=== PATIENT | female | born 1980 | race Caucasian/White ===

== ENCOUNTER 2016-12-24 11:53 | Day surgery (SDC) | payer OTHER ==
[2016-12-24] MEDS ORDERED: NAPR220C4 PO (12:50)
[2016-12-24 13:05] LABS: NEG OBC UR NEG; POS OBC UR POS
[2016-12-24] MEDS ORDERED: INSULIN REGULAR 100 UNIT/ML 10ML VIAL. SQ ONE (13:30)
[2016-12-24] MEDS ORDERED: IV RINGERS,LACTATED 1000ML 1,000 ML IV ONE (13:30)
[2016-12-24] MEDS ORDERED: INSULIN ASPART 100 UNIT/ML 10ML VIAL. SQ ONE ×2 (13:45→17:30)
[2016-12-24] MEDS ORDERED: SUCCINYLCHOLINE 200 MG/10 ML VIAL. ONE (15:33)
[2016-12-24] MEDS ORDERED: fentaNYL PF VIAL 100 MCG/2 ML VIAL ONE (15:33)
[2016-12-24] MEDS ORDERED: PROPOFOL 20 ML IV ONE ×2 (15:34→16:06)
[2016-12-24] MEDS ORDERED: LIDOCAINE 2% PF Vial for OR 5 ML VIAL. ONE (15:34)
[2016-12-24] MEDS ORDERED: ONDANSETRON PF 4 MG/2 ML VIAL. ONE (15:34)
[2016-12-24] MEDS ORDERED: FAMOTIDINE 20 MG/2 ML VIAL ONE (15:34)
[2016-12-24] MEDS ORDERED: DEXAMETHASONE SOD PHOS 20 MG/5 ML VIAL. ONE (16:04)
[2016-12-24] MEDS ORDERED: DESFLURANE 16 TO 30 MINUTES. IH ONE (16:06)
--- NOTE | 2016-12-24 16:11 | PDOC ---
BRIEF OPERATIVE NOTE Date: Dec 24, 2016 Pre-Op Diagnosis Right thigh abscess Post-Op Diagnosis Same Procedure Performed I&D Surgeon Celio Anesthesia Type: General Blood Loss 30ml Specimens Obtained Cultures Findings as above Complications None CELIA KARIMI MD Dec 24, 2016 16:11
--- NOTE | 2016-12-24 16:12 | DISCH ---
DISCHARGE INSTRUCTIONS Condition on Discharge Condition on Discharge: Stable Activity After Discharge Activity Instructions for Disc: Activity as tolerated Other activity instructions: Remove packing in 24 hours Diet after Discharge Diet after Discharge: Regular Contacting the DRTerrence after DC Call your doctor for: If your condition worsens Follow-Up Follow up with: Dr Karimi in 1 week CELIA KARIMI MD Dec 24, 2016 16:12
[2016-12-24] MEDS ORDERED: IV RINGERS,LACTATED 1000ML 1,000 ML IV SCH (16:32)
[2016-12-24] MEDS ORDERED: fentaNYL PF VIAL 100 MCG/2 ML VIAL IV PRN ×2 (16:45)
[2016-12-24] MEDS ORDERED: LIDOCAINE 1% 1 ML SYRINGE. ID PRN (16:45)
[2016-12-24] MEDS ORDERED: ONDANSETRON PF 4 MG/2 ML VIAL. IV PRN (16:45)
[2016-12-24] MEDS ORDERED: HYDROmorphone 2 MG/ML VIAL IV PRN (16:45)
[2016-12-24] MEDS ORDERED: MORPHINE SULFATE 2 MG/ML DISP.SYRIN. IV PRN (16:45)
[2016-12-24] MEDS ORDERED: PROCHLORPERAZINE 10 MG/2 ML VIAL. IV PRN (16:45)
[2016-12-24] MEDS ORDERED: SULF1TAB24 PO (17:33)
[2016-12-24] MEDS ORDERED: HYDR-971 PO (17:34)
[2016-12-24 18:15] VITALS: BP 165/97
[2016-12-24] MEDS ORDERED: HYDROcodone/APAP 5/325MG 1 TAB TABLET ONE (18:29)
[2016-12-24] MEDS ORDERED: HYDROcodone/APAP 5/325MG 1 TAB TABLET PO ONE (18:30)
--- NOTE | 2016-12-25 06:44 | OP ---
DATE OF SURGERY: 12/24/2016 PREOPERATIVE DIAGNOSIS: Right thigh abscess. POSTOPERATIVE DIAGNOSIS: Right thigh abscess. PROCEDURE: Incision and drainage of right abscess. SURGEON: Mani Karimi M.D. INDICATIONS: The patient is a 36-year-old morbidly obese female with an abscess of her right thigh. Procedure of incision and drainage was explained to the patient in detail. Risks, benefits were also discussed including bleeding, infection. Alternatives of this procedure were also discussed with the patient who seemed to understand and gave verbal and written consent to have the procedure performed. DESCRIPTION OF PROCEDURE: The patient was taken to the operating room and placed in the supine position. General anesthesia was initiated. Once the patient was asleep and intubated, she was placed in low lithotomy and her groin and right thigh were prepped and draped in usual sterile fashion using Betadine scrub and solution. An area over the abscess was incised with a 10 blade scalpel, was carried down through subcutaneous tissue down to the abscess cavity. There was only about 10 mL of purulent material expressed. It was not very deep. There was one little area that traveled about 2 cm deeper. This all was irrigated with 500 mL of normal saline and then packed with half inch iodoform Nu Gauze. The patient was awakened, extubated in the operating room, taken to recovery in stable condition. All sponge, instrument counts listed as correct. Estimated blood loss 30 mL. MANI KARIMI MD DR: KARLIE/janice JOB#: [id number] / [id number]
== END 2016-12-24 18:45 | disposition home or self-care (01) ==
LOC: SURG 11:53
PROVIDERS: ATTEND Surgery
DX: L02.415 Cutaneous abscess of right lower limb (principal); I10 Essential (primary) hypertension; E66.9 Obesity, unspecified; M19.90 Unspecified osteoarthritis, unspecified site; E11.9 Type 2 diabetes mellitus without complications; Z68.37 Body mass index [BMI] 37.0-37.9, adult; Z86.39 Personal history of other endocrine, nutritional and metabolic disease
CPT/HCPCS: 27301; 81025; 82962; 87205; J0330; J0690; J1100; J1815; J2001; J2405; J2704; J3010; J7120; S0028

== ENCOUNTER 2016-12-27 18:33 | Inpatient (IN) | payer OTHER ==
[~2016-12-27] VITALS: Ht 162.6 cm; Wt 168.0 kg
[~2016-12-27 18:33] MED LIST: HYDR-971 PO; NAPR220C4 PO; SULF1TAB24 PO
[2016-12-27 20:03] LABS: BASO # 0.2 x10^3/uL (0.0-0.2); BASO % 1 % (0-3); EOS % 2 % (0-3); HEMATOCRIT 32.3 % (36.0-47.0); HEMOGLOBIN 10.3 g/dL (12.0-15.5); LYMPH % 27 % (24-48); MEAN CORPUSCULAR HEMOGLOBIN 25 pg (25-35); MEAN CORPUSCULAR HGB CONC 32 g/dL (31-37); MEAN CORPUSCULAR VOLUME 80 fL (79-100); MONO % 6 % (0-9); NEUT % 64 % (31-73); PLATELET COUNT 418 x10^3/uL (140-400); RED BLOOD COUNT 4.04 x10^6/uL (3.50-5.40); RED CELL DISTRIBUTION WIDTH 15.3 % (11.5-14.5); WHITE BLOOD COUNT 14.7 x10^3/uL (4.0-11.0)
[2016-12-27 20:10] LABS: CALCIUM 8.6 mg/dL (8.5-10.1); CREATININE 0.9 mg/dL (0.6-1.0); GFR 70.5; POTASSIUM 3.9 mmol/L (3.5-5.1)
[2016-12-27 20:12] LABS: C-REACTIVE PROTEIN 84.5 mg/L (0-3.3)
[2016-12-27] MEDS ORDERED: IV NORMAL SALINE 500ML BAG 500 ML IV ONE (20:15)
[2016-12-27] MEDS ORDERED: MORPHINE SULFATE 2 MG/ML DISP.SYRIN. IV PRN (20:15)
[2016-12-27] MEDS ORDERED: ONDANSETRON PF 4 MG/2 ML VIAL. IV PRN (20:15)
--- NOTE | 2016-12-27 20:42 | PHYS DOC ---
Past Medical History Past Medical History: Diabetes-Type II, Hypertension Past Surgical History: Other Additional Past Surgical Histo: unknown "female part" surgery; I&D Alcohol Use: Occasionally Drug Use: None Adult General Chief Complaint Chief Complaint: ABSCESS HPI HPI 36-year-old female presenting to the emergency department with a abscess with drainage in the right groin. She recently had Dr. Pickens do an incision and drainage on the patient with packing which was recently removed in a different abscess in a similar location. Intermittent throbbing and without alleviating or exacerbating factors. Review of systems is negative for chest pain shortness of breath fevers chills nausea vomiting. All other review of systems is negative unless otherwise noted in history of present illness. ED course: 36-year-old female presenting to the emergency department with development of an additional abscess near recently drained abscess that was extremely large on physical examination. Given the depth of the abscess and the size of the wound, I deferred drainage to our surgeon who I placed consultation. The patient also got antibiotics and was subsequent admitted the hospital for further evaluation workup and care. Review of Systems Review of Systems SEE ABOVE. Current Medications Current Medications Current Medications Medications (Trade) Dose Ordered Sig/Maya Start Time Stop Time Status Last Admin Dose Admin Morphine Sulfate 2 mg PRN Q2HR PRN 12/27/16 20:15 12/28/16 20:14 Ondansetron HCl (Zofran) 4 mg PRN Q8HRS PRN 12/27/16 20:15 12/28/16 20:14 Sodium Chloride 1,000 ml @ 100 mls/hr Q10H 12/27/16 20:13 12/28/16 20:12 Vancomycin HCl (Vanco Per Pharmacy) 1 each PRN DAILY PRN 12/27/16 20:15 UNV Vancomycin HCl 2 gm/Sodium Chloride 500 ml @ 250 mls/hr 1X ONCE 12/27/16 21:00 12/27/16 22:59 Allergies Allergies Allergies Coded Allergies Type Severity Reaction Last Updated Verified No Known Drug Allergies 12/24/16 No Physical Exam Physical Exam SEE ABOVE Constitutional: Well developed, well nourished, no acute distress, non-toxic appearance. [] HENT: Normocephalic, atraumatic, bilateral external ears normal, oropharynx moist, no oral exudates, nose normal. [] Eyes: PERRLA, EOMI, conjunctiva normal, no discharge. [] Neck: Normal range of motion, no tenderness, supple, no stridor. [] Cardiovascular:Heart rate regular rhythm, no murmur [] Lungs & Thorax: Bilateral breath sounds clear to auscultation [] Abdomen: Bowel sounds normal, soft, no tenderness, no masses, no pulsatile masses. [] Skin: SEE ABOVE. Draining wound in the right groin with large fluctuant mass. Back: No tenderness, no CVA tenderness. [] Extremities: No tenderness, no cyanosis, no clubbing, ROM intact, no edema. [] Neurologic: Alert and oriented X 3, normal motor function, normal sensory function, no focal deficits noted. [] Psychologic: Affect normal, judgement normal, mood normal. [] Current Patient Data Vital Signs Vital Signs Date Time Temp Pulse Resp B/P (MAP) Pulse Ox O2 Delivery O2 Flow Rate FiO2 12/27/16 18:57 98.5 109 20 158/92 (114) 97 Room Air 98.5 Lab Values Laboratory Tests Test 12/27/16 19:15 White Blood Count 14.7 x10^3/uL (4.0-11.0) H Red Blood Count 4.04 x10^6/uL (3.50-5.40) Hemoglobin 10.3 g/dL (12.0-15.5) L Hematocrit 32.3 % (36.0-47.0) L Mean Corpuscular Volume 80 fL (79-100) Mean Corpuscular Hemoglobin 25 pg (25-35) Mean Corpuscular Hemoglobin Concent 32 g/dL (31-37) Red Cell Distribution Width 15.3 % (11.5-14.5) H Platelet Count 418 x10^3/uL (140-400) H Neutrophils (%) (Auto) 64 % (31-73) Lymphocytes (%) (Auto) 27 % (24-48) Monocytes (%) (Auto) 6 % (0-9) Eosinophils (%) (Auto) 2 % (0-3) Basophils (%) (Auto) 1 % (0-3) Neutrophils # (Auto) 9.4 x10^3uL (1.8-7.7) H Lymphocytes # (Auto) 4.0 x10^3/uL (1.0-4.8) Monocytes # (Auto) 0.8 x10^3/uL (0.0-1.1) Eosinophils # (Auto) 0.3 x10^3/uL (0.0-0.7) Basophils # (Auto) 0.2 x10^3/uL (0.0-0.2) Sodium Level 134 mmol/L (136-145) L Potassium Level 3.9 mmol/L (3.5-5.1) Chloride Level 100 mmol/L (98-107) Carbon Dioxide Level 26 mmol/L (21-32) Anion Gap 8 (6-14) Blood Urea Nitrogen 11 mg/dL (7-20) Creatinine 0.9 mg/dL (0.6-1.0) Estimated GFR (Cockcroft-Gault) 70.5 Glucose Level 369 mg/dL (70-99) H Calcium Level 8.6 mg/dL (8.5-10.1) C-Reactive Protein, Quantitative 84.5 mg/L (0-3.3) H Laboratory Tests 12/27/16 19:15 Laboratory Tests 12/27/16 19:15 EKG EKG [] Radiology/Procedures Radiology/Procedures [] Course & Med Decision Making Course & Med Decision Making Pertinent Labs and Imaging studies reviewed. (See chart for details) [] Dragon Disclaimer Dragon Disclaimer This electronic medical record was generated, in whole or in part, using a voice recognition dictation system. Departure Departure Impression: Primary Impression: Abscess of right thigh Disposition: ADMITTED INPATIENT Admitting Physician: Shay Lam Condition: STABLE Referrals: TRACE DONATO (PCP) ADORE MATTHEW MD Dec 27, 2016 20:42
[2016-12-27] MEDS: IV NORMAL SALINE 1000ML BAG 1,000 ML IV SCH (20:44)
[2016-12-27 21:00] VITALS: BP 139/80
[2016-12-27] MEDS ORDERED: VANCOMYCIN 2 GM in IV NORMAL SALINE 500ML BAG 500 ML IV ONE (21:00)
[2016-12-27] MEDS ORDERED: INSULIN REGULAR 100 UNIT/ML 10ML VIAL. IV ONE (21:15)
[2016-12-27 21:30] VITALS: BP 139/80
[2016-12-27] MEDS ORDERED: IPRATRPIUM/ALBUTEROL 0.5/2.5MG 3 ML NEBU. NEB ONE (21:30)
[2016-12-27] MEDS: VANCOMYCIN PER PHARMACY MC PRN (21:37)
[2016-12-27 23:00] VITALS: BP 144/84
[2016-12-27] MEDS ORDERED: DEXTROSE 50% 25 GM / 50ML DISP.SYRIN. IV PRN (23:00)
[2016-12-27] MEDS ORDERED: INSULIN ASPART 300 UNITS/3 ML INSULN.PEN SQ ONE (23:15)
--- NOTE | 2016-12-27 23:48 | HP ---
ADMIT DATE: 12/27/2016 CHIEF COMPLAINT: Thigh abscess. HISTORY OF PRESENT ILLNESS: The patient is a pleasant 36-year-old obese lady, who has a thigh abscess. She actually had drainage few days ago. Now, it is a little more proximal to larger ____ size. I have discussed the case with the ER physician. We are going to start IV antibiotics and consult General Surgery. PAST MEDICAL HISTORY: Hypertension, diabetes, obesity, I and D of the previous thigh abscess some type of "female surgery." ALLERGIES: None. FAMILY HISTORY: Diabetes. SOCIAL HISTORY: She does not drink, smoke or take drugs. MEDICATIONS: Reviewed, please refer to the MRAD. REVIEW OF SYSTEMS: GENERAL: No history of weight change, weakness or fevers. SKIN: No bruising, hair changes or rashes. The patient complains of left thigh abscess. EYES: No blurred, double or loss of vision. NOSE AND THROAT: No history of nosebleeds, hoarseness or sore throat. HEART: No history of palpitations, chest pain or shortness of breath on exertion. LUNGS: Denies cough, hemoptysis, wheezing or shortness of breath. GASTROINTESTINAL: Denies changes in appetite, nausea, vomiting, diarrhea or constipation. GENITOURINARY: No history of frequency, urgency, hesitancy or nocturia. NEUROLOGIC: Denies history of numbness, tingling, tremor or weakness. PSYCHIATRIC: No history of panic, anxiety or depression. ENDOCRINE: No history of heat or cold intolerance, polyuria or polydipsia. EXTREMITIES: Denies muscle weakness, joint pain, pain on walking or stiffness. PHYSICAL EXAMINATION: VITAL SIGNS: Temperature afebrile, pulse 68, respirations 21, blood pressure 113/80. GENERAL: She is alert, cooperative, ____. HEART: Normal S1, S2. LUNGS: Clear. ABDOMEN: Soft, positive bowel sounds, obese. EXTREMITIES: The right thigh has a large abscess with some drains. ENDOCRINE: No thyromegaly. LYMPHATICS: No cervical nodes. HEMATOPOIETIC: No bruising. LABORATORY DATA: White count 15, hemoglobin 10, platelets 418. Electrolytes: Sodium 134, potassium 3.9, chloride 100, bicarbonate 26, BUN 11, creatinine 0.9, glucose 369, C-reactive protein 85. ASSESSMENT AND PLAN: Recurrent thigh abscess with leukocytosis and hyponatremia. The patient has been admitted. We will start IV antibiotics. Consult ID. Consult General Surgery, wound care, PT, OT. Resume home medicines and frequent labs. JENI DIEGO DO DR: ANDERSON/janice JOB#: [id number] / [id number]
[2016-12-28] VITALS (8 sets, daily range): BP systolic 130–157; BP diastolic 72–99
[2016-12-28 03:57] LABS: BASO % 0 % (0-3); EOS % 2 % (0-3); HEMATOCRIT 30.1 % (36.0-47.0); HEMOGLOBIN 9.5 g/dL (12.0-15.5); LYMPH # 3.1 x10^3/uL (1.0-4.8); LYMPH % 24 % (24-48); MEAN CORPUSCULAR HEMOGLOBIN 25 pg (25-35); MEAN CORPUSCULAR HGB CONC 32 g/dL (31-37); MEAN CORPUSCULAR VOLUME 81 fL (79-100); MONO % 7 % (0-9); NEUT % 66 % (31-73); PLATELET COUNT 395 x10^3/uL (140-400); RED BLOOD COUNT 3.73 x10^6/uL (3.50-5.40); RED CELL DISTRIBUTION WIDTH 15.4 % (11.5-14.5); WHITE BLOOD COUNT 12.5 x10^3/uL (4.0-11.0)
[2016-12-28 04:40] LABS: CALCIUM 8.6 mg/dL (8.5-10.1); CREATININE 0.8 mg/dL (0.6-1.0); GFR 80.7; POTASSIUM 3.9 mmol/L (3.5-5.1)
[2016-12-28] MEDS ORDERED: VANCOMYCIN 1.75 GM in IV NORMAL SALINE 500ML BAG 500 ML IV SCH (05:00)
[2016-12-28] MEDS: IV NORMAL SALINE 1000ML BAG 1,000 ML IV SCH ×2 (05:37→12:07)
--- NOTE | 2016-12-28 05:39 | ACF ---
Admission Forms Criteria WOUND COMPLICATIONS Clinical Indications for Inpatient Care (Place 'X' for any and all applicable criteria): Ongoing inpatient care may be indicated for wound complications with ANY ONE of the following (1) (15): [X]I. Infection with ANY ONE of the following(32)(33): [ ]a) Temperature greater than 38.5 C (101.3 F) [ ]b) Evidence of tissue necrosis [ ]c) Erythema diameter expanding around wound despite treatment [ ]d) Mental status changes [ ]e) Dehydration [ ]f) Bacteremia [X]g) Hemodynamic instability [ ]h) Suspected necrotizing fasciitis [ ]i) Rapidly spreading lesions [ ]j) High-risk location (eg, perineum, sternum, orbit) [ ]k) High-risk coexisting clinical condition as indicated by ANY ONE of the following: [ ]i) Poorly controlled diabetes [ ]ii) Cirrhosis [ ]iii) Renal failure [ ]iv) Neutropenia [ ] v) Asplenia [ ]vi) Immunosuppression (eg, AIDS, chronic corticosteroid use) [ ]viii) Other high-risk medical comorbidities [ ] II. Dehiscence requiring frequent monitoring or immediate treatment [ ] III. Hematoma with ANY ONE of the following: [ ]a) Hemodynamic instability or acute anemia due to rapid development of hematoma [ ]b) Neck hematoma causing airway compression [ ]c) Retroperitoneal hematoma [ ]d) Uncontrolled coagulopathy [ ]IV. Seroma with evidence of secondary infection and requirement for IV antibiotics [D](31) [ ]V. Pain that cannot be managed at lower level of care Extended stay beyond goal length of stay for primary condition may be needed until ALL of the following are present(1)(33)(34): [ ]a) Afebrile or fever resolving [ ]b) Hemodynamic stability [ ]c) Pain resolving [ ]d) Wound closed, continuity adequately restored, or wound manageable at lower level of care [ ]e) No drain needed or drain care manageable at lower level of care [ ]f) Wound hematoma or seroma resolving [ ]g) Antibiotics not needed or regimen manageable at lower level of care(38) [ ]h) Dressing care manageable at lower level of care [ ]i) Coagulopathy absent, resolved, or treatable at lower level of care [ ]j) Medical comorbidities resolved or treatable at lower level of care The original [facility] [employer] content created by [employer] has been revised. The portions of the content which have been revised are identified through the use of italic text or in bold, and [employer] Bloom has neither reviewed nor approved the modified material. All other unmodified content is copyright [facility] [employer]. Please see references footnoted in the original [facility] edition 2016 Admission Criteria Met?: Yes MAURA WALKER Dec 28, 2016 05:39
[2016-12-28] MEDS: INSULIN ASPART 300 UNITS/3 ML INSULN.PEN SQ SCH ×3 (08:12→17:08)
--- NOTE | 2016-12-28 08:20 | PDOC2 ---
DILLON CHAND [employer] 12/28/16 0820: CONSULT Date of Consult Date of Consult DATE: 12/28/16 TIME: 08:11 Reason for Consult Reason for Consult: abscess Referring Physician Referring Physician: ER Identification/Chief Complaint Chief Complaint groin abscess Problems: Source Source: Chart review, Patient History of Present Illness Reason for Visit: Underwent I&D of right groin abscess 12/[address] Pickens, she continued to have worsening swelling and foul drainage from wound. Came to ER for evaluation. Past Medical History Cardiovascular: HTN Endocrine: Diabetes Past Surgical History Past Surgical History: Other (I&D, female surgery) Family History Family History: Diabetes Social History No ALCOHOL: rare Drugs: None Lives: Alone Current Medications Current Medications Current Medications Sodium Chloride 500 ml @ 500 mls/hr 1X ONCE IV Last administered on 19:57; Start 12/27/16 at 20:15; Stop 12/27/16 at 21:14; Status DC Vancomycin HCl (Vanco Per Pharmacy) 1 each PRN DAILY PRN MC SEE COMMENTS Last administered on 12/27/16 21:37; Start 12/27/16 at 20:15 Ondansetron HCl (Zofran) 4 mg PRN Q8HRS PRN IV NAUSEA/VOMITING; Start 12/27/16 at 20:15; Stop 12/28/16 at 20:14 Morphine Sulfate 2 mg PRN Q2HR PRN IV PAIN; Start 12/27/16 at 20:15; Stop 12/28 at 20:14 Sodium Chloride 1,000 ml @ 100 mls/hr Q10H IV Last administered on 12/28/16 05:37; Start 12/27/16 at 20:13; Stop 12/28/16 at 20:12 Vancomycin HCl 2 gm/Sodium Chloride 500 ml @ 250 mls/hr 1X ONCE IV Last administered on 12/27/16 20:33; Start 12/27/16 at 21:00; Stop 12/27/16 at 22:59 ; Status DC Insulin Human Regular (NovoLIN R VIAL) 10 unit 1X ONCE IV ; Start 12/27/16 at 21:15; Stop 12/27/16 at 22:58; Status DC Albuterol/ Ipratropium (Duoneb) 3 ml 1X ONCE NEB Last administered on 7/28/ 17at 21:57; Start 12/27/16 at 21:30; Stop 12/27/16 at 21:31; Status DC Vancomycin HCl 1 each 1X ONCE MC ; Start 12/28/16 at 20:30; Stop 12/28/16 at 20 :31 Vancomycin HCl 1.75 gm/Sodium Chloride 500 ml @ 250 mls/hr Q8H IV Last administered on 12/28/16 05:36; Start 12/28/16 at 05:00 Insulin Aspart (NovoLOG) 0-9 UNITS TIDWMEALS SQ ; Start 12/28/16 at 08:00 Dextrose (Dextrose 50%-Water Syringe) 12.5 gm PRN Q15MIN PRN IV SEE COMMENTS; Start 12/27/16 at 23:00 Insulin Aspart (NovoLOG) 10 units 1X ONCE SQ Last administered on 12/27/16 23 :34; Start 12/27/16 at 23:15; Stop 12/27/16 at 23:16; Status DC Active Scripts Active Reported [place] 5-325 Tablet (Acetaminophen/Hydrocodone Bitart) 1 Each Tablet 1-2 Tab PO PRN Q4-6HRS PRN LAST DOSE GIVEN: DATE: TIME: Bactrim Ds Tablet (Sulfamethoxazole/Trimethoprim) 1 Each Tablet 1 Tab PO BID Aleve (Naproxen Sodium) 220 Mg Capsule 440 Mg PO BID Allergies Allergies: Coded Allergies: No Known Drug Allergies (Unverified , 12/24/16) ROS General: No: Chills, Other (fevers) PSYCHOLOGICAL ROS: No: Anxiety, Depression Eyes: No Blurry vision, No Double vision HEENT: No: Heacaches, Sore Throat Hematological and Lymphatic: No: Bleeding Problems, Blood Clots Respiratory: No: Cough, Shortness of breath Cardiovascular: No Chest Pain, No Palpitations Gastrointestinal: No Nausea, No Vomiting Genitourinary: No Dysuria, No Hematuria Musculoskeletal: No Joint Pain, No Joint Swelling Neurological: No Impaired Coord/balance, No Numbness/Tingling Skin: Yes Other (see hpi) Physical Exam General: Alert, Oriented X3, Cooperative, No acute distress HEENT: PERRLA, Mucous membr. moist/pink Lungs: Clear to auscultation, Normal air movement Heart: Normal S1, Normal S2, No murmurs, Other (tachy) Abdomen: Soft, No tenderness Extremities: No clubbing, No cyanosis Skin: Other (Right thigh with induration, odor, large central bulla with fluctaunce, , some purulent drainage, early skin changes to central area for necrosis ) Neuro: Normal speech, Sensation intact Psych/Mental Status: Mental status NL, Mood NL MUSCULOSKELETAL: No deformity, No swelling Vitals VITALS Vital Signs Date Time Temp Pulse Resp B/P (MAP) Pulse Ox O2 Delivery O2 Flow Rate FiO2 12/28/16 07:27 98.5 92 20 156/99 (118) 97 Room Air 98.5 Labs Labs Laboratory Tests Test 12/27/16 19:15 12/28/16 03:05 12/28/16 07:10 White Blood Count 14.7 x10^3/uL (4.0-11.0) 12.5 x10^3/uL (4.0-11.0) Red Blood Count 4.04 x10^6/uL (3.50-5.40) 3.73 x10^6/uL (3.50-5.40) Hemoglobin 10.3 g/dL (12.0-15.5) 9.5 g/dL (12.0-15.5) Hematocrit 32.3 % (36.0-47.0) 30.1 % (36.0-47.0) Mean Corpuscular Volume 80 fL (79-100) 81 fL (79-100) Mean Corpuscular Hemoglobin 25 pg (25-35) 25 pg (25-35) Mean Corpuscular Hemoglobin Concent 32 g/dL (31-37) 32 g/dL (31-37) Red Cell Distribution Width 15.3 % (11.5-14.5) 15.4 % (11.5-14.5) Platelet Count 418 x10^3/uL (140-400) 395 x10^3/uL (140-400) Neutrophils (%) (Auto) 64 % (31-73) 66 % (31-73) Lymphocytes (%) (Auto) 27 % (24-48) 24 % (24-48) Monocytes (%) (Auto) 6 % (0-9) 7 % (0-9) Eosinophils (%) (Auto) 2 % (0-3) 2 % (0-3) Basophils (%) (Auto) 1 % (0-3) 0 % (0-3) Neutrophils # (Auto) 9.4 x10^3uL (1.8-7.7) 8.3 x10^3uL (1.8-7.7) Lymphocytes # (Auto) 4.0 x10^3/uL (1.0-4.8) 3.1 x10^3/uL (1.0-4.8) Monocytes # (Auto) 0.8 x10^3/uL (0.0-1.1) 0.9 x10^3/uL (0.0-1.1) Eosinophils # (Auto) 0.3 x10^3/uL (0.0-0.7) 0.2 x10^3/uL (0.0-0.7) Basophils # (Auto) 0.2 x10^3/uL (0.0-0.2) 0.0 x10^3/uL (0.0-0.2) Erythrocyte Sedimentation Rate 70 (0-25) Sodium Level 134 mmol/L (136-145) 137 mmol/L (136-145) Potassium Level 3.9 mmol/L (3.5-5.1) 3.9 mmol/L (3.5-5.1) Chloride Level 100 mmol/L (98-107) 101 mmol/L (98-107) Carbon Dioxide Level 26 mmol/L (21-32) 26 mmol/L (21-32) Anion Gap 8 (6-14) 10 (6-14) Blood Urea Nitrogen 11 mg/dL (7-20) 9 mg/dL (7-20) Creatinine 0.9 mg/dL (0.6-1.0) 0.8 mg/dL (0.6-1.0) Estimated GFR (Cockcroft-Gault) 70.5 80.7 Glucose Level 369 mg/dL (70-99) 361 mg/dL (70-99) Calcium Level 8.6 mg/dL (8.5-10.1) 8.6 mg/dL (8.5-10.1) C-Reactive Protein, Quantitative 84.5 mg/L (0-3.3) Glucose (Fingerstick) 328 mg/dL (70-99) Laboratory Tests Test 12/27/16 19:15 12/28/16 03:05 12/28/16 07:10 White Blood Count 14.7 x10^3/uL (4.0-11.0) 12.5 x10^3/uL (4.0-11.0) Red Blood Count 4.04 x10^6/uL (3.50-5.40) 3.73 x10^6/uL (3.50-5.40) Hemoglobin 10.3 g/dL (12.0-15.5) 9.5 g/dL (12.0-15.5) Hematocrit 32.3 % (36.0-47.0) 30.1 % (36.0-47.0) Mean Corpuscular Volume 80 fL (79-100) 81 fL (79-100) Mean Corpuscular Hemoglobin 25 pg (25-35) 25 pg (25-35) Mean Corpuscular Hemoglobin Concent 32 g/dL (31-37) 32 g/dL (31-37) Red Cell Distribution Width 15.3 % (11.5-14.5) 15.4 % (11.5-14.5) Platelet Count 418 x10^3/uL (140-400) 395 x10^3/uL (140-400) Neutrophils (%) (Auto) 64 % (31-73) 66 % (31-73) Lymphocytes (%) (Auto) 27 % (24-48) 24 % (24-48) Monocytes (%) (Auto) 6 % (0-9) 7 % (0-9) Eosinophils (%) (Auto) 2 % (0-3) 2 % (0-3) Basophils (%) (Auto) 1 % (0-3) 0 % (0-3) Neutrophils # (Auto) 9.4 x10^3uL (1.8-7.7) 8.3 x10^3uL (1.8-7.7) Lymphocytes # (Auto) 4.0 x10^3/uL (1.0-4.8) 3.1 x10^3/uL (1.0-4.8) Monocytes # (Auto) 0.8 x10^3/uL (0.0-1.1) 0.9 x10^3/uL (0.0-1.1) Eosinophils # (Auto) 0.3 x10^3/uL (0.0-0.7) 0.2 x10^3/uL (0.0-0.7) Basophils # (Auto) 0.2 x10^3/uL (0.0-0.2) 0.0 x10^3/uL (0.0-0.2) Erythrocyte Sedimentation Rate 70 (0-25) Sodium Level 134 mmol/L (136-145) 137 mmol/L (136-145) Potassium Level 3.9 mmol/L (3.5-5.1) 3.9 mmol/L (3.5-5.1) Chloride Level 100 mmol/L (98-107) 101 mmol/L (98-107) Carbon Dioxide Level 26 mmol/L (21-32) 26 mmol/L (21-32) Anion Gap 8 (6-14) 10 (6-14) Blood Urea Nitrogen 11 mg/dL (7-20) 9 mg/dL (7-20) Creatinine 0.9 mg/dL (0.6-1.0) 0.8 mg/dL (0.6-1.0) Estimated GFR (Cockcroft-Gault) 70.5 80.7 Glucose Level 369 mg/dL (70-99) 361 mg/dL (70-99) Calcium Level 8.6 mg/dL (8.5-10.1) 8.6 mg/dL (8.5-10.1) C-Reactive Protein, Quantitative 84.5 mg/L (0-3.3) Glucose (Fingerstick) 328 mg/dL (70-99) Assessment/Plan Assessment/Plan large abscess to right groin, s/p I&D 4 days DM, HTN morbid obesity with BMI 61.8 continue IV abx NPO, plan I&D today with SHANNAN Vega MD 12/28/16 9427: CONSULT Allergies Allergies: Coded Allergies: No Known Drug Allergies (Unverified , 12/24/16) Assessment/Plan Assessment/Plan Pt seen and examined. Agree with Ms. Chand's note Pt with recurrent large necrotic abscess TO OR for I and D R/B/A d/w pt complicated by severe obesity Thanks for consult! DILLON CHAND APRN Dec 28, 2016 08:20 SHANNAN FERRIS MD Dec 28, 2016 18:55
[2016-12-28] MEDS: VANCOMYCIN PER PHARMACY MC PRN (08:57)
--- NOTE | 2016-12-28 12:05 | PDOC ---
Infectious Disease Note Vital Sign Vital Signs Vital Signs Date Time Temp Pulse Resp B/P (MAP) Pulse Ox O2 Delivery O2 Flow Rate FiO2 12/28/16 11:00 98.2 90 20 145/82 (103) 97 Room Air 98.2 Labs Lab Laboratory Tests Test 12/27/16 19:15 12/28/16 03:05 12/28/16 07:10 12/28/16 10:19 White Blood Count 14.7 x10^3/uL (4.0-11.0) 12.5 x10^3/uL (4.0-11.0) Red Blood Count 4.04 x10^6/uL (3.50-5.40) 3.73 x10^6/uL (3.50-5.40) Hemoglobin 10.3 g/dL (12.0-15.5) 9.5 g/dL (12.0-15.5) Hematocrit 32.3 % (36.0-47.0) 30.1 % (36.0-47.0) Mean Corpuscular Volume 80 fL (79-100) 81 fL (79-100) Mean Corpuscular Hemoglobin 25 pg (25-35) 25 pg (25-35) Mean Corpuscular Hemoglobin Concent 32 g/dL (31-37) 32 g/dL (31-37) Red Cell Distribution Width 15.3 % (11.5-14.5) 15.4 % (11.5-14.5) Platelet Count 418 x10^3/uL (140-400) 395 x10^3/uL (140-400) Neutrophils (%) (Auto) 64 % (31-73) 66 % (31-73) Lymphocytes (%) (Auto) 27 % (24-48) 24 % (24-48) Monocytes (%) (Auto) 6 % (0-9) 7 % (0-9) Eosinophils (%) (Auto) 2 % (0-3) 2 % (0-3) Basophils (%) (Auto) 1 % (0-3) 0 % (0-3) Neutrophils # (Auto) 9.4 x10^3uL (1.8-7.7) 8.3 x10^3uL (1.8-7.7) Lymphocytes # (Auto) 4.0 x10^3/uL (1.0-4.8) 3.1 x10^3/uL (1.0-4.8) Monocytes # (Auto) 0.8 x10^3/uL (0.0-1.1) 0.9 x10^3/uL (0.0-1.1) Eosinophils # (Auto) 0.3 x10^3/uL (0.0-0.7) 0.2 x10^3/uL (0.0-0.7) Basophils # (Auto) 0.2 x10^3/uL (0.0-0.2) 0.0 x10^3/uL (0.0-0.2) Erythrocyte Sedimentation Rate 70 (0-25) Sodium Level 134 mmol/L (136-145) 137 mmol/L (136-145) Potassium Level 3.9 mmol/L (3.5-5.1) 3.9 mmol/L (3.5-5.1) Chloride Level 100 mmol/L (98-107) 101 mmol/L (98-107) Carbon Dioxide Level 26 mmol/L (21-32) 26 mmol/L (21-32) Anion Gap 8 (6-14) 10 (6-14) Blood Urea Nitrogen 11 mg/dL (7-20) 9 mg/dL (7-20) Creatinine 0.9 mg/dL (0.6-1.0) 0.8 mg/dL (0.6-1.0) Estimated GFR (Cockcroft-Gault) 70.5 80.7 Glucose Level 369 mg/dL (70-99) 361 mg/dL (70-99) Calcium Level 8.6 mg/dL (8.5-10.1) 8.6 mg/dL (8.5-10.1) C-Reactive Protein, Quantitative 84.5 mg/L (0-3.3) Glucose (Fingerstick) 328 mg/dL (70-99) 298 mg/dL (70-99) Objective Assessment Worsening abscess right groin/thigh area -s/p I and D on 12/24. group B Strep, anaerobic cx still pending. Leukocytosis -h/o pre-op steroids on 12/24 Diabetes Super morbid obesity, BMI 62 Plan Plan of Care vanc will broaden antibiotics to cover for anaerobes as well I and D scheduled for later today, intra-op cultures would be appreciated Monitor labs Thank you [id number].. [id number] Attending Co-Sign The patient was seen and interviewed as well as examined at the bedside. The chart was reviewed. The case was discussed. Agree with the plan of care. KATERINA BARCENAS APRN Dec 28, 2016 12:05 LEFTY JEWELL MD Dec 28, 2016 12:32
[2016-12-28] MEDS: PIPERACILLIN/TAZOBACTAM 3.375 GM in IV NORMAL SALINE 50ML 50 ML IV SCH ×3 (12:07→23:29)
--- NOTE | 2016-12-28 13:36 | PDOC ---
PROGRESS NOTES Chief Complaint Chief Complaint Abscess of right thigh History of Present Illness History of Present Illness Pt resting in bed NAD Complains of hunger pains but otherwise content Vitals Vitals Vital Signs Date Time Temp Pulse Resp B/P (MAP) Pulse Ox O2 Delivery O2 Flow Rate FiO2 12/28/16 11:00 98.2 90 20 145/82 (103) 97 Room Air 98.2 Physical Exam General: Alert, Oriented X3, Cooperative, No acute distress Heart: Regular rate, Normal S1, Normal S2, No murmurs Lungs: Clear, Other (No RRW) Abdomen: Soft, No tenderness Extremities: No clubbing, No cyanosis Skin: No rashes, Other (Right thigh with induration, odor, large central bulla with fluctaunce, , ssome purulent drainage, early skin changes to central area for necrosis ) Labs LABS Laboratory Tests Test 12/27/16 19:15 12/28/16 03:05 12/28/16 07:10 12/28/16 10:19 White Blood Count 14.7 x10^3/uL (4.0-11.0) 12.5 x10^3/uL (4.0-11.0) Red Blood Count 4.04 x10^6/uL (3.50-5.40) 3.73 x10^6/uL (3.50-5.40) Hemoglobin 10.3 g/dL (12.0-15.5) 9.5 g/dL (12.0-15.5) Hematocrit 32.3 % (36.0-47.0) 30.1 % (36.0-47.0) Mean Corpuscular Volume 80 fL (79-100) 81 fL (79-100) Mean Corpuscular Hemoglobin 25 pg (25-35) 25 pg (25-35) Mean Corpuscular Hemoglobin Concent 32 g/dL (31-37) 32 g/dL (31-37) Red Cell Distribution Width 15.3 % (11.5-14.5) 15.4 % (11.5-14.5) Platelet Count 418 x10^3/uL (140-400) 395 x10^3/uL (140-400) Neutrophils (%) (Auto) 64 % (31-73) 66 % (31-73) Lymphocytes (%) (Auto) 27 % (24-48) 24 % (24-48) Monocytes (%) (Auto) 6 % (0-9) 7 % (0-9) Eosinophils (%) (Auto) 2 % (0-3) 2 % (0-3) Basophils (%) (Auto) 1 % (0-3) 0 % (0-3) Neutrophils # (Auto) 9.4 x10^3uL (1.8-7.7) 8.3 x10^3uL (1.8-7.7) Lymphocytes # (Auto) 4.0 x10^3/uL (1.0-4.8) 3.1 x10^3/uL (1.0-4.8) Monocytes # (Auto) 0.8 x10^3/uL (0.0-1.1) 0.9 x10^3/uL (0.0-1.1) Eosinophils # (Auto) 0.3 x10^3/uL (0.0-0.7) 0.2 x10^3/uL (0.0-0.7) Basophils # (Auto) 0.2 x10^3/uL (0.0-0.2) 0.0 x10^3/uL (0.0-0.2) Erythrocyte Sedimentation Rate 70 (0-25) Sodium Level 134 mmol/L (136-145) 137 mmol/L (136-145) Potassium Level 3.9 mmol/L (3.5-5.1) 3.9 mmol/L (3.5-5.1) Chloride Level 100 mmol/L (98-107) 101 mmol/L (98-107) Carbon Dioxide Level 26 mmol/L (21-32) 26 mmol/L (21-32) Anion Gap 8 (6-14) 10 (6-14) Blood Urea Nitrogen 11 mg/dL (7-20) 9 mg/dL (7-20) Creatinine 0.9 mg/dL (0.6-1.0) 0.8 mg/dL (0.6-1.0) Estimated GFR (Cockcroft-Gault) 70.5 80.7 Glucose Level 369 mg/dL (70-99) 361 mg/dL (70-99) Calcium Level 8.6 mg/dL (8.5-10.1) 8.6 mg/dL (8.5-10.1) C-Reactive Protein, Quantitative 84.5 mg/L (0-3.3) Glucose (Fingerstick) 328 mg/dL (70-99) 298 mg/dL (70-99) Review of Systems Review of Systems Weakness Assessment and Plan Assessmemt and Plan Abscess of right thigh Plan: Awaiting surgery input Recheck labs PT/OT Continue home meds Continue wound care Continue antibiotics Problems: Comment Review of Relevant I have reviewed the following items mauricio (where applicable) has been applied. Labs Laboratory Tests Test 12/27/16 19:15 12/28/16 03:05 12/28/16 07:10 12/28/16 10:19 White Blood Count 14.7 x10^3/uL (4.0-11.0) 12.5 x10^3/uL (4.0-11.0) Red Blood Count 4.04 x10^6/uL (3.50-5.40) 3.73 x10^6/uL (3.50-5.40) Hemoglobin 10.3 g/dL (12.0-15.5) 9.5 g/dL (12.0-15.5) Hematocrit 32.3 % (36.0-47.0) 30.1 % (36.0-47.0) Mean Corpuscular Volume 80 fL (79-100) 81 fL (79-100) Mean Corpuscular Hemoglobin 25 pg (25-35) 25 pg (25-35) Mean Corpuscular Hemoglobin Concent 32 g/dL (31-37) 32 g/dL (31-37) Red Cell Distribution Width 15.3 % (11.5-14.5) 15.4 % (11.5-14.5) Platelet Count 418 x10^3/uL (140-400) 395 x10^3/uL (140-400) Neutrophils (%) (Auto) 64 % (31-73) 66 % (31-73) Lymphocytes (%) (Auto) 27 % (24-48) 24 % (24-48) Monocytes (%) (Auto) 6 % (0-9) 7 % (0-9) Eosinophils (%) (Auto) 2 % (0-3) 2 % (0-3) Basophils (%) (Auto) 1 % (0-3) 0 % (0-3) Neutrophils # (Auto) 9.4 x10^3uL (1.8-7.7) 8.3 x10^3uL (1.8-7.7) Lymphocytes # (Auto) 4.0 x10^3/uL (1.0-4.8) 3.1 x10^3/uL (1.0-4.8) Monocytes # (Auto) 0.8 x10^3/uL (0.0-1.1) 0.9 x10^3/uL (0.0-1.1) Eosinophils # (Auto) 0.3 x10^3/uL (0.0-0.7) 0.2 x10^3/uL (0.0-0.7) Basophils # (Auto) 0.2 x10^3/uL (0.0-0.2) 0.0 x10^3/uL (0.0-0.2) Erythrocyte Sedimentation Rate 70 (0-25) Sodium Level 134 mmol/L (136-145) 137 mmol/L (136-145) Potassium Level 3.9 mmol/L (3.5-5.1) 3.9 mmol/L (3.5-5.1) Chloride Level 100 mmol/L (98-107) 101 mmol/L (98-107) Carbon Dioxide Level 26 mmol/L (21-32) 26 mmol/L (21-32) Anion Gap 8 (6-14) 10 (6-14) Blood Urea Nitrogen 11 mg/dL (7-20) 9 mg/dL (7-20) Creatinine 0.9 mg/dL (0.6-1.0) 0.8 mg/dL (0.6-1.0) Estimated GFR (Cockcroft-Gault) 70.5 80.7 Glucose Level 369 mg/dL (70-99) 361 mg/dL (70-99) Calcium Level 8.6 mg/dL (8.5-10.1) 8.6 mg/dL (8.5-10.1) C-Reactive Protein, Quantitative 84.5 mg/L (0-3.3) Glucose (Fingerstick) 328 mg/dL (70-99) 298 mg/dL (70-99) Laboratory Tests Test 7/28/17 19:15 12/28/16 03:05 12/28/16 07:10 12/28/16 10:19 White Blood Count 14.7 x10^3/uL (4.0-11.0) 12.5 x10^3/uL (4.0-11.0) Red Blood Count 4.04 x10^6/uL (3.50-5.40) 3.73 x10^6/uL (3.50-5.40) Hemoglobin 10.3 g/dL (12.0-15.5) 9.5 g/dL (12.0-15.5) Hematocrit 32.3 % (36.0-47.0) 30.1 % (36.0-47.0) Mean Corpuscular Volume 80 fL (79-100) 81 fL (79-100) Mean Corpuscular Hemoglobin 25 pg (25-35) 25 pg (25-35) Mean Corpuscular Hemoglobin Concent 32 g/dL (31-37) 32 g/dL (31-37) Red Cell Distribution Width 15.3 % (11.5-14.5) 15.4 % (11.5-14.5) Platelet Count 418 x10^3/uL (140-400) 395 x10^3/uL (140-400) Neutrophils (%) (Auto) 64 % (31-73) 66 % (31-73) Lymphocytes (%) (Auto) 27 % (24-48) 24 % (24-48) Monocytes (%) (Auto) 6 % (0-9) 7 % (0-9) Eosinophils (%) (Auto) 2 % (0-3) 2 % (0-3) Basophils (%) (Auto) 1 % (0-3) 0 % (0-3) Neutrophils # (Auto) 9.4 x10^3uL (1.8-7.7) 8.3 x10^3uL (1.8-7.7) Lymphocytes # (Auto) 4.0 x10^3/uL (1.0-4.8) 3.1 x10^3/uL (1.0-4.8) Monocytes # (Auto) 0.8 x10^3/uL (0.0-1.1) 0.9 x10^3/uL (0.0-1.1) Eosinophils # (Auto) 0.3 x10^3/uL (0.0-0.7) 0.2 x10^3/uL (0.0-0.7) Basophils # (Auto) 0.2 x10^3/uL (0.0-0.2) 0.0 x10^3/uL (0.0-0.2) Erythrocyte Sedimentation Rate 70 (0-25) Sodium Level 134 mmol/L (136-145) 137 mmol/L (136-145) Potassium Level 3.9 mmol/L (3.5-5.1) 3.9 mmol/L (3.5-5.1) Chloride Level 100 mmol/L (98-107) 101 mmol/L (98-107) Carbon Dioxide Level 26 mmol/L (21-32) 26 mmol/L (21-32) Anion Gap 8 (6-14) 10 (6-14) Blood Urea Nitrogen 11 mg/dL (7-20) 9 mg/dL (7-20) Creatinine 0.9 mg/dL (0.6-1.0) 0.8 mg/dL (0.6-1.0) Estimated GFR (Cockcroft-Gault) 70.5 80.7 Glucose Level 369 mg/dL (70-99) 361 mg/dL (70-99) Calcium Level 8.6 mg/dL (8.5-10.1) 8.6 mg/dL (8.5-10.1) C-Reactive Protein, Quantitative 84.5 mg/L (0-3.3) Glucose (Fingerstick) 328 mg/dL (70-99) 298 mg/dL (70-99) Medications Current Medications Sodium Chloride 500 ml @ 500 mls/hr 1X ONCE IV Last administered on 19:57; Start 12/27/16 at 20:15; Stop 12/27/16 at 21:14; Status DC Vancomycin HCl (Vanco Per Pharmacy) 1 each PRN DAILY PRN MC SEE COMMENTS Last administered on 12/28/16 08:57; Start 12/27/16 at 20:15; Stop 12/28/16 at 12:34 ; Status DC Ondansetron HCl (Zofran) 4 mg PRN Q8HRS PRN IV NAUSEA/VOMITING; Start 12/27/16 at 20:15; Stop 12/28/16 at 20:14 Morphine Sulfate 2 mg PRN Q2HR PRN IV PAIN; Start 12/27/16 at 20:15; Stop 12/28 at 20:14 Sodium Chloride 1,000 ml @ 100 mls/hr Q10H IV Last administered on 12/28/16 12:07; Start 12/27/16 at 20:13; Stop 12/28/16 at 20:12 Vancomycin HCl 2 gm/Sodium Chloride 500 ml @ 250 mls/hr 1X ONCE IV Last administered on 12/27/16 20:33; Start 12/27/16 at 21:00; Stop 12/27/16 at 22:59 ; Status DC Insulin Human Regular (NovoLIN R VIAL) 10 unit 1X ONCE IV ; Start 12/27/16 at 21:15; Stop 12/27/16 at 22:58; Status DC Albuterol/ Ipratropium (Duoneb) 3 ml 1X ONCE NEB Last administered on 21:57; Start 12/27/16 at 21:30; Stop 12/27/16 at 21:31; Status DC Vancomycin HCl 1 each 1X ONCE MC ; Start 12/28/16 at 20:30; Stop 12/28/16 at 20 :30; Status DC Vancomycin HCl 1.75 gm/Sodium Chloride 500 ml @ 250 mls/hr Q8H IV Last administered on 12/28/16 05:36; Start 12/28/16 at 05:00; Stop 12/28/16 at 12:33 ; Status DC Insulin Aspart (NovoLOG) 0-9 UNITS TIDWMEALS SQ Last administered on 12/28/16 12:13; Start 12/28/16 at 08:00 Dextrose (Dextrose 50%-Water Syringe) 12.5 gm PRN Q15MIN PRN IV SEE COMMENTS; Start 12/27/16 at 23:00 Insulin Aspart (NovoLOG) 10 units 1X ONCE SQ Last administered on 12/27/16 23 :34; Start 12/27/16 at 23:15; Stop 12/27/16 at 23:16; Status DC Piperacillin Sod/ Tazobactam Sod 3.375 gm/Sodium Chloride 50 ml @ 100 mls/hr Q6HRS IV Last administered on 12/28/16t 12:07; Start 12/28/16 at 12:00 Active Scripts Active Reported Melba 5-325 Tablet (Acetaminophen/Hydrocodone Bitart) 1 Each Tablet 1-2 Tab PO PRN Q4-6HRS PRN LAST DOSE GIVEN: DATE: TIME: Bactrim Ds Tablet (Sulfamethoxazole/Trimethoprim) 1 Each Tablet 1 Tab PO BID Aleve (Naproxen Sodium) 220 Mg Capsule 440 Mg PO BID Vitals/I & O Vital Sign - Last 24 Hours 12/27/16 12/27/16 12/27/16 12/27/16 18:57 20:00 20:16 20:56 Temp 98.5 98.5 Pulse 109 102 100 103 Resp 20 20 20 18 B/P (MAP) 158/92 (114) 173/85 (114) 172/82 (112) 176/80 (112) Pulse Ox 97 98 98 97 O2 Delivery Room Air Room Air Room Air Room Air 12/27/16 12/27/16 12/27/16 12/27/16 21:00 21:30 21:58 23:00 Temp 98.3 98.3 98.4 98.3 98.3 98.4 Pulse 104 104 107 Resp 20 20 20 B/P (MAP) 139/80 (99) 139/80 (99) 144/84 (104) Pulse Ox 94 94 96 95 O2 Delivery Room Air Room Air Room Air Room Air 12/28/16 12/28/16 12/28/16 12/28/16 01:22 03:30 07:27 08:00 Temp 98.5 98.5 Pulse 92 Resp 20 B/P (MAP) 156/99 (118) Pulse Ox 97 O2 Delivery Room Air Room Air Room Air Room Air 12/28/16 11:00 Temp 98.2 98.2 Pulse 90 Resp 20 B/P (MAP) 145/82 (103) Pulse Ox 97 O2 Delivery Room Air Intake and Output 12/27/16 12/27/16 12/28/16 15:00 23:00 07:00 Intake Total 500 ml 1440 ml Output Total 1 ml Balance 500 ml 1439 ml JENI DIEGO III DO Dec 28, 2016 13:36
[2016-12-28] MEDS ORDERED: LIDOCAINE 2% PF Vial for OR 5 ML VIAL. ONE (18:37)
[2016-12-28] MEDS ORDERED: DEXAMETHASONE SOD PHOS 20 MG/5 ML VIAL. ONE (18:37)
[2016-12-28] MEDS ORDERED: fentaNYL PF VIAL 100 MCG/2 ML VIAL ONE (18:37)
[2016-12-28] MEDS ORDERED: ONDANSETRON PF 4 MG/2 ML VIAL. ONE (18:37)
[2016-12-28] MEDS ORDERED: SEVOFLURANE 16 TO 30 MINUTES. IH ONE (18:37)
[2016-12-28] MEDS ORDERED: PROPOFOL 20 ML IV ONE (18:37)
[2016-12-28] MEDS ORDERED: HYDROmorphone 2 MG/ML VIAL IV PRN (19:00)
[2016-12-28] MEDS ORDERED: fentaNYL PF VIAL 100 MCG/2 ML VIAL IV PRN (19:00)
[2016-12-28] MEDS ORDERED: ONDANSETRON PF 4 MG/2 ML VIAL. IV PRN ×2 (19:00→19:30)
[2016-12-28] MEDS ORDERED: LIDOCAINE 1% 1 ML SYRINGE. ID PRN (19:00)
[2016-12-28] MEDS ORDERED: IV RINGERS,LACTATED 1000ML 1,000 ML IV SCH (19:00)
[2016-12-28] MEDS ORDERED: PROCHLORPERAZINE 10 MG/2 ML VIAL. IV PRN (19:00)
[2016-12-28] MEDS ORDERED: 0.9 % SODIUM CHLORIDE 10 ML DISP.SYRIN. IV PRN (19:30)
--- NOTE | 2016-12-28 19:38 | PDOC4 ---
OPERATIVE NOTE Date: Date: Dec 28, 2016 Pre-Op Diagnosis: Right groin abscess Post-Op Diagnosis: same Procedure Performed: Excisional debridement of right groin and incision and drainage Surgeon: Tristan Ferris Anesthesia Type: General Blood Loss: minimal Specimans Obtained: right groin necrotic skin Findings: Necrotic right skin 3 cm diameter with large underlying, foul smelling abscess Complications: none Operative Note: After obtaining informed consent, patient was induced under anesthetic. Patient was prepped in the usual fashion over the right groin area. Previous area of I and D with foul smelling purulent drainage. 3 cm area of necrotic skin tissue noted laterally. An excisional debridement was performed of this area using cautery. This was sent to pathology. Cultures were obtained. This went down to the adipose tissue of the thigh. Large amount of necrotic tissue was debrided. A janet drain was brought through the previous wound and the excised area and secured with a 3 0 nylon. The wound was packed with iodoform gauze. Sterile dressing was placed over this. Patient tolerated procedure well and sent to PACU in a stable condition. All counts were correct, there were no immediate complications. TRISTAN FERRIS MD Dec 28, 2016 19:38
[2016-12-28] MEDS ORDERED: INSULIN ASPART 100 UNIT/ML 10ML VIAL. SQ ONE ×2 (19:39→19:45)
[2016-12-28] MEDS ORDERED: MORPHINE SULFATE 2 MG/ML DISP.SYRIN. ONE (19:39)
[2016-12-28] MEDS: MORPHINE SULFATE 2 MG/ML DISP.SYRIN. IV PRN ×2 (19:40→19:50)
[2016-12-28] MEDS: fentaNYL PF VIAL 100 MCG/2 ML VIAL IV PRN ×2 (19:50→20:04)
--- NOTE | 2016-12-28 20:34 | CONS ---
DATE OF CONSULTATION: 12/28/2016 REFERRING PHYSICIAN: Dr. Lam. REASON FOR CONSULTATION: Right groin abscess. HISTORY OF PRESENT ILLNESS: This patient is a 36-year-old -[place] female with a body mass index of 61.8 and a 2-year history of diabetes who presented with worsening right groin/thigh swelling, pain, drainage and odor. She was previously hospitalized on the for abscess, status post I and D. At that time, a culture grew beta hemolytic Streptococcus group B with anaerobic cultures still pending. She was discharged home on Bactrim. The patient is scheduled to return to the OR later today for additional debridement. PAST MEDICAL HISTORY: Diabetes mellitus, morbid obesity, asthma, arthritis and hypertension. PAST SURGICAL HISTORY: Recent I and D of right groin abscess, 12/24/2016. 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 FAMILY HISTORY: Positive for diabetes. SOCIAL HISTORY: The patient is employed. She is single. Nonsmoker. ALLERGIES: No known drug allergies. MEDICATIONS: Vancomycin. Other medications are available and have been reviewed on the JUL. Also of note, she did receive a dose of dexamethasone preop on 12/24/2016 and home medications include Bactrim. REVIEW OF SYSTEMS: The patient denies fevers, chills or sweats. Denies headache, nasal/sinus congestion or sore throat. Denies cough, shortness of air or wheezing. Denies chest pain, palpitations or swelling. Denies nausea or vomiting. She had loose stool earlier today. Denies cramping or bloating. Denies a rash. PHYSICAL EXAMINATION: GENERAL: An overweight -[place] female lying in bed in no apparent distress. VITAL SIGNS: Afebrile. Stable. HEENT: Oral cavity, pharynx is pink and moist. LUNGS: Clear. HEART: Normal S1, S2. ABDOMEN: Obese, bowel sounds are present, soft, nontender. EXTREMITIES: No gross edema or cyanosis. SKIN: Without rash. Right groin/medial thigh area well indurated and tender with a necrotic appearing center with a strong malodor and sanguineous drainage. NEUROLOGIC: Alert and oriented x 3. LABORATORY DATA: Today's WBC 12.5 and 14.7 on admission, hemoglobin 9.5, platelet count 395,000. Sed rate 70, electrolytes are unremarkable. Creatinine 0.8, BUN 9, glucose 361. CRP 84.5. IMPRESSION: 1. Worsening abscess of right groin/thigh area with history of group B strep and anaerobic cultures pending from 12/24/2016. 2. Leukocytosis. 3. Diabetes. 4. Super morbid obesity with BMI 62. PLAN: We will broaden antibiotics to cover for anaerobes as well. I and D scheduled for later today. Intraoperative cultures would be appreciated. Monitor laboratory values. Supportive care. Thank you, Dr. Lam for asking us to participate in this patient's care, should you have further questions or concerns, please call. LEFTY JEWELL MD DR: JEB/janice JOB#: [id number] / [id number] [place]
[2016-12-28] MEDS: SENNOSIDES/DOCUSATE 8.6/50MG TABLET. PO SCH (21:26)
[2016-12-28] MEDS: HYDROcodone/APAP 5/325MG 1 TAB TABLET PO PRN (21:30)
[2016-12-29] VITALS (7 sets, daily range): BP systolic 126–156; BP diastolic 75–91
[2016-12-29] MEDS: HYDROcodone/APAP 5/325MG 1 TAB TABLET PO PRN ×3 (03:58→23:23)
--- NOTE | 2016-12-29 05:43 | CONS ---
DATE OF CONSULTATION: ADDENDUM HISTORY OF PRESENT ILLNESS: The patient is scheduled to return to the OR later today for additional debridement. PAST MEDICAL HISTORY: Diabetes mellitus, morbid obesity, asthma, arthritis and hypertension. PAST SURGICAL HISTORY: Recent I and D of right groin abscess, 12/24/2016. 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 FAMILY HISTORY: Positive for diabetes. SOCIAL HISTORY: The patient is employed. She is single. Nonsmoker. ALLERGIES: No known drug allergies. MEDICATIONS: Vancomycin. Other medications are available and have been reviewed on the JUL. Also of note, she did receive a dose of dexamethasone preop on 12/24/2016 and was discharged home on Bactrim. REVIEW OF SYSTEMS: The patient denies fevers, chills or sweats. Denies headache, nasal/sinus congestion or sore throat. Denies cough, shortness of air or wheezing. Denies chest pain, palpitations or swelling. Denies nausea or vomiting. She had loose stool earlier today. Denies cramping or bloating. Denies a rash. PHYSICAL EXAMINATION: GENERAL: An overweight -[place] female lying in bed in no apparent distress. VITAL SIGNS: Afebrile. Stable. HEENT: Oral cavity, pharynx is pink and moist. LUNGS: Clear. HEART: Normal S1, S2. ABDOMEN: Obese, bowel sounds are present, soft, nontender. EXTREMITIES: No gross edema or cyanosis. SKIN: Without rash. Right groin/medial thigh area well inundated and tender with a necrotic appearing center. A strong malodor and sanguineous drainage. NEUROLOGIC: Alert and oriented x 3. LABORATORY DATA: Today's WBC 12.5 and 14.7 on admission, hemoglobin 9.5, platelet count 395,000. Sed rate 70, electrolytes are unremarkable. Creatinine 0.8, BUN 9, glucose 361. CRP 84.5. IMPRESSION: 1. Worsening abscess of right groin/thigh area with history of group B strep and anaerobic cultures pending from 12/24/2016. 2. Leukocytosis. 3. Diabetes. 4. Super morbid obesity with BMI 62. PLAN: We will broaden antibiotics to cover for anaerobes as well. I and D scheduled for later today. Intraoperative cultures would be appreciated. Monitor laboratory values. Supportive care. Thank you, Dr. Lam for asking us to participate in this patient's care, should you have further questions or concerns, please call. LEFTY JEWELL MD DR: ASHLEY/janice JOB#: [id number] / [id number]
[2016-12-29] MEDS: PIPERACILLIN/TAZOBACTAM 3.375 GM in IV NORMAL SALINE 50ML 50 ML IV SCH ×4 (06:28→23:17)
[2016-12-29] MEDS: SENNOSIDES/DOCUSATE 8.6/50MG TABLET. PO SCH ×2 (08:17→20:34)
[2016-12-29] MEDS: INSULIN ASPART 300 UNITS/3 ML INSULN.PEN SQ SCH ×4 (08:20→22:17)
--- NOTE | 2016-12-29 10:00 | PDOC ---
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 Vital Signs Vital Signs Date Time Temp Pulse Resp B/P (MAP) Pulse Ox O2 Delivery O2 Flow Rate FiO2 12/29/16 08:16 18 97 Nasal Cannula 2.0 12/29/16 07:00 98.0 92 142/91 (108) 98.0 I&O Intake and Output 12/29/16 07:00 Intake Total 1400 ml Balance 1400 ml Intake Oral 400 ml IV Total 1000 ml # Voids 5 General: Alert, Oriented X3, Cooperative, No acute distress Skin: Other (right groin dressing in place, drainage, less induration ) Labs Laboratory Tests Test 12/27/16 19:15 12/28/16 03:05 12/28/16 07:10 12/28/16 10:19 White Blood Count 14.7 x10^3/uL (4.0-11.0) 12.5 x10^3/uL (4.0-11.0) Red Blood Count 4.04 x10^6/uL (3.50-5.40) 3.73 x10^6/uL (3.50-5.40) Hemoglobin 10.3 g/dL (12.0-15.5) 9.5 g/dL (12.0-15.5) Hematocrit 32.3 % (36.0-47.0) 30.1 % (36.0-47.0) Mean Corpuscular Volume 80 fL (79-100) 81 fL (79-100) Mean Corpuscular Hemoglobin 25 pg (25-35) 25 pg (25-35) Mean Corpuscular Hemoglobin Concent 32 g/dL (31-37) 32 g/dL (31-37) Red Cell Distribution Width 15.3 % (11.5-14.5) 15.4 % (11.5-14.5) Platelet Count 418 x10^3/uL (140-400) 395 x10^3/uL (140-400) Neutrophils (%) (Auto) 64 % (31-73) 66 % (31-73) Lymphocytes (%) (Auto) 27 % (24-48) 24 % (24-48) Monocytes (%) (Auto) 6 % (0-9) 7 % (0-9) Eosinophils (%) (Auto) 2 % (0-3) 2 % (0-3) Basophils (%) (Auto) 1 % (0-3) 0 % (0-3) Neutrophils # (Auto) 9.4 x10^3uL (1.8-7.7) 8.3 x10^3uL (1.8-7.7) Lymphocytes # (Auto) 4.0 x10^3/uL (1.0-4.8) 3.1 x10^3/uL (1.0-4.8) Monocytes # (Auto) 0.8 x10^3/uL (0.0-1.1) 0.9 x10^3/uL (0.0-1.1) Eosinophils # (Auto) 0.3 x10^3/uL (0.0-0.7) 0.2 x10^3/uL (0.0-0.7) Basophils # (Auto) 0.2 x10^3/uL (0.0-0.2) 0.0 x10^3/uL (0.0-0.2) Erythrocyte Sedimentation Rate 70 (0-25) Sodium Level 134 mmol/L (136-145) 137 mmol/L (136-145) Potassium Level 3.9 mmol/L (3.5-5.1) 3.9 mmol/L (3.5-5.1) Chloride Level 100 mmol/L (98-107) 101 mmol/L (98-107) Carbon Dioxide Level 26 mmol/L (21-32) 26 mmol/L (21-32) Anion Gap 8 (6-14) 10 (6-14) Blood Urea Nitrogen 11 mg/dL (7-20) 9 mg/dL (7-20) Creatinine 0.9 mg/dL (0.6-1.0) 0.8 mg/dL (0.6-1.0) Estimated GFR (Cockcroft-Gault) 70.5 80.7 Glucose Level 369 mg/dL (70-99) 361 mg/dL (70-99) Calcium Level 8.6 mg/dL (8.5-10.1) 8.6 mg/dL (8.5-10.1) C-Reactive Protein, Quantitative 84.5 mg/L (0-3.3) Glucose (Fingerstick) 328 mg/dL (70-99) 298 mg/dL (70-99) Test 12/28/16 16:59 12/28/16 19:32 12/28/16 21:37 Glucose (Fingerstick) 261 mg/dL (70-99) 231 mg/dL (70-99) 240 mg/dL (70-99) Laboratory Tests Test 12/28/16 10:19 12/28/16 16:59 12/28/16 19:32 12/28/16 21:37 Glucose (Fingerstick) 298 mg/dL (70-99) 261 mg/dL (70-99) 231 mg/dL (70-99) 240 mg/dL (70-99) Assessment/Plan s/p I&D, debridement drain in place, wound care, abx 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
--- NOTE | 2016-12-29 10:32 | PDOC ---
Infectious Disease Note Subjective Subjective s/p I and D Comfortable at the moment ROS ROS GEN: Denies fevers, chills, sweats V: Denies chest pain RESP: Denies shortness of air, cough GI: Denies n/v/d Vital Sign Vital Signs Vital Signs Date Time Temp Pulse Resp B/P (MAP) Pulse Ox O2 Delivery O2 Flow Rate FiO2 12/29/16 09:16 18 97 Room Air 12/29/16 08:16 2.0 12/29/16 07:00 98.0 92 142/91 (108) 98.0 Physical Exam PHYSICAL EXAM GENERAL: Propped up in bed, relaxed appearance LUNGS: Clear. HEART: Normal S1, S2. ABDOMEN: Obese, bowel sounds are present, soft, nontender. EXTREMITIES: No gross edema or cyanosis. SKIN: Without rash. Right groin/medial thigh area with less induration and odor, dressing/packing intact. NEUROLOGIC: Alert and oriented x 3. Peripheral IV: ok Labs Lab Laboratory Tests Test 12/28/16 16:59 12/28/16 19:32 12/28/16 21:37 Glucose (Fingerstick) 261 mg/dL (70-99) 231 mg/dL (70-99) 240 mg/dL (70-99) Objective Assessment Worsening abscess right groin/thigh area. s/p excisional debridement of necrotic tissue down to adipose tissue of right groin, and I and D, 12/28. Intra- op cultures pending -s/p previous I and D on 12/24. group B Strep, anaerobic cx still pending. Leukocytosis -h/o pre-op steroids on 12/24 Diabetes Super morbid obesity, BMI 62 Plan Plan of Care vanc and Zosyn. Intra-op cultures pending Supportive care Attending Co-Sign The patient was seen and interviewed as well as examined at the bedside. The chart was reviewed. The case was discussed. Agree with the plan of care. KATERINA BARCENAS APRN Dec 29, 2016 10:32 LEFTY JEWELL MD Dec 29, 2016 11:41
--- NOTE | 2016-12-29 13:58 | PDOC ---
PROGRESS NOTES Chief Complaint Chief Complaint Abscess of right thigh History of Present Illness History of Present Illness Pt resting in bed NAD Family at bedside Vitals Vitals Vital Signs Date Time Temp Pulse Resp B/P (MAP) Pulse Ox O2 Delivery O2 Flow Rate FiO2 12/29/16 10:45 97.9 96 20 134/86 (102) 97 Room Air 97.9 12/29/16 08:16 2.0 Physical Exam General: Alert, Oriented X3, Cooperative, No acute distress Heart: Regular rate, Normal S1, Normal S2, No murmurs Lungs: Clear, Other (No RRW) Abdomen: Normal bowel sounds, Soft, No tenderness Extremities: No clubbing, No cyanosis Skin: No rashes, Other (right groin dressing in place, drainage, less induration ) Labs LABS Laboratory Tests Test 12/28/16 16:59 12/28/16 19:32 12/28/16 21:37 12/29/16 07:06 Glucose (Fingerstick) 261 mg/dL (70-99) 231 mg/dL (70-99) 240 mg/dL (70-99) 319 mg/dL (70-99) Test 12/29/16 10:22 Glucose (Fingerstick) 331 mg/dL (70-99) Review of Systems Review of Systems GEN: Denies fevers, chills, sweats CV: Denies chest pain RESP: Denies shortness of breath, cough GI: Denies n/v MSK: Complains of weakness Assessment and Plan Assessmemt and Plan Abscess of right thigh Plan: -Monitor excision and debridement site -Continue wound care -DC lovenox due to heavy vaginal bleeding -Discussed DVT prophylaxis with patient and family member -Start SCD -Appreciate subspecialist input 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 Labs Laboratory Tests Test 12/27/16 19:15 12/28/16 03:05 12/28/16 07:10 12/28/16 10:19 White Blood Count 14.7 x10^3/uL (4.0-11.0) 12.5 x10^3/uL (4.0-11.0) Red Blood Count 4.04 x10^6/uL (3.50-5.40) 3.73 x10^6/uL (3.50-5.40) Hemoglobin 10.3 g/dL (12.0-15.5) 9.5 g/dL (12.0-15.5) Hematocrit 32.3 % (36.0-47.0) 30.1 % (36.0-47.0) Mean Corpuscular Volume 80 fL (79-100) 81 fL (79-100) Mean Corpuscular Hemoglobin 25 pg (25-35) 25 pg (25-35) Mean Corpuscular Hemoglobin Concent 32 g/dL (31-37) 32 g/dL (31-37) Red Cell Distribution Width 15.3 % (11.5-14.5) 15.4 % (11.5-14.5) Platelet Count 418 x10^3/uL (140-400) 395 x10^3/uL (140-400) Neutrophils (%) (Auto) 64 % (31-73) 66 % (31-73) Lymphocytes (%) (Auto) 27 % (24-48) 24 % (24-48) Monocytes (%) (Auto) 6 % (0-9) 7 % (0-9) Eosinophils (%) (Auto) 2 % (0-3) 2 % (0-3) Basophils (%) (Auto) 1 % (0-3) 0 % (0-3) Neutrophils # (Auto) 9.4 x10^3uL (1.8-7.7) 8.3 x10^3uL (1.8-7.7) Lymphocytes # (Auto) 4.0 x10^3/uL (1.0-4.8) 3.1 x10^3/uL (1.0-4.8) Monocytes # (Auto) 0.8 x10^3/uL (0.0-1.1) 0.9 x10^3/uL (0.0-1.1) Eosinophils # (Auto) 0.3 x10^3/uL (0.0-0.7) 0.2 x10^3/uL (0.0-0.7) Basophils # (Auto) 0.2 x10^3/uL (0.0-0.2) 0.0 x10^3/uL (0.0-0.2) Erythrocyte Sedimentation Rate 70 (0-25) Sodium Level 134 mmol/L (136-145) 137 mmol/L (136-145) Potassium Level 3.9 mmol/L (3.5-5.1) 3.9 mmol/L (3.5-5.1) Chloride Level 100 mmol/L (98-107) 101 mmol/L (98-107) Carbon Dioxide Level 26 mmol/L (21-32) 26 mmol/L (21-32) Anion Gap 8 (6-14) 10 (6-14) Blood Urea Nitrogen 11 mg/dL (7-20) 9 mg/dL (7-20) Creatinine 0.9 mg/dL (0.6-1.0) 0.8 mg/dL (0.6-1.0) Estimated GFR (Cockcroft-Gault) 70.5 80.7 Glucose Level 369 mg/dL (70-99) 361 mg/dL (70-99) Calcium Level 8.6 mg/dL (8.5-10.1) 8.6 mg/dL (8.5-10.1) C-Reactive Protein, Quantitative 84.5 mg/L (0-3.3) Glucose (Fingerstick) 328 mg/dL (70-99) 298 mg/dL (70-99) Test 12/28/16 16:59 12/28/16 19:32 12/28/16 21:37 12/29/16 07:06 Glucose (Fingerstick) 261 mg/dL (70-99) 231 mg/dL (70-99) 240 mg/dL (70-99) 319 mg/dL (70-99) Test 12/29/16 10:22 Glucose (Fingerstick) 331 mg/dL (70-99) Laboratory Tests Test 12/28/16 16:59 12/28/16 19:32 12/28/16 21:37 12/29/16 07:06 Glucose (Fingerstick) 261 mg/dL (70-99) 231 mg/dL (70-99) 240 mg/dL (70-99) 319 mg/dL (70-99) Test 12/29/16 10:22 Glucose (Fingerstick) 331 mg/dL (70-99) Microbiology 12/28/16 Gram Stain - Final, Complete Medications Current Medications Sodium Chloride 500 ml @ 500 mls/hr 1X ONCE IV Last administered on 19:57; Start 12/27/16 at 20:15; Stop 12/27/16 at 21:14; Status DC Vancomycin HCl (Vanco Per Pharmacy) 1 each PRN DAILY PRN MC SEE COMMENTS Last administered on 12/28/16 08:57; Start 12/27/16 at 20:15; Stop 12/28/16 at 12:34 ; Status DC Ondansetron HCl (Zofran) 4 mg PRN Q8HRS PRN IV NAUSEA/VOMITING; Start 12/27/16 at 20:15; Stop 12/28/16 at 19:42; Status DC Morphine Sulfate 2 mg PRN Q2HR PRN IV PAIN; Start 12/27/16 at 20:15; Stop 12/28 at 20:14; Status DC Sodium Chloride 1,000 ml @ 100 mls/hr Q10H IV Last administered on 12/28/16 12:07; Start 12/27/16 at 20:13; Stop 12/28/16 at 20:12; Status DC Vancomycin HCl 2 gm/Sodium Chloride 500 ml @ 250 mls/hr 1X ONCE IV Last administered on 12/27/16 20:33; Start 12/27/16 at 21:00; Stop 12/27/16 at 22:59 ; Status DC Insulin Human Regular (NovoLIN R VIAL) 10 unit 1X ONCE IV ; Start 12/27/16 at 21:15; Stop 12/27/16 at 22:58; Status DC Albuterol/ Ipratropium (Duoneb) 3 ml 1X ONCE NEB Last administered on 21:57; Start 12/27/16 at 21:30; Stop 12/27/16 at 21:31; Status DC Vancomycin HCl 1 each 1X ONCE MC ; Start 12/28/16 at 20:30; Stop 12/28/16 at 20 :30; Status DC Vancomycin HCl 1.75 gm/Sodium Chloride 500 ml @ 250 mls/hr Q8H IV Last administered on 12/28/16 05:36; Start 12/28/16 at 05:00; Stop 12/28/16 at 12:33 ; Status DC Insulin Aspart (NovoLOG) 0-9 UNITS TIDWMEALS SQ Last administered on 12/29/16 12:33; Start 12/28/16 at 08:00 Dextrose (Dextrose 50%-Water Syringe) 12.5 gm PRN Q15MIN PRN IV SEE COMMENTS; Start 12/27/16 at 23:00 Insulin Aspart (NovoLOG) 10 units 1X ONCE SQ Last administered on 12/27/16 23 :34; Start 12/27/16 at 23:15; Stop 12/27/16 at 23:16; Status DC Piperacillin Sod/ Tazobactam Sod 3.375 gm/Sodium Chloride 50 ml @ 100 mls/hr Q6HRS IV Last administered on 12/29/16 12:30; Start 12/28/16 at 12:00 Fentanyl Citrate (Fentanyl 2ml Vial) 100 mcg STK-MED ONCE .ROUTE ; Start at 18:37; Stop 12/28/16 at 18:38; Status DC Sevoflurane (Ultane) 15 ml STK-MED ONCE IH ; Start 12/28/16 at 18:37; Stop 12/28 at 18:38; Status DC Propofol 20 ml @ As Directed STK-MED ONCE IV ; Start 12/28/16 at 18:37; Stop at 18:38; Status DC Dexamethasone Sodium Phosphate (Decadron) 20 mg STK-MED ONCE .ROUTE ; Start at 18:37; Stop 12/28/16 at 18:38; Status DC Ondansetron HCl (Zofran) 4 mg STK-MED ONCE .ROUTE ; Start 12/28/16 at 18:37; Stop 12/28/16 at 18:38; Status DC Lidocaine HCl (Lidocaine Pf 2% Vial) 5 ml STK-MED ONCE .ROUTE ; Start 12/28/16 at 18:37; Stop 12/28/16 at 18:38; Status DC Ondansetron HCl (Zofran) 4 mg PRN Q6HRS PRN IV NAUSEA/VOMITING; Start 12/28/16 at 19:00; Stop 12/28/16 at 23:59; Status DC Fentanyl Citrate (Fentanyl 2ml Vial) 25 mcg PRN Q5MIN PRN IV MILD PAIN; Start 12/28/16 at 19:00; Stop 12/28/16 at 23:59; Status DC Fentanyl Citrate (Fentanyl 2ml Vial) 50 mcg PRN Q5MIN PRN IV MODERATE PAIN Last administered on 12/28/16 20:04; Start 12/28/16 at 19:00; Stop 12/28/16 at 23:59; Status DC Morphine Sulfate 1 mg PRN Q10MIN PRN IV SEVERE PAIN Last administered on 19:50; Start 12/28/16 at 19:00; Stop 12/28/16 at 23:59; Status DC Ringer's Solution 1,000 ml @ 30 mls/hr Q24H IV Last administered on 12/28/16 18:55; Start 12/28/16 at 19:00; Stop 12/28/16 at 23:59; Status DC Lidocaine HCl 2 ml PRN 1X PRN ID PRIOR TO IV START; Start 12/28/16 at 19:00; Stop 12/28/16 at 23:59; Status DC Hydromorphone HCl (Dilaudid) 0.5 mg PRN Q10MIN PRN IV SEV PAIN, Second choice; Start 12/28/16 at 19:00; Stop 12/28/16 at 23:59; Status DC Prochlorperazine Edisylate (Compazine) 5 mg PACU PRN PRN IV NAUSEA, MRX1; Start 12/28/16 at 19:00; Stop 12/28/16 at 23:59; Status DC Enoxaparin Sodium (Lovenox 60mg Syringe) 60 mg Q12HR SQ ; Start 12/29/16 at 09: 00; Stop 12/29/16 at 11:57; Status DC Sodium Chloride (Normal Saline Flush) 3 ml QSHIFT PRN IV AFTER MEDS AND BLOOD DRAWS; Start 12/28/16 at 19:30 Acetaminophen/ Hydrocodone Bitart (Lortab 5/325) 1 tab PRN Q4HRS PRN PO MILD PAIN Last administered on 12/29/16 08:16; Start 12/28/16 at 19:30 Senna/Docusate Sodium (Senna Plus) 1 tab BID PO Last administered on 12/29/16 08:17; Start 12/28/16 at 21:00 Ondansetron HCl (Zofran) 4 mg PRN Q6HRS PRN IV NAUESA, 1ST CHOICE; Start at 19:30 Insulin Aspart (NovoLOG VIAL) 4 unit 1X ONCE SQ Last administered on t 19:47; Start 12/28/16 at 19:45; Stop 12/28/16 at 19:46; Status DC Morphine Sulfate 2 mg STK-MED ONCE .ROUTE ; Start 12/28/16 at 19:39; Stop at 19:40; Status DC Insulin Aspart (NovoLOG VIAL) 100 unit STK-MED ONCE SQ ; Start 12/28/16 at 19:39 ; Stop 12/28/16 at 19:40; Status DC Active Scripts Active Reported [place] 5-325 Tablet (Acetaminophen/Hydrocodone Bitart) 1 Each Tablet 1-2 Tab PO PRN Q4-6HRS PRN LAST DOSE GIVEN: DATE: TIME: Bactrim Ds Tablet (Sulfamethoxazole/Trimethoprim) 1 Each Tablet 1 Tab PO BID Aleve (Naproxen Sodium) 220 Mg Capsule 440 Mg PO BID Vitals/I & O Vital Sign - Last 24 Hours 12/28/16 12/28/16 12/28/16 12/28/16 15:01 19:25 19:25 19:40 Temp 98.0 97.2 98.0 97.2 Pulse 91 101 Resp 20 20 20 B/P (MAP) 154/86 (108) 149/83 Pulse Ox 97 100 99 O2 Delivery Room Air Simple Mask O2 Flow Rate 10 10 12/28/16 12/28/16 12/28/16 12/28/16 19:40 19:50 19:50 19:55 Pulse 90 88 Resp 20 20 20 20 B/P (MAP) 171/119 171/117 Pulse Ox 100 99 99 98 O2 Delivery Simple Mask Simple Mask Simple Mask Nasal Cannula O2 Flow Rate 10 10.0 10.0 2 12/28/16 12/28/16 12/28/16 12/28/16 20:04 20:10 20:20 20:20 Temp 98.0 98.0 Pulse 86 88 Resp 20 20 20 B/P (MAP) 171/78 165/81 Pulse Ox 99 98 98 O2 Delivery Room Air Nasal Cannula Nasal Cannula Nasal Cannula O2 Flow Rate 10.0 2 2 2 12/28/16 12/28/16 12/28/16 12/28/16 20:35 20:45 21:30 21:30 Temp 98.2 97.6 98.2 97.6 Pulse 92 99 Resp 20 16 20 B/P (MAP) 141/81 (101) 157/93 (114) Pulse Ox 99 99 O2 Delivery Nasal Cannula Nasal Cannula Nasal Cannula Nasal Cannula O2 Flow Rate 2.0 2.0 2.0 2.0 12/28/16 12/28/16 12/28/16 12/29/16 22:00 22:30 23:30 00:30 Temp 97.8 97.8 98.3 98.0 97.8 97.8 98.3 98.0 Pulse 96 94 98 97 Resp 20 20 18 18 B/P (MAP) 149/86 (107) 142/78 (99) 130/72 (91) 141/80 (100) Pulse Ox 98 97 97 98 O2 Delivery Nasal Cannula Nasal Cannula Room Air Room Air O2 Flow Rate 2.0 2.0 12/29/16 12/29/16 12/29/16 12/29/16 03:59 07:00 07:40 08:16 Temp 97.8 98.0 97.8 98.0 Pulse 96 92 Resp 18 18 B/P (MAP) 156/85 (108) 142/91 (108) Pulse Ox 97 97 97 O2 Delivery Room Air Room Air Room Air Nasal Cannula O2 Flow Rate 2.0 12/29/16 12/29/16 09:16 10:45 Temp 97.9 97.9 Pulse 96 Resp 18 20 B/P (MAP) 134/86 (102) Pulse Ox 97 97 O2 Delivery Room Air Room Air Intake and Output 12/28/16 12/28/16 12/29/16 15:00 23:00 07:00 Intake Total 1000 ml 400 ml Balance 1000 ml 400 ml JENI DIEGO III DO Dec 29, 2016 13:58
[2016-12-30] MEDS: PIPERACILLIN/TAZOBACTAM 3.375 GM in IV NORMAL SALINE 50ML 50 ML IV SCH ×3 (05:31→17:22)
[2016-12-30] MEDS: HYDROcodone/APAP 5/325MG 1 TAB TABLET PO PRN ×2 (05:35→17:22)
[2016-12-30 06:48] VITALS: BP 134/78
--- NOTE | 2016-12-30 07:28 | RAD ---
Pelvic ultrasound, 12/29/2016: History: Heavy vaginal bleeding Transabdominal scans were obtained. The uterus measures 8.9 x 6.5 x 5.5 cm. There is a 4.9 cm hypoechoic mass in the superior aspect of the uterus. This probably a fibroid. The central uterine echo complex was not delineated in this large patient. She refused transvaginal scanning. The ovaries are of normal size. No adnexal mass is seen. No free fluid is evident in the pelvis. IMPRESSION: Limited exam demonstrating a single uterine mass compatible with a fibroid.
[2016-12-30] MEDS ORDERED: INSULIN ASPART 300 UNITS/3 ML INSULN.PEN SQ SCH (07:30)
[2016-12-30] MEDS: SENNOSIDES/DOCUSATE 8.6/50MG TABLET. PO SCH ×2 (08:23→20:28)
[2016-12-30] MEDS: INSULIN ASPART 300 UNITS/3 ML INSULN.PEN SQ SCH ×5 (08:27→20:36)
--- NOTE | 2016-12-30 08:37 | PDOC ---
SURGICAL PROGRESS NOTE Subjective Pt with c/o fatigue, arturo pO Vital Signs Vital Signs Date Time Temp Pulse Resp B/P (MAP) Pulse Ox O2 Delivery O2 Flow Rate FiO2 12/30/16 06:48 98.2 101 134/78 (96) 98 Room Air 98.2 12/30/16 06:46 18 12/29/16 08:16 2.0 I&O Intake and Output 12/30/16 07:00 Intake Total 2840 ml Balance 2840 ml Intake Oral 2740 ml IV Total 100 ml # Voids 8 General: Alert, Oriented X3, Cooperative, No acute distress Skin: Other (dressing intact) Labs Laboratory Tests Test 12/28/16 10:19 12/28/16 16:59 12/28/16 19:32 12/28/16 21:37 Glucose (Fingerstick) 298 mg/dL (70-99) 261 mg/dL (70-99) 231 mg/dL (70-99) 240 mg/dL (70-99) Test 12/29/16 07:06 12/29/16 10:22 12/29/16 16:17 12/29/16 21:21 Glucose (Fingerstick) 319 mg/dL (70-99) 331 mg/dL (70-99) 295 mg/dL (70-99) 307 mg/dL (70-99) Test 12/30/16 07:19 Glucose (Fingerstick) 297 mg/dL (70-99) Laboratory Tests Test 12/29/16 10:22 12/29/16 16:17 12/29/16 21:21 12/30/16 07:19 Glucose (Fingerstick) 331 mg/dL (70-99) 295 mg/dL (70-99) 307 mg/dL (70-99) 297 mg/dL (70-99) Assessment/Plan s/p I and D will ask wound care to evaluate Problems: SHANNAN FERRIS MD Dec 30, 2016 08:37
--- NOTE | 2016-12-30 09:02 | PDOC ---
Infectious Disease Note Subjective Subjective s/p I and D Comfortable at the moment ROS ROS GEN: Denies fevers, chills, sweats HEENT: Denies blurred vision, sore throat CV: Denies chest pain RESP: Denies shortness of air, cough GI: Denies n/v/d NEURO: Denies confusion, dizziness MSK: Denies weakness, joint pain/swelling Vital Sign Vital Signs Vital Signs Date Time Temp Pulse Resp B/P (MAP) Pulse Ox O2 Delivery O2 Flow Rate FiO2 12/30/16 06:48 98.2 101 134/78 (96) 98 Room Air 98.2 12/30/16 06:46 18 12/29/16 08:16 2.0 Physical Exam PHYSICAL EXAM GENERAL: NAD, Alert HEENT: PERRL, OC/OP NECK: Supple, no JVD, no LN LUNGS: Clear HEART: S1S2, no gallop, no murmur ABD: Soft, NT, no organomegaly, no rebound EXT: No edema, no cyanosis,, thigh inflammation + MEDIA LIAISON OFFICER: Alert, oriented x 3, no focal neurologic deficit SKIN: No rash IV: ok Labs Lab Laboratory Tests Test 12/29/16 10:22 12/29/16 16:17 12/29/16 21:21 12/30/16 07:19 Glucose (Fingerstick) 331 mg/dL (70-99) 295 mg/dL (70-99) 307 mg/dL (70-99) 297 mg/dL (70-99) Micro GRAM STAIN Final WBCS MANY RBCS MANY GRAM POSITIVE COCCI MANY MANY TINY GRAM POSITIVE COCCI AND MANY TINY GRAM NEGATIVE RODS, SUGGESTIVE OF ANAEROBES. Objective Assessment Worsening abscess right groin/thigh area. s/p excisional debridement of necrotic tissue down to adipose tissue of right groin, and I and D, 12/28. Intra- op cultures pending -s/p previous I and D on 12/24. group B Strep, anaerobic cx still pending. Leukocytosis -h/o pre-op steroids on 12/24 Diabetes Super morbid obesity, BMI 62 Plan Plan of Care vanc and Zosyn. Intra-op cultures pending Supportive care ct abd and pelvis LEFTY JEWELL MD Dec 30, 2016 09:02
[2016-12-30] MEDS ORDERED: IOHEXOL 300 MG/ML 75 ML VIAL IV ONE (10:00)
[2016-12-30] MEDS ORDERED: IOHEXOL 240 MG/ML 50ML VIAL. PO ONE (10:00)
[2016-12-30] MEDS ORDERED: INSULIN DETEMIR 300 UNITS/3 ML INSULN.PEN. SQ STA (10:06)
[2016-12-30 11:00] VITALS: BP 174/107
--- NOTE | 2016-12-30 11:37 | PDOC2 ---
CONSULT Date of Consult Date of Consult DATE: 12/30/16 TIME: 11:29 Reason for Consult Reason for Consult: heavy, vaginal bleeding Referring Physician Referring Physician: Dr. Lam Identification/Chief Complaint Chief Complaint Groin abscess Problems: History of Present Illness Reason for Visit: 36 y/o G1A1 presented to ED with c/o groin abscess and heavy, vaginal bleeding for the past 30 days. She normally has menses every 30 days, lasting up to 9 days. She has h/o ectopic and desires future . Pelvic sono indicated fibroid uterus and was relayed to the patient. Past Medical History Cardiovascular: HTN Endocrine: Diabetes Past Surgical History Past Surgical History: Other (I&D, female surgery) Family History Family History: Diabetes Social History No ALCOHOL: rare Drugs: None Lives: Alone Current Medications Current Medications Current Medications Sodium Chloride 500 ml @ 500 mls/hr 1X ONCE IV Last administered on 19:57; Start 12/27/16 at 20:15; Stop 12/27/16 at 21:14; Status DC Vancomycin HCl (Vanco Per Pharmacy) 1 each PRN DAILY PRN MC SEE COMMENTS Last administered on 12/28/16 08:57; Start 12/27/16 at 20:15; Stop 12/28/16 at 12:34 ; Status DC Ondansetron HCl (Zofran) 4 mg PRN Q8HRS PRN IV NAUSEA/VOMITING; Start 12/27/16 at 20:15; Stop 12/28/16 at 19:42; Status DC Morphine Sulfate 2 mg PRN Q2HR PRN IV PAIN; Start 12/27/16 at 20:15; Stop 12/28 at 20:14; Status DC Sodium Chloride 1,000 ml @ 100 mls/hr Q10H IV Last administered on 12/28/16 12:07; Start 12/27/16 at 20:13; Stop 12/28/16 at 20:12; Status DC Vancomycin HCl 2 gm/Sodium Chloride 500 ml @ 250 mls/hr 1X ONCE IV Last administered on 12/27/16 20:33; Start 12/27/16 at 21:00; Stop 12/27/16 at 22:59 ; Status DC Insulin Human Regular (NovoLIN R VIAL) 10 unit 1X ONCE IV ; Start 12/27/16 at 21:15; Stop 12/27/16 at 22:58; Status DC Albuterol/ Ipratropium (Duoneb) 3 ml 1X ONCE NEB Last administered on 21:57; Start 12/27/16 at 21:30; Stop 12/27/16 at 21:31; Status DC Vancomycin HCl 1 each 1X ONCE MC ; Start 12/28/16 at 20:30; Stop 12/28/16 at 20 :30; Status DC Vancomycin HCl 1.75 gm/Sodium Chloride 500 ml @ 250 mls/hr Q8H IV Last administered on 12/28/16 05:36; Start 12/28/16 at 05:00; Stop 12/28/16 at 12:33 ; Status DC Insulin Aspart (NovoLOG) 0-9 UNITS TIDWMEALS SQ Last administered on 12/29/16 17:10; Start 12/28/16 at 08:00; Stop 12/29/16 at 21:30; Status DC Dextrose (Dextrose 50%-Water Syringe) 12.5 gm PRN Q15MIN PRN IV SEE COMMENTS; Start 12/27/16 at 23:00 Insulin Aspart (NovoLOG) 10 units 1X ONCE SQ Last administered on 12/27/16 23 :34; Start 12/27/16 at 23:15; Stop 12/27/16 at 23:16; Status DC Piperacillin Sod/ Tazobactam Sod 3.375 gm/Sodium Chloride 50 ml @ 100 mls/hr Q6HRS IV Last administered on 12/30/16 05:31; Start 12/28/16 at 12:00 Fentanyl Citrate (Fentanyl 2ml Vial) 100 mcg STK-MED ONCE .ROUTE ; Start at 18:37; Stop 12/28/16 at 18:38; Status DC Sevoflurane (Ultane) 15 ml STK-MED ONCE IH ; Start 12/28/16 at 18:37; Stop 12/28 at 18:38; Status DC Propofol 20 ml @ As Directed STK-MED ONCE IV ; Start 12/28/16 at 18:37; Stop at 18:38; Status DC Dexamethasone Sodium Phosphate (Decadron) 20 mg STK-MED ONCE .ROUTE ; Start at 18:37; Stop 12/28/16 at 18:38; Status DC Ondansetron HCl (Zofran) 4 mg STK-MED ONCE .ROUTE ; Start 12/28/16 at 18:37; Stop 12/28/16 at 18:38; Status DC Lidocaine HCl (Lidocaine Pf 2% Vial) 5 ml STK-MED ONCE .ROUTE ; Start 12/28/16 at 18:37; Stop 12/28/16 at 18:38; Status DC Ondansetron HCl (Zofran) 4 mg PRN Q6HRS PRN IV NAUSEA/VOMITING; Start 12/28/16 at 19:00; Stop 12/28/16 at 23:59; Status DC Fentanyl Citrate (Fentanyl 2ml Vial) 25 mcg PRN Q5MIN PRN IV MILD PAIN; Start 12/28/16 at 19:00; Stop 12/28/16 at 23:59; Status DC Fentanyl Citrate (Fentanyl 2ml Vial) 50 mcg PRN Q5MIN PRN IV MODERATE PAIN Last administered on 12/28/16 20:04; Start 12/28/16 at 19:00; Stop 12/28/16 at 23:59; Status DC Morphine Sulfate 1 mg PRN Q10MIN PRN IV SEVERE PAIN Last administered on 19:50; Start 12/28/16 at 19:00; Stop 12/28/16 at 23:59; Status DC Ringer's Solution 1,000 ml @ 30 mls/hr Q24H IV Last administered on 12/28/16 18:55; Start 12/28/16 at 19:00; Stop 12/28/16 at 23:59; Status DC Lidocaine HCl 2 ml PRN 1X PRN ID PRIOR TO IV START; Start 12/28/16 at 19:00; Stop 12/28/16 at 23:59; Status DC Hydromorphone HCl (Dilaudid) 0.5 mg PRN Q10MIN PRN IV SEV PAIN, Second choice; Start 12/28/16 at 19:00; Stop 12/28/16 at 23:59; Status DC Prochlorperazine Edisylate (Compazine) 5 mg PACU PRN PRN IV NAUSEA, MRX1; Start 12/28/16 at 19:00; Stop 12/28/16 at 23:59; Status DC Enoxaparin Sodium (Lovenox 60mg Syringe) 60 mg Q12HR SQ ; Start 12/29/16 at 09: 00; Stop 12/29/16 at 11:57; Status DC Sodium Chloride (Normal Saline Flush) 3 ml QSHIFT PRN IV AFTER MEDS AND BLOOD DRAWS; Start 12/28/16 at 19:30 Acetaminophen/ Hydrocodone Bitart (Lortab 5/325) 1 tab PRN Q4HRS PRN PO MILD PAIN Last administered on 12/30/16 05:35; Start 12/28/16 at 19:30 Senna/Docusate Sodium (Senna Plus) 1 tab BID PO Last administered on 12/30/16 08:23; Start 12/28/16 at 21:00 Ondansetron HCl (Zofran) 4 mg PRN Q6HRS PRN IV NAUESA, 1ST CHOICE; Start at 19:30 Insulin Aspart (NovoLOG VIAL) 4 unit 1X ONCE SQ Last administered on 19:47; Start 12/28/16 at 19:45; Stop 12/28/16 at 19:46; Status DC Morphine Sulfate 2 mg STK-MED ONCE .ROUTE ; Start 12/28/16 at 19:39; Stop at 19:40; Status DC Insulin Aspart (NovoLOG VIAL) 100 unit STK-MED ONCE SQ ; Start 12/28/16 at 19:39 ; Stop 12/28/16 at 19:40; Status DC Insulin Aspart (NovoLOG) 0-9 UNITS QIDACHS SQ ; Start 12/30/16 at 07:30; Stop at 07:30; Status DC Insulin Aspart (NovoLOG) 0-9 UNITS QIDACHS SQ Last administered on 12/30/16 08 :27; Start 12/29/16 at 22:00 Iohexol (Omnipaque 240 Mg/ml) 30 ml 1X ONCE PO ; Start 12/30/16 at 10:00; Stop 12/30/16 at 10:01; Status DC Iohexol (Omnipaque 300 Mg/ml) 75 ml 1X ONCE IV ; Start 12/30/16 at 10:00; Stop 12/30/16 at 10:01; Status DC Insulin Detemir (Levemir) 20 units QHS SQ ; Start 12/30/16 at 21:00 Insulin Detemir (Levemir) 10 units 1X STAT SQ ; Start 12/30/16 at 10:06; Stop 12/30/16 at 10:09; Status DC Active Scripts Active Reported [place] 5-325 Tablet (Acetaminophen/Hydrocodone Bitart) 1 Each Tablet 1-2 Tab PO PRN Q4-6HRS PRN LAST DOSE GIVEN: DATE: TIME: Bactrim Ds Tablet (Sulfamethoxazole/Trimethoprim) 1 Each Tablet 1 Tab PO BID Aleve (Naproxen Sodium) 220 Mg Capsule 440 Mg PO BID Allergies Allergies: Coded Allergies: No Known Drug Allergies (Unverified , 12/28/16) ROS General: YES: Fatigue, No: Chills, Night Sweats, Malaise, Appetite, Other PSYCHOLOGICAL ROS: No: Anxiety, Behavioral Disorder, Concentration difficultie , Decreased libido, Depression, Disorientation, Hallucinations, Hostility, Irritablity, Memory difficulties, Mood Swings, Obsessive thoughts, Physical abuse, Sexual abuse, Sleep disturbances, Suicidal ideation, Other Eyes: No Blurry vision, No Decreased vision, No Double vision, No Dry eyes, No Excessive tearing, No Eye Pain, No Itchy Eyes, No Loss of vision, No Photophobia , No Scotomata, No Uses contacts, No Uses glasses, No Other HEENT: No: Heacaches, Visual Changes, Hearing change, Nasal congestion, Nasal discharge, Oral lesions, Sinus pain, Sore Throat, Epistaxis, Sneezing, Snoring, Tinnitus, Vertigo, Vocal changes, Other ALLERGY AND IMMUNOLOGY: No: Hives, Insect Bite Sensitivity, Itchy/Watery Eyes, Nasal Congestion, Post Nasal Drip, Seasonal Allergies, Other Hematological and Lymphatic: No: Bleeding Problems, Blood Clots, Blood Transfusions, Brusing, Night Sweats, Pallor, Swollen Lymph Nodes, Other ENDOCRINE: No: Breast Changes, Galactorrhea, Hair Pattern Changes, Hot Flashes , Malaise/lethargy, Mood Swings, Palpitations, Polydipsia/polyuria, Skin Changes , Temperature Intolerance, Unexpected Weight Changes, Other Breast: No New/Changing Breast Lumps, No Nipple changes, No Nipple discharge, No Other Respiratory: No: Cough, Hemoptysis, Orthopnea, Pleuritic Pain, Shortness of breath, SOB with excertion, Sputum Changes, Stridor, Tachypnea, Wheezing, Other Cardiovascular: No Chest Pain, No Palpitations, No Orthopnea, No Paroxysmal Noc. Dyspnea, No Edema, No Lt Headedness, No Other Gastrointestinal: No Nausea, No Vomiting, No Abdominal Pain, No Diarrhea, No Constipation, No Melena, No Hematochezia, No Other Genitourinary: YES Other (vaginal bleeding), No Dysuria, No Frequency, No Incontinence, No Hematuria, No Retention, No Discharge, No Urgency, No Pain, No Flank Pain, No , No , No , No , No , No , No Musculoskeletal: No Gait Disturbance, No Joint Pain, No Joint Stiffness, No Joint Swelling, No Muscle Pain, No Muscular Weakness, No Pain In:, No Swelling In:, No Other Neurological: No Behavorial Changes, No Bowel/Bladder ControlChng, No Confusion , No Dizziness, No Gait Disturbance, No Headaches, No Impaired Coord/balance, No Memory Loss, No Numbness/Tingling, No Seizures, No Speech Problems, No Tremors, No Visual Changes, No Weakness, No Other Physical Exam General: Alert, Oriented X3, Cooperative HEENT: Atraumatic Lungs: Clear to auscultation Heart: Regular rate Abdomen: Normal bowel sounds, Soft, No tenderness, No masses, Other (pelvic: deferred.) Vitals VITALS Vital Signs Date Time Temp Pulse Resp B/P (MAP) Pulse Ox O2 Delivery O2 Flow Rate FiO2 12/30/16 11:00 97.9 96 20 174/107 (129) 94 Room Air 97.9 12/29/16 08:16 2.0 Labs Labs Laboratory Tests Test 12/28/16 16:59 12/28/16 19:32 12/28/16 21:37 12/29/16 07:06 Glucose (Fingerstick) 261 mg/dL (70-99) 231 mg/dL (70-99) 240 mg/dL (70-99) 319 mg/dL (70-99) Test 12/29/16 10:22 12/29/16 16:17 12/29/16 21:21 12/30/16 07:19 Glucose (Fingerstick) 331 mg/dL (70-99) 295 mg/dL (70-99) 307 mg/dL (70-99) 297 mg/dL (70-99) Test 12/30/16 10:39 Glucose (Fingerstick) 333 mg/dL (70-99) Laboratory Tests Test 12/29/16 16:17 12/29/16 21:21 12/30/16 07:19 12/30/16 10:39 Glucose (Fingerstick) 295 mg/dL (70-99) 307 mg/dL (70-99) 297 mg/dL (70-99) 333 mg/dL (70-99) Assessment/Plan Assessment/Plan A: AUB Obesity S/p groin I&D for abscess P: Start OCP's to regulate menses. Thank you for consult. RAINA WOO Jr, MD Dec 30, 2016 11:37
--- NOTE | 2016-12-30 12:26 | RAD ---
CT abdomen and pelvis with contrast 12/30/2016 Indication: Abscess. Comparison: Ultrasound pelvis 12/29/2016. Technique: CT helical acquisition of the abdomen and pelvis is obtained following uneventful intravenous administration of 75 mL Omnipaque 300. Coronal and sagittal reformations were obtained. PQRS Compliance Statement: One or more of the following individualized dose reduction techniques were utilized for this examination: 1. Automated exposure control 2. Adjustment of the mA and/or kV according to patient size 3. Use of iterative reconstruction technique Findings: Abdomen and pelvis: Minimal subpleural groundglass opacities in dependent visualized lower lobes, likely atelectasis. Heart size is normal. Liver, gallbladder, spleen, adrenal glands, pancreas and kidneys are grossly unremarkable, however limited due to body habitus. No intra or extra hepatic biliary ductal dilatation. Abdominal aorta is normal in caliber. No bowel obstruction. No abdominal free fluid. No retroperitoneal or mesenteric lymphadenopathy. Urinary bladder is decompressed. Uterus is present with 4.2 cm probable fibroid posteriorly at the uterine fundus. The ovaries are present though incompletely evaluated on CT. No iliac or inguinal lymphadenopathy. No destructive osseous lesions. Impression: Somewhat limited exam due to body habitus, no intra-abdominal loculated fluid collection to suggest abscess.
[2016-12-30] MEDS ORDERED: hydrALAZINE 20 MG/ML VIAL. IVP PRN (13:30)
[2016-12-30] MEDS ORDERED: MORPHINE SULFATE 2 MG/ML DISP.SYRIN. IV PRN (13:30)
[2016-12-30] MEDS ORDERED: traMADol 50 MG TABLET PO PRN (13:30)
[2016-12-30] MEDS ORDERED: ACETAMINOPHEN 325 MG TABLET. PO PRN (13:30)
[2016-12-30] MEDS ORDERED: DOCUSATE SODIUM 100 MG CAPSULE. PO PRN (13:30)
[2016-12-30] MEDS ORDERED: ONDANSETRON PF 4 MG/2 ML VIAL. IV PRN (13:30)
--- NOTE | 2016-12-30 13:30 | PDOC ---
PROGRESS NOTES Chief Complaint Chief Complaint Worsening abscess right groin/thigh area. s/p excisional debridement of necrotic tissue down to adipose tissue of right groin, and I and D, 12/28. Intra- op cultures pending -s/p previous I and D on 12/24. group B Strep, anaerobic cx still pending. sepsis -h/o pre-op steroids on 12/24 Diabetes uncontrolled Super morbid obesity, BMI 62 plan: fu with sx ,id on vanco, zosyn now, fu wound cx add levemir 20u qhs, aspart 5u tid, ssi pain control wound care dvt ppx History of Present Illness History of Present Illness severe pain when move still wound drain hyperglycemia Vitals Vitals Vital Signs Date Time Temp Pulse Resp B/P (MAP) Pulse Ox O2 Delivery O2 Flow Rate FiO2 12/30/16 11:00 97.9 96 20 174/107 (129) 94 Room Air 97.9 12/29/16 08:16 2.0 Physical Exam General: Alert, Oriented X3, Cooperative Heart: Regular rate Lungs: Clear, Other (No RRW) Abdomen: Normal bowel sounds, Soft, No tenderness, No masses, Other (pelvic: deferred.) Extremities: No clubbing, No cyanosis Skin: Other (dressing intact) Labs LABS Laboratory Tests Test 12/29/16 16:17 12/29/16 21:21 12/30/16 07:19 12/30/16 10:39 Glucose (Fingerstick) 295 mg/dL (70-99) 307 mg/dL (70-99) 297 mg/dL (70-99) 333 mg/dL (70-99) Review of Systems Review of Systems no fever, chills, sob or chest pain Comment Review of Relevant I have reviewed the following items mauricio (where applicable) has been applied. Labs Laboratory Tests Test 12/28/16 16:59 12/28/16 19:32 12/28/16 21:37 12/29/16 07:06 Glucose (Fingerstick) 261 mg/dL (70-99) 231 mg/dL (70-99) 240 mg/dL (70-99) 319 mg/dL (70-99) Test 12/29/16 10:22 12/29/16 16:17 12/29/16 21:21 12/30/16 07:19 Glucose (Fingerstick) 331 mg/dL (70-99) 295 mg/dL (70-99) 307 mg/dL (70-99) 297 mg/dL (70-99) Test 12/30/16 10:39 Glucose (Fingerstick) 333 mg/dL (70-99) Laboratory Tests Test 12/29/16 16:17 12/29/16 21:21 12/30/16 07:19 12/30/16 10:39 Glucose (Fingerstick) 295 mg/dL (70-99) 307 mg/dL (70-99) 297 mg/dL (70-99) 333 mg/dL (70-99) Microbiology 12/28/16 Gram Stain - Final, Complete Medications Current Medications Sodium Chloride 500 ml @ 500 mls/hr 1X ONCE IV Last administered on 19:57; Start 12/27/16 at 20:15; Stop 12/27/16 at 21:14; Status DC Vancomycin HCl (Vanco Per Pharmacy) 1 each PRN DAILY PRN MC SEE COMMENTS Last administered on 12/28/16 08:57; Start 12/27/16 at 20:15; Stop 12/28/16 at 12:34 ; Status DC Ondansetron HCl (Zofran) 4 mg PRN Q8HRS PRN IV NAUSEA/VOMITING; Start 12/27/16 at 20:15; Stop 12/28/16 at 19:42; Status DC Morphine Sulfate 2 mg PRN Q2HR PRN IV PAIN; Start 12/27/16 at 20:15; Stop 12/28 at 20:14; Status DC Sodium Chloride 1,000 ml @ 100 mls/hr Q10H IV Last administered on 12/28/16 12:07; Start 12/27/16 at 20:13; Stop 12/28/16 at 20:12; Status DC Vancomycin HCl 2 gm/Sodium Chloride 500 ml @ 250 mls/hr 1X ONCE IV Last administered on 12/27/16 20:33; Start 12/27/16 at 21:00; Stop 12/27/16 at 22:59 ; Status DC Insulin Human Regular (NovoLIN R VIAL) 10 unit 1X ONCE IV ; Start 12/27/16 at 21:15; Stop 12/27/16 at 22:58; Status DC Albuterol/ Ipratropium (Duoneb) 3 ml 1X ONCE NEB Last administered on 21:57; Start 12/27/16 at 21:30; Stop 12/27/16 at 21:31; Status DC Vancomycin HCl 1 each 1X ONCE MC ; Start 12/28/16 at 20:30; Stop 12/28/16 at 20 :30; Status DC Vancomycin HCl 1.75 gm/Sodium Chloride 500 ml @ 250 mls/hr Q8H IV Last administered on 12/28/16 05:36; Start 12/28/16 at 05:00; Stop 12/28/16 at 12:33 ; Status DC Insulin Aspart (NovoLOG) 0-9 UNITS TIDWMEALS SQ Last administered on 12/29/16 17:10; Start 12/28/16 at 08:00; Stop 12/29/16 at 21:30; Status DC Dextrose (Dextrose 50%-Water Syringe) 12.5 gm PRN Q15MIN PRN IV SEE COMMENTS; Start 12/27/16 at 23:00 Insulin Aspart (NovoLOG) 10 units 1X ONCE SQ Last administered on 12/27/16 23 :34; Start 12/27/16 at 23:15; Stop 12/27/16 at 23:16; Status DC Piperacillin Sod/ Tazobactam Sod 3.375 gm/Sodium Chloride 50 ml @ 100 mls/hr Q6HRS IV Last administered on 12/30/16 12:13; Start 12/28/16 at 12:00 Fentanyl Citrate (Fentanyl 2ml Vial) 100 mcg STK-MED ONCE .ROUTE ; Start at 18:37; Stop 12/28/16 at 18:38; Status DC Sevoflurane (Ultane) 15 ml STK-MED ONCE IH ; Start 12/28/16 at 18:37; Stop 12/28 at 18:38; Status DC Propofol 20 ml @ As Directed STK-MED ONCE IV ; Start 12/28/16 at 18:37; Stop at 18:38; Status DC Dexamethasone Sodium Phosphate (Decadron) 20 mg STK-MED ONCE .ROUTE ; Start at 18:37; Stop 12/28/16 at 18:38; Status DC Ondansetron HCl (Zofran) 4 mg STK-MED ONCE .ROUTE ; Start 12/28/16 at 18:37; Stop 12/28/16 at 18:38; Status DC Lidocaine HCl (Lidocaine Pf 2% Vial) 5 ml STK-MED ONCE .ROUTE ; Start 12/28/16 at 18:37; Stop 12/28/16 at 18:38; Status DC Ondansetron HCl (Zofran) 4 mg PRN Q6HRS PRN IV NAUSEA/VOMITING; Start 12/28/16 at 19:00; Stop 12/28/16 at 23:59; Status DC Fentanyl Citrate (Fentanyl 2ml Vial) 25 mcg PRN Q5MIN PRN IV MILD PAIN; Start 12/28/16 at 19:00; Stop 12/28/16 at 23:59; Status DC Fentanyl Citrate (Fentanyl 2ml Vial) 50 mcg PRN Q5MIN PRN IV MODERATE PAIN Last administered on 12/28/16 20:04; Start 12/28/16 at 19:00; Stop 12/28/16 at 23:59; Status DC Morphine Sulfate 1 mg PRN Q10MIN PRN IV SEVERE PAIN Last administered on 19:50; Start 12/28/16 at 19:00; Stop 12/28/16 at 23:59; Status DC Ringer's Solution 1,000 ml @ 30 mls/hr Q24H IV Last administered on 12/28/16 18:55; Start 12/28/16 at 19:00; Stop 12/28/16 at 23:59; Status DC Lidocaine HCl 2 ml PRN 1X PRN ID PRIOR TO IV START; Start 12/28/16 at 19:00; Stop 12/28/16 at 23:59; Status DC Hydromorphone HCl (Dilaudid) 0.5 mg PRN Q10MIN PRN IV SEV PAIN, Second choice; Start 12/28/16 at 19:00; Stop 12/28/16 at 23:59; Status DC Prochlorperazine Edisylate (Compazine) 5 mg PACU PRN PRN IV NAUSEA, MRX1; Start 12/28/16 at 19:00; Stop 12/28/16 at 23:59; Status DC Enoxaparin Sodium (Lovenox 60mg Syringe) 60 mg Q12HR SQ ; Start 12/29/16 at 09: 00; Stop 12/29/16 at 11:57; Status DC Sodium Chloride (Normal Saline Flush) 3 ml QSHIFT PRN IV AFTER MEDS AND BLOOD DRAWS; Start 12/28/16 at 19:30 Acetaminophen/ Hydrocodone Bitart (Lortab 5/325) 1 tab PRN Q4HRS PRN PO MILD PAIN Last administered on 12/30/16 05:35; Start 12/28/16 at 19:30 Senna/Docusate Sodium (Senna Plus) 1 tab BID PO Last administered on 12/30/16 08:23; Start 12/28/16 at 21:00 Ondansetron HCl (Zofran) 4 mg PRN Q6HRS PRN IV NAUESA, 1ST CHOICE; Start at 19:30 Insulin Aspart (NovoLOG VIAL) 4 unit 1X ONCE SQ Last administered on 19:47; Start 12/28/16 at 19:45; Stop 12/28/16 at 19:46; Status DC Morphine Sulfate 2 mg STK-MED ONCE .ROUTE ; Start 12/28/16 at 19:39; Stop at 19:40; Status DC Insulin Aspart (NovoLOG VIAL) 100 unit STK-MED ONCE SQ ; Start 12/28/16 at 19:39 ; Stop 12/28/16 at 19:40; Status DC Insulin Aspart (NovoLOG) 0-9 UNITS QIDACHS SQ ; Start 12/30/16 at 07:30; Stop at 07:30; Status DC Insulin Aspart (NovoLOG) 0-9 UNITS QIDACHS SQ Last administered on 12/30/16 12 :23; Start 12/29/16 at 22:00 Iohexol (Omnipaque 240 Mg/ml) 30 ml 1X ONCE PO Last administered on 12/30/16 11:52; Start 12/30/16 at 10:00; Stop 12/30/16 at 10:01; Status DC Iohexol (Omnipaque 300 Mg/ml) 75 ml 1X ONCE IV Last administered on 12/30/16 11:51; Start 12/30/16 at 10:00; Stop 12/30/16 at 10:01; Status DC Insulin Detemir (Levemir) 20 units QHS SQ ; Start 12/30/16 at 21:00 Insulin Detemir (Levemir) 10 units 1X STAT SQ Last administered on 12/30/16 12:23; Start 12/30/16 at 10:06; Stop 12/30/16 at 10:09; Status DC Medroxyprogesterone Acetate (Provera) 10 mg BID PO Last administered on 12:13; Start 12/30/16 at 12:00 Active Scripts Active Reported [place] 5-325 Tablet (Acetaminophen/Hydrocodone Bitart) 1 Each Tablet 1-2 Tab PO PRN Q4-6HRS PRN LAST DOSE GIVEN: DATE: TIME: Bactrim Ds Tablet (Sulfamethoxazole/Trimethoprim) 1 Each Tablet 1 Tab PO BID Aleve (Naproxen Sodium) 220 Mg Capsule 440 Mg PO BID Vitals/I & O Vital Sign - Last 24 Hours 12/29/16 12/29/16 12/29/16 12/29/16 15:09 19:00 19:54 23:23 Temp 97.7 98.7 97.7 98.7 Pulse 94 101 Resp 20 18 18 B/P (MAP) 138/85 (102) 143/89 (107) Pulse Ox 97 99 99 O2 Delivery Room Air Room Air Room Air Room Air 12/29/16 12/30/16 12/30/16 12/30/16 23:26 05:35 06:46 06:48 Temp 98.6 98.2 98.6 98.2 Pulse 98 101 Resp 18 18 B/P (MAP) 126/75 (92) 134/78 (96) Pulse Ox 97 97 97 98 O2 Delivery Room Air Room Air Room Air Room Air 12/30/16 12/30/16 08:00 11:00 Temp 97.9 97.9 Pulse 96 Resp 20 B/P (MAP) 174/107 (129) Pulse Ox 94 O2 Delivery Room Air Room Air Intake and Output 12/29/16 12/29/16 12/30/16 15:00 23:00 07:00 Intake Total 600 ml 2020 ml 220 ml Balance 600 ml 2020 ml 220 ml NASRIN HONEYCUTT MD Dec 30, 2016 13:30
[2016-12-30 15:11] VITALS: BP 165/94
[2016-12-30 19:00] VITALS: BP 135/83
[2016-12-30] MEDS ORDERED: INSULIN DETEMIR 300 UNITS/3 ML INSULN.PEN. SQ SCH (21:00)
[2016-12-30 22:50] VITALS: BP 143/91
[2016-12-31] MEDS: PIPERACILLIN/TAZOBACTAM 3.375 GM in IV NORMAL SALINE 50ML 50 ML IV SCH ×5 (00:11→22:29)
[2016-12-31 04:10] LABS: BASO % 0 % (0-3); EOS % 3 % (0-3); HEMATOCRIT 28.8 % (36.0-47.0); HEMOGLOBIN 9.2 g/dL (12.0-15.5); LYMPH # 3.2 x10^3/uL (1.0-4.8); LYMPH % 24 % (24-48); MEAN CORPUSCULAR HEMOGLOBIN 26 pg (25-35); MEAN CORPUSCULAR HGB CONC 32 g/dL (31-37); MEAN CORPUSCULAR VOLUME 80 fL (79-100); MONO % 8 % (0-9); NEUT % 65 % (31-73); PLATELET COUNT 405 x10^3/uL (140-400); RED CELL DISTRIBUTION WIDTH 15.9 % (11.5-14.5); WHITE BLOOD COUNT 13.3 x10^3/uL (4.0-11.0)
[2016-12-31 04:18] LABS: CALCIUM 8.4 mg/dL (8.5-10.1); CREATININE 0.8 mg/dL (0.6-1.0); GFR 80.7; POTASSIUM 3.6 mmol/L (3.5-5.1)
[2016-12-31 07:00] VITALS: BP 146/92
[2016-12-31] MEDS: SENNOSIDES/DOCUSATE 8.6/50MG TABLET. PO SCH ×2 (08:16→20:34)
[2016-12-31] MEDS: INSULIN ASPART 300 UNITS/3 ML INSULN.PEN SQ SCH ×7 (08:24→22:46)
--- NOTE | 2016-12-31 08:57 | PDOC ---
Infectious Disease Note Subjective Subjective Comfortable at the moment ROS ROS GEN: Denies fevers, chills, sweats HEENT: Denies blurred vision, sore throat CV: Denies chest pain RESP: Denies shortness of air, cough GI: Denies n/v/d NEURO: Denies confusion, dizziness MSK: Denies weakness, joint pain/swelling Vital Sign Vital Signs Vital Signs Date Time Temp Pulse Resp B/P (MAP) Pulse Ox O2 Delivery O2 Flow Rate FiO2 12/30/16 22:50 97.7 95 18 143/91 (108) 96 Room Air 97.7 Physical Exam PHYSICAL EXAM GENERAL: NAD, Alert HEENT: PERRL, OC/OP NECK: Supple, no JVD, no LN LUNGS: Clear HEART: S1S2, no gallop, no murmur ABD: Soft, NT, no organomegaly, no rebound EXT: No edema, no cyanosis,, rt thigh still a lot of induration, tenderness and drainage + WILLOWER: Alert, oriented x 3, no focal neurologic deficit SKIN: No rash IV: ok Labs Lab Laboratory Tests Test 12/30/16 10:39 12/30/16 16:57 12/30/16 20:26 12/31/16 03:00 Glucose (Fingerstick) 333 mg/dL (70-99) 316 mg/dL (70-99) 326 mg/dL (70-99) White Blood Count 13.3 x10^3/uL (4.0-11.0) Red Blood Count 3.60 x10^6/uL (3.50-5.40) Hemoglobin 9.2 g/dL (12.0-15.5) Hematocrit 28.8 % (36.0-47.0) Mean Corpuscular Volume 80 fL (79-100) Mean Corpuscular Hemoglobin 26 pg (25-35) Mean Corpuscular Hemoglobin Concent 32 g/dL (31-37) Red Cell Distribution Width 15.9 % (11.5-14.5) Platelet Count 405 x10^3/uL (140-400) Neutrophils (%) (Auto) 65 % (31-73) Lymphocytes (%) (Auto) 24 % (24-48) Monocytes (%) (Auto) 8 % (0-9) Eosinophils (%) (Auto) 3 % (0-3) Basophils (%) (Auto) 0 % (0-3) Neutrophils # (Auto) 8.7 x10^3uL (1.8-7.7) Lymphocytes # (Auto) 3.2 x10^3/uL (1.0-4.8) Monocytes # (Auto) 1.0 x10^3/uL (0.0-1.1) Eosinophils # (Auto) 0.4 x10^3/uL (0.0-0.7) Basophils # (Auto) 0.0 x10^3/uL (0.0-0.2) Sodium Level 139 mmol/L (136-145) Potassium Level 3.6 mmol/L (3.5-5.1) Chloride Level 102 mmol/L (98-107) Carbon Dioxide Level 27 mmol/L (21-32) Anion Gap 10 (6-14) Blood Urea Nitrogen 7 mg/dL (7-20) Creatinine 0.8 mg/dL (0.6-1.0) Estimated GFR (Cockcroft-Gault) 80.7 Glucose Level 242 mg/dL (70-99) Calcium Level 8.4 mg/dL (8.5-10.1) Test 12/31/16 08:07 Glucose (Fingerstick) 220 mg/dL (70-99) Micro ANAEROBIC-AEROBIC CULTURE PENDING ANAEROBIC RES 1 PENDING AEROBIC CULT Preliminary Preliminary report AEROBIC RES 1 Preliminary Comment Beta hemolytic Streptococcus, group B Heavy growth Penicillin and ampicillin are drugs of choice for treatment of beta-hemolytic streptococcal infections. Susceptibility testing of penicillins and other beta-lactam agents approved by the FDA for treatment of beta-hemolytic streptococcal infections need not be performed routinely because nonsusceptible isolates are extremely rare in any beta-hemolytic streptococcus and have not been reported for Streptococcus pyogenes (group A). (CLSI 2011) Performed at: [facility] [address], [place], [place] [id number] Histology Technologist: Cande Gamboa MD, Phone: [phone] Objective Assessment Worsening abscess right groin/thigh area. s/p excisional debridement of necrotic tissue down to adipose tissue of right groin, and I and D, 12/28. Intra- op cultures Group B strep -s/p previous I and D on 12/24. group B Strep, anaerobic cx still pending. Leukocytosis -h/o pre-op steroids on 12/24 Diabetes Super morbid obesity, BMI 62 Plan Plan of Care rocephine, eventually d/c on po augmentin Supportive care ct abd and pelvis neg LEFTY JEWELL MD Dec 31, 2016 08:57
[2016-12-31] MEDS ORDERED: ENOXAPARIN 40 MG/0.4 ML SYRINGE. SQ SCH (09:00)
--- NOTE | 2016-12-31 10:03 | PDOC ---
SURGICAL PROGRESS NOTE Subjective Pt resting comfortably Vital Signs Vital Signs Date Time Temp Pulse Resp B/P (MAP) Pulse Ox O2 Delivery O2 Flow Rate FiO2 12/31/16 07:00 98.3 98 17 146/92 (110) 96 Room Air 98.3 I&O Intake and Output 12/31/16 07:00 Intake Total 2550 ml Balance 2550 ml Intake Oral 2500 ml IV Total 50 ml # Voids 7 Labs Laboratory Tests Test 12/29/16 10:22 12/29/16 16:17 12/29/16 21:21 12/30/16 07:19 Glucose (Fingerstick) 331 mg/dL (70-99) 295 mg/dL (70-99) 307 mg/dL (70-99) 297 mg/dL (70-99) Test 12/30/16 10:39 12/30/16 16:57 12/30/16 20:26 12/31/16 03:00 Glucose (Fingerstick) 333 mg/dL (70-99) 316 mg/dL (70-99) 326 mg/dL (70-99) White Blood Count 13.3 x10^3/uL (4.0-11.0) Red Blood Count 3.60 x10^6/uL (3.50-5.40) Hemoglobin 9.2 g/dL (12.0-15.5) Hematocrit 28.8 % (36.0-47.0) Mean Corpuscular Volume 80 fL (79-100) Mean Corpuscular Hemoglobin 26 pg (25-35) Mean Corpuscular Hemoglobin Concent 32 g/dL (31-37) Red Cell Distribution Width 15.9 % (11.5-14.5) Platelet Count 405 x10^3/uL (140-400) Neutrophils (%) (Auto) 65 % (31-73) Lymphocytes (%) (Auto) 24 % (24-48) Monocytes (%) (Auto) 8 % (0-9) Eosinophils (%) (Auto) 3 % (0-3) Basophils (%) (Auto) 0 % (0-3) Neutrophils # (Auto) 8.7 x10^3uL (1.8-7.7) Lymphocytes # (Auto) 3.2 x10^3/uL (1.0-4.8) Monocytes # (Auto) 1.0 x10^3/uL (0.0-1.1) Eosinophils # (Auto) 0.4 x10^3/uL (0.0-0.7) Basophils # (Auto) 0.0 x10^3/uL (0.0-0.2) Sodium Level 139 mmol/L (136-145) Potassium Level 3.6 mmol/L (3.5-5.1) Chloride Level 102 mmol/L (98-107) Carbon Dioxide Level 27 mmol/L (21-32) Anion Gap 10 (6-14) Blood Urea Nitrogen 7 mg/dL (7-20) Creatinine 0.8 mg/dL (0.6-1.0) Estimated GFR (Cockcroft-Gault) 80.7 Glucose Level 242 mg/dL (70-99) Calcium Level 8.4 mg/dL (8.5-10.1) Test 12/31/16 08:07 Glucose (Fingerstick) 220 mg/dL (70-99) Laboratory Tests Test 12/30/16 10:39 12/30/16 16:57 12/30/16 20:26 12/31/16 03:00 Glucose (Fingerstick) 333 mg/dL (70-99) 316 mg/dL (70-99) 326 mg/dL (70-99) White Blood Count 13.3 x10^3/uL (4.0-11.0) Red Blood Count 3.60 x10^6/uL (3.50-5.40) Hemoglobin 9.2 g/dL (12.0-15.5) Hematocrit 28.8 % (36.0-47.0) Mean Corpuscular Volume 80 fL (79-100) Mean Corpuscular Hemoglobin 26 pg (25-35) Mean Corpuscular Hemoglobin Concent 32 g/dL (31-37) Red Cell Distribution Width 15.9 % (11.5-14.5) Platelet Count 405 x10^3/uL (140-400) Neutrophils (%) (Auto) 65 % (31-73) Lymphocytes (%) (Auto) 24 % (24-48) Monocytes (%) (Auto) 8 % (0-9) Eosinophils (%) (Auto) 3 % (0-3) Basophils (%) (Auto) 0 % (0-3) Neutrophils # (Auto) 8.7 x10^3uL (1.8-7.7) Lymphocytes # (Auto) 3.2 x10^3/uL (1.0-4.8) Monocytes # (Auto) 1.0 x10^3/uL (0.0-1.1) Eosinophils # (Auto) 0.4 x10^3/uL (0.0-0.7) Basophils # (Auto) 0.0 x10^3/uL (0.0-0.2) Sodium Level 139 mmol/L (136-145) Potassium Level 3.6 mmol/L (3.5-5.1) Chloride Level 102 mmol/L (98-107) Carbon Dioxide Level 27 mmol/L (21-32) Anion Gap 10 (6-14) Blood Urea Nitrogen 7 mg/dL (7-20) Creatinine 0.8 mg/dL (0.6-1.0) Estimated GFR (Cockcroft-Gault) 80.7 Glucose Level 242 mg/dL (70-99) Calcium Level 8.4 mg/dL (8.5-10.1) Test 12/31/16 08:07 Glucose (Fingerstick) 220 mg/dL (70-99) Assessment/Plan s/p i and d appreciate wound care cont supportive care Problems: SHANNAN FERRIS MD Dec 31, 2016 10:03
[2016-12-31 11:00] VITALS: BP 136/88
--- NOTE | 2016-12-31 12:34 | PDOC ---
PROGRESS NOTES Chief Complaint Chief Complaint Worsening abscess right groin/thigh area. s/p excisional debridement of necrotic tissue down to adipose tissue of right groin, and I and D, 12/28. Intra- op cultures pending -s/p previous I and D on 12/24. group B Strep, anaerobic cx still pending. sepsis -h/o pre-op steroids on 12/24 Diabetes uncontrolled Super morbid obesity, BMI 62 plan: fu with sx ,id dc vanco, on zosyn now, change to rocephin as per IDfu wound cx increase levemir 25u qhs, aspart 8u tid, ssi pain control wound care dvt ppx hba1c pending History of Present Illness History of Present Illness severe pain when move, slightly better still wound drain hyperglycemia wbc still high at 13 Vitals Vitals Vital Signs Date Time Temp Pulse Resp B/P (MAP) Pulse Ox O2 Delivery O2 Flow Rate FiO2 12/31/16 11:00 98.1 80 17 136/88 (104) 97 Room Air 98.1 Physical Exam General: Alert, Oriented X3, Cooperative Heart: Regular rate Lungs: Clear, Other (No RRW) Abdomen: Normal bowel sounds, Soft, No tenderness, No masses, Other (pelvic: deferred.) Extremities: No clubbing, No cyanosis Skin: Other (dressing intact) Labs LABS Laboratory Tests Test 12/30/16 16:57 12/30/16 20:26 12/31/16 03:00 12/31/16 08:07 Glucose (Fingerstick) 316 mg/dL (70-99) 326 mg/dL (70-99) 220 mg/dL (70-99) White Blood Count 13.3 x10^3/uL (4.0-11.0) Red Blood Count 3.60 x10^6/uL (3.50-5.40) Hemoglobin 9.2 g/dL (12.0-15.5) Hematocrit 28.8 % (36.0-47.0) Mean Corpuscular Volume 80 fL (79-100) Mean Corpuscular Hemoglobin 26 pg (25-35) Mean Corpuscular Hemoglobin Concent 32 g/dL (31-37) Red Cell Distribution Width 15.9 % (11.5-14.5) Platelet Count 405 x10^3/uL (140-400) Neutrophils (%) (Auto) 65 % (31-73) Lymphocytes (%) (Auto) 24 % (24-48) Monocytes (%) (Auto) 8 % (0-9) Eosinophils (%) (Auto) 3 % (0-3) Basophils (%) (Auto) 0 % (0-3) Neutrophils # (Auto) 8.7 x10^3uL (1.8-7.7) Lymphocytes # (Auto) 3.2 x10^3/uL (1.0-4.8) Monocytes # (Auto) 1.0 x10^3/uL (0.0-1.1) Eosinophils # (Auto) 0.4 x10^3/uL (0.0-0.7) Basophils # (Auto) 0.0 x10^3/uL (0.0-0.2) Sodium Level 139 mmol/L (136-145) Potassium Level 3.6 mmol/L (3.5-5.1) Chloride Level 102 mmol/L (98-107) Carbon Dioxide Level 27 mmol/L (21-32) Anion Gap 10 (6-14) Blood Urea Nitrogen 7 mg/dL (7-20) Creatinine 0.8 mg/dL (0.6-1.0) Estimated GFR (Cockcroft-Gault) 80.7 Glucose Level 242 mg/dL (70-99) Calcium Level 8.4 mg/dL (8.5-10.1) Test 12/31/16 11:53 Glucose (Fingerstick) 289 mg/dL (70-99) Review of Systems Review of Systems no fever, chills, sob or chest pain Comment Review of Relevant I have reviewed the following items mauricio (where applicable) has been applied. Labs Laboratory Tests Test 12/29/16 16:17 12/29/16 21:21 12/30/16 07:19 12/30/16 10:39 Glucose (Fingerstick) 295 mg/dL (70-99) 307 mg/dL (70-99) 297 mg/dL (70-99) 333 mg/dL (70-99) Test 12/30/16 16:57 12/30/16 20:26 12/31/16 03:00 12/31/16 08:07 Glucose (Fingerstick) 316 mg/dL (70-99) 326 mg/dL (70-99) 220 mg/dL (70-99) White Blood Count 13.3 x10^3/uL (4.0-11.0) Red Blood Count 3.60 x10^6/uL (3.50-5.40) Hemoglobin 9.2 g/dL (12.0-15.5) Hematocrit 28.8 % (36.0-47.0) Mean Corpuscular Volume 80 fL (79-100) Mean Corpuscular Hemoglobin 26 pg (25-35) Mean Corpuscular Hemoglobin Concent 32 g/dL (31-37) Red Cell Distribution Width 15.9 % (11.5-14.5) Platelet Count 405 x10^3/uL (140-400) Neutrophils (%) (Auto) 65 % (31-73) Lymphocytes (%) (Auto) 24 % (24-48) Monocytes (%) (Auto) 8 % (0-9) Eosinophils (%) (Auto) 3 % (0-3) Basophils (%) (Auto) 0 % (0-3) Neutrophils # (Auto) 8.7 x10^3uL (1.8-7.7) Lymphocytes # (Auto) 3.2 x10^3/uL (1.0-4.8) Monocytes # (Auto) 1.0 x10^3/uL (0.0-1.1) Eosinophils # (Auto) 0.4 x10^3/uL (0.0-0.7) Basophils # (Auto) 0.0 x10^3/uL (0.0-0.2) Sodium Level 139 mmol/L (136-145) Potassium Level 3.6 mmol/L (3.5-5.1) Chloride Level 102 mmol/L (98-107) Carbon Dioxide Level 27 mmol/L (21-32) Anion Gap 10 (6-14) Blood Urea Nitrogen 7 mg/dL (7-20) Creatinine 0.8 mg/dL (0.6-1.0) Estimated GFR (Cockcroft-Gault) 80.7 Glucose Level 242 mg/dL (70-99) Calcium Level 8.4 mg/dL (8.5-10.1) Test 12/31/16 11:53 Glucose (Fingerstick) 289 mg/dL (70-99) Laboratory Tests Test 12/30/16 16:57 12/30/16 20:26 12/31/16 03:00 12/31/16 08:07 Glucose (Fingerstick) 316 mg/dL (70-99) 326 mg/dL (70-99) 220 mg/dL (70-99) White Blood Count 13.3 x10^3/uL (4.0-11.0) Red Blood Count 3.60 x10^6/uL (3.50-5.40) Hemoglobin 9.2 g/dL (12.0-15.5) Hematocrit 28.8 % (36.0-47.0) Mean Corpuscular Volume 80 fL (79-100) Mean Corpuscular Hemoglobin 26 pg (25-35) Mean Corpuscular Hemoglobin Concent 32 g/dL (31-37) Red Cell Distribution Width 15.9 % (11.5-14.5) Platelet Count 405 x10^3/uL (140-400) Neutrophils (%) (Auto) 65 % (31-73) Lymphocytes (%) (Auto) 24 % (24-48) Monocytes (%) (Auto) 8 % (0-9) Eosinophils (%) (Auto) 3 % (0-3) Basophils (%) (Auto) 0 % (0-3) Neutrophils # (Auto) 8.7 x10^3uL (1.8-7.7) Lymphocytes # (Auto) 3.2 x10^3/uL (1.0-4.8) Monocytes # (Auto) 1.0 x10^3/uL (0.0-1.1) Eosinophils # (Auto) 0.4 x10^3/uL (0.0-0.7) Basophils # (Auto) 0.0 x10^3/uL (0.0-0.2) Sodium Level 139 mmol/L (136-145) Potassium Level 3.6 mmol/L (3.5-5.1) Chloride Level 102 mmol/L (98-107) Carbon Dioxide Level 27 mmol/L (21-32) Anion Gap 10 (6-14) Blood Urea Nitrogen 7 mg/dL (7-20) Creatinine 0.8 mg/dL (0.6-1.0) Estimated GFR (Cockcroft-Gault) 80.7 Glucose Level 242 mg/dL (70-99) Calcium Level 8.4 mg/dL (8.5-10.1) Test 12/31/16 11:53 Glucose (Fingerstick) 289 mg/dL (70-99) Microbiology 12/28/16 Anaerobic/Aerobic Culture, Resulted Pending 12/28/16 Anaerobic Culture Result 1 (COREY), Resulted Pending 12/28/16 Aerobic Culture - Final, Resulted 12/28/16 Aerobic Culture Result 1 (COREY) - Final, Resulted Medications Current Medications Sodium Chloride 500 ml @ 500 mls/hr 1X ONCE IV Last administered on 19:57; Start 12/27/16 at 20:15; Stop 12/27/16 at 21:14; Status DC Vancomycin HCl (Vanco Per Pharmacy) 1 each PRN DAILY PRN MC SEE COMMENTS Last administered on 12/28/16 08:57; Start 12/27/16 at 20:15; Stop 12/28/16 at 12:34 ; Status DC Ondansetron HCl (Zofran) 4 mg PRN Q8HRS PRN IV NAUSEA/VOMITING; Start 12/27/16 at 20:15; Stop 12/28/16 at 19:42; Status DC Morphine Sulfate 2 mg PRN Q2HR PRN IV PAIN; Start 12/27/16 at 20:15; Stop 12/28 at 20:14; Status DC Sodium Chloride 1,000 ml @ 100 mls/hr Q10H IV Last administered on 12/28/16 12:07; Start 12/27/16 at 20:13; Stop 12/28/16 at 20:12; Status DC Vancomycin HCl 2 gm/Sodium Chloride 500 ml @ 250 mls/hr 1X ONCE IV Last administered on 12/27/16 20:33; Start 12/27/16 at 21:00; Stop 12/27/16 at 22:59 ; Status DC Insulin Human Regular (NovoLIN R VIAL) 10 unit 1X ONCE IV ; Start 12/27/16 at 21:15; Stop 12/27/16 at 22:58; Status DC Albuterol/ Ipratropium (Duoneb) 3 ml 1X ONCE NEB Last administered on 21:57; Start 12/27/16 at 21:30; Stop 12/27/16 at 21:31; Status DC Vancomycin HCl 1 each 1X ONCE MC ; Start 12/28/16 at 20:30; Stop 12/28/16 at 20 :30; Status DC Vancomycin HCl 1.75 gm/Sodium Chloride 500 ml @ 250 mls/hr Q8H IV Last administered on 12/28/16 05:36; Start 12/28/16 at 05:00; Stop 12/28/16 at 12:33 ; Status DC Insulin Aspart (NovoLOG) 0-9 UNITS TIDWMEALS SQ Last administered on 12/29/16 17:10; Start 12/28/16 at 08:00; Stop 12/29/16 at 21:30; Status DC Dextrose (Dextrose 50%-Water Syringe) 12.5 gm PRN Q15MIN PRN IV SEE COMMENTS; Start 12/27/16 at 23:00 Insulin Aspart (NovoLOG) 10 units 1X ONCE SQ Last administered on 12/27/16 23 :34; Start 12/27/16 at 23:15; Stop 12/27/16 at 23:16; Status DC Piperacillin Sod/ Tazobactam Sod 3.375 gm/Sodium Chloride 50 ml @ 100 mls/hr Q6HRS IV Last administered on 12/31/16 11:59; Start 12/28/16 at 12:00 Fentanyl Citrate (Fentanyl 2ml Vial) 100 mcg STK-MED ONCE .ROUTE ; Start at 18:37; Stop 12/28/16 at 18:38; Status DC Sevoflurane (Ultane) 15 ml STK-MED ONCE IH ; Start 12/28/16 at 18:37; Stop 12/28 at 18:38; Status DC Propofol 20 ml @ As Directed STK-MED ONCE IV ; Start 12/28/16 at 18:37; Stop at 18:38; Status DC Dexamethasone Sodium Phosphate (Decadron) 20 mg STK-MED ONCE .ROUTE ; Start at 18:37; Stop 12/28/16 at 18:38; Status DC Ondansetron HCl (Zofran) 4 mg STK-MED ONCE .ROUTE ; Start 12/28/16 at 18:37; Stop 12/28/16 at 18:38; Status DC Lidocaine HCl (Lidocaine Pf 2% Vial) 5 ml STK-MED ONCE .ROUTE ; Start 12/28/16 at 18:37; Stop 12/28/16 at 18:38; Status DC Ondansetron HCl (Zofran) 4 mg PRN Q6HRS PRN IV NAUSEA/VOMITING; Start 12/28/16 at 19:00; Stop 12/28/16 at 23:59; Status DC Fentanyl Citrate (Fentanyl 2ml Vial) 25 mcg PRN Q5MIN PRN IV MILD PAIN; Start 12/28/16 at 19:00; Stop 12/28/16 at 23:59; Status DC Fentanyl Citrate (Fentanyl 2ml Vial) 50 mcg PRN Q5MIN PRN IV MODERATE PAIN Last administered on 12/28/16 20:04; Start 12/28/16 at 19:00; Stop 12/28/16 at 23:59; Status DC Morphine Sulfate 1 mg PRN Q10MIN PRN IV SEVERE PAIN Last administered on 19:50; Start 12/28/16 at 19:00; Stop 12/28/16 at 23:59; Status DC Ringer's Solution 1,000 ml @ 30 mls/hr Q24H IV Last administered on 12/28/16 18:55; Start 12/28/16 at 19:00; Stop 12/28/16 at 23:59; Status DC Lidocaine HCl 2 ml PRN 1X PRN ID PRIOR TO IV START; Start 12/28/16 at 19:00; Stop 12/28/16 at 23:59; Status DC Hydromorphone HCl (Dilaudid) 0.5 mg PRN Q10MIN PRN IV SEV PAIN, Second choice; Start 12/28/16 at 19:00; Stop 12/28/16 at 23:59; Status DC Prochlorperazine Edisylate (Compazine) 5 mg PACU PRN PRN IV NAUSEA, MRX1; Start 12/28/16 at 19:00; Stop 12/28/16 at 23:59; Status DC Enoxaparin Sodium (Lovenox 60mg Syringe) 60 mg Q12HR SQ ; Start 12/29/16 at 09: 00; Stop 12/29/16 at 11:57; Status DC Sodium Chloride (Normal Saline Flush) 3 ml QSHIFT PRN IV AFTER MEDS AND BLOOD DRAWS; Start 12/28/16 at 19:30 Acetaminophen/ Hydrocodone Bitart (Lortab 5/325) 1 tab PRN Q4HRS PRN PO MILD PAIN Last administered on 12/30/16 17:22; Start 12/28/16 at 19:30 Senna/Docusate Sodium (Senna Plus) 1 tab BID PO Last administered on 12/30/16 08:23; Start 12/28/16 at 21:00 Ondansetron HCl (Zofran) 4 mg PRN Q6HRS PRN IV NAUESA, 1ST CHOICE; Start at 19:30 Insulin Aspart (NovoLOG VIAL) 4 unit 1X ONCE SQ Last administered on 19:47; Start 12/28/16 at 19:45; Stop 12/28/16 at 19:46; Status DC Morphine Sulfate 2 mg STK-MED ONCE .ROUTE ; Start 12/28/16 at 19:39; Stop at 19:40; Status DC Insulin Aspart (NovoLOG VIAL) 100 unit STK-MED ONCE SQ ; Start 12/28/16 at 19:39 ; Stop 12/28/16 at 19:40; Status DC Insulin Aspart (NovoLOG) 0-9 UNITS QIDACHS SQ ; Start 12/30/16 at 07:30; Stop at 07:30; Status DC Insulin Aspart (NovoLOG) 0-9 UNITS QIDACHS SQ Last administered on 12/31/16 12: 08; Start 12/29/16 at 22:00 Iohexol (Omnipaque 240 Mg/ml) 30 ml 1X ONCE PO Last administered on 12/30/16 11:52; Start 12/30/16 at 10:00; Stop 12/30/16 at 10:01; Status DC Iohexol (Omnipaque 300 Mg/ml) 75 ml 1X ONCE IV Last administered on 12/30/16 11:51; Start 12/30/16 at 10:00; Stop 12/30/16 at 10:01; Status DC Insulin Detemir (Levemir) 20 units QHS SQ Last administered on 12/30/16 20:37 ; Start 12/30/16 at 21:00; Stop 12/31/16 at 08:36; Status DC Insulin Detemir (Levemir) 10 units 1X STAT SQ Last administered on 12/30/16 12:23; Start 12/30/16 at 10:06; Stop 12/30/16 at 10:09; Status DC Medroxyprogesterone Acetate (Provera) 10 mg BID PO Last administered on 08:16; Start 12/30/16 at 12:00 Insulin Aspart (NovoLOG) 5 units TIDAC SQ Last administered on 12/31/16 08:24; Start 12/30/16 at 16:30; Stop 12/31/16 at 08:36; Status DC Acetaminophen (Tylenol) 650 mg PRN Q6HRS PRN PO FEVER; Start 12/30/16 at 13:30 Ondansetron HCl (Zofran) 4 mg PRN Q6HRS PRN IV NAUSEA/VOMITING; Start 12/30/16 at 13:30 Morphine Sulfate 2 mg PRN Q2HR PRN IV PAIN; Start 12/30/16 at 13:30 Tramadol HCl (Ultram) 50 mg PRN Q6HRS PRN PO PAIN; Start 12/30/16 at 13:30 Hydralazine HCl (Apresoline) 10 mg PRN Q4HRS PRN IVP ELEVATED BP, SEE COMMENTS ; Start 12/30/16 at 13:30 Docusate Sodium (Colace) 100 mg PRN DAILY PRN PO CONSTIPATION; Start 12/30/16 at 13:30 Enoxaparin Sodium (Lovenox 40mg Syringe) 40 mg DAILY SQ ; Start 12/31/16 at 09:00 ; Status Cancel Enoxaparin Sodium (Lovenox 60mg Syringe) 60 mg Q12HR SQ Last administered on 08:17; Start 12/30/16 at 21:00 Insulin Aspart (NovoLOG) 8 units TIDAC SQ Last administered on 12/31/16 12:09; Start 12/31/16 at 11:30 Insulin Detemir (Levemir) 25 units QHS SQ ; Start 12/31/16 at 21:00 Active Scripts Active Reported Deland 5-325 Tablet (Acetaminophen/Hydrocodone Bitart) 1 Each Tablet 1-2 Tab PO PRN Q4-6HRS PRN LAST DOSE GIVEN: DATE: TIME: Bactrim Ds Tablet (Sulfamethoxazole/Trimethoprim) 1 Each Tablet 1 Tab PO BID Aleve (Naproxen Sodium) 220 Mg Capsule 440 Mg PO BID Vitals/I & O Vital Sign - Last 24 Hours 12/30/16 12/30/16 12/30/16 12/30/16 15:11 17:22 18:30 19:00 Temp 97.9 98.4 97.9 98.4 Pulse 90 98 Resp 20 19 B/P (MAP) 165/94 (117) 135/83 (100) Pulse Ox 94 95 O2 Delivery Room Air Room Air Room Air Room Air 12/30/16 12/30/16 12/31/16 12/31/16 20:00 22:50 07:00 08:00 Temp 97.7 98.3 97.7 98.3 Pulse 95 98 Resp 18 17 B/P (MAP) 143/91 (108) 146/92 (110) Pulse Ox 96 96 O2 Delivery Room Air Room Air Room Air Room Air 12/31/16 11:00 Temp 98.1 98.1 Pulse 80 Resp 17 B/P (MAP) 136/88 (104) Pulse Ox 97 O2 Delivery Room Air Intake and Output 12/30/16 12/30/16 12/31/16 15:00 23:00 07:00 Intake Total 600 ml 1200 ml 750 ml Balance 600 ml 1200 ml 750 ml NASRIN HONEYCUTT MD Dec 31, 2016 12:34
[2016-12-31 15:00] VITALS: BP 149/86
--- NOTE | 2016-12-31 15:56 | PATHOLOGY ---
PATHOLOGY REPORT * * * * * * * * FINAL DIAGNOSIS: Segments of skin and subcutaneous tissue, right groin incision and drainage: - Abscess. COMMENT: There is no evidence of malignancy. (JPM:pit; 12/31/2016) REPORT ELECTRONICALLY SIGNED BY: Theodore Linton M.D. DATE/TIME: 12/31/2016 15:56 * * * * * * * * GROSS PATHOLOGY: The specimen is received in formalin, designated "Rosalinda Olivas, skin abscess right groin" and consists of multiple irregular segments of skin and fatty appearing subcutaneous tissue, forming an aggregate measurement of 6.4 x 4.8 x 2.0 cm. Many of the segments have a nagy green, necrotic appearance. Sectioning reveals lobulated fatty appearing tissue and skin showing focal areas of hemorrhage and nagy green necrosis. [employer] sections are submitted in cassette A1. (JPM; 12/30/16) INITIAL CPT CODE(S): A; 14491 Professional services performed [place] [address] Technical services performed by [facility] at [address] [place] [address]. SPECIMEN(S) RECEIVED: A.Skin abscess, right groin CLINICAL HISTORY: Thigh abscess PATIENT: ROSALINDA OLIVAS /AGE: 611/06/1980 (Age: 36) PATIENT #: [id number] ALT CASE #: SPECIMEN COLLECTION DATE: 12/28/2016 SPECIMEN RECEIVED DATE: 12/30/2016 [facility] - [address] [place] [address] - PHONE: [phone] * * * END OF REPORT * * *
[2016-12-31 19:00] VITALS: BP 162/86
[2016-12-31] MEDS ORDERED: INSULIN DETEMIR 300 UNITS/3 ML INSULN.PEN. SQ SCH (21:00)
[2016-12-31 23:00] VITALS: BP 152/76
[2017-01-01] MEDS: PIPERACILLIN/TAZOBACTAM 3.375 GM in IV NORMAL SALINE 50ML 50 ML IV SCH ×2 (02:08→06:04)
[2017-01-01] MEDS: HYDROcodone/APAP 5/325MG 1 TAB TABLET PO PRN ×3 (02:16→10:33)
[2017-01-01 03:00] VITALS: BP 158/75
[2017-01-01 04:09] LABS: BASO # 0.1 x10^3/uL (0.0-0.2); BASO % 0 % (0-3); EOS % 3 % (0-3); HEMATOCRIT 26.7 % (36.0-47.0); HEMOGLOBIN 8.9 g/dL (12.0-15.5); LYMPH # 3.3 x10^3/uL (1.0-4.8); LYMPH % 26 % (24-48); MEAN CORPUSCULAR HEMOGLOBIN 26 pg (25-35); MEAN CORPUSCULAR HGB CONC 33 g/dL (31-37); MEAN CORPUSCULAR VOLUME 79 fL (79-100); MONO % 7 % (0-9); NEUT % 64 % (31-73); PLATELET COUNT 402 x10^3/uL (140-400); RED CELL DISTRIBUTION WIDTH 15.9 % (11.5-14.5); WHITE BLOOD COUNT 12.5 x10^3/uL (4.0-11.0)
[2017-01-01 04:19] LABS: CALCIUM 8.1 mg/dL (8.5-10.1); CREATININE 0.9 mg/dL (0.6-1.0); GFR 70.5; POTASSIUM 3.4 mmol/L (3.5-5.1)
[2017-01-01 07:00] VITALS: BP 161/84
[2017-01-01] MEDS ORDERED: POTASSIUM CHLORIDE 20 MEQ TABLET.ER. PO ONE (08:00)
--- NOTE | 2017-01-01 08:08 | PDOC ---
SURGICAL PROGRESS NOTE Subjective Pt with c/o fatigue, mild pain in groin Vital Signs Vital Signs Date Time Temp Pulse Resp B/P (MAP) Pulse Ox O2 Delivery O2 Flow Rate FiO2 01/01/17 07:56 Room Air 01/01/17 03:00 99.7 91 18 158/75 (102) 93 99.7 I&O Intake and Output 01/01/17 07:00 Intake Total 1200 ml Balance 1200 ml Intake Oral 1050 ml IV Total 150 ml # Voids 3 General: Alert, Oriented X3, Cooperative, No acute distress Skin: Other (dressing c/d/i, induration minimal) Labs Laboratory Tests Test 12/30/16 10:39 12/30/16 16:57 12/30/16 20:26 12/31/16 03:00 Glucose (Fingerstick) 333 mg/dL (70-99) 316 mg/dL (70-99) 326 mg/dL (70-99) White Blood Count 13.3 x10^3/uL (4.0-11.0) Red Blood Count 3.60 x10^6/uL (3.50-5.40) Hemoglobin 9.2 g/dL (12.0-15.5) Hematocrit 28.8 % (36.0-47.0) Mean Corpuscular Volume 80 fL (79-100) Mean Corpuscular Hemoglobin 26 pg (25-35) Mean Corpuscular Hemoglobin Concent 32 g/dL (31-37) Red Cell Distribution Width 15.9 % (11.5-14.5) Platelet Count 405 x10^3/uL (140-400) Neutrophils (%) (Auto) 65 % (31-73) Lymphocytes (%) (Auto) 24 % (24-48) Monocytes (%) (Auto) 8 % (0-9) Eosinophils (%) (Auto) 3 % (0-3) Basophils (%) (Auto) 0 % (0-3) Neutrophils # (Auto) 8.7 x10^3uL (1.8-7.7) Lymphocytes # (Auto) 3.2 x10^3/uL (1.0-4.8) Monocytes # (Auto) 1.0 x10^3/uL (0.0-1.1) Eosinophils # (Auto) 0.4 x10^3/uL (0.0-0.7) Basophils # (Auto) 0.0 x10^3/uL (0.0-0.2) Sodium Level 139 mmol/L (136-145) Potassium Level 3.6 mmol/L (3.5-5.1) Chloride Level 102 mmol/L (98-107) Carbon Dioxide Level 27 mmol/L (21-32) Anion Gap 10 (6-14) Blood Urea Nitrogen 7 mg/dL (7-20) Creatinine 0.8 mg/dL (0.6-1.0) Estimated GFR (Cockcroft-Gault) 80.7 Glucose Level 242 mg/dL (70-99) Hemoglobin A1c 12.9 % (4.8-5.6) Calcium Level 8.4 mg/dL (8.5-10.1) Test 12/31/16 08:07 12/31/16 11:53 12/31/16 16:27 12/31/16 21:06 Glucose (Fingerstick) 220 mg/dL (70-99) 289 mg/dL (70-99) 246 mg/dL (70-99) 251 mg/dL (70-99) Test 01/01/17 03:23 01/01/17 07:42 White Blood Count 12.5 x10^3/uL (4.0-11.0) Red Blood Count 3.40 x10^6/uL (3.50-5.40) Hemoglobin 8.9 g/dL (12.0-15.5) Hematocrit 26.7 % (36.0-47.0) Mean Corpuscular Volume 79 fL (79-100) Mean Corpuscular Hemoglobin 26 pg (25-35) Mean Corpuscular Hemoglobin Concent 33 g/dL (31-37) Red Cell Distribution Width 15.9 % (11.5-14.5) Platelet Count 402 x10^3/uL (140-400) Neutrophils (%) (Auto) 64 % (31-73) Lymphocytes (%) (Auto) 26 % (24-48) Monocytes (%) (Auto) 7 % (0-9) Eosinophils (%) (Auto) 3 % (0-3) Basophils (%) (Auto) 0 % (0-3) Neutrophils # (Auto) 7.9 x10^3uL (1.8-7.7) Lymphocytes # (Auto) 3.3 x10^3/uL (1.0-4.8) Monocytes # (Auto) 0.9 x10^3/uL (0.0-1.1) Eosinophils # (Auto) 0.3 x10^3/uL (0.0-0.7) Basophils # (Auto) 0.1 x10^3/uL (0.0-0.2) Sodium Level 140 mmol/L (136-145) Potassium Level 3.4 mmol/L (3.5-5.1) Chloride Level 105 mmol/L (98-107) Carbon Dioxide Level 26 mmol/L (21-32) Anion Gap 9 (6-14) Blood Urea Nitrogen 10 mg/dL (7-20) Creatinine 0.9 mg/dL (0.6-1.0) Estimated GFR (Cockcroft-Gault) 70.5 Glucose Level 216 mg/dL (70-99) Calcium Level 8.1 mg/dL (8.5-10.1) Glucose (Fingerstick) 225 mg/dL (70-99) Laboratory Tests Test 12/31/16 08:07 12/31/16 11:53 12/31/16 16:27 12/31/16 21:06 Glucose (Fingerstick) 220 mg/dL (70-99) 289 mg/dL (70-99) 246 mg/dL (70-99) 251 mg/dL (70-99) Test 01/01/17 03:23 01/01/17 07:42 White Blood Count 12.5 x10^3/uL (4.0-11.0) Red Blood Count 3.40 x10^6/uL (3.50-5.40) Hemoglobin 8.9 g/dL (12.0-15.5) Hematocrit 26.7 % (36.0-47.0) Mean Corpuscular Volume 79 fL (79-100) Mean Corpuscular Hemoglobin 26 pg (25-35) Mean Corpuscular Hemoglobin Concent 33 g/dL (31-37) Red Cell Distribution Width 15.9 % (11.5-14.5) Platelet Count 402 x10^3/uL (140-400) Neutrophils (%) (Auto) 64 % (31-73) Lymphocytes (%) (Auto) 26 % (24-48) Monocytes (%) (Auto) 7 % (0-9) Eosinophils (%) (Auto) 3 % (0-3) Basophils (%) (Auto) 0 % (0-3) Neutrophils # (Auto) 7.9 x10^3uL (1.8-7.7) Lymphocytes # (Auto) 3.3 x10^3/uL (1.0-4.8) Monocytes # (Auto) 0.9 x10^3/uL (0.0-1.1) Eosinophils # (Auto) 0.3 x10^3/uL (0.0-0.7) Basophils # (Auto) 0.1 x10^3/uL (0.0-0.2) Sodium Level 140 mmol/L (136-145) Potassium Level 3.4 mmol/L (3.5-5.1) Chloride Level 105 mmol/L (98-107) Carbon Dioxide Level 26 mmol/L (21-32) Anion Gap 9 (6-14) Blood Urea Nitrogen 10 mg/dL (7-20) Creatinine 0.9 mg/dL (0.6-1.0) Estimated GFR (Cockcroft-Gault) 70.5 Glucose Level 216 mg/dL (70-99) Calcium Level 8.1 mg/dL (8.5-10.1) Glucose (Fingerstick) 225 mg/dL (70-99) Problem List s/p I and D cont wound care will need home health Problems: SHANNAN FERRIS MD Jan 01, 2017 08:07
[2017-01-01] MEDS: INSULIN ASPART 300 UNITS/3 ML INSULN.PEN SQ SCH ×7 (09:15→22:25)
[2017-01-01] MEDS: SENNOSIDES/DOCUSATE 8.6/50MG TABLET. PO SCH ×2 (09:15→21:00)
--- NOTE | 2017-01-01 10:11 | PDOC ---
Infectious Disease Note Subjective Subjective Comfortable at the moment ROS ROS GEN: Denies fevers, chills, sweats HEENT: Denies blurred vision, sore throat CV: Denies chest pain RESP: Denies shortness of air, cough GI: Denies n/v/d NEURO: Denies confusion, dizziness MSK: Denies weakness, joint pain/swelling Vital Sign Vital Signs Vital Signs Date Time Temp Pulse Resp B/P (MAP) Pulse Ox O2 Delivery O2 Flow Rate FiO2 01/01/17 07:56 Room Air 01/01/17 07:00 98.8 91 20 161/84 (109) 94 98.8 Physical Exam PHYSICAL EXAM GENERAL: NAD, Alert HEENT: PERRL, OC/OP NECK: Supple, no JVD, no LN LUNGS: Clear HEART: S1S2, no gallop, no murmur ABD: Soft, NT, no organomegaly, no rebound EXT: No edema, no cyanosis QUILLER RUNNER: Alert, oriented x 3, no focal neurologic deficit SKIN: No rash IV: ok Labs Lab Laboratory Tests Test 12/31/16 11:53 12/31/16 16:27 12/31/16 21:06 01/01/17 03:23 Glucose (Fingerstick) 289 mg/dL (70-99) 246 mg/dL (70-99) 251 mg/dL (70-99) White Blood Count 12.5 x10^3/uL (4.0-11.0) Red Blood Count 3.40 x10^6/uL (3.50-5.40) Hemoglobin 8.9 g/dL (12.0-15.5) Hematocrit 26.7 % (36.0-47.0) Mean Corpuscular Volume 79 fL (79-100) Mean Corpuscular Hemoglobin 26 pg (25-35) Mean Corpuscular Hemoglobin Concent 33 g/dL (31-37) Red Cell Distribution Width 15.9 % (11.5-14.5) Platelet Count 402 x10^3/uL (140-400) Neutrophils (%) (Auto) 64 % (31-73) Lymphocytes (%) (Auto) 26 % (24-48) Monocytes (%) (Auto) 7 % (0-9) Eosinophils (%) (Auto) 3 % (0-3) Basophils (%) (Auto) 0 % (0-3) Neutrophils # (Auto) 7.9 x10^3uL (1.8-7.7) Lymphocytes # (Auto) 3.3 x10^3/uL (1.0-4.8) Monocytes # (Auto) 0.9 x10^3/uL (0.0-1.1) Eosinophils # (Auto) 0.3 x10^3/uL (0.0-0.7) Basophils # (Auto) 0.1 x10^3/uL (0.0-0.2) Sodium Level 140 mmol/L (136-145) Potassium Level 3.4 mmol/L (3.5-5.1) Chloride Level 105 mmol/L (98-107) Carbon Dioxide Level 26 mmol/L (21-32) Anion Gap 9 (6-14) Blood Urea Nitrogen 10 mg/dL (7-20) Creatinine 0.9 mg/dL (0.6-1.0) Estimated GFR (Cockcroft-Gault) 70.5 Glucose Level 216 mg/dL (70-99) Calcium Level 8.1 mg/dL (8.5-10.1) Test 01/01/17 07:42 Glucose (Fingerstick) 225 mg/dL (70-99) Micro ANAEROBIC-AEROBIC CULTURE PENDING ANAEROBIC RES 1 PENDING AEROBIC CULT Preliminary Preliminary report AEROBIC RES 1 Preliminary Comment Beta hemolytic Streptococcus, group B Heavy growth Penicillin and ampicillin are drugs of choice for treatment of beta-hemolytic streptococcal infections. Susceptibility testing of penicillins and other beta-lactam agents approved by the FDA for treatment of beta-hemolytic streptococcal infections need not be performed routinely because nonsusceptible isolates are extremely rare in any beta-hemolytic streptococcus and have not been reported for Streptococcus pyogenes (group A). (CLSI 2011) Performed at: [address] [id number] [employer] Director: Cande Gamboa MD, Phone: [phone] Objective Assessment Abscess right groin/thigh area. s/p excisional debridement of necrotic tissue down to adipose tissue of right groin, and I and D, 12/28. Intra-op cultures Group B strep -s/p previous I and D on 12/24. group B Strep, anaerobic cx still pending. Leukocytosis -h/o pre-op steroids on 12/24 Diabetes Super morbid obesity, BMI 62 Plan Plan of Care po augmentin Supportive care ct abd and pelvis neg LEFTY JEWELL MD Jan 01, 2017 10:11
[2017-01-01] MEDS: LISINOPRIL 20 MG TABLET PO SCH (10:32)
[2017-01-01] MEDS: AMOXICILLIN/K CLAV 875/125MG TABLET. PO SCH ×2 (10:36→20:59)
[2017-01-01 11:00] VITALS: BP 152/83
--- NOTE | 2017-01-01 11:59 | PDOC ---
PROGRESS NOTES Chief Complaint Chief Complaint Worsening abscess right groin/thigh area. s/p excisional debridement of necrotic tissue down to adipose tissue of right groin, and I and D, 12/28. Intra- op cultures pending -s/p previous I and D on 12/24. group B Strep, anaerobic cx still pending. sepsis -h/o pre-op steroids on 12/24 Diabetes uncontrolled Super morbid obesity, BMI 62 hypokalemia plan: fu with sx ,id dc vanco, and zosyn, on augmentin from 01/01. fu wound cx increase levemir 30u qhs, aspart 10u tid, ssi pain control wound care dvt ppx hba1c 12.9 replete K History of Present Illness History of Present Illness severe pain when move, slightly better low grade fever overnight still wound drain hyperglycemia wbc still high at 12 Vitals Vitals Vital Signs Date Time Temp Pulse Resp B/P (MAP) Pulse Ox O2 Delivery O2 Flow Rate FiO2 01/01/17 11:00 98.1 87 20 152/83 (106) 98 Room Air 98.1 Physical Exam General: Alert, Oriented X3, Cooperative, No acute distress Heart: Regular rate Lungs: Clear, Other (No RRW) Abdomen: Normal bowel sounds, Soft, No tenderness, No masses, Other (pelvic: deferred.) Extremities: No clubbing, No cyanosis Skin: Other Labs LABS Laboratory Tests Test 12/31/16 16:27 12/31/16 21:06 01/01/17 03:23 01/01/17 07:42 Glucose (Fingerstick) 246 mg/dL (70-99) 251 mg/dL (70-99) 225 mg/dL (70-99) White Blood Count 12.5 x10^3/uL (4.0-11.0) Red Blood Count 3.40 x10^6/uL (3.50-5.40) Hemoglobin 8.9 g/dL (12.0-15.5) Hematocrit 26.7 % (36.0-47.0) Mean Corpuscular Volume 79 fL (79-100) Mean Corpuscular Hemoglobin 26 pg (25-35) Mean Corpuscular Hemoglobin Concent 33 g/dL (31-37) Red Cell Distribution Width 15.9 % (11.5-14.5) Platelet Count 402 x10^3/uL (140-400) Neutrophils (%) (Auto) 64 % (31-73) Lymphocytes (%) (Auto) 26 % (24-48) Monocytes (%) (Auto) 7 % (0-9) Eosinophils (%) (Auto) 3 % (0-3) Basophils (%) (Auto) 0 % (0-3) Neutrophils # (Auto) 7.9 x10^3uL (1.8-7.7) Lymphocytes # (Auto) 3.3 x10^3/uL (1.0-4.8) Monocytes # (Auto) 0.9 x10^3/uL (0.0-1.1) Eosinophils # (Auto) 0.3 x10^3/uL (0.0-0.7) Basophils # (Auto) 0.1 x10^3/uL (0.0-0.2) Sodium Level 140 mmol/L (136-145) Potassium Level 3.4 mmol/L (3.5-5.1) Chloride Level 105 mmol/L (98-107) Carbon Dioxide Level 26 mmol/L (21-32) Anion Gap 9 (6-14) Blood Urea Nitrogen 10 mg/dL (7-20) Creatinine 0.9 mg/dL (0.6-1.0) Estimated GFR (Cockcroft-Gault) 70.5 Glucose Level 216 mg/dL (70-99) Calcium Level 8.1 mg/dL (8.5-10.1) Test 01/01/17 09:58 Glucose (Fingerstick) 243 mg/dL (70-99) Review of Systems Review of Systems no chills, sob or chest pain Comment Review of Relevant I have reviewed the following items mauricio (where applicable) has been applied. Labs Laboratory Tests Test 12/30/16 16:57 12/30/16 20:26 12/31/16 03:00 12/31/16 08:07 Glucose (Fingerstick) 316 mg/dL (70-99) 326 mg/dL (70-99) 220 mg/dL (70-99) White Blood Count 13.3 x10^3/uL (4.0-11.0) Red Blood Count 3.60 x10^6/uL (3.50-5.40) Hemoglobin 9.2 g/dL (12.0-15.5) Hematocrit 28.8 % (36.0-47.0) Mean Corpuscular Volume 80 fL (79-100) Mean Corpuscular Hemoglobin 26 pg (25-35) Mean Corpuscular Hemoglobin Concent 32 g/dL (31-37) Red Cell Distribution Width 15.9 % (11.5-14.5) Platelet Count 405 x10^3/uL (140-400) Neutrophils (%) (Auto) 65 % (31-73) Lymphocytes (%) (Auto) 24 % (24-48) Monocytes (%) (Auto) 8 % (0-9) Eosinophils (%) (Auto) 3 % (0-3) Basophils (%) (Auto) 0 % (0-3) Neutrophils # (Auto) 8.7 x10^3uL (1.8-7.7) Lymphocytes # (Auto) 3.2 x10^3/uL (1.0-4.8) Monocytes # (Auto) 1.0 x10^3/uL (0.0-1.1) Eosinophils # (Auto) 0.4 x10^3/uL (0.0-0.7) Basophils # (Auto) 0.0 x10^3/uL (0.0-0.2) Sodium Level 139 mmol/L (136-145) Potassium Level 3.6 mmol/L (3.5-5.1) Chloride Level 102 mmol/L (98-107) Carbon Dioxide Level 27 mmol/L (21-32) Anion Gap 10 (6-14) Blood Urea Nitrogen 7 mg/dL (7-20) Creatinine 0.8 mg/dL (0.6-1.0) Estimated GFR (Cockcroft-Gault) 80.7 Glucose Level 242 mg/dL (70-99) Hemoglobin A1c 12.9 % (4.8-5.6) Calcium Level 8.4 mg/dL (8.5-10.1) Test 12/31/16 11:53 12/31/16 16:27 12/31/16 21:06 01/01/17 03:23 Glucose (Fingerstick) 289 mg/dL (70-99) 246 mg/dL (70-99) 251 mg/dL (70-99) White Blood Count 12.5 x10^3/uL (4.0-11.0) Red Blood Count 3.40 x10^6/uL (3.50-5.40) Hemoglobin 8.9 g/dL (12.0-15.5) Hematocrit 26.7 % (36.0-47.0) Mean Corpuscular Volume 79 fL (79-100) Mean Corpuscular Hemoglobin 26 pg (25-35) Mean Corpuscular Hemoglobin Concent 33 g/dL (31-37) Red Cell Distribution Width 15.9 % (11.5-14.5) Platelet Count 402 x10^3/uL (140-400) Neutrophils (%) (Auto) 64 % (31-73) Lymphocytes (%) (Auto) 26 % (24-48) Monocytes (%) (Auto) 7 % (0-9) Eosinophils (%) (Auto) 3 % (0-3) Basophils (%) (Auto) 0 % (0-3) Neutrophils # (Auto) 7.9 x10^3uL (1.8-7.7) Lymphocytes # (Auto) 3.3 x10^3/uL (1.0-4.8) Monocytes # (Auto) 0.9 x10^3/uL (0.0-1.1) Eosinophils # (Auto) 0.3 x10^3/uL (0.0-0.7) Basophils # (Auto) 0.1 x10^3/uL (0.0-0.2) Sodium Level 140 mmol/L (136-145) Potassium Level 3.4 mmol/L (3.5-5.1) Chloride Level 105 mmol/L (98-107) Carbon Dioxide Level 26 mmol/L (21-32) Anion Gap 9 (6-14) Blood Urea Nitrogen 10 mg/dL (7-20) Creatinine 0.9 mg/dL (0.6-1.0) Estimated GFR (Cockcroft-Gault) 70.5 Glucose Level 216 mg/dL (70-99) Calcium Level 8.1 mg/dL (8.5-10.1) Test 01/01/17 07:42 01/01/17 09:58 Glucose (Fingerstick) 225 mg/dL (70-99) 243 mg/dL (70-99) Laboratory Tests Test 12/31/16 16:27 12/31/16 21:06 01/01/17 03:23 01/01/17 07:42 Glucose (Fingerstick) 246 mg/dL (70-99) 251 mg/dL (70-99) 225 mg/dL (70-99) White Blood Count 12.5 x10^3/uL (4.0-11.0) Red Blood Count 3.40 x10^6/uL (3.50-5.40) Hemoglobin 8.9 g/dL (12.0-15.5) Hematocrit 26.7 % (36.0-47.0) Mean Corpuscular Volume 79 fL (79-100) Mean Corpuscular Hemoglobin 26 pg (25-35) Mean Corpuscular Hemoglobin Concent 33 g/dL (31-37) Red Cell Distribution Width 15.9 % (11.5-14.5) Platelet Count 402 x10^3/uL (140-400) Neutrophils (%) (Auto) 64 % (31-73) Lymphocytes (%) (Auto) 26 % (24-48) Monocytes (%) (Auto) 7 % (0-9) Eosinophils (%) (Auto) 3 % (0-3) Basophils (%) (Auto) 0 % (0-3) Neutrophils # (Auto) 7.9 x10^3uL (1.8-7.7) Lymphocytes # (Auto) 3.3 x10^3/uL (1.0-4.8) Monocytes # (Auto) 0.9 x10^3/uL (0.0-1.1) Eosinophils # (Auto) 0.3 x10^3/uL (0.0-0.7) Basophils # (Auto) 0.1 x10^3/uL (0.0-0.2) Sodium Level 140 mmol/L (136-145) Potassium Level 3.4 mmol/L (3.5-5.1) Chloride Level 105 mmol/L (98-107) Carbon Dioxide Level 26 mmol/L (21-32) Anion Gap 9 (6-14) Blood Urea Nitrogen 10 mg/dL (7-20) Creatinine 0.9 mg/dL (0.6-1.0) Estimated GFR (Cockcroft-Gault) 70.5 Glucose Level 216 mg/dL (70-99) Calcium Level 8.1 mg/dL (8.5-10.1) Test 01/01/17 09:58 Glucose (Fingerstick) 243 mg/dL (70-99) Microbiology 12/28/16 Anaerobic/Aerobic Culture, Resulted Pending 12/28/16 Anaerobic Culture Result 1 (COREY), Resulted Pending 12/28/16 Aerobic Culture - Final, Resulted 12/28/16 Aerobic Culture Result 1 (COREY) - Final, Resulted Medications Current Medications Sodium Chloride 500 ml @ 500 mls/hr 1X ONCE IV Last administered on 19:57; Start 12/27/16 at 20:15; Stop 12/27/16 at 21:14; Status DC Vancomycin HCl (Vanco Per Pharmacy) 1 each PRN DAILY PRN MC SEE COMMENTS Last administered on 12/28/16 08:57; Start 12/27/16 at 20:15; Stop 12/28/16 at 12:34 ; Status DC Ondansetron HCl (Zofran) 4 mg PRN Q8HRS PRN IV NAUSEA/VOMITING; Start 12/27/16 at 20:15; Stop 12/28/16 at 19:42; Status DC Morphine Sulfate 2 mg PRN Q2HR PRN IV PAIN; Start 12/27/16 at 20:15; Stop 12/28 at 20:14; Status DC Sodium Chloride 1,000 ml @ 100 mls/hr Q10H IV Last administered on 12/28/16 12:07; Start 12/27/16 at 20:13; Stop 12/28/16 at 20:12; Status DC Vancomycin HCl 2 gm/Sodium Chloride 500 ml @ 250 mls/hr 1X ONCE IV Last administered on 12/27/16 20:33; Start 12/27/16 at 21:00; Stop 12/27/16 at 22:59 ; Status DC Insulin Human Regular (NovoLIN R VIAL) 10 unit 1X ONCE IV ; Start 12/27/16 at 21:15; Stop 12/27/16 at 22:58; Status DC Albuterol/ Ipratropium (Duoneb) 3 ml 1X ONCE NEB Last administered on 21:57; Start 12/27/16 at 21:30; Stop 12/27/16 at 21:31; Status DC Vancomycin HCl 1 each 1X ONCE MC ; Start 12/28/16 at 20:30; Stop 12/28/16 at 20 :30; Status DC Vancomycin HCl 1.75 gm/Sodium Chloride 500 ml @ 250 mls/hr Q8H IV Last administered on 12/28/16 05:36; Start 12/28/16 at 05:00; Stop 12/28/16 at 12:33 ; Status DC Insulin Aspart (NovoLOG) 0-9 UNITS TIDWMEALS SQ Last administered on 12/29/16 17:10; Start 12/28/16 at 08:00; Stop 12/29/16 at 21:30; Status DC Dextrose (Dextrose 50%-Water Syringe) 12.5 gm PRN Q15MIN PRN IV SEE COMMENTS; Start 12/27/16 at 23:00 Insulin Aspart (NovoLOG) 10 units 1X ONCE SQ Last administered on 12/27/16 23 :34; Start 12/27/16 at 23:15; Stop 12/27/16 at 23:16; Status DC Piperacillin Sod/ Tazobactam Sod 3.375 gm/Sodium Chloride 50 ml @ 100 mls/hr Q6HRS IV Last administered on 01/01/17 06:04; Start 12/28/16 at 12:00; Stop 01/01/17 at 10:11; Status DC Fentanyl Citrate (Fentanyl 2ml Vial) 100 mcg STK-MED ONCE .ROUTE ; Start at 18:37; Stop 12/28/16 at 18:38; Status DC Sevoflurane (Ultane) 15 ml STK-MED ONCE IH ; Start 12/28/16 at 18:37; Stop 12/28 at 18:38; Status DC Propofol 20 ml @ As Directed STK-MED ONCE IV ; Start 12/28/16 at 18:37; Stop at 18:38; Status DC Dexamethasone Sodium Phosphate (Decadron) 20 mg STK-MED ONCE .ROUTE ; Start at 18:37; Stop 12/28/16 at 18:38; Status DC Ondansetron HCl (Zofran) 4 mg STK-MED ONCE .ROUTE ; Start 12/28/16 at 18:37; Stop 12/28/16 at 18:38; Status DC Lidocaine HCl (Lidocaine Pf 2% Vial) 5 ml STK-MED ONCE .ROUTE ; Start 12/28/16 at 18:37; Stop 12/28/16 at 18:38; Status DC Ondansetron HCl (Zofran) 4 mg PRN Q6HRS PRN IV NAUSEA/VOMITING; Start 12/28/16 at 19:00; Stop 12/28/16 at 23:59; Status DC Fentanyl Citrate (Fentanyl 2ml Vial) 25 mcg PRN Q5MIN PRN IV MILD PAIN; Start 12/28/16 at 19:00; Stop 12/28/16 at 23:59; Status DC Fentanyl Citrate (Fentanyl 2ml Vial) 50 mcg PRN Q5MIN PRN IV MODERATE PAIN Last administered on 12/28/16 20:04; Start 12/28/16 at 19:00; Stop 12/28/16 at 23:59; Status DC Morphine Sulfate 1 mg PRN Q10MIN PRN IV SEVERE PAIN Last administered on 19:50; Start 12/28/16 at 19:00; Stop 12/28/16 at 23:59; Status DC Ringer's Solution 1,000 ml @ 30 mls/hr Q24H IV Last administered on 12/28/16 18:55; Start 12/28/16 at 19:00; Stop 12/28/16 at 23:59; Status DC Lidocaine HCl 2 ml PRN 1X PRN ID PRIOR TO IV START; Start 12/28/16 at 19:00; Stop 12/28/16 at 23:59; Status DC Hydromorphone HCl (Dilaudid) 0.5 mg PRN Q10MIN PRN IV SEV PAIN, Second choice; Start 12/28/16 at 19:00; Stop 12/28/16 at 23:59; Status DC Prochlorperazine Edisylate (Compazine) 5 mg PACU PRN PRN IV NAUSEA, MRX1; Start 12/28/16 at 19:00; Stop 12/28/16 at 23:59; Status DC Enoxaparin Sodium (Lovenox 60mg Syringe) 60 mg Q12HR SQ ; Start 12/29/16 at 09: 00; Stop 12/29/16 at 11:57; Status DC Sodium Chloride (Normal Saline Flush) 3 ml QSHIFT PRN IV AFTER MEDS AND BLOOD DRAWS; Start 12/28/16 at 19:30 Acetaminophen/ Hydrocodone Bitart (Lortab 5/325) 1 tab PRN Q4HRS PRN PO MILD PAIN Last administered on 01/01/17 10:33; Start 12/28/16 at 19:30 Senna/Docusate Sodium (Senna Plus) 1 tab BID PO Last administered on 12/30/16 08:23; Start 12/28/16 at 21:00 Ondansetron HCl (Zofran) 4 mg PRN Q6HRS PRN IV NAUESA, 1ST CHOICE Last administered on 01/01/17 10:32; Start 12/28/16 at 19:30 Insulin Aspart (NovoLOG VIAL) 4 unit 1X ONCE SQ Last administered on 19:47; Start 12/28/16 at 19:45; Stop 12/28/16 at 19:46; Status DC Morphine Sulfate 2 mg STK-MED ONCE .ROUTE ; Start 12/28/16 at 19:39; Stop at 19:40; Status DC Insulin Aspart (NovoLOG VIAL) 100 unit STK-MED ONCE SQ ; Start 12/28/16 at 19:39 ; Stop 12/28/16 at 19:40; Status DC Insulin Aspart (NovoLOG) 0-9 UNITS QIDACHS SQ ; Start 12/30/16 at 07:30; Stop at 07:30; Status DC Insulin Aspart (NovoLOG) 0-9 UNITS QIDACHS SQ Last administered on 01/01/17 11: 51; Start 12/29/16 at 22:00 Iohexol (Omnipaque 240 Mg/ml) 30 ml 1X ONCE PO Last administered on 12/30/16 11:52; Start 12/30/16 at 10:00; Stop 12/30/16 at 10:01; Status DC Iohexol (Omnipaque 300 Mg/ml) 75 ml 1X ONCE IV Last administered on 12/30/16 11:51; Start 12/30/16 at 10:00; Stop 12/30/16 at 10:01; Status DC Insulin Detemir (Levemir) 20 units QHS SQ Last administered on 12/30/16 20:37 ; Start 12/30/16 at 21:00; Stop 12/31/16 at 08:36; Status DC Insulin Detemir (Levemir) 10 units 1X STAT SQ Last administered on 12/30/16 12:23; Start 12/30/16 at 10:06; Stop 12/30/16 at 10:09; Status DC Medroxyprogesterone Acetate (Provera) 10 mg BID PO Last administered on 09:15; Start 12/30/16 at 12:00 Insulin Aspart (NovoLOG) 5 units TIDAC SQ Last administered on 12/31/16 08:24; Start 12/30/16 at 16:30; Stop 12/31/16 at 08:36; Status DC Acetaminophen (Tylenol) 650 mg PRN Q6HRS PRN PO FEVER Last administered on 20:34; Start 12/30/16 at 13:30 Ondansetron HCl (Zofran) 4 mg PRN Q6HRS PRN IV NAUSEA/VOMITING; Start 12/30/16 at 13:30 Morphine Sulfate 2 mg PRN Q2HR PRN IV PAIN; Start 12/30/16 at 13:30 Tramadol HCl (Ultram) 50 mg PRN Q6HRS PRN PO PAIN; Start 12/30/16 at 13:30 Hydralazine HCl (Apresoline) 10 mg PRN Q4HRS PRN IVP ELEVATED BP, SEE COMMENTS ; Start 12/30/16 at 13:30 Docusate Sodium (Colace) 100 mg PRN DAILY PRN PO CONSTIPATION; Start 12/30/16 at 13:30 Enoxaparin Sodium (Lovenox 40mg Syringe) 40 mg DAILY SQ ; Start 12/31/16 at 09:00 ; Status Cancel Enoxaparin Sodium (Lovenox 60mg Syringe) 60 mg Q12HR SQ Last administered on 09:15; Start 12/30/16 at 21:00 Insulin Aspart (NovoLOG) 8 units TIDAC SQ Last administered on 12/31/16 17:58; Start 12/31/16 at 11:30; Stop 01/01/17 at 08:00; Status DC Insulin Detemir (Levemir) 25 units QHS SQ Last administered on 12/31/16 22:46; Start 12/31/16 at 21:00; Stop 01/01/17 at 08:00; Status DC Insulin Aspart (NovoLOG) 10 units TIDAC SQ Last administered on 01/01/17 09:15 ; Start 01/01/17 at 11:30 Insulin Detemir (Levemir) 30 units QHS SQ ; Start 01/01/17 at 21:00 Potassium Chloride (Klor-Con) 40 meq 1X ONCE PO Last administered on 01/01/17 09:15; Start 01/01/17 at 08:00; Stop 01/01/17 at 08:01; Status DC Lisinopril (Prinivil) 20 mg DAILY PO Last administered on 01/01/17 10:32; Start 01/01/17 at 10:00 Amoxicillin/ Clavulanate Potassium (Augmentin 875/ 125mg) 1 tab BID PO Last administered on 01/01/17 10:36; Start 01/01/17 at 11:00 Active Scripts Active Reported [place] 5-325 Tablet (Acetaminophen/Hydrocodone Bitart) 1 Each Tablet 1-2 Tab PO PRN Q4-6HRS PRN LAST DOSE GIVEN: DATE: TIME: Bactrim Ds Tablet (Sulfamethoxazole/Trimethoprim) 1 Each Tablet 1 Tab PO BID Aleve (Naproxen Sodium) 220 Mg Capsule 440 Mg PO BID Vitals/I & O Vital Sign - Last 24 Hours 12/31/16 12/31/16 12/31/16 12/31/16 15:00 19:00 20:00 23:00 Temp 98.1 100.8 100.8 98.1 100.8 100.8 Pulse 86 103 95 Resp 18 18 20 B/P (MAP) 149/86 (107) 162/86 (111) 152/76 (101) Pulse Ox 96 97 95 O2 Delivery Room Air Room Air Room Air Room Air 01/01/17 01/01/17 01/01/17 01/01/17 02:16 03:00 06:13 07:00 Temp 99.7 98.8 99.7 98.8 Pulse 91 91 Resp 18 20 B/P (MAP) 158/75 (102) 161/84 (109) Pulse Ox 93 94 O2 Delivery Room Air Room Air Room Air Room Air 01/01/17 01/01/17 01/01/17 07:56 10:32 11:00 Temp 98.1 98.1 Pulse 91 87 Resp 20 B/P (MAP) 161/84 152/83 (106) Pulse Ox 98 O2 Delivery Room Air Room Air Intake and Output 12/31/16 12/31/16 01/01/17 15:00 23:00 07:00 Intake Total 350 ml 850 ml Balance 350 ml 850 ml NASRIN HONEYCUTT MD Jan 01, 2017 11:58
[2017-01-01 14:54] VITALS: BP 148/82
[2017-01-01 19:00] VITALS: BP 144/83
[2017-01-01] MEDS ORDERED: INSULIN DETEMIR 300 UNITS/3 ML INSULN.PEN. SQ SCH (21:00)
[2017-01-01 23:00] VITALS: BP 166/88
[2017-01-02] MEDS: HYDROcodone/APAP 5/325MG 1 TAB TABLET PO PRN ×2 (00:36→11:51)
[2017-01-02 05:24] LABS: BASO % 0 % (0-3); EOS % 3 % (0-3); HEMATOCRIT 26.4 % (36.0-47.0); HEMOGLOBIN 8.4 g/dL (12.0-15.5); LYMPH # 2.7 x10^3/uL (1.0-4.8); LYMPH % 24 % (24-48); MEAN CORPUSCULAR HEMOGLOBIN 26 pg (25-35); MEAN CORPUSCULAR HGB CONC 32 g/dL (31-37); MEAN CORPUSCULAR VOLUME 80 fL (79-100); MONO % 7 % (0-9); NEUT % 66 % (31-73); PLATELET COUNT 370 x10^3/uL (140-400); RED BLOOD COUNT 3.28 x10^6/uL (3.50-5.40); RED CELL DISTRIBUTION WIDTH 15.9 % (11.5-14.5); WHITE BLOOD COUNT 11.1 x10^3/uL (4.0-11.0)
[2017-01-02 05:39] LABS: CALCIUM 7.9 mg/dL (8.5-10.1); CREATININE 0.8 mg/dL (0.6-1.0); GFR 80.7; POTASSIUM 3.9 mmol/L (3.5-5.1)
[2017-01-02 07:00] VITALS: BP 141/87
[2017-01-02] MEDS: AMOXICILLIN/K CLAV 875/125MG TABLET. PO SCH (07:57)
[2017-01-02] MEDS: SENNOSIDES/DOCUSATE 8.6/50MG TABLET. PO SCH (08:00)
[2017-01-02] MEDS: LISINOPRIL 20 MG TABLET PO SCH (08:01)
[2017-01-02] MEDS: INSULIN ASPART 300 UNITS/3 ML INSULN.PEN SQ SCH ×6 (08:14→17:26)
[2017-01-02] MEDS ORDERED: AMOX1TAB11 PO (08:53)
[2017-01-02] MEDS ORDERED: HYDR-2758 PO (08:53)
[2017-01-02] MEDS ORDERED: INSU100I17 SQ (08:53)
[2017-01-02] MEDS ORDERED: INSU100I27 SQ (08:53)
[2017-01-02] MEDS ORDERED: LISI-334 PO (08:53)
--- NOTE | 2017-01-02 09:52 | PDOC ---
SURGICAL PROGRESS NOTE Subjective Pt feels better, min pain Vital Signs Vital Signs Date Time Temp Pulse Resp B/P (MAP) Pulse Ox O2 Delivery O2 Flow Rate FiO2 01/02/17 08:01 97 141/87 01/02/17 08:00 Room Air 01/02/17 07:00 97.9 18 98 97.9 I&O Intake and Output 01/02/17 07:00 Intake Total 1700 ml Balance 1700 ml Intake Oral 1700 ml # Voids 5 General: Alert, Oriented X3, Cooperative, No acute distress Skin: Other (dressing intact, less induration) Labs Laboratory Tests Test 12/31/16 11:53 12/31/16 16:27 12/31/16 21:06 01/01/17 03:23 Glucose (Fingerstick) 289 mg/dL (70-99) 246 mg/dL (70-99) 251 mg/dL (70-99) White Blood Count 12.5 x10^3/uL (4.0-11.0) Red Blood Count 3.40 x10^6/uL (3.50-5.40) Hemoglobin 8.9 g/dL (12.0-15.5) Hematocrit 26.7 % (36.0-47.0) Mean Corpuscular Volume 79 fL (79-100) Mean Corpuscular Hemoglobin 26 pg (25-35) Mean Corpuscular Hemoglobin Concent 33 g/dL (31-37) Red Cell Distribution Width 15.9 % (11.5-14.5) Platelet Count 402 x10^3/uL (140-400) Neutrophils (%) (Auto) 64 % (31-73) Lymphocytes (%) (Auto) 26 % (24-48) Monocytes (%) (Auto) 7 % (0-9) Eosinophils (%) (Auto) 3 % (0-3) Basophils (%) (Auto) 0 % (0-3) Neutrophils # (Auto) 7.9 x10^3uL (1.8-7.7) Lymphocytes # (Auto) 3.3 x10^3/uL (1.0-4.8) Monocytes # (Auto) 0.9 x10^3/uL (0.0-1.1) Eosinophils # (Auto) 0.3 x10^3/uL (0.0-0.7) Basophils # (Auto) 0.1 x10^3/uL (0.0-0.2) Sodium Level 140 mmol/L (136-145) Potassium Level 3.4 mmol/L (3.5-5.1) Chloride Level 105 mmol/L (98-107) Carbon Dioxide Level 26 mmol/L (21-32) Anion Gap 9 (6-14) Blood Urea Nitrogen 10 mg/dL (7-20) Creatinine 0.9 mg/dL (0.6-1.0) Estimated GFR (Cockcroft-Gault) 70.5 Glucose Level 216 mg/dL (70-99) Calcium Level 8.1 mg/dL (8.5-10.1) Test 01/01/17 07:42 01/01/17 09:58 01/01/17 16:36 01/01/17 21:51 Glucose (Fingerstick) 225 mg/dL (70-99) 243 mg/dL (70-99) 279 mg/dL (70-99) 239 mg/dL (70-99) Test 01/02/17 04:20 01/02/17 07:41 White Blood Count 11.1 x10^3/uL (4.0-11.0) Red Blood Count 3.28 x10^6/uL (3.50-5.40) Hemoglobin 8.4 g/dL (12.0-15.5) Hematocrit 26.4 % (36.0-47.0) Mean Corpuscular Volume 80 fL (79-100) Mean Corpuscular Hemoglobin 26 pg (25-35) Mean Corpuscular Hemoglobin Concent 32 g/dL (31-37) Red Cell Distribution Width 15.9 % (11.5-14.5) Platelet Count 370 x10^3/uL (140-400) Neutrophils (%) (Auto) 66 % (31-73) Lymphocytes (%) (Auto) 24 % (24-48) Monocytes (%) (Auto) 7 % (0-9) Eosinophils (%) (Auto) 3 % (0-3) Basophils (%) (Auto) 0 % (0-3) Neutrophils # (Auto) 7.3 x10^3uL (1.8-7.7) Lymphocytes # (Auto) 2.7 x10^3/uL (1.0-4.8) Monocytes # (Auto) 0.7 x10^3/uL (0.0-1.1) Eosinophils # (Auto) 0.3 x10^3/uL (0.0-0.7) Basophils # (Auto) 0.0 x10^3/uL (0.0-0.2) Sodium Level 139 mmol/L (136-145) Potassium Level 3.9 mmol/L (3.5-5.1) Chloride Level 105 mmol/L (98-107) Carbon Dioxide Level 26 mmol/L (21-32) Anion Gap 8 (6-14) Blood Urea Nitrogen 11 mg/dL (7-20) Creatinine 0.8 mg/dL (0.6-1.0) Estimated GFR (Cockcroft-Gault) 80.7 Glucose Level 252 mg/dL (70-99) Calcium Level 7.9 mg/dL (8.5-10.1) Glucose (Fingerstick) 225 mg/dL (70-99) Laboratory Tests Test 01/01/17 09:58 01/01/17 16:36 01/01/17 21:51 01/02/17 04:20 Glucose (Fingerstick) 243 mg/dL (70-99) 279 mg/dL (70-99) 239 mg/dL (70-99) White Blood Count 11.1 x10^3/uL (4.0-11.0) Red Blood Count 3.28 x10^6/uL (3.50-5.40) Hemoglobin 8.4 g/dL (12.0-15.5) Hematocrit 26.4 % (36.0-47.0) Mean Corpuscular Volume 80 fL (79-100) Mean Corpuscular Hemoglobin 26 pg (25-35) Mean Corpuscular Hemoglobin Concent 32 g/dL (31-37) Red Cell Distribution Width 15.9 % (11.5-14.5) Platelet Count 370 x10^3/uL (140-400) Neutrophils (%) (Auto) 66 % (31-73) Lymphocytes (%) (Auto) 24 % (24-48) Monocytes (%) (Auto) 7 % (0-9) Eosinophils (%) (Auto) 3 % (0-3) Basophils (%) (Auto) 0 % (0-3) Neutrophils # (Auto) 7.3 x10^3uL (1.8-7.7) Lymphocytes # (Auto) 2.7 x10^3/uL (1.0-4.8) Monocytes # (Auto) 0.7 x10^3/uL (0.0-1.1) Eosinophils # (Auto) 0.3 x10^3/uL (0.0-0.7) Basophils # (Auto) 0.0 x10^3/uL (0.0-0.2) Sodium Level 139 mmol/L (136-145) Potassium Level 3.9 mmol/L (3.5-5.1) Chloride Level 105 mmol/L (98-107) Carbon Dioxide Level 26 mmol/L (21-32) Anion Gap 8 (6-14) Blood Urea Nitrogen 11 mg/dL (7-20) Creatinine 0.8 mg/dL (0.6-1.0) Estimated GFR (Cockcroft-Gault) 80.7 Glucose Level 252 mg/dL (70-99) Calcium Level 7.9 mg/dL (8.5-10.1) Test 01/02/17 07:41 Glucose (Fingerstick) 225 mg/dL (70-99) Problem List s/p I and D OK to d/c with home health f/u with Ernestine in one week for drain removal Problems: SHANNAN FERRIS MD Jan 02, 2017 09:52
--- NOTE | 2017-01-02 10:40 | PDOC ---
Infectious Disease Note Subjective Subjective Comfortable at the moment ROS ROS GEN: Denies fevers, chills, sweats HEENT: Denies blurred vision, sore throat CV: Denies chest pain RESP: Denies shortness of air, cough GI: Denies n/v/d NEURO: Denies confusion, dizziness MSK: Denies weakness, joint pain/swelling Vital Sign Vital Signs Vital Signs Date Time Temp Pulse Resp B/P (MAP) Pulse Ox O2 Delivery O2 Flow Rate FiO2 01/02/17 08:01 97 141/87 01/02/17 08:00 Room Air 01/02/17 07:00 97.9 18 98 97.9 Physical Exam PHYSICAL EXAM GENERAL: NAD, Alert HEENT: PERRL, OC/OP NECK: Supple, no JVD, no LN LUNGS: Clear HEART: S1S2, no gallop, no murmur ABD: Soft, NT, no organomegaly, no rebound EXT: No edema, no cyanosis RHEOLOGIST: Alert, oriented x 3, no focal neurologic deficit SKIN: No rash IV: ok Labs Lab Laboratory Tests Test 01/01/17 16:36 01/01/17 21:51 01/02/17 04:20 01/02/17 07:41 Glucose (Fingerstick) 279 mg/dL (70-99) 239 mg/dL (70-99) 225 mg/dL (70-99) White Blood Count 11.1 x10^3/uL (4.0-11.0) Red Blood Count 3.28 x10^6/uL (3.50-5.40) Hemoglobin 8.4 g/dL (12.0-15.5) Hematocrit 26.4 % (36.0-47.0) Mean Corpuscular Volume 80 fL (79-100) Mean Corpuscular Hemoglobin 26 pg (25-35) Mean Corpuscular Hemoglobin Concent 32 g/dL (31-37) Red Cell Distribution Width 15.9 % (11.5-14.5) Platelet Count 370 x10^3/uL (140-400) Neutrophils (%) (Auto) 66 % (31-73) Lymphocytes (%) (Auto) 24 % (24-48) Monocytes (%) (Auto) 7 % (0-9) Eosinophils (%) (Auto) 3 % (0-3) Basophils (%) (Auto) 0 % (0-3) Neutrophils # (Auto) 7.3 x10^3uL (1.8-7.7) Lymphocytes # (Auto) 2.7 x10^3/uL (1.0-4.8) Monocytes # (Auto) 0.7 x10^3/uL (0.0-1.1) Eosinophils # (Auto) 0.3 x10^3/uL (0.0-0.7) Basophils # (Auto) 0.0 x10^3/uL (0.0-0.2) Sodium Level 139 mmol/L (136-145) Potassium Level 3.9 mmol/L (3.5-5.1) Chloride Level 105 mmol/L (98-107) Carbon Dioxide Level 26 mmol/L (21-32) Anion Gap 8 (6-14) Blood Urea Nitrogen 11 mg/dL (7-20) Creatinine 0.8 mg/dL (0.6-1.0) Estimated GFR (Cockcroft-Gault) 80.7 Glucose Level 252 mg/dL (70-99) Calcium Level 7.9 mg/dL (8.5-10.1) Micro ANAEROBIC-AEROBIC CULTURE PENDING ANAEROBIC RES 1 PENDING AEROBIC CULT Preliminary Preliminary report AEROBIC RES 1 Preliminary Comment Beta hemolytic Streptococcus, group B Heavy growth Penicillin and ampicillin are drugs of choice for treatment of beta-hemolytic streptococcal infections. Susceptibility testing of penicillins and other beta-lactam agents approved by the FDA for treatment of beta-hemolytic streptococcal infections need not be performed routinely because nonsusceptible isolates are extremely rare in any beta-hemolytic streptococcus and have not been reported for Streptococcus pyogenes (group A). (CLSI 2011) Performed at: [address] [id number] Suit Attendant: Cande Gamboa MD, Phone: [phone] Objective Assessment Abscess right groin/thigh area. s/p excisional debridement of necrotic tissue down to adipose tissue of right groin, and I and D, 12/28. Intra-op cultures Group B strep -s/p previous I and D on 12/24. group B Strep, anaerobic cx still pending. Leukocytosis -h/o pre-op steroids on 12/24 Diabetes Super morbid obesity, BMI 62 Plan Plan of Care po augmentin Supportive care ct abd and pelvis neg LEFTY JEWELL MD Jan 02, 2017 10:40
[2017-01-02 11:11] VITALS: BP 140/80
[2017-01-02] MEDS ORDERED: INSULIN ASPART 300 UNITS/3 ML INSULN.PEN SQ SCH (11:30)
--- NOTE | 2017-01-02 11:48 | PDOC3 ---
Discharge Summary [facility] Date of Admission: Dec 27, 2016 Discharge Date: Jan 02, 2017 Admitting Diagnosis abscess right groin/thigh area. s/p excisional debridement of necrotic tissue down to adipose tissue of right groin, and I and D, 12/28. -s/p previous I and D on 12/24. group B Strep, anaerobic cx still pending. sepsis -h/o pre-op steroids on 12/24 Diabetes uncontrolled Super morbid obesity, BMI 62 hypokalemia Problems: CONSULTS id sx Brief Hospital Course Ms. Olivas is a 36 oldF, known DM2, but not treated, came for right thigh pain and induration. She was found an abscess which got i and d on 12/28, cx + strep. now the induration is better, wbc better, fever better, still has the wound packing and a drainage. dc home with HH, cont augmentin x7ds. fu with sx in 1 week to remove the drainage. also prescribed levemir 40u qhs, aspart 15u tid. need to find a pcp leeroy. pt has insurance,educated x10min. dc time 35min. General: Alert, Oriented X3, Cooperative, No acute distress Heart: Regular rate Lungs: Clear, Other (No RRW) Abdomen: Normal bowel sounds, Soft, No tenderness, No masses,. Extremities: No clubbing, No cyanosis Skin: right thigh has the wound with packing and drainage, induration much better. Problems: Disposition home H CONDITION AT DISCHARGE: Improved Diet ada Scheduled Amoxicillin/Potassium Clav (Amox Tr-K Clv 875-125 Mg Tab), 1 TAB PO BID Insulin Aspart (Novolog Flexpen), 15 UNITS SQ TIDAC Insulin Detemir (Levemir Flextouch), 40 UNITS SQ QHS Lisinopril (Lisinopril), 20 MG PO DAILY Scheduled PRN Hydrocodone Bit/Acetaminophen (Hydrocodone-Apap 5-325 ), 1 TAB PO PRN Q4HRS PRN for MILD PAIN Hydrocodone/Apap 5-325 ([place] 5-325 Tablet), 1-2 TAB PO PRN Q4-6HRS PRN for PAIN , (Reported) Discontinued Medications Naproxen Sodium (Aleve), 440 MG PO BID, (Reported) Sulfamethoxazole/Trimethoprim (Bactrim Ds Tablet), 1 TAB PO BID, (Reported) Follow Up sx and id in 1-2 weeks NASRIN HONEYCUTT MD Jan 02, 2017 11:48
[2017-01-02 14:42] VITALS: BP 134/79
[2017-01-02] MEDS ORDERED: INSULIN DETEMIR 300 UNITS/3 ML INSULN.PEN. SQ SCH (21:00)
== END 2017-01-02 17:49 | disposition home health service (06) | DRG 854 ==
LOC: ER 18:33 → 5 SOUTH 20:30
PROVIDERS: ADMIT Internal Medicine; ATTEND Internal Medicine
PROC: 0JBL0ZZ Excision of Right Upper Leg Subcutaneous Tissue and Fascia, Open Approach (ICD-10-PCS; principal; 2016-12-28 18:23)
DX: A41.9 Sepsis, unspecified organism (principal); E87.1 Hypo-osmolality and hyponatremia; L02.214 Cutaneous abscess of groin; Z68.44 Body mass index [BMI] 60.0-69.9, adult; E66.01 Morbid (severe) obesity due to excess calories; E87.6 Hypokalemia; I10 Essential (primary) hypertension; M19.90 Unspecified osteoarthritis, unspecified site; N93.8 Other specified abnormal uterine and vaginal bleeding; E11.65 Type 2 diabetes mellitus with hyperglycemia; Z83.3 Family history of diabetes mellitus; Z72.89 Other problems related to lifestyle
CPT/HCPCS: 36415; 74177; 76856; 80048; 82962; 83036; 85027; 85651; 86140; 87071; 87075; 87205; 88304; 94250; 94640; 96361; 96365; J1100; J1650; J1815; J2001; J2270; J2405; J2543; J2704; J3010; J3370; J7030; J7040; J7120; J7620; Q9966; Q9967; 97535; 99285-25

== ENCOUNTER 2021-09-23 20:58 | Inpatient (IN) | payer BC, OTHER ==
[~2021-09-23] VITALS: Ht 162.6 cm; Wt 170.2 kg
[~2021-09-23 20:58] MED LIST changes: +AMOX1TAB11 PO; +HYDR-2761 PO; +HYDR-3164 PO; -HYDR-971 PO; +INSU100I17 SQ; +INSU100I27 SQ; +LISI20TA18 PO
[2021-09-23 21:00] VITALS: BP 179/87
[2021-09-23 21:15] VITALS: BP 183/85
[2021-09-23] MEDS ORDERED: NORG1TAB7 PO (21:24)
[2021-09-23] MEDS ORDERED: SPIR50TA4 PO (21:24)
[2021-09-23] MEDS ORDERED: MONT10TA49 PO (21:24)
[2021-09-23] MEDS ORDERED: LOSA100T14 PO (21:24)
[2021-09-23 21:30] VITALS: BP 186/83
[2021-09-23 21:45] VITALS: BP 170/86
[2021-09-23 22:00] VITALS: BP 192/85
[2021-09-23 23:00] VITALS: BP 183/84
[2021-09-23] MEDS ORDERED: INSULIN GLARGINE SYRINGE. SQ ONE (23:00)
--- NOTE | 2021-09-23 23:00 | NUR ---
Patient admitted to room 107 from [facility], ICU monitors placed. Patient main complaint is facial numbness and generalized weakness. Cardene gtt currently running. I spoke with Dr. Camejo for admit orders and noted that a head CT was not done. Dr. Camejo ordered head CT and neuro consult. Goal for cardene gtt is to have MAP be around 90. Patient taken to head CT, tolerated well. Patient now resting in bed with no further complaints.
--- NOTE | 2021-09-23 23:30 | RAD ---
STUDY: CT head without contrast INDICATION: Face numbness. Generalized weakness. COMPARISON: None. TECHNIQUE: Axial CT imaging through the head without the use of intravenous contrast. Sagittal and co natalie reformats were obtained. One or more of the following individualized dose reduction techniques were utilized for this examinat ion: 1. Automated exposure control 2. Adjustment of the mA and/or kV according to patient size 3. Use of iterative reconstruction technique. FINDINGS: Partially degraded evaluation of the lower posterior and middle cranial fossae secondary to patient b mony habitus with beam attenuation. No acute intracranial hemorrhage. Funez-white matter differentiation is maintained. No localized mass effect, midline shift or hydrocephalus. There is some patchy low-attenuation of the subcortical white matter seemingly more pronounced involving the right cerebral hemisphere. Dense dural calcification along the falx anteriorly. No acute calvarial abnormality. Well aerated mastoid air cells. Probable maxillary sinus mucosal rete ntion cyst on the right. No layering fluid within the visualized paranasal sinuses. IMPRESSION: 1. No acute intracranial abnormality by CT. 2. There are findings involving the subcortical white matter which are most commonly seen in the set ting of chronic microvascular ischemic change. If there is further clinical concern for an acute intr acranial process MRI could be considered as no comparison studies are available for review. Electronically signed by: LORIE LIU MD (09/23/2021 11:27 PM) [facility] [place]
[2021-09-24] VITALS (35 sets, daily range): BP systolic 127–217; BP diastolic 61–89
[2021-09-24 05:12] LABS: BASO # 0.1 x10^3/uL (0.0-0.2); BASO % 1 % (0-3); EOS # 0.1 x10^3/uL (0.0-0.7); EOS % 1 % (0-3); HEMATOCRIT 31.4 % (36.0-47.0); LYMPH # 1.8 x10^3/uL (1.0-4.8); LYMPH % 14 % (24-48); MEAN CORPUSCULAR HEMOGLOBIN 28 pg (25-35); MEAN CORPUSCULAR HGB CONC 32 g/dL (31-37); MEAN CORPUSCULAR VOLUME 86 fL (79-100); MONO # 0.7 x10^3/uL (0.0-1.1); MONO % 5 % (0-9); NEUT # 10.3 x10^3/uL (1.8-7.7); NEUT % 80 % (31-73); PLATELET COUNT 348 x10^3/uL (140-400); RED BLOOD COUNT 3.64 x10^6/uL (3.50-5.40); RED CELL DISTRIBUTION WIDTH 13.4 % (11.5-14.5); WHITE BLOOD COUNT 12.9 x10^3/uL (4.0-11.0)
[2021-09-24 05:35] LABS: ALBUMIN 2.2 g/dL (3.4-5.0); ALBUMIN/GLOBULIN RATIO 0.5 (1.0-1.7); CALCIUM 8.2 mg/dL (8.5-10.1); CREATININE 2.3 mg/dL (0.6-1.0); GFR 23.4; POTASSIUM 4.3 mmol/L (3.5-5.1); TOTAL BILIRUBIN 0.2 mg/dL (0.2-1.0); TOTAL PROTEIN 6.5 g/dL (6.4-8.2)
--- NOTE | 2021-09-24 08:15 | RAD ---
INDICATION: Reason: BILAT LEG PAIN r/o DVT / Spl. Instructions: / History: COMPARISON: None. TECHNIQUE: Grayscale, color and doppler ultrasound images were obtained of the bilateral lower extrem ity venous vasculature. Some limitation secondary to overlying structures obscuring. RIGHT: No thrombus identified in the common femoral vein, femoral vein, popliteal vein or visualized calf ve ins. LEFT: No thrombus identified in the common femoral vein, femoral vein, popliteal vein or visualized calf ve ins. IMPRESSION: * No thrombus identified in deep venous system of bilateral lower extremities. Electronically signed by: Khanh Starkey MD (09/24/2021 8:13 AM) [id number]
[2021-09-24] MEDS: INSULIN LISPRO 300 UNITS/3 ML VIAL. SQ SCH ×3 (08:55→18:30)
[2021-09-24] MEDS: LOSARTAN POTASSIUM 50 MG TABLET. PO SCH (08:56)
[2021-09-24] MEDS: SPIRONOLACTONE 25 MG TABLET PO SCH (08:56)
[2021-09-24] MEDS: MONTELUKAST SODIUM 10 MG TABLET. PO SCH (08:57)
--- NOTE | 2021-09-24 09:19 | RAD ---
US RENAL DUPLEX History: Reason: HTN Comparison: None. Technique: Multiple grayscale, color flow, and Doppler spectral waveform analysis images of the abdom inal aorta and renal arteries were obtained. Findings: Abdominal aorta peak systolic velocity: 141 cm/sec. Right main renal artery peak systolic velocity: 108 cm/sec. Right renal artery to aorta ratio: 0.7 Left main renal artery peak systolic velocity: 131 cm/sec. Left renal artery to aorta ratio: 0.9 Renal veins are patent. IVC unremarkable. The right kidney measures 11.4 cm. The left kidney measures 12.3 cm. Kidneys are normal in echotextur e. No hydronephrosis. Normal bilateral renal artery resistive indices. IMPRESSION: 1. No evidence of renal artery stenosis. Electronically signed by: Julio Reyna DO (09/24/2021 9:17 AM) [id number]
--- NOTE | 2021-09-24 09:21 | PDOC2 ---
NEUROLOGY CONSULT Date of Service DOS: DATE: 09/24/21 TIME: 09:17 Reason for Consult Reason for Consult: Stroke symptoms Referring Physician Referring Physician: Dr. Camejo Source Source: Chart review, Patient History of Present Illness History of Present Illness The patient is a 40-year-old right-handed female who has had 2 or 3 days of nausea, vomiting, dizziness, chest pain, also some left facial numbness. She went to the [facility] emergency department where she was found to be in hypertensive crisis and she was transferred here. She had a CT angiogram of the chest. She denies any prior history of stroke, seizure, head injury, or migraines. She is feeling a little bit better this morning but still has the numbness in the left face. 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, no tobacco or street drugs Current Medications Current Medications Current Medications Nicardipine HCl 50 mg/Sodium Chloride 250 ml @ 25 mls/hr CONT PRN IV PER PROTOCOL Last administered on 09/24/21at 05:20; Start 09/23/21 at 21:45 Nifedipine (Procardia Xl) 30 mg DAILY PO Last administered on 09/24/21at 09:09; Start 09/24/21 at 09:00 Zolpidem Tartrate (Ambien) 5 mg PRN QHS PRN PO INSOMNIA; Start 09/23/21 at 21:45 Montelukast Sodium (Singulair) 10 mg DAILY PO Last administered on 09/24/21at 08:57; Start 09/24/21 at 09:00 Insulin Human Lispro (HumaLOG) 15 units TIDWMEALS SQ Last administered on 09/24/21at 08:55; Start 09/24/21 at 08:00 Insulin Glargine (Lantus Syringe) 40 unit QHS SQ ; Start 09/24/21 at 21:00 Losartan Potassium (Cozaar) 100 mg DAILY PO Last administered on 09/24/21at 08:56; Start 09/24/21 at 09:00 Spironolactone (Aldactone) 50 mg DAILY PO Last administered on 09/24/21at 08:56; Start 09/24/21 at 09:00 Insulin Glargine (Lantus Syringe) 40 unit 1X ONCE SQ Last administered on 09/23/21at 22:21; Start 09/23/21 at 23:00; Stop 09/23/21 at 23:01; Status DC Active Scripts Active Levemir Flextouch (Insulin Detemir) 100 Unit/1 Ml Insuln.pen 40 Units SQ QHS 30 Days Novolog Flexpen (Insulin Aspart) 100 Unit/1 Ml Insuln.pen 15 Units SQ TIDAC 30 Days Reported Tri-Sprintec (Norgestimate-Ethinyl Estradiol) 1 Each Tablet 1 Tab PO DAILY Spironolactone 50 Mg Tablet 1 Tab PO DAILY Montelukast Sodium Tablet (Montelukast Sodium) 10 Mg Tablet 10 Mg PO DAILY Losartan Potassium 100 Mg Tablet 100 Mg PO DAILY Allergies Allergies: Coded Allergies: No Known Drug Allergies (Unverified , 12/28/16) ROS Review of System Negative for fever, chills, weight loss, shortness of breath, chest pain, indigestion, hematochezia, melena, and dysuria. Full 14-point review of systems is negative. Physical Exam Physical Examination General: Well-developed, well-nourished black female in no acute distress HEENT: Normocephalic andatraumatic. Temporal arteriespulsatile and nontender. Neck: Supple without bruit, no meningismus Musculoskeletal: Stability:see neurologic. Gait exam:see neurologic. Tone:see neurologic.Strength:see neurologic. Neurological: Mental Status:intact, orientation, memory, attention span/concentration, language, fund of knowledge normal. Cranial Nerves:Pupils equal and reactive to light, extraocular movements areintact, visual nuno are full to confrontation. Patchy hypesthesia in the left cheek. There is no facial asymmetry. Vestibulo-ocular reflex is intact. Palate elevates and tongue protrudes in midline. All other cranial related problems are negative except as mentioned before.Reflexes:2+ and symmetric with flexor plantar responses. Motor:5/5 strength with normal tone and bulk. Coordination:Finger-nose finger and lozy-md-otyy testing are normal. Rapid alternating movements and fine finger movements are intact. Gait:Not tested. Sensory:Normal pinprick, vibration, light touch, proprioception. Vitals VITALS Vital Signs Date Time Temp Pulse Resp B/P (MAP) Pulse Ox O2 Delivery O2 Flow Rate FiO2 09/24/21 09:09 94 162/71 09/24/21 07:00 16 95 Room Air 09/24/21 04:00 98.8 98.8 Labs Labs Laboratory Tests Test 09/23/21 21:30 09/24/21 04:55 09/24/21 08:39 Glucose (Fingerstick) 281 mg/dL (70-99) 282 mg/dL (70-99) White Blood Count 12.9 x10^3/uL (4.0-11.0) Red Blood Count 3.64 x10^6/uL (3.50-5.40) Hemoglobin 10.0 g/dL (12.0-15.5) Hematocrit 31.4 % (36.0-47.0) Mean Corpuscular Volume 86 fL (79-100) Mean Corpuscular Hemoglobin 28 pg (25-35) Mean Corpuscular Hemoglobin Concent 32 g/dL (31-37) Red Cell Distribution Width 13.4 % (11.5-14.5) Platelet Count 348 x10^3/uL (140-400) Neutrophils (%) (Auto) 80 % (31-73) Lymphocytes (%) (Auto) 14 % (24-48) Monocytes (%) (Auto) 5 % (0-9) Eosinophils (%) (Auto) 1 % (0-3) Basophils (%) (Auto) 1 % (0-3) Neutrophils # (Auto) 10.3 x10^3/uL (1.8-7.7) Lymphocytes # (Auto) 1.8 x10^3/uL (1.0-4.8) Monocytes # (Auto) 0.7 x10^3/uL (0.0-1.1) Eosinophils # (Auto) 0.1 x10^3/uL (0.0-0.7) Basophils # (Auto) 0.1 x10^3/uL (0.0-0.2) Sodium Level 136 mmol/L (136-145) Potassium Level 4.3 mmol/L (3.5-5.1) Chloride Level 103 mmol/L (98-107) Carbon Dioxide Level 22 mmol/L (21-32) Anion Gap 11 (6-14) Blood Urea Nitrogen 27 mg/dL (7-20) Creatinine 2.3 mg/dL (0.6-1.0) Estimated GFR (Cockcroft-Gault) 23.4 BUN/Creatinine Ratio 12 (6-20) Glucose Level 307 mg/dL (70-99) Calcium Level 8.2 mg/dL (8.5-10.1) Total Bilirubin 0.2 mg/dL (0.2-1.0) Aspartate Amino Transf (AST/SGOT) 52 U/L (15-37) Alanine Aminotransferase (ALT/SGPT) 130 U/L (14-59) Alkaline Phosphatase 151 U/L (46-116) Total Protein 6.5 g/dL (6.4-8.2) Albumin 2.2 g/dL (3.4-5.0) Albumin/Globulin Ratio 0.5 (1.0-1.7) Laboratory Tests Test 09/23/21 21:30 09/24/21 04:55 09/24/21 08:39 Glucose (Fingerstick) 281 mg/dL (70-99) 282 mg/dL (70-99) White Blood Count 12.9 x10^3/uL (4.0-11.0) Red Blood Count 3.64 x10^6/uL (3.50-5.40) Hemoglobin 10.0 g/dL (12.0-15.5) Hematocrit 31.4 % (36.0-47.0) Mean Corpuscular Volume 86 fL (79-100) Mean Corpuscular Hemoglobin 28 pg (25-35) Mean Corpuscular Hemoglobin Concent 32 g/dL (31-37) Red Cell Distribution Width 13.4 % (11.5-14.5) Platelet Count 348 x10^3/uL (140-400) Neutrophils (%) (Auto) 80 % (31-73) Lymphocytes (%) (Auto) 14 % (24-48) Monocytes (%) (Auto) 5 % (0-9) Eosinophils (%) (Auto) 1 % (0-3) Basophils (%) (Auto) 1 % (0-3) Neutrophils # (Auto) 10.3 x10^3/uL (1.8-7.7) Lymphocytes # (Auto) 1.8 x10^3/uL (1.0-4.8) Monocytes # (Auto) 0.7 x10^3/uL (0.0-1.1) Eosinophils # (Auto) 0.1 x10^3/uL (0.0-0.7) Basophils # (Auto) 0.1 x10^3/uL (0.0-0.2) Sodium Level 136 mmol/L (136-145) Potassium Level 4.3 mmol/L (3.5-5.1) Chloride Level 103 mmol/L (98-107) Carbon Dioxide Level 22 mmol/L (21-32) Anion Gap 11 (6-14) Blood Urea Nitrogen 27 mg/dL (7-20) Creatinine 2.3 mg/dL (0.6-1.0) Estimated GFR (Cockcroft-Gault) 23.4 BUN/Creatinine Ratio 12 (6-20) Glucose Level 307 mg/dL (70-99) Calcium Level 8.2 mg/dL (8.5-10.1) Total Bilirubin 0.2 mg/dL (0.2-1.0) Aspartate Amino Transf (AST/SGOT) 52 U/L (15-37) Alanine Aminotransferase (ALT/SGPT) 130 U/L (14-59) Alkaline Phosphatase 151 U/L (46-116) Total Protein 6.5 g/dL (6.4-8.2) Albumin 2.2 g/dL (3.4-5.0) Albumin/Globulin Ratio 0.5 (1.0-1.7) Assessment/Plan Assessment/Plan Impression: Neurologic symptoms due to hypertensive encephalopathy, I doubt that she has had a stroke. History of diabetes, hypertension, hyperlipidemia, noncompliant Recommendations: MRI of the brain Adames study Carotid Doppler studies Hold off on full stroke pathway pending on these results. Treatment of hypertension Check lipids. Thank you for letting me help with the patient's care. DOLORES TRISTAN MD Sep 24, 2021 09:21
[2021-09-24 09:57] LABS: CHOLESTEROL/HDL RATIO 3.6
--- NOTE | 2021-09-24 10:09 | HP ---
DATE OF SERVICE: 09/24/2021 ADMIT DATE: 09/23/2021 HISTORY OF PRESENT ILLNESS: The patient is a 40-year-old -[place] female patient who presented to the Emergency Room of [facility] with a complaint of recurrent bouts of nausea, vomiting for several days. She has vomited a few times. She has been trying sojl-htu-giquxay medication with some relief. As long as she is lying down, she feels okay. When she gets up or moves around, she gets nauseated. She had also an episode of dizziness when she stood up quickly. She has no further episodes. She is diabetic and has not taken her insulin for a couple of days and has not taken her blood pressure for 1 day. She does not believe that she has a fever. She denied any diarrhea, trauma or fall. She was evaluated in the Emergency Room and was found to have extremely high blood pressure. An attempt was made to treat her blood pressure with multiple medications including 0.2 mg of clonidine, 20 mg of hydralazine, 10 mg of metoprolol without much change, blood pressure has minimally improved to just under 200. She was started on nicardipine drip and was transferred to [facility] ICU to continue with the Cardizem drip and adjust her medications. On questioning her, she denied any chest pain or shortness of breath. PAST MEDICAL HISTORY: Significant for hypertension, hyperlipidemia, bronchial asthma. PAST SURGICAL HISTORY: Significant for bilateral cataract extraction and some form of cervical surgery. ALLERGIES: She has no known drug allergies. MEDICATIONS: She is currently on losartan potassium 100 mg once a day, Singulair 10 mg once a day, Humalog and Lantus insulin. She was also on Symbicort and albuterol inhaler. In 06/2020, she underwent bilateral cataract extraction. At that time, Dr. De La Cruz started her on amlodipine and hydrochlorothiazide that she took them for a while and she decided to stop them in her own and according to her, blood pressure has been consistently high throughout all this time. FAMILY HISTORY: She has 1 sister, still alive, and has diabetes and hypertension. Both parents are . She does not know the age and the cause of of her father. Her mother at age of 50 as she was shot. SOCIAL HISTORY: She is single, has no children. Does not smoke. Drinks alcohol very occasionally. Does not use any drugs. 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 REVIEW OF SYSTEMS: On arrival to the Emergency Room of [facility], she denied any blurring of vision. She has bilateral cataract extraction, but denied any glaucoma or macular degeneration. Denied any earache, tinnitus or sensorineural deafness. Denied any nosebleed, stuffy nose, or postnasal drip. Denied any sore throat, sore tongue, toothache, hoarseness of voice or difficulty swallowing. Did complain of nausea, vomiting. Denied any diarrhea, denied any dysuria, frequency or hematuria. Denied any chest pain or shortness of breath. Did complain of numbness in her left side of her face and feeling dizzy whenever she stands up. PHYSICAL EXAMINATION: GENERAL: On examining her, she apparently looked well and was clearly in no apparent respiratory distress. There was no pallor, jaundice, cyanosis, no lymphadenopathy, no thyromegaly, no jugular venous distention. No limb edema. VITAL SIGNS: Her heart rate on arrival was 95, blood pressure went up to 222/125, her temperature was 97.8, respiratory rate was 20 and oxygen saturation was 95%. HEAD, EYES, EARS, NOSE, AND THROAT: Normocephalic, atraumatic. NECK: Supple. HEART: Showed normal first and second heart sounds. No gallop, rub or murmur. CHEST: Clear to auscultation, no crepitation or rhonchi. ABDOMEN: Distended, soft, nontender. NEUROLOGIC: She was grossly intact. She did complain of numbness in her left side of the face without any obvious motor deficit. LABORATORY DATA: Her lab work on arrival showed a white cell count 12.6, hemoglobin was 11.9, hematocrit 37, MCV 88 and platelet count of 105,000. Her chemistry showed a serum sodium 133, potassium 4.9, chloride 100, bicarbonate 24, anion gap of 9, BUN 23, creatinine 1.8. Estimated GFR was 37 mL per minute. Her glucose was 181, calcium was 9.3. Total bilirubin 0.5. AST, ALT, alkaline phosphatase are all elevated. Total protein 7.6, albumin 3. Urinalysis was essentially unremarkable. Her toxic screen was negative. Her coronavirus by rapid antigen testing was negative. She had a CT angio of the chest, which basically showed no evidence of main lobar or definite proximal segmental pulmonary embolism on limited evaluation, pulmonary hypoexpansion with minimal nonspecific patchy ground glass opacities in the upper lobes, greater on the right, cardiomegaly, 5 mm pulmonary nodule, right middle lobe. ASSESSMENT AND PLAN: The patient was treated with multiple antihypertensive medications including clonidine, hydralazine as well as 10 mg of metoprolol without improvement. Her systolic pressure continued to be high at around 200 and therefore, the patient was started on a Cardene drip and was transferred to [facility] for further evaluation and treatment. With the final diagnosis of hypertensive urgency, she has chronic kidney disease, type 2 diabetes mellitus. She has bronchial asthma. I will consult the mail processing machine operator to assist with management. I continued with the nicardipine drip with a plan to maintain a mean arterial pressure of about 90 mmHg, but the plan is to start her on losartan and also start her on Procardia at 30 mg and increase as needed and hopefully wean the nicardipine drip slowly and taper it off completely. MILAGROS DR: Jared TID: [id number]
--- NOTE | 2021-09-24 10:24 | RAD ---
US DPLX CAROTID BILAT History: Reason: hyertension, left face numb / Spl. Instructions: / History: COMPARISON: None Technique: Duplex sonography of the cervical portion of both carotid arteries was performed. Real-caesar e grayscale, color flow Doppler, and Doppler spectral waveform analysis is performed. PQRS Compliance Statement - Stenosis calculations for CT, MR and conventional angiography are based u araceli measurement of the distal ICA diameter in accordance with the NASCET methodology. Stenosis calcu lations for carotid ultrasound studies are derived from validated velocity criteria which are known t o correlate with the NASCET methodology. Findings: Right side: Peak systolic flow velocity of the CCA is 116 cm/sec. Peak systolic flow velocity of the ICA is 110 cm/sec. The ICA/CCA ratio is 0.95. Peak end diastolic flow velocity of the ICA is 30 cm/sec. The peak systolic velocity of the ECA is 239 cm/sec. Mild atheromatous plaque. Left side: Peak systolic flow velocity of the CCA is 139 cm/sec. Peak systolic flow velocity of the ICA is 109 cm/sec. The ICA/CCA ratio is 0.79. Peak end diastolic flow velocity of the ICA is 101 cm/sec. Peak systolic flow velocity of the ECA is 234 cm/sec. Mild atheromatous plaque. Vertebral arteries: Bilateral vertebral arteries demonstrate antegrade flow. IMPRESSION: 1. No hemodynamically significant internal carotid artery stenosis. 2. Mild atheromatous plaque. 3. Elevated bilateral external carotid artery velocities, may indicate stenosis. Electronically signed by: Julio Reyna DO (09/24/2021 10:22 AM) [id number]
--- NOTE | 2021-09-24 15:01 | PDOC2 ---
CONSULT Date of Consult Date of Consult DATE: 09/24/21 TIME: 14:39 Reason for Consult Reason for Consult: JUDITH Identification/Chief Complaint Chief Complaint I want to eat Source Source: Chart review, Patient History of Present Illness Reason for Visit: Patient is a 40-year-old morbidly obese -Filipino female patient who pr esented to the Emergency Room of [facility] with a complaint of recurrent bouts of nausea, vomiting for several days. She has vomited a few times. She has been trying [id number] medication with some relief. She had also an episode of dizziness when she stood up quickly. She is diabetic and has not taken her insulin for a couple of days and has not taken her blood pressure meds for 1 day. She denies fever/ Chills . She denies any diarrhea, or abdominal pain. Denies dysuria/Hematuria . No Hx of Recurrent UTI's. Denies Hx of Kidney stones Reports she vomited x 2 2 days back . She has been taking Advil every day at least 2 Pills every day for past few days for low back pain .She is on Aldactone and Losartan along with other meds. She state she was also taking HCTZ whisch she stopped own her owb=n few months ago. She follows with Bettie Crabtree([facility]) office, but not seen rcently or No recent labs. She has never been told about any Kidney issues/Abnormal Kidney labs etc She denies any CP or SOB. States her wt has gone up gradually, has LE edema mild but stable . Currently No specific complaints, states mouth feels little dry and she is hungry She was evaluated in the Emergency Room and was found to have extremely high blood pressure. An attempt was made to treat her blood pressure with multiple medications including 0.2 mg of clonidine, 20 mg of hydralazine, 10 mg of metoprolol with blood pressure minimally improved to just under 200. She was started on nicardipine drip and was transferred to [facility] ICU Past Medical History Past Medical History Significant for hypertension, hyperlipidemia, bronchial asthma. DM Cardiovascular: HTN Pulmonary: Asthma, Other Musculoskeletal: Osteoarthritis Endocrine: Diabetes Past Surgical History Past Surgical History Significant for bilateral cataract extraction and some form of cervical surgery. Past Surgical History: Other ("Female surgery.") Family History Family History She has 1 sister, still alive, and has diabetes and hypertension. Both parents are . She does not know the age and the cause of of her father. Her mother at age of 50 as she was shot. Denies any FHX OF CKD or ESRD Family History: Diabetes Social History Social History She is single, has no children. Does not smoke. Drinks alcohol very occasionally. Does not use any drugs. 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 ALCOHOL: rare Drugs: None Lives: Alone Current Medications Current Medications Current Medications Nicardipine HCl 50 mg/Sodium Chloride 250 ml @ 25 mls/hr CONT PRN IV PER PROTOCOL Last administered on 09/24/21at 11:37; Start 09/23/21 at 21:45 Nifedipine (Procardia Xl) 30 mg DAILY PO Last administered on 09/24/21at 09:09; Start 09/24/21 at 09:00 Zolpidem Tartrate (Ambien) 5 mg PRN QHS PRN PO INSOMNIA; Start 09/23/21 at 21:45 Montelukast Sodium (Singulair) 10 mg DAILY PO Last administered on 09/24/21at 08:57; Start 09/24/21 at 09:00 Insulin Human Lispro (HumaLOG) 15 units TIDWMEALS SQ Last administered on 09/24/21at 13:28; Start 09/24/21 at 08:00 Insulin Glargine (Lantus Syringe) 40 unit QHS SQ ; Start 09/24/21 at 21:00 Losartan Potassium (Cozaar) 100 mg DAILY PO Last administered on 09/24/21at 08:56; Start 09/24/21 at 09:00 Spironolactone (Aldactone) 50 mg DAILY PO Last administered on 09/24/21at 08:56; Start 09/24/21 at 09:00 Insulin Glargine (Lantus Syringe) 40 unit 1X ONCE SQ Last administered on 09/23/21at 22:21; Start 09/23/21 at 23:00; Stop 09/23/21 at 23:01; Status DC Active Scripts Active Levemir Flextouch (Insulin Detemir) 100 Unit/1 Ml Insuln.pen 40 Units SQ QHS 30 Days Novolog Flexpen (Insulin Aspart) 100 Unit/1 Ml Insuln.pen 15 Units SQ TIDAC 30 Days Reported Tri-Sprintec (Norgestimate-Ethinyl Estradiol) 1 Each Tablet 1 Tab PO DAILY Spironolactone 50 Mg Tablet 1 Tab PO DAILY Montelukast Sodium Tablet (Montelukast Sodium) 10 Mg Tablet 10 Mg PO DAILY Losartan Potassium 100 Mg Tablet 100 Mg PO DAILY Allergies Allergies: Coded Allergies: No Known Drug Allergies (Unverified , 12/28/16) ROS Review of System As per HPI, rest of the ROS is negative Physical Exam Physical Exam GENERAL: Morbidly Obese , Propped up in bed. NAD HEEN Normocephalic, atraumatic.om mildly dry NECK: Supple. HEART: normal first and second heart sounds. No gallop, rub or murmur. LUNGS : Clear to auscultation, decreased at bases, non labored ABDOMEN: Distended, soft, nontender. NEUROLOGIC: Grossly Normal, Moves all 4 extremities . She did complain of numbness in her left side of the face without any obvious motor deficit. PSYCH COOPERATIVE EXT No LE edema No Weiss, No CVA or SP tenderness DERM No Rash Vital Signs Vital Signs Date Time Temp Pulse Resp B/P (MAP) Pulse Ox O2 Delivery O2 Flow Rate FiO2 09/24/21 10:30 98 16 147/61 98 Room Air 09/24/21 04:00 98.8 98.8 Assessment & Plan JUDITH - Vasomotor / Vomiting /Poor po intake/ IV Contrast / Hx of NSAID use . Baseline Cr normal in 2017 per [facility] records. No Interval labs available .UA unremarkable, US Unremarkable Supportive care, Gentle IV hydration , Hold Aldactone , ARB restarted by primary- Hold if worsrning renal function . Avoid Nephrotoxins. . Strict I/O CKD - per Primary's note, No interval labs. Suspect CKD 2/2 DM and Uncontrolled HTN HTN Urgency - multiple antihypertensive medications including clonidine, hydralazine metoprolol without improvement.Currently on a Cardene drip . Renal Duplex Normal Type 2 Diabetes mellitus. she stopped Insulin on her own recently Bronchial asthma Labs Labs LABORATORY DATA: white cell count 12.6, hemoglobin was 11.9, hematocrit 37, MCV 88 and platelet count of 105,000. Serum sodium 133, potassium 4.9, chloride 100, bicarbonate 24, anion gap of 9, BUN 23, creatinine 1.8. Estimated GFR was 37 mL per minute. Glucose 181, calcium 9.3. Total bilirubin 0.5. AST, ALT, albumin 3. Urinalysis unremarkable. toxic screen negative. coronavirus by rapid antigen testing was negative. Laboratory Tests Test 09/23/21 21:30 09/24/21 04:55 09/24/21 08:39 09/24/21 13:25 Glucose (Fingerstick) 281 mg/dL (70-99) 282 mg/dL (70-99) 281 mg/dL (70-99) White Blood Count 12.9 x10^3/uL (4.0-11.0) Red Blood Count 3.64 x10^6/uL (3.50-5.40) Hemoglobin 10.0 g/dL (12.0-15.5) Hematocrit 31.4 % (36.0-47.0) Mean Corpuscular Volume 86 fL (79-100) Mean Corpuscular Hemoglobin 28 pg (25-35) Mean Corpuscular Hemoglobin Concent 32 g/dL (31-37) Red Cell Distribution Width 13.4 % (11.5-14.5) Platelet Count 348 x10^3/uL (140-400) Neutrophils (%) (Auto) 80 % (31-73) Lymphocytes (%) (Auto) 14 % (24-48) Monocytes (%) (Auto) 5 % (0-9) Eosinophils (%) (Auto) 1 % (0-3) Basophils (%) (Auto) 1 % (0-3) Neutrophils # (Auto) 10.3 x10^3/uL (1.8-7.7) Lymphocytes # (Auto) 1.8 x10^3/uL (1.0-4.8) Monocytes # (Auto) 0.7 x10^3/uL (0.0-1.1) Eosinophils # (Auto) 0.1 x10^3/uL (0.0-0.7) Basophils # (Auto) 0.1 x10^3/uL (0.0-0.2) Sodium Level 136 mmol/L (136-145) Potassium Level 4.3 mmol/L (3.5-5.1) Chloride Level 103 mmol/L (98-107) Carbon Dioxide Level 22 mmol/L (21-32) Anion Gap 11 (6-14) Blood Urea Nitrogen 27 mg/dL (7-20) Creatinine 2.3 mg/dL (0.6-1.0) Estimated GFR (Cockcroft-Gault) 23.4 BUN/Creatinine Ratio 12 (6-20) Glucose Level 307 mg/dL (70-99) Calcium Level 8.2 mg/dL (8.5-10.1) Total Bilirubin 0.2 mg/dL (0.2-1.0) Aspartate Amino Transf (AST/SGOT) 52 U/L (15-37) Alanine Aminotransferase (ALT/SGPT) 130 U/L (14-59) Alkaline Phosphatase 151 U/L (46-116) Total Protein 6.5 g/dL (6.4-8.2) Albumin 2.2 g/dL (3.4-5.0) Albumin/Globulin Ratio 0.5 (1.0-1.7) Triglycerides Level 107 mg/dL (0-150) Cholesterol Level 188 mg/dL (0-200) LDL Cholesterol, Calculated 115 mg/dL (0-100) VLDL Cholesterol, Calculated 21 mg/dL (0-40) Non-HDL Cholesterol Calculated 136 mg/dL (0-129) HDL Cholesterol 52 mg/dL (40-60) Cholesterol/HDL Ratio 3.6 Laboratory Tests Test 09/23/21 21:30 09/24/21 04:55 09/24/21 08:39 09/24/21 13:25 Glucose (Fingerstick) 281 mg/dL (70-99) 282 mg/dL (70-99) 281 mg/dL (70-99) White Blood Count 12.9 x10^3/uL (4.0-11.0) Red Blood Count 3.64 x10^6/uL (3.50-5.40) Hemoglobin 10.0 g/dL (12.0-15.5) Hematocrit 31.4 % (36.0-47.0) Mean Corpuscular Volume 86 fL (79-100) Mean Corpuscular Hemoglobin 28 pg (25-35) Mean Corpuscular Hemoglobin Concent 32 g/dL (31-37) Red Cell Distribution Width 13.4 % (11.5-14.5) Platelet Count 348 x10^3/uL (140-400) Neutrophils (%) (Auto) 80 % (31-73) Lymphocytes (%) (Auto) 14 % (24-48) Monocytes (%) (Auto) 5 % (0-9) Eosinophils (%) (Auto) 1 % (0-3) Basophils (%) (Auto) 1 % (0-3) Neutrophils # (Auto) 10.3 x10^3/uL (1.8-7.7) Lymphocytes # (Auto) 1.8 x10^3/uL (1.0-4.8) Monocytes # (Auto) 0.7 x10^3/uL (0.0-1.1) Eosinophils # (Auto) 0.1 x10^3/uL (0.0-0.7) Basophils # (Auto) 0.1 x10^3/uL (0.0-0.2) Sodium Level 136 mmol/L (136-145) Potassium Level 4.3 mmol/L (3.5-5.1) Chloride Level 103 mmol/L (98-107) Carbon Dioxide Level 22 mmol/L (21-32) Anion Gap 11 (6-14) Blood Urea Nitrogen 27 mg/dL (7-20) Creatinine 2.3 mg/dL (0.6-1.0) Estimated GFR (Cockcroft-Gault) 23.4 BUN/Creatinine Ratio 12 (6-20) Glucose Level 307 mg/dL (70-99) Calcium Level 8.2 mg/dL (8.5-10.1) Total Bilirubin 0.2 mg/dL (0.2-1.0) Aspartate Amino Transf (AST/SGOT) 52 U/L (15-37) Alanine Aminotransferase (ALT/SGPT) 130 U/L (14-59) Alkaline Phosphatase 151 U/L (46-116) Total Protein 6.5 g/dL (6.4-8.2) Albumin 2.2 g/dL (3.4-5.0) Albumin/Globulin Ratio 0.5 (1.0-1.7) Triglycerides Level 107 mg/dL (0-150) Cholesterol Level 188 mg/dL (0-200) LDL Cholesterol, Calculated 115 mg/dL (0-100) VLDL Cholesterol, Calculated 21 mg/dL (0-40) Non-HDL Cholesterol Calculated 136 mg/dL (0-129) HDL Cholesterol 52 mg/dL (40-60) Cholesterol/HDL Ratio 3.6 Review All relevant outside records, renal labs, imaging studies, telemetry/EKG's were reviewed. Images Images CT angio of the chest,no evidence of main lobar or definite proximal segmental pulmonary embolism on limited evaluation, pulmonary hypoexpansion with minimal nonspecific patchy ground glass opacities in the upper lobes, greater on the right, cardiomegaly, 5 mm pulmonary nodule, right middle lobe. US RENAL DUPLEX History: Reason: HTN Comparison: None. Technique: Multiple grayscale, color flow, and Doppler spectral waveform analysis images of the abdominal aorta and renal arteries were obtained. Findings: Abdominal aorta peak systolic velocity: 141 cm/sec. Right main renal artery peak systolic velocity: 108 cm/sec. Right renal artery to aorta ratio: 0.7 Left main renal artery peak systolic velocity: 131 cm/sec. Left renal artery to aorta ratio: 0.9 Renal veins are patent. IVC unremarkable. The right kidney measures 11.4 cm. The left kidney measures 12.3 cm. Kidneys are normal in echotexture. No hydronephrosis. Normal bilateral renal artery resistive indices. IMPRESSION: 1. No evidence of renal artery stenosis. LISA NORMAN MD Sep 24, 2021 15:01
--- NOTE | 2021-09-24 16:15 | RAD ---
EXAMINATION: Magnetic resonance imaging (MRI) of the brain and brainstem without contrast 09/24/2021 2 :43 PM HISTORY: Hypertension, left facial numbness TECHNIQUE: Multiplanar multi-weighted MRI of the brain and brainstem was performed without intravenou s contrast using the general brain protocol. COMPARISON: CT head 09/23/2021. FINDINGS: The scalp and calvarium are normal. The superior sagittal sinus demonstrates normal venous flow. The corpus callosum is normal in shape and signal intensity. The posterior fossa is unremarkable. The p ituitary and sella are normal. The brainstem and craniocervical junction are unremarkable. There are T2/FLAIR signal hyperintense foci in the periventricular and subcortical white matter most suggestive of mild chronic small vessel ischemic changes. Focal diffusion signal hyperintensity identified involving the left lateral shannen extending into the l eft brachium pontis with associated T2 signal hyperintensity and low ADC signal compatible with acute /subacute ischemia. The susceptibility weighted sequences reveal no evidence of acute or chronic hemo rrhage. The ventricles are normal in size and position without evidence of hydrocephalus. Small mucus retention cyst identified within the right maxillary sinus. The visualized portions of t he mastoids are unremarkable. The orbits appear normal. Normal flow voids are demonstrated in the ca rotid arteries and basilar artery. IMPRESSION: There is a focal area of acute/subacute ischemia involving the left lateral shannen extending to the lef t brachium pontis. There is associated cytotoxic edema without significant mass effect or hemorrhage. There are T2/FLAIR signal hyperintense foci in the periventricular and subcortical white matter most suggestive of mild chronic small vessel ischemic changes. FOR INTERNAL CODING PURPOSES Critical result: Findings discussed with Марина, the patient's nurse at 09/24/2021 4:11 PM. RESULT CODE: (C) Electronically signed by: Shanique Haile MD (09/24/2021 4:12 PM) [id number]
[2021-09-24] MEDS ORDERED: ASPIRIN RECTAL 300 MG SUPP. PR PRN (16:45)
--- NOTE | 2021-09-24 20:03 | NUR ---
Dr. Sweeney paged and this RN requested clarification to blood pressure goal related to nicardipine IV medication. Provider clarified: utilize nicardipine if blood pressures become greater than 220 systolic or 120 diastolic. If blood pressures do become higher than 220/120, then provider would like nicardipine used to decrease pressures. At this time, provider does not want PRN IV push dose of blood pressure medication such as hydralazine or labetalol. Education provided to RN that blood pressures need to be elevated in order to appropriately profuse stoke.
[2021-09-24] MEDS: IV NORMAL SALINE 1000ML BAG 1,000 ML IV SCH (20:18)
[2021-09-24] MEDS: ATORVASTATIN CALCIUM 40 MG TABLET. PO SCH (20:18)
[2021-09-24] MEDS: ASPIRIN ENTERIC COATED 325 MG TABLET.DR. PO SCH (20:18)
[2021-09-24] MEDS: INSULIN GLARGINE SYRINGE. SQ SCH (20:33)
[2021-09-25] VITALS (23 sets, daily range): BP systolic 148–214; BP diastolic 63–91
[2021-09-25] MEDS: ACETAMINOPHEN 325 MG TABLET. PO PRN ×2 (01:08→23:51)
[2021-09-25 05:24] LABS: ALBUMIN 2.4 g/dL (3.4-5.0); ALBUMIN/GLOBULIN RATIO 0.5 (1.0-1.7); CALCIUM 8.1 mg/dL (8.5-10.1); CREATININE 3.6 mg/dL (0.6-1.0); GFR 13.9; POTASSIUM 4.1 mmol/L (3.5-5.1); TOTAL BILIRUBIN 0.2 mg/dL (0.2-1.0); TOTAL PROTEIN 6.9 g/dL (6.4-8.2)
--- NOTE | 2021-09-25 09:15 | PDOC ---
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 Relaxed blood pressure control today, 220/120, recompose stricter blood pressure control starting tomorrow Rehabilitation modalities Await echocardiogram Discussed with Dr. Camejo Subjective Feels better, denies headache, has some back pain Objective Vital Signs Date Time Temp Pulse Resp B/P (MAP) Pulse Ox O2 Delivery O2 Flow Rate FiO2 09/25/21 06:00 94 181/79 95 Room Air 09/25/21 05:00 16 09/25/21 04:00 99.0 99.0 Intake and Output 09/25/21 07:00 Intake Total 2620 ml Output Total 0 ml Balance 2620 ml Intake Oral 1200 ml IV Total 1420 ml Output Urine Total 0 ml # Voids 1 PHYSICAL EXAM Alert. Oriented to time, place and person. PERRL. EOMI. CN: Slight left cheek sensory loss, otherwise no focal findings. Muscle tone: normal. Muscle strength: 5/ DTR: 2+ Plantar reflex: Flexor Gait: not examined in bed. Sensory exam: no abnormal findings. No cerebellar signs elicited. Review of Relevant I have reviewed the following items mauricio (where applicable) has been applied. Labs Laboratory Tests Test 09/23/21 21:30 09/24/21 04:55 09/24/21 08:39 09/24/21 13:25 Glucose (Fingerstick) 281 mg/dL (70-99) 282 mg/dL (70-99) 281 mg/dL (70-99) White Blood Count 12.9 x10^3/uL (4.0-11.0) Red Blood Count 3.64 x10^6/uL (3.50-5.40) Hemoglobin 10.0 g/dL (12.0-15.5) Hematocrit 31.4 % (36.0-47.0) Mean Corpuscular Volume 86 fL (79-100) Mean Corpuscular Hemoglobin 28 pg (25-35) Mean Corpuscular Hemoglobin Concent 32 g/dL (31-37) Red Cell Distribution Width 13.4 % (11.5-14.5) Platelet Count 348 x10^3/uL (140-400) Neutrophils (%) (Auto) 80 % (31-73) Lymphocytes (%) (Auto) 14 % (24-48) Monocytes (%) (Auto) 5 % (0-9) Eosinophils (%) (Auto) 1 % (0-3) Basophils (%) (Auto) 1 % (0-3) Neutrophils # (Auto) 10.3 x10^3/uL (1.8-7.7) Lymphocytes # (Auto) 1.8 x10^3/uL (1.0-4.8) Monocytes # (Auto) 0.7 x10^3/uL (0.0-1.1) Eosinophils # (Auto) 0.1 x10^3/uL (0.0-0.7) Basophils # (Auto) 0.1 x10^3/uL (0.0-0.2) Sodium Level 136 mmol/L (136-145) Potassium Level 4.3 mmol/L (3.5-5.1) Chloride Level 103 mmol/L (98-107) Carbon Dioxide Level 22 mmol/L (21-32) Anion Gap 11 (6-14) Blood Urea Nitrogen 27 mg/dL (7-20) Creatinine 2.3 mg/dL (0.6-1.0) Estimated GFR (Cockcroft-Gault) 23.4 BUN/Creatinine Ratio 12 (6-20) Glucose Level 307 mg/dL (70-99) Calcium Level 8.2 mg/dL (8.5-10.1) Total Bilirubin 0.2 mg/dL (0.2-1.0) Aspartate Amino Transf (AST/SGOT) 52 U/L (15-37) Alanine Aminotransferase (ALT/SGPT) 130 U/L (14-59) Alkaline Phosphatase 151 U/L (46-116) Creatine Kinase 226 U/L (26-192) Total Protein 6.5 g/dL (6.4-8.2) Albumin 2.2 g/dL (3.4-5.0) Albumin/Globulin Ratio 0.5 (1.0-1.7) Triglycerides Level 107 mg/dL (0-150) Cholesterol Level 188 mg/dL (0-200) LDL Cholesterol, Calculated 115 mg/dL (0-100) VLDL Cholesterol, Calculated 21 mg/dL (0-40) Non-HDL Cholesterol Calculated 136 mg/dL (0-129) HDL Cholesterol 52 mg/dL (40-60) Cholesterol/HDL Ratio 3.6 Test 09/24/21 18:27 09/24/21 20:26 09/25/21 04:15 Glucose (Fingerstick) 256 mg/dL (70-99) 209 mg/dL (70-99) Sodium Level 134 mmol/L (136-145) Potassium Level 4.1 mmol/L (3.5-5.1) Chloride Level 102 mmol/L (98-107) Carbon Dioxide Level 21 mmol/L (21-32) Anion Gap 11 (6-14) Blood Urea Nitrogen 30 mg/dL (7-20) Creatinine 3.6 mg/dL (0.6-1.0) Estimated GFR (Cockcroft-Gault) 13.9 BUN/Creatinine Ratio 8 (6-20) Glucose Level 268 mg/dL (70-99) Calcium Level 8.1 mg/dL (8.5-10.1) Total Bilirubin 0.2 mg/dL (0.2-1.0) Aspartate Amino Transf (AST/SGOT) 29 U/L (15-37) Alanine Aminotransferase (ALT/SGPT) 122 U/L (14-59) Alkaline Phosphatase 168 U/L (46-116) Total Protein 6.9 g/dL (6.4-8.2) Albumin 2.4 g/dL (3.4-5.0) Albumin/Globulin Ratio 0.5 (1.0-1.7) Laboratory Tests Test 09/24/21 13:25 09/24/21 18:27 09/24/21 20:26 09/25/21 04:15 Glucose (Fingerstick) 281 mg/dL (70-99) 256 mg/dL (70-99) 209 mg/dL (70-99) Sodium Level 134 mmol/L (136-145) Potassium Level 4.1 mmol/L (3.5-5.1) Chloride Level 102 mmol/L (98-107) Carbon Dioxide Level 21 mmol/L (21-32) Anion Gap 11 (6-14) Blood Urea Nitrogen 30 mg/dL (7-20) Creatinine 3.6 mg/dL (0.6-1.0) Estimated GFR (Cockcroft-Gault) 13.9 BUN/Creatinine Ratio 8 (6-20) Glucose Level 268 mg/dL (70-99) Calcium Level 8.1 mg/dL (8.5-10.1) Total Bilirubin 0.2 mg/dL (0.2-1.0) Aspartate Amino Transf (AST/SGOT) 29 U/L (15-37) Alanine Aminotransferase (ALT/SGPT) 122 U/L (14-59) Alkaline Phosphatase 168 U/L (46-116) Total Protein 6.9 g/dL (6.4-8.2) Albumin 2.4 g/dL (3.4-5.0) Albumin/Globulin Ratio 0.5 (1.0-1.7) Medications Current Medications Nicardipine HCl 50 mg/Sodium Chloride 250 ml @ 25 mls/hr CONT PRN IV PER PROTOCOL Last administered on 09/24/21 15:53; Start 09/23/21 at 21:45; Stop 09/24/21 at 16:43; Status DC Nifedipine (Procardia Xl) 30 mg DAILY PO Last administered on 09/24/21 09:09; Start 09/24/21 at 09:00 Zolpidem Tartrate (Ambien) 5 mg PRN QHS PRN PO INSOMNIA; Start 09/23/21 at 21:45 Montelukast Sodium (Singulair) 10 mg DAILY PO Last administered on 09/24/21 08:57; Start 09/24/21 at 09:00 Insulin Human Lispro (HumaLOG) 15 units TIDWMEALS SQ Last administered on 09/24/21 18:30; Start 09/24/21 at 08:00; Stop 09/25/21 at 08:47; Status DC Insulin Glargine (Lantus Syringe) 40 unit QHS SQ Last administered on 09/24/21 20:33; Start 09/24/21 at 21:00 Losartan Potassium (Cozaar) 100 mg DAILY PO Last administered on 09/24/21 08:56; Start 09/24/21 at 09:00 Spironolactone (Aldactone) 50 mg DAILY PO Last administered on 09/24/21 08:56; Start 09/24/21 at 09:00 Insulin Glargine (Lantus Syringe) 40 unit 1X ONCE SQ Last administered on 4/24/22at 22:21; Start 09/23/21 at 23:00; Stop 09/23/21 at 23:01; Status DC Sodium Chloride 1,000 ml @ 75 mls/hr [id number] IV Last administered on 09/24/21at 20:18; Start 09/24/21 at 15:15 Nicardipine HCl 50 mg/Sodium Chloride 250 ml @ 25 mls/hr CONT PRN PRN IV PER PROTOCOL Last administered on 09/24/21at 21:31; Start 09/24/21 at 16:45 Atorvastatin Calcium (Lipitor) 80 mg QHS PO Last administered on 09/24/21 20:18; Start 09/24/21 at 21:00 Acetaminophen (Tylenol) 650 mg PRN Q6HRS PRN PO MILD PAIN / TEMP > 100.3'F Last administered on 09/25/21at 01:08; Start 09/24/21 at 16:45 Aspirin (Ecotrin) 325 mg DAILYWBKFT PO Last administered on 09/24/21at 20:18; Start 09/24/21 at 17:00 Aspirin (Aspirin Rectal Supp) 300 mg PRN DAILY PRN NM IF UNABLE TO TAKE PO; Start 09/24/21 at 16:45 Insulin Human Lispro (HumaLOG) 20 units TIDWMEALS SQ ; Start 09/25/21 at 08:45 Active Scripts Active Levemir Flextouch (Insulin Detemir) 100 Unit/1 Ml Insuln.pen 40 Units SQ QHS 30 Days Novolog Flexpen (Insulin Aspart) 100 Unit/1 Ml Insuln.pen 15 Units SQ TIDAC 30 Days Reported Tri-Sprintec (Norgestimate-Ethinyl Estradiol) 1 Each Tablet 1 Tab PO DAILY Spironolactone 50 Mg Tablet 1 Tab PO DAILY Montelukast Sodium Tablet (Montelukast Sodium) 10 Mg Tablet 10 Mg PO DAILY Losartan Potassium 100 Mg Tablet 100 Mg PO DAILY Vitals/I & O Vital Sign - Last 24 Hours 09/24/21 09/24/21 09/24/21 09/24/21 10:00 10:30 11:00 11:30 Pulse 100 98 96 96 Resp 18 16 16 16 B/P (MAP) 172/80 147/61 153/78 157/74 Pulse Ox 98 98 96 96 O2 Delivery Room Air Room Air Room Air Room Air 09/24/21 09/24/21 09/24/21 09/24/21 11:45 12:00 12:00 13:00 Temp 98.6 98.6 Pulse 88 94 96 Resp 16 16 16 B/P (MAP) 179/78 175/87 153/75 Pulse Ox 96 95 94 O2 Delivery Room Air Room Air Room Air Room Air 09/24/21 09/24/21 09/24/21 09/24/21 14:00 15:00 16:00 16:00 Pulse 96 98 102 Resp 16 16 16 B/P (MAP) 143/65 145/70 127/73 Pulse Ox 96 100 100 O2 Delivery Room Air Room Air Room Air Room Air 09/24/21 09/24/21 09/24/21 09/24/21 17:00 18:00 19:00 20:00 Temp 98.6 98.6 Pulse 102 102 94 96 Resp 16 16 18 18 B/P (MAP) 150/78 215/81 217/71 Pulse Ox 100 100 97 96 O2 Delivery Room Air Room Air Room Air Room Air 09/24/21 09/24/21 09/24/21 09/24/21 20:00 20:30 20:45 21:00 Pulse 96 96 94 Resp 16 B/P (MAP) 160/74 164/89 166/82 Pulse Ox 97 98 97 O2 Delivery Room Air Room Air Room Air Room Air 09/24/21 09/24/21 09/24/21 09/24/21 21:15 21:30 21:45 22:00 Pulse 94 98 94 96 Resp 16 B/P (MAP) 174/78 174/73 146/71 154/65 Pulse Ox 98 97 94 92 O2 Delivery Room Air Room Air Room Air Room Air 09/24/21 09/25/21 09/25/21 09/25/21 23:00 00:00 00:00 01:00 Temp 98.7 98.7 Pulse 90 94 102 Resp 15 16 B/P (MAP) 131/62 148/63 162/68 Pulse Ox 90 97 98 O2 Delivery Room Air Room Air Room Air Room Air 09/25/21 09/25/21 09/25/21 09/25/21 02:00 03:00 04:00 04:00 Temp 99.0 99.0 Pulse 96 94 95 Resp 16 B/P (MAP) 173/80 174/80 182/78 Pulse Ox 97 91 97 O2 Delivery Room Air Room Air Room Air Room Air 09/25/21 09/25/21 05:00 06:00 Pulse 96 94 Resp 16 B/P (MAP) 183/71 181/79 Pulse Ox 96 95 O2 Delivery Room Air Room Air Intake and Output 09/24/21 09/24/21 09/25/21 15:00 23:00 07:00 Intake Total 250 ml 750 ml 1620 ml Output Total 0 ml Balance 250 ml 750 ml 1620 ml Images BRAIN W/O CONTRAST, 09/24 The scalp and calvarium are normal. The superior sagittal sinus demonstrates normal venous flow. The corpus callosum is normal in shape and signal intensity. The posterior fossa is unremarkable. The pituitary and sella are normal. The brainstem and craniocervical junction are unremarkable. There are T2/FLAIR signal hyperintense foci in the periventricular and subcortical white matter most suggestive of mild chronic small vessel ischemic changes. Focal diffusion signal hyperintensity identified involving the left lateral shannen extending into the left brachium pontis with associated T2 signal hyperintensity and low ADC signal compatible with acute/subacute ischemia. The susceptibility weighted sequences reveal no evidence of acute or chronic hemorrhage. The ventricles are normal in size and position without evidence of hydrocephalus. Small mucus retention cyst identified within the right maxillary sinus. The visualized portions of the mastoids are unremarkable. The orbits appear normal. Normal flow voids are demonstrated in the carotid arteries and basilar artery. IMPRESSION: There is a focal area of acute/subacute ischemia involving the left lateral shannen extending to the left brachium pontis. There is associated cytotoxic edema without significant mass effect or hemorrhage. There are T2/FLAIR signal hyperintense foci in the periventricular and subcorti graham white matter most suggestive of mild chronic small vessel ischemic changes. US DPLX CAROTID BILAT, 09/24 History: Reason: hyertension, left face numb / Spl. Instructions: / History: COMPARISON: None Technique: Duplex sonography of the cervical portion of both carotid arteries was performed. Real-time grayscale, color flow Doppler, and Doppler spectral waveform analysis is performed. PQRS Compliance Statement - Stenosis calculations for CT, MR and conventional angiography are based upon measurement of the distal ICA diameter in accordance with the NASCET methodology. Stenosis calculations for carotid ultrasound studies are derived from validated velocity criteria which are known to correlate with the NASCET methodology. Findings: Right side: Peak systolic flow velocity of the CCA is 116 cm/sec. Peak systolic flow velocity of the ICA is 110 cm/sec. The ICA/CCA ratio is 0.95. Peak end diastolic flow velocity of the ICA is 30 cm/sec. The peak systolic velocity of the ECA is 239 cm/sec. Mild atheromatous plaque. Left side: Peak systolic flow velocity of the CCA is 139 cm/sec. Peak systolic flow velocity of the ICA is 109 cm/sec. The ICA/CCA ratio is 0.79. Peak end diastolic flow velocity of the ICA is 101 cm/sec. Peak systolic flow velocity of the ECA is 234 cm/sec. Mild atheromatous plaque. Vertebral arteries: Bilateral vertebral arteries demonstrate antegrade flow. IMPRESSION: 1. No hemodynamically significant internal carotid artery stenosis. 2. Mild atheromatous plaque. 3. Elevated bilateral external carotid artery velocities, may indicate stenosis. Justicifation of Admission Dx: Justifications for Admission: Justification of Admission Dx: Yes Stroke - Ischemic: Stroke-Ischemic DOLORES TRISTAN MD Sep 25, 2021 09:15
--- NOTE | 2021-09-25 09:22 | PN ---
DATE: 09/24/2021 SUBJECTIVE: The patient is a 40-year-old -[place] female patient who was transferred yesterday from [facility] with hypertensive urgency. She also has multiple other medical problems including insulin requiring type 2 diabetes mellitus. She also has bronchial asthma and chronic kidney disease. She was started on a Cardizem drip. When I saw her this morning, she was resting slightly propped up in bed, in no apparent distress. She denied any further episode of dizziness, lightheadedness or vertigo. Denied any chest pain. She continued to complain of numbness in the left side of her face. PHYSICAL EXAMINATION: GENERAL: When I examined her, she looked generally well and was clearly in no apparent respiratory distress. She was somewhat pale, not jaundiced or cyanosed, no thyromegaly. No jugular venous distention. No limb edema. VITAL SIGNS: Her heart rate was 94, blood pressure was 162/71, temperature was 98.8, respiratory rate was 16 and oxygen saturation was 95% on room air. HEAD, EYES, EARS, NOSE AND THROAT: Normocephalic, atraumatic. NECK: Supple. HEART: Showed normal first and second heart sounds. No gallop, rub or murmur. CHEST: Clear to auscultation, no crepitation or rhonchi. ABDOMEN: Distended, soft, nontender, no guarding or rigidity. No organomegaly. All hernial orifice intact. Bowel sounds normal. NEUROLOGIC: She is awake, alert, responding appropriately. All her cranial nerves are grossly intact. She moves all extremities without difficulty. LABORATORY DATA: Her lab work showed a white cell count 12.9, hemoglobin 10, hematocrit 31, MCV 86 and platelet count of 348,000. Her chemistry showed a serum sodium 136, potassium 4.3, chloride 103, bicarbonate 22, anion gap of 11, BUN 27, creatinine 2.3. Estimated GFR was 23 mL per minute. Her glucose 307, calcium was 8.2. Total bilirubin, AST, ALT, alkaline phosphatase are slightly elevated, although they are trending down. Her total protein is 6.5, albumin was 2.2. She had a CT scan of the head that showed no acute intracranial abnormality by CT scan. There are findings involving the subcortical white matter, which are most commonly seen in the setting of chronic microvascular ischemic change. If there is further clinical concern for an acute intracranial process, MRI could be considered as no comparison studies are available. She has bilateral venous Doppler ultrasound of both lower extremities, showed no thrombus identified in the common femoral vein, superficial femoral vein, popliteal vein, or visualized vein. She has renal Duplex ultrasound which showed notes no evidence of renal artery stenosis. ASSESSMENT: 1. In summary, this is a 40-year-old -[place] female patient who was admitted with hypertensive urgency. She is now on nicardipine drip. I started her back on her losartan. I added Procardia, although I discovered that she was on amlodipine before. She was also on hydrochlorothiazide and spironolactone. 2. Type 2 diabetes mellitus for which she is on Humalog and Lantus insulin. 3. She has acute on chronic kidney disease. Creatinine has risen from 1.8 to 2.3, likely to a combination of better control of blood pressure and exposure to contrast, as she had a CT angio of the chest. 4. Bronchial asthma for which she is on Symbicort, albuterol and Singulair. 5. Morbid obesity and obstructive sleep apnea. PLAN: My plan is to continue with nicardipine drip, add the Procardia and increase as needed and hopefully taper the nicardipine and discontinue it altogether. I will consult the medical operations supervisor to assist with management. ELIOT/ELZA/ROE DR: Jared TID: [id number]
[2021-09-25] MEDS: LOSARTAN POTASSIUM 50 MG TABLET. PO SCH (09:28)
[2021-09-25] MEDS: SPIRONOLACTONE 25 MG TABLET PO SCH (09:28)
[2021-09-25] MEDS: MONTELUKAST SODIUM 10 MG TABLET. PO SCH (09:28)
[2021-09-25] MEDS: ASPIRIN ENTERIC COATED 325 MG TABLET.DR. PO SCH (09:28)
[2021-09-25] MEDS: INSULIN LISPRO 300 UNITS/3 ML VIAL. SQ SCH ×3 (09:33→17:43)
[2021-09-25 10:14] LABS: HEMATOCRIT 34.1 % (36.0-47.0); HEMOGLOBIN 10.9 g/dL (12.0-15.5); RED BLOOD COUNT 3.94 x10^6/uL (3.50-5.40); RED CELL DISTRIBUTION WIDTH 13.6 % (11.5-14.5)
--- NOTE | 2021-09-25 10:33 | PDOC ---
DATE OF SERVICE DATE: 09/25/21 TIME: 10:25 SUBJECTIVE ROS Feeling Tired. No N/V. Voided x 1 OBJECTIVE Vital Signs Vital Signs Date Time Temp Pulse Resp B/P (MAP) Pulse Ox O2 Delivery O2 Flow Rate FiO2 09/25/21 09:28 90 176/80 09/25/21 06:00 95 Room Air 09/25/21 05:00 16 09/25/21 04:00 99.0 99.0 I & 0 Intake and Output 09/25/21 07:00 Intake Total 2620 ml Output Total 0 ml Balance 2620 ml Intake Oral 1200 ml IV Total 1420 ml Output Urine Total 0 ml # Voids 1 PHYSICAL EXAM Physical Exam GENERAL: Morbidly Obese , Propped up in bed. NAD HEEN Normocephalic, atraumatic.om mildly dry NECK: Supple. HEART: normal first and second heart sounds. No gallop, rub or murmur. LUNGS : Clear to auscultation, decreased at bases, non labored ABDOMEN: Distended, soft, nontender. NEUROLOGIC: Grossly Normal, Moves all 4 extremities . She did complain of numbness in her left side of the face without any obvious motor deficit. PSYCH COOPERATIVE EXT No LE edema No Weiss, No CVA or SP tenderness DERM No Rash DIAGNOSIS/ASSESSMENT Assessment & Plan JUDITH -atn / Vomiting /Poor po intake/ IV Contrast / Hx of NSAID use . Baseline Cr normal in 2017 per [facility] records. No Interval labs available .UA unremarkable, US Unremarkable, worsening renal function, Place Weiss Supportive care, Hold Aldactone .Recommend holding ARB as well . Avoid Nephrotoxins. . Strict I/O CKD - per Primary's note, No interval labs. Suspect CKD 2/2 DM and Uncontrolled HTN HTN Urgency - multiple antihypertensive medications including clonidine, hydralazine metoprolol without improvement. . Renal Duplex Normal . 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 Type 2 Diabetes mellitus. she stopped Insulin on her own recently Bronchial asthma COMMENT/RELEVANT DATA Meds Current Medications Medications (Trade) Dose Ordered Sig/Maya Start Time Stop Time Status Last Admin Dose Admin Acetaminophen (Tylenol) 650 mg PRN Q6HRS PRN 09/24/21 16:45 09/25/21 01:08 650 MG Aspirin (Aspirin Rectal Supp) 300 mg PRN DAILY PRN 09/24/21 16:45 Aspirin (Ecotrin) 325 mg DAILYWBKFT 09/24/21 17:00 09/25/21 09:28 325 MG Atorvastatin Calcium (Lipitor) 80 mg QHS 09/24/21 21:00 09/24/21 20:18 80 MG Insulin Glargine (Lantus Syringe) 40 unit 1X ONCE 09/23/21 23:00 09/23/21 23:01 DC 09/23/21 22:21 40 UNIT Insulin Human Lispro (HumaLOG) 20 units TIDWMEALS 09/25/21 08:45 09/25/21 09:33 20 UNITS Losartan Potassium (Cozaar) 100 mg DAILY 09/24/21 09:00 09/25/21 09:28 100 MG Montelukast Sodium (Singulair) 10 mg DAILY 09/24/21 09:00 09/25/21 09:28 10 MG Nicardipine HCl 50 mg/Sodium Chloride 250 ml @ 25 mls/hr CONT PRN PRN 09/24/21 16:45 09/24/21 21:31 12.5 MLS/HR Nifedipine (Procardia Xl) 30 mg DAILY 09/24/21 09:00 09/25/21 09:27 30 MG Sodium Chloride 1,000 ml @ 75 mls/hr [id number] 09/24/21 15:15 09/24/21 20:18 75 MLS/HR Spironolactone (Aldactone) 50 mg DAILY 09/24/21 09:00 09/25/21 09:28 50 MG Zolpidem Tartrate (Ambien) 5 mg PRN QHS PRN 09/23/21 21:45 Lab Laboratory Tests Test 09/24/21 13:25 09/24/21 18:27 09/24/21 20:26 09/25/21 04:15 Glucose (Fingerstick) 281 mg/dL (70-99) 256 mg/dL (70-99) 209 mg/dL (70-99) Sodium Level 134 mmol/L (136-145) Potassium Level 4.1 mmol/L (3.5-5.1) Chloride Level 102 mmol/L (98-107) Carbon Dioxide Level 21 mmol/L (21-32) Anion Gap 11 (6-14) Blood Urea Nitrogen 30 mg/dL (7-20) Creatinine 3.6 mg/dL (0.6-1.0) Estimated GFR (Cockcroft-Gault) 13.9 BUN/Creatinine Ratio 8 (6-20) Glucose Level 268 mg/dL (70-99) Calcium Level 8.1 mg/dL (8.5-10.1) Total Bilirubin 0.2 mg/dL (0.2-1.0) Aspartate Amino Transf (AST/SGOT) 29 U/L (15-37) Alanine Aminotransferase (ALT/SGPT) 122 U/L (14-59) Alkaline Phosphatase 168 U/L (46-116) Total Protein 6.9 g/dL (6.4-8.2) Albumin 2.4 g/dL (3.4-5.0) Albumin/Globulin Ratio 0.5 (1.0-1.7) Test 09/25/21 09:19 09/25/21 10:05 Glucose (Fingerstick) 210 mg/dL (70-99) White Blood Count 13.0 x10^3/uL (4.0-11.0) Red Blood Count 3.94 x10^6/uL (3.50-5.40) Hemoglobin 10.9 g/dL (12.0-15.5) Hematocrit 34.1 % (36.0-47.0) Mean Corpuscular Volume 87 fL (79-100) Mean Corpuscular Hemoglobin 28 pg (25-35) Mean Corpuscular Hemoglobin Concent 32 g/dL (31-37) Red Cell Distribution Width 13.6 % (11.5-14.5) Platelet Count 362 x10^3/uL (140-400) Results All relevant outside records, renal labs, imaging studies, telemetry/EKG's were reviewed. Justicifation of Admission Dx: Justifications for Admission: Justification of Admission Dx: Yes Stroke - Ischemic: Stroke-Ischemic LISA NORMAN MD Sep 25, 2021 10:33
[2021-09-25 10:37] LABS: ALBUMIN 2.4 g/dL (3.4-5.0); ALBUMIN/GLOBULIN RATIO 0.5 (1.0-1.7); CALCIUM 8.4 mg/dL (8.5-10.1); CREATININE 3.6 mg/dL (0.6-1.0); GFR 13.9; POTASSIUM 3.9 mmol/L (3.5-5.1); TOTAL BILIRUBIN 0.2 mg/dL (0.2-1.0); TOTAL PROTEIN 6.9 g/dL (6.4-8.2)
[2021-09-25] MEDS: ONDANSETRON ODT 4 MG TAB.RAPDIS. PO PRN ×2 (15:16→23:56)
[2021-09-25] MEDS: IV NORMAL SALINE 1000ML BAG 1,000 ML IV SCH ×2 (17:55→20:36)
[2021-09-25] MEDS: ATORVASTATIN CALCIUM 40 MG TABLET. PO SCH (20:35)
[2021-09-25] MEDS: INSULIN GLARGINE SYRINGE. SQ SCH (20:37)
--- NOTE | 2021-09-25 22:03 | PN ---
DATE: 09/25/2021 SUBJECTIVE: The patient is resting, slightly propped up in bed, in no apparent distress, sleepy, but arousable. On questioning her, she stated that she is thirsty and hungry. She apparently was kept n.p.o. We will check her fasting lipid profile. She has had an MRI, which showed that there is a focal area of acute subacute ischemia involving the left lateral shannen extending to the left brachium pontis associated cytotoxic edema without significant mass effect or hemorrhage and there are T2 FLAIR signal hyperintense foci in the periventricular subcortical white matter, most suggestive of mild chronic small vessel ischemic changes. Her kidney function unfortunately continued to steadily worsening. Her creatinine has risen from 2.3 to 3.6 that is probably a manifestation at least in part of the contrast-induced nephropathy given that creatinine was high and she was given the contrast and she is diabetic and probably has hypertensive and diabetic nephropathy. PHYSICAL EXAMINATION: GENERAL: When I saw her today, she looked well and was clearly in no apparent respiratory distress. She is pale, but not jaundiced, cyanosed or thyromegaly. No jugular venous distention. No lower limb edema. VITAL SIGNS: Her heart rate was 94, blood pressure was 181/79, temperature was 99, respiratory rate was 16 and oxygen saturation was 95%. HEAD, EYES, EARS, NOSE, AND THROAT: Showed normocephalic, atraumatic. NECK: Supple. HEART: Normal first and second heart sounds. No gallop, rub or murmur. CHEST: Clear to auscultation and percussion or rhonchi. ABDOMEN: Distended, soft, nontender. NEUROLOGIC: She is awake, alert, responding appropriately. All her cranial nerves intact. She moves extremities without difficulty. Her intake over the last 24 hours and output are incompletely recorded. LABORATORY DATA: Her lab work as of yesterday showed a white cell count 12.9, hemoglobin 10, hematocrit 31, MCV 86 and platelet count of 348,000. Her chemistry this morning showed a serum sodium 134, potassium 4.1, chloride 102, bicarbonate 21, anion gap of 11, BUN 30, creatinine 3.6. Estimated GFR was 14 mL per minute. Her glucose was 268, calcium was 8.1. Total bilirubin and AST normal, ALT and alkaline phosphatase slightly elevated. Total protein 6.9, albumin was 2.4. ASSESSMENT: 1. Hypertensive urgency for which she was started on nicardipine drip. We did restart her losartan as well as added Procardia; however, the neurologist wanted her to maintain her systolic pressure at the higher level. 2. She did complain of tingling and numbness in the left side of her face and MRI showed that she has focal area of acute subacute ischemia involving the left lateral shannen extending to the left brachium pontis. There is associated cytotoxic edema without significant mass effect or hemorrhage. 3. [id number] kidney injury. On arrival to the Emergency Room, her creatinine was 1.8. She did receive contrast yesterday and probably has underlying hypertensive diabetic nephropathy. Her creatinine unfortunately is rising and today it is 3.6. 4. The patient is known to have hypertension that is poorly controlled. 5. Type 2 diabetes mellitus. 6. Bronchial asthma. 7. Morbid obesity and questionable obstructive sleep apnea. PLAN: To continue with nicardipine drip. Continue with losartan and nifedipine as is and tomorrow, we will increase the nifedipine higher and try to taper drip and stop it all completely. Her blood sugar continues to be poorly controlled, so I will make further adjustment to her insulin. Once she is off nicardipine drip, we will start also the physical and recreational therapy. I will use SCDs for DVT prophylaxis. ELIOT/EMILY/EUNICE DR: Jared TID: [id number]
[2021-09-26] VITALS (26 sets, daily range): BP systolic 145–222; BP diastolic 56–110
[2021-09-26 04:27] LABS: CALCIUM 8.1 mg/dL (8.5-10.1); CREATININE 4.1 mg/dL (0.6-1.0); POTASSIUM 4.6 mmol/L (3.5-5.1)
--- NOTE | 2021-09-26 06:43 | NUR ---
end of shift note pt alert and oriented throughout shift. equal orthodontic band maker strength in both hands. nsr on tele monitor. bp elevated. One blood pressure greater than 220, however, upon rechecking blood pressure, it was decreased below 220, so nicardipine gtt not initiated. patient up in chair at beginning of shift. was assisted to bed with two RNs present, a walker, and a gait belt. patient complained of generalized pain one time this shift and prn tylenol given which helped patient pain. assessments completed per chart. medications given emar. patient currently in bed with call light in reach.
[2021-09-26] MEDS: MONTELUKAST SODIUM 10 MG TABLET. PO SCH (09:09)
[2021-09-26] MEDS: SPIRONOLACTONE 25 MG TABLET PO SCH (09:09)
[2021-09-26] MEDS: ASPIRIN ENTERIC COATED 325 MG TABLET.DR. PO SCH (09:09)
[2021-09-26] MEDS: INSULIN LISPRO 300 UNITS/3 ML VIAL. SQ SCH ×3 (09:15→17:51)
--- NOTE | 2021-09-26 09:36 | PDOC ---
PROGRESS NOTES Date of Service DATE: 09/26/21 TIME: 09:34 Assessment Hypertensive encephalopathy, also has a small left lateral shannen infarct extending to the left brachium pontis Mdgfz-[id number] kidney injury, had CT angiogram of chest at [facility] History of diabetes, hypertension, hyperlipidemia, noncompliant, asthma, sleep apnea Plan Aspirin High-dose statin Treatment of hypertension. Tighten parameters back to 150/90 starting today Rehabilitation modalities Await echocardiogram Subjective Still has left cheek numbness Objective Vital Signs Date Time Temp Pulse Resp B/P (MAP) Pulse Ox O2 Delivery O2 Flow Rate FiO2 09/26/21 09:09 99 207/104 09/26/21 06:00 97 Room Air 09/26/21 04:00 98.8 98.8 09/26/21 02:00 18 Intake and Output 09/26/21 07:00 Intake Total 2882.5 ml Output Total 1135 ml Balance 1747.5 ml Intake Oral 1500 ml IV Total 1382.5 ml Output Urine Total 1135 ml # Bowel Movements 1 PHYSICAL EXAM Alert. Oriented to time, place and person. PERRL. EOMI. CN: Slight left cheek sensory loss, otherwise no focal findings. Muscle tone: normal. Muscle strength: 5/ DTR: 2+ Plantar reflex: Flexor Gait: not examined in bed. Sensory exam: no abnormal findings. No cerebellar signs elicited. Review of Relevant I have reviewed the following items mauricio (where applicable) has been applied. Labs Laboratory Tests Test 09/24/21 13:25 09/24/21 18:27 09/24/21 20:26 09/25/21 04:15 Glucose (Fingerstick) 281 mg/dL (70-99) 256 mg/dL (70-99) 209 mg/dL (70-99) Sodium Level 134 mmol/L (136-145) Potassium Level 4.1 mmol/L (3.5-5.1) Chloride Level 102 mmol/L (98-107) Carbon Dioxide Level 21 mmol/L (21-32) Anion Gap 11 (6-14) Blood Urea Nitrogen 30 mg/dL (7-20) Creatinine 3.6 mg/dL (0.6-1.0) Estimated GFR (Cockcroft-Gault) 13.9 BUN/Creatinine Ratio 8 (6-20) Glucose Level 268 mg/dL (70-99) Calcium Level 8.1 mg/dL (8.5-10.1) Total Bilirubin 0.2 mg/dL (0.2-1.0) Aspartate Amino Transf (AST/SGOT) 29 U/L (15-37) Alanine Aminotransferase (ALT/SGPT) 122 U/L (14-59) Alkaline Phosphatase 168 U/L (46-116) Total Protein 6.9 g/dL (6.4-8.2) Albumin 2.4 g/dL (3.4-5.0) Albumin/Globulin Ratio 0.5 (1.0-1.7) Test 09/25/21 09:19 09/25/21 10:05 09/25/21 12:43 09/25/21 17:26 Glucose (Fingerstick) 210 mg/dL (-99) 161 mg/dL (70-99) 188 mg/dL (70-99) White Blood Count 13.0 x10^3/uL (4.0-11.0) Red Blood Count 3.94 x10^6/uL (3.50-5.40) Hemoglobin 10.9 g/dL (12.0-15.5) Hematocrit 34.1 % (36.0-47.0) Mean Corpuscular Volume 87 fL (79-100) Mean Corpuscular Hemoglobin 28 pg (25-35) Mean Corpuscular Hemoglobin Concent 32 g/dL (31-37) Red Cell Distribution Width 13.6 % (11.5-14.5) Platelet Count 362 x10^3/uL (140-400) Sodium Level 136 mmol/L (136-145) Potassium Level 3.9 mmol/L (3.5-5.1) Chloride Level 102 mmol/L (98-107) Carbon Dioxide Level 20 mmol/L (21-32) Anion Gap 14 (6-14) Blood Urea Nitrogen 30 mg/dL (7-20) Creatinine 3.6 mg/dL (0.6-1.0) Estimated GFR (Cockcroft-Gault) 13.9 BUN/Creatinine Ratio 8 (6-20) Glucose Level 202 mg/dL (70-99) Calcium Level 8.4 mg/dL (8.5-10.1) Total Bilirubin 0.2 mg/dL (0.2-1.0) Aspartate Amino Transf (AST/SGOT) 32 U/L (15-37) Alanine Aminotransferase (ALT/SGPT) 120 U/L (14-59) Alkaline Phosphatase 151 U/L (46-116) Total Protein 6.9 g/dL (6.4-8.2) Albumin 2.4 g/dL (3.4-5.0) Albumin/Globulin Ratio 0.5 (1.0-1.7) Test 09/25/21 20:40 09/26/21 04:00 09/26/21 08:31 Glucose (Fingerstick) 171 mg/dL (70-99) 189 mg/dL (70-99) Sodium Level 135 mmol/L (136-145) Potassium Level 4.6 mmol/L (3.5-5.1) Chloride Level 103 mmol/L (98-107) Carbon Dioxide Level 23 mmol/L (21-32) Anion Gap 9 (6-14) Blood Urea Nitrogen 36 mg/dL (7-20) Creatinine 4.1 mg/dL (0.6-1.0) Estimated GFR (Cockcroft-Gault) 12.0 Glucose Level 204 mg/dL (70-99) Calcium Level 8.1 mg/dL (8.5-10.1) Laboratory Tests Test 09/25/21 10:05 09/25/21 12:43 09/25/21 17:26 09/25/21 20:40 White Blood Count 13.0 x10^3/uL (4.0-11.0) Red Blood Count 3.94 x10^6/uL (3.50-5.40) Hemoglobin 10.9 g/dL (12.0-15.5) Hematocrit 34.1 % (36.0-47.0) Mean Corpuscular Volume 87 fL (79-100) Mean Corpuscular Hemoglobin 28 pg (25-35) Mean Corpuscular Hemoglobin Concent 32 g/dL (31-37) Red Cell Distribution Width 13.6 % (11.5-14.5) Platelet Count 362 x10^3/uL (140-400) Sodium Level 136 mmol/L (136-145) Potassium Level 3.9 mmol/L (3.5-5.1) Chloride Level 102 mmol/L (98-107) Carbon Dioxide Level 20 mmol/L (21-32) Anion Gap 14 (6-14) Blood Urea Nitrogen 30 mg/dL (7-20) Creatinine 3.6 mg/dL (0.6-1.0) Estimated GFR (Cockcroft-Gault) 13.9 BUN/Creatinine Ratio 8 (6-20) Glucose Level 202 mg/dL (70-99) Calcium Level 8.4 mg/dL (8.5-10.1) Total Bilirubin 0.2 mg/dL (0.2-1.0) Aspartate Amino Transf (AST/SGOT) 32 U/L (15-37) Alanine Aminotransferase (ALT/SGPT) 120 U/L (14-59) Alkaline Phosphatase 151 U/L (46-116) Total Protein 6.9 g/dL (6.4-8.2) Albumin 2.4 g/dL (3.4-5.0) Albumin/Globulin Ratio 0.5 (1.0-1.7) Glucose (Fingerstick) 161 mg/dL (70-99) 188 mg/dL (70-99) 171 mg/dL (70-99) Test 09/26/21 04:00 09/26/21 08:31 Sodium Level 135 mmol/L (136-145) Potassium Level 4.6 mmol/L (3.5-5.1) Chloride Level 103 mmol/L (98-107) Carbon Dioxide Level 23 mmol/L (21-32) Anion Gap 9 (6-14) Blood Urea Nitrogen 36 mg/dL (7-20) Creatinine 4.1 mg/dL (0.6-1.0) Estimated GFR (Cockcroft-Gault) 12.0 Glucose Level 204 mg/dL (70-99) Calcium Level 8.1 mg/dL (8.5-10.1) Glucose (Fingerstick) 189 mg/dL (70-99) Medications Current Medications Nicardipine HCl 50 mg/Sodium Chloride 250 ml @ 25 mls/hr CONT PRN IV PER PROTOCOL Last administered on 09/24/21at 15:53; Start 09/23/21 at 21:45; Stop 09/24/21 at 16:43; Status DC Nifedipine (Procardia Xl) 30 mg DAILY PO Last administered on 09/26/21at 09:09; Start 09/24/21 at 09:00 Zolpidem Tartrate (Ambien) 5 mg PRN QHS PRN PO INSOMNIA; Start 09/23/21 at 21:45 Montelukast Sodium (Singulair) 10 mg DAILY PO Last administered on 09/26/21 09:09; Start 09/24/21 at 09:00 Insulin Human Lispro (HumaLOG) 15 units TIDWMEALS SQ Last administered on 09/24/21 18:30; Start 09/24/21 at 08:00; Stop 09/25/21 at 08:47; Status DC Insulin Glargine (Lantus Syringe) 40 unit QHS SQ Last administered on 09/25/21 20:37; Start 09/24/21 at 21:00 Losartan Potassium (Cozaar) 100 mg DAILY PO Last administered on 09/25/21 09:28; Start 09/24/21 at 09:00; Stop 09/25/21 at 10:31; Status DC Spironolactone (Aldactone) 50 mg DAILY PO Last administered on 09/26/21 09:09; Start 09/24/21 at 09:00 Insulin Glargine (Lantus Syringe) 40 unit 1X ONCE SQ Last administered on 09/23/21 22:21; Start 09/23/21 at 23:00; Stop 09/23/21 at 23:01; Status DC Sodium Chloride 1,000 ml @ 75 mls/hr [id number] IV Last administered on 09/25/21 20:36; Start 09/24/21 at 15:15 Nicardipine HCl 50 mg/Sodium Chloride 250 ml @ 25 mls/hr CONT PRN PRN IV PER PROTOCOL Last administered on 09/24/21 21:31; Start 09/24/21 at 16:45 Atorvastatin Calcium (Lipitor) 80 mg QHS PO Last administered on 09/25/21 20:35; Start 09/24/21 at 21:00 Acetaminophen (Tylenol) 650 mg PRN Q6HRS PRN PO MILD PAIN / TEMP > 100.3'F Last administered on 09/25/21 23:51; Start 09/24/21 at 16:45 Aspirin (Ecotrin) 325 mg DAILYWBKFT PO Last administered on 09/26/21 09:09; Start 09/24/21 at 17:00 Aspirin (Aspirin Rectal Supp) 300 mg PRN DAILY PRN SC IF UNABLE TO TAKE PO; Start 09/24/21 at 16:45 Insulin Human Lispro (HumaLOG) 20 units TIDWMEALS SQ Last administered on 09/26/21at 09:15; Start 09/25/21 at 08:45 Ondansetron HCl (Zofran Odt) 4 mg PRN Q6HRS PRN PO NAUSEA/VOMITING Last administered on 09/25/21at 23:56; Start 09/25/21 at 15:00 Enoxaparin Sodium (Lovenox Per Pharmacy Prophylaxis Dosing) 1 each PRN DAILY PRN MC SEE COMMENTS; Start 09/25/21 at 16:00 Enoxaparin Sodium (Lovenox 60mg Syringe) 60 mg Q24H SQ Last administered on 09/25/21at 17:41; Start 09/25/21 at 17:00 Active Scripts Active Levemir Flextouch (Insulin Detemir) 100 Unit/1 Ml Insuln.pen 40 Units SQ QHS 30 Days Novolog Flexpen (Insulin Aspart) 100 Unit/1 Ml Insuln.pen 15 Units SQ TIDAC 30 Days Reported Tri-Sprintec (Norgestimate-Ethinyl Estradiol) 1 Each Tablet 1 Tab PO DAILY Spironolactone 50 Mg Tablet 1 Tab PO DAILY Montelukast Sodium Tablet (Montelukast Sodium) 10 Mg Tablet 10 Mg PO DAILY Losartan Potassium 100 Mg Tablet 100 Mg PO DAILY Vitals/I & O Vital Sign - Last 24 Hours 09/25/21 09/25/21 09/25/21 09/25/21 10:00 11:00 12:00 12:00 Temp 98.8 98.8 Pulse 96 94 92 Resp 18 18 18 B/P (MAP) 193/90 200/83 214/91 Pulse Ox 96 99 98 O2 Delivery Room Air Room Air Room Air Room Air 09/25/21 09/25/21 09/25/21 09/25/21 13:00 14:00 15:00 16:00 Pulse 94 96 98 Resp 18 18 18 B/P (MAP) 194/84 194/82 174/78 Pulse Ox 97 97 97 O2 Delivery Room Air Room Air Room Air Room Air 4/26/22 4/26/22 4/26/22 4/26/22 16:00 17:00 18:00 19:00 Temp 98.9 98.9 Pulse 96 98 98 100 Resp 18 18 18 18 B/P (MAP) 188/77 182/83 166/82 170/89 Pulse Ox 95 97 O2 Delivery Room Air Room Air Room Air Room Air 09/25/21 09/25/21 09/25/21 09/25/21 20:00 20:00 21:00 22:00 Temp 99.1 99.1 Pulse 98 98 100 Resp 18 18 18 B/P (MAP) 178/75 182/88 176/77 Pulse Ox 98 O2 Delivery Room Air Room Air Room Air Room Air 09/25/21 09/25/21 09/26/21 09/26/21 23:00 23:51 00:00 01:00 Temp 98.9 98.9 Pulse 100 98 96 Resp 18 18 18 B/P (MAP) 202/82 208/87 Pulse Ox 99 100 O2 Delivery Room Air Room Air Room Air Room Air 09/26/21 09/26/21 09/26/21 09/26/21 02:00 03:00 04:00 04:00 Temp 98.8 98.8 Pulse 95 94 98 Resp 18 B/P (MAP) 218/101 201/87 202/89 Pulse Ox 95 99 99 O2 Delivery Room Air Room Air Room Air Room Air 09/26/21 09/26/21 09/26/21 09/26/21 05:00 05:10 06:00 09:09 Pulse 96 96 99 B/P (MAP) 222/110 219/87 214/88 207/104 Pulse Ox 99 97 O2 Delivery Room Air Room Air Intake and Output 09/25/21 09/25/21 09/26/21 15:00 23:00 07:00 Intake Total 500 ml 1126 ml 1256.5 ml Output Total 400 ml 450 ml 285 ml Balance 100 ml 676 ml 971.5 ml Justicifation of Admission Dx: Justifications for Admission: Justification of Admission Dx: Yes Stroke - Ischemic: Stroke-Ischemic DOLORES TRISTAN MD Sep 26, 2021 09:36
--- NOTE | 2021-09-26 10:07 | PDOC ---
DATE OF SERVICE DATE: 09/26/21 TIME: 10:07 SUBJECTIVE ROS Feeling Tired. No N/V. Voided x 1 OBJECTIVE Vital Signs Vital Signs Date Time Temp Pulse Resp B/P (MAP) Pulse Ox O2 Delivery O2 Flow Rate FiO2 09/26/21 09:09 99 207/104 09/26/21 06:00 97 Room Air 09/26/21 04:00 98.8 98.8 09/26/21 02:00 18 I & 0 Intake and Output 09/26/21 07:00 Intake Total 2882.5 ml Output Total 1135 ml Balance 1747.5 ml Intake Oral 1500 ml IV Total 1382.5 ml Output Urine Total 1135 ml # Bowel Movements 1 PHYSICAL EXAM Physical Exam GEN: Awake, Oriented x [], In [] distress EYES: Vision Unchanged, Conjunctiva Normal EN: No EN Drainage, Mucous Membranes [] NECK: [] JVD, [] JVP, Supple, [] Thyromegaly CVS: S1S2, [] Murmur, No Gallop, No Rub,[] Edema RESP: [] Rales, [] Rhonchi,[] Acc. Muscle Use GI: BS + ve, NO Bruit, Non Tender, Non Distended : [] CVA tenderness, [] Suprapubic Tenderness DIAGNOSIS/ASSESSMENT Assessment & Plan ESRD/ARF: Current fluid and E-lyte status does not necessitate emergent need for dialysis. Will re-evaluate for dialysis in the am and continue on [] schedule. ANEMIA; [] Aranap as ordered, [] Transfuse [] with next HD as needed HTN: Current BP meds as reviewed. See orders for changes. BONE & MINERAL: [] Discussed Plan of Care with family [] at bedside [] over the phone COMMENT/RELEVANT DATA Meds Current Medications Medications (Trade) Dose Ordered Sig/Maya Start Time Stop Time Status Last Admin Dose Admin Acetaminophen (Tylenol) 650 mg PRN Q6HRS PRN 09/24/21 16:45 09/25/21 23:51 650 MG Aspirin (Aspirin Rectal Supp) 300 mg PRN DAILY PRN 09/24/21 16:45 Aspirin (Ecotrin) 325 mg DAILYWBKFT 09/24/21 17:00 09/26/21 09:09 325 MG Atorvastatin Calcium (Lipitor) 80 mg QHS 09/24/21 21:00 09/25/21 20:35 80 MG Enoxaparin Sodium (Lovenox 60mg Syringe) 60 mg Q24H 09/25/21 17:00 09/25/21 17:41 60 MG Enoxaparin Sodium (Lovenox Per Pharmacy Prophylaxis Dosing) 1 each PRN DAILY PRN 09/25/21 16:00 Insulin Glargine (Lantus Syringe) 40 unit 1X ONCE 09/23/21 23:00 09/23/21 23:01 DC 09/23/21 22:21 40 UNIT Insulin Human Lispro (HumaLOG) 20 units TIDWMEALS 09/25/21 08:45 09/26/21 09:15 20 UNITS Losartan Potassium (Cozaar) 100 mg DAILY 09/24/21 09:00 09/25/21 10:31 DC 09/25/21 09:28 100 MG Montelukast Sodium (Singulair) 10 mg DAILY 09/24/21 09:00 09/26/21 09:09 10 MG Nicardipine HCl 50 mg/Sodium Chloride 250 ml @ 25 mls/hr CONT PRN PRN 09/24/21 16:45 09/24/21 21:31 12.5 MLS/HR Nifedipine (Procardia Xl) 30 mg DAILY 09/24/21 09:00 09/26/21 09:09 30 MG Ondansetron HCl (Zofran Odt) 4 mg PRN Q6HRS PRN 09/25/21 15:00 09/25/21 23:56 4 MG Ondansetron HCl (Zofran) 4 mg Q4H PRN 09/26/21 10:15 UNV Sodium Chloride ([place] Saline Nasal) 1 jax PRN DAILY PRN 09/26/21 10:15 UNV Spironolactone (Aldactone) 50 mg DAILY 09/24/21 09:00 09/26/21 09:09 50 MG Zolpidem Tartrate (Ambien) 5 mg PRN QHS PRN 09/23/21 21:45 Lab Laboratory Tests Test 09/25/21 12:43 09/25/21 17:26 09/25/21 20:40 09/26/21 04:00 Glucose (Fingerstick) 161 mg/dL (70-99) 188 mg/dL (70-99) 171 mg/dL (70-99) Sodium Level 135 mmol/L (136-145) Potassium Level 4.6 mmol/L (3.5-5.1) Chloride Level 103 mmol/L (98-107) Carbon Dioxide Level 23 mmol/L (21-32) Anion Gap 9 (6-14) Blood Urea Nitrogen 36 mg/dL (7-20) Creatinine 4.1 mg/dL (0.6-1.0) Estimated GFR (Cockcroft-Gault) 12.0 Glucose Level 204 mg/dL (70-99) Calcium Level 8.1 mg/dL (8.5-10.1) Test 09/26/21 08:31 Glucose (Fingerstick) 189 mg/dL (70-99) Results All relevant outside records, renal labs, imaging studies, telemetry/EKG's were reviewed. Justicifation of Admission Dx: Justifications for Admission: Justification of Admission Dx: Yes Stroke - Ischemic: Stroke-Ischemic LISA NORMAN MD Sep 26, 2021 10:07
[2021-09-26] MEDS: SODIUM CHL/ALOE VERA NASAL GEL 14.1GM TUBE. NS PRN ×3 (10:48→17:52)
[2021-09-26] MEDS: IV NORMAL SALINE 1000ML BAG 1,000 ML IV SCH ×2 (10:48→22:45)
[2021-09-26] MEDS ORDERED: LIDOCAINE WITH 8.4% SOD BICARB 3 ML DISP.SYRIN. ONE (11:30)
[2021-09-26] MEDS ORDERED: LIDOCAINE WITH 8.4% SOD BICARB 3 ML DISP.SYRIN. INJ ONE (12:15)
[2021-09-26] MEDS: ONDANSETRON ODT 4 MG TAB.RAPDIS. PO PRN (12:37)
--- NOTE | 2021-09-26 12:41 | RAD ---
EXAM: CHEST ONE VIEW. HISTORY: Line placement. COMPARISON: None. FINDINGS: A frontal view of the chest is obtained. A right internal jugular hemodialysis catheter has its tip in the superior cavoatrial junction. A mild right basilar airspace opacity cannot be excluded. There is no pneumothorax or pleural effusio n. The heart is not enlarged. IMPRESSION: 1. Correlate for mild right basilar infiltrate. Electronically signed by: Adam Bess MD (09/26/2021 12:39 PM) [id number]
--- NOTE | 2021-09-26 14:19 | RAD ---
Procedure: Temporary hemodialysis catheter placement Sterility: All elements of maximal sterile barrier technique including the use of a cap, mask, steril e gown, sterile gloves, large sterile sheet, appropriate hand hygiene, and 2% chlorhexidine for cutan eous antisepsis (or acceptable alternative antiseptic per current guidelines) were followed for this procedure. Consent: The procedure was explained in its entirety to the patient or the patients designated repres entative by a member of the treatment team, including a discussion of the risks, benefits and commonl y accepted alternatives to the procedure, as well as the expected consequences of no therapy whatsoev er. Discussion of the risks included, but was not limited to, those that are most frequent and thos e that are rare but possibly severe or life-threatening, as well as the possibility of unforeseen com plications. Technique and Findings: Following informed consent, the patient was prepped and draped in the usual s terile fashion. Ultrasound interrogation of the right neck revealed patency and compressibility of t he right internal jugular vein. A 21-gauge micropuncture was then used to gain access to this vein u nder ultrasound guidance. A hard copy ultrasound image was recorded. A guidewire was advanced centra lly over which, following dilatation, a temporary dialysis catheter was placed. The new catheter wa s found to flush and aspirate normally. The catheter was secured in place. Sterile dressings were jax lied. No immediate complications were identified. IMPRESSION: Placement of a temporary dialysis catheter Electronically signed by: Parag Jesus MD (09/26/2021 2:17 PM) [id number]
--- NOTE | 2021-09-26 15:00 | PDOC ---
DATE OF SERVICE DATE: 09/26/21 TIME: 14:55 SUBJECTIVE ROS C/O some nausea. Denies SOB OBJECTIVE Vital Signs Vital Signs Date Time Temp Pulse Resp B/P (MAP) Pulse Ox O2 Delivery O2 Flow Rate FiO2 09/26/21 12:13 Room Air 09/26/21 09:09 99 207/104 09/26/21 06:00 97 09/26/21 04:00 98.8 98.8 09/26/21 02:00 18 I & 0 Intake and Output 09/26/21 07:00 Intake Total 2882.5 ml Output Total 1135 ml Balance 1747.5 ml Intake Oral 1500 ml IV Total 1382.5 ml Output Urine Total 1135 ml # Bowel Movements 1 PHYSICAL EXAM Physical Exam GENERAL: Morbidly Obese , Propped up in bed. NAD HEEN Normocephalic, atraumatic.om mildly dry NECK: Supple. HEART: normal first and second heart sounds. No gallop, rub or murmur. LUNGS : Clear to auscultation, decreased at bases, non labored ABDOMEN: Distended, soft, nontender. NEUROLOGIC: Grossly Normal, Moves all 4 extremities . She did complain of numbness in her left side of the face without any obvious motor deficit. PSYCH COOPERATIVE EXT No LE edema No Weiss, No CVA or SP tenderness DERM No Rash DIAGNOSIS/ASSESSMENT Assessment & Plan JUDITH -atn / Vomiting /Poor po intake/ IV Contrast / Hx of NSAID use . Baseline Cr normal in 2017 per [facility] records. No Interval labs available .UA unremarkable, US Unremarkable, worsening renal function, Weiss placed with 400 mls or Urine; Non Oliguric Supportive care, Holding Aldactone and ARB . Probably will need SCRIPT COORDINATOR if worsening renal function . Re-Eval in am . Dw patient and staff . If taking PO can dc IVF , no improvement in renal function CKD - per Primary's note, No interval labs. Suspect CKD 2/2 DM and Uncontrolled HTN HTN Urgency - multiple antihypertensive medications including clonidine, hydralazine metoprolol without improvement. . 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 Type 2 Diabetes mellitus. she stopped Insulin on her own recently Bronchial asthma COMMENT/RELEVANT DATA Meds Current Medications Medications (Trade) Dose Ordered Sig/Maya Start Time Stop Time Status Last Admin Dose Admin Acetaminophen (Tylenol) 650 mg PRN Q6HRS PRN 09/24/21 16:45 09/25/21 23:51 650 MG Aspirin (Aspirin Rectal Supp) 300 mg PRN DAILY PRN 09/24/21 16:45 Aspirin (Ecotrin) 325 mg DAILYWBKFT 09/24/21 17:00 09/26/21 09:09 325 MG Atorvastatin Calcium (Lipitor) 80 mg QHS 09/24/21 21:00 09/25/21 20:35 80 MG Enoxaparin Sodium (Lovenox 60mg Syringe) 60 mg Q24H 09/25/21 17:00 09/25/21 17:41 60 MG Enoxaparin Sodium (Lovenox Per Pharmacy Prophylaxis Dosing) 1 each PRN DAILY PRN 09/25/21 16:00 Insulin Glargine (Lantus Syringe) 40 unit 1X ONCE 09/23/21 23:00 09/23/21 23:01 DC 09/23/21 22:21 40 UNIT Insulin Human Lispro (HumaLOG) 20 units TIDWMEALS 09/25/21 08:45 09/26/21 12:41 20 UNITS Lidocaine HCl (Buffered Lidocaine 1%) 6 ml 1X ONCE 09/26/21 12:15 09/26/21 12:16 DC Losartan Potassium (Cozaar) 100 mg DAILY 09/24/21 09:00 09/25/21 10:31 DC 09/25/21 09:28 100 MG Montelukast Sodium (Singulair) 10 mg DAILY 09/24/21 09:00 09/26/21 09:09 10 MG Nicardipine HCl 50 mg/Sodium Chloride 250 ml @ 25 mls/hr CONT PRN PRN 09/24/21 16:45 09/26/21 10:38 25 MLS/HR Nifedipine (Procardia Xl) 30 mg DAILY 09/24/21 09:00 09/26/21 09:09 30 MG Ondansetron HCl (Zofran Odt) 4 mg PRN Q6HRS PRN 09/25/21 15:00 09/26/21 12:37 4 MG Ondansetron HCl (Zofran) 4 mg PRN Q4HRS PRN 09/26/21 10:15 Sodium Chloride ([place] Saline Nasal) 1 jax PRN DAILY PRN 09/26/21 10:15 09/26/21 12:37 1 JAX Spironolactone (Aldactone) 50 mg DAILY 09/24/21 09:00 09/26/21 09:09 50 MG Zolpidem Tartrate (Ambien) 5 mg PRN QHS PRN 09/23/21 21:45 Lab Laboratory Tests Test 09/25/21 17:26 09/25/21 20:40 09/26/21 04:00 09/26/21 08:31 Glucose (Fingerstick) 188 mg/dL (70-99) 171 mg/dL (70-99) 189 mg/dL (70-99) Sodium Level 135 mmol/L (136-145) Potassium Level 4.6 mmol/L (3.5-5.1) Chloride Level 103 mmol/L (98-107) Carbon Dioxide Level 23 mmol/L (21-32) Anion Gap 9 (6-14) Blood Urea Nitrogen 36 mg/dL (7-20) Creatinine 4.1 mg/dL (0.6-1.0) Estimated GFR (Cockcroft-Gault) 12.0 Glucose Level 204 mg/dL (70-99) Calcium Level 8.1 mg/dL (8.5-10.1) Test 09/26/21 12:34 Glucose (Fingerstick) 187 mg/dL (70-99) Results All relevant outside records, renal labs, imaging studies, telemetry/EKG's were reviewed. Justicifation of Admission Dx: Justifications for Admission: Justification of Admission Dx: Yes Stroke - Ischemic: Stroke-Ischemic LISA NORMAN MD Sep 26, 2021 15:00
--- NOTE | 2021-09-26 16:26 | CARD ---
MR#: [id number] Date of Study: 09/26/2021 Ordering Physician: DOLORES TRISTAN, Referring Physician: DOLORES TRISTAN Tech: Simón Caro [facility] APPROVED REPORT EXAM: Two-dimensional and M-mode echocardiogram with Doppler and color Doppler. Other Information Quality : LimitedHR: 97bpm Rhythm : NSRTechnically limited study due to body habitus. INDICATION CVA/TIA Echo Enhancing Agent Indication: Rule Out Septal Defect Agent/Amount Used: Agitated Saline 8mL RISK FACTORS Hypertension Obesity 2D DIMENSIONS Left Atrium(2D)4.4 (1.6-4.0cm)IVSd1.3 (0.7-1.1cm) Aortic Root(2D)2.9 (2.0-3.7cm)LVDd4.8 (3.9-5.9cm) LVOT Diameter2.0 (1.8-2.4cm)PWd1.4 (0.7-1.1cm) LA Glwnlb85 (18-58mL)LVDs3.3 (2.5-4.0cm) FS (%) 31.9 %SV64.9 ml LVEF(%)59.8 (>50%) Aortic Valve AoV Peak Liu.160.9cm/sAoV VTI28.0cm AO Peak GR.10.4mmHgLVOT VTI 17.84cm AO Mean GR.7mmHg Mitral Valve MV E Rosngwru332.8cm/sMV DECEL HNQV86op MV A Kpnwzggu59.2cm/sE/A Ratio1.4 TDI Lateral E' P. V7.27cm/sMedial E' P. V6.11cm/s E/Lateral E'15.4E/Medial E'18.3 Pulmonary Valve PV Peak Fxuifoye453.2cm/s Tricuspid Valve TR P. Abvjebfy951qx/sTR Peak Gr.30mmHg Pulmonary Vein S1 Pkvvpuim10.0cm/sS2 Rjkvtjpi55.38cm/s D2 Ojxubtau18.4cm/s LEFT VENTRICLE The left ventricle is normal size. There is mild to moderate concentric left ventricular hypertrophy. The left ventricular systolic function is normal. The ejection fraction estimated at 55 to 60%. Ther e is normal LV segmental wall motion. Transmitral Doppler flow pattern is Grade II-pseudonormal filli ng dynamics. No left ventricle thrombus noted on this study. There is no ventricular septal defect vi sualized. There is no left ventricular aneurysm. There is no mass noted in the left ventricle. RIGHT VENTRICLE The right ventricle is normal size. There is normal right ventricular wall thickness. The right ventr icular systolic function is normal. ATRIA The left atrium is mildly dilated. The right atrium size is normal. The interatrial septum is intact with no evidence for an atrial septal defect or patent foramen ovale as noted on 2-D or Doppler imagi ng. Technically difficult study but saline bubble study appreared negative for pfo or asd. AORTIC VALVE The aortic valve is not well seen. Doppler and Color Flow revealed no significant aortic regurgitatio n. There is no significant aortic valvular stenosis. There is no aortic valvular vegetation. MITRAL VALVE The mitral valve is normal in structure and function. There is no evidence of mitral valve prolapse. There is no mitral valve stenosis. Doppler and Color-flow revealed trace to mild mitral regurgitation . TRICUSPID VALVE The tricuspid valve is normal in structure and function. Doppler and Color Flow revealed trace tricus pid regurgitation. There is no tricuspid valve prolapse or vegetation. There is no tricuspid valve st enosis. PULMONIC VALVE The pulmonary valve is normal in structure and function. Doppler and Color Flow revealed no pulmonic valvular regurgitation. There is no pulmonic valvular stenosis. GREAT VESSELS The aortic root is normal in size. The ascending aorta is normal in size. The pulmonary artery is nor mal. The IVC is normal in size and collapses >50% with inspiration. PERICARDIAL EFFUSION There is no pleural effusion. There is no evidence of significant pericardial effusion. Critical Notification Critical Value: No <Conclusion> The left ventricular systolic function is normal. The ejection fraction estimated at 55 to 60%. There is normal LV segmental wall motion. Transmitral Doppler flow pattern is Grade II-pseudonormal filling dynamics. Trace to mild mitral regurgitation. Trace tricuspid regurgitation. There is no evidence of significant pericardial effusion. Bubble study technically difficult but appears to be negative for PFO/ASD. Recommend WALTER if clinical suspicion high. Signed by : Chidi Wesley, Electronically Approved : 09/26/2021 16:26:28
[2021-09-26] MEDS: ACETAMINOPHEN 325 MG TABLET. PO PRN (17:52)
[2021-09-26] MEDS: ATORVASTATIN CALCIUM 40 MG TABLET. PO SCH (20:54)
[2021-09-26] MEDS: INSULIN GLARGINE SYRINGE. SQ SCH (20:59)
[2021-09-27] VITALS (27 sets, daily range): BP systolic 119–211; BP diastolic 62–92
[2021-09-27 06:01] LABS: HEMATOCRIT 31.6 % (36.0-47.0); HEMOGLOBIN 10.2 g/dL (12.0-15.5); RED BLOOD COUNT 3.67 x10^6/uL (3.50-5.40); WHITE BLOOD COUNT 12.8 x10^3/uL (4.0-11.0)
[2021-09-27 06:09] LABS: ALBUMIN 2.1 g/dL (3.4-5.0); ALBUMIN/GLOBULIN RATIO 0.5 (1.0-1.7); CALCIUM 7.8 mg/dL (8.5-10.1); CREATININE 4.2 mg/dL (0.6-1.0); GFR 11.7; POTASSIUM 4.6 mmol/L (3.5-5.1); TOTAL BILIRUBIN 0.2 mg/dL (0.2-1.0); TOTAL PROTEIN 6.4 g/dL (6.4-8.2)
--- NOTE | 2021-09-27 07:58 | PN ---
DATE: 09/26/2021 SUBJECTIVE: The patient is resting, slightly propped up in bed, in no apparent respiratory distress. She is awake, alert, complaining of nausea and also stuffy nose. Her kidney function unfortunately is worsening. I spoke with Dr. Carver, the plan was to place a temporary hemodialysis catheter and a central line as she needs to go back on Cardene drip with the aim to maintain her systolic pressure around [address] Wheeler's recommendation. PHYSICAL EXAMINATION: GENERAL: When I saw her this morning, she looked well and was clearly in no apparent respiratory distress. No pallor, jaundice, cyanosis or thyromegaly. No jugular venous distention. No lower limb edema. VITAL SIGNS: Her heart rate was 96, blood pressure was 114/88, temperature was 98.8, respiratory rate was 20 and oxygen saturation was 97% on room air. HEAD, EYES, EARS, NOSE, AND THROAT: Normocephalic, atraumatic. NECK: Supple. HEART: Normal first and second heart sounds. No gallop, rub or murmur. CHEST: Clear to auscultation, no crepitation or rhonchi. ABDOMEN: Distended, soft, nontender. NEUROLOGIC: She has continued to have numbness in the left side of the face, but she moves her extremities without difficulty. Her intake was 2620, no output was recorded. LABORATORY DATA: Her lab work this morning showed white cell count of 13,000, hemoglobin 11, hematocrit 34, MCV 87 and platelet count 362,000. Her chemistry showed a serum sodium 135, potassium 4.6, chloride 103, bicarbonate 23, anion gap of 9, BUN 36, creatinine 4.1. Estimated GFR was 204 mL per minute and calcium was 8.1. ASSESSMENT: 1. Hypertensive urgency for which she was started on a Cardene drip and we did restart her losartan as well as added Procardia; however, then Dr. Wheeler wanted her to maintain highest systolic pressure to maintain perfusion. However, he recommended a systolic pressure of around 150. 2. Did complain of tingling and numbness in her left side of the face and MRI showed that she has a focal area of acute, subacute ischemia involving the left lateral shannen extending into the left brachium pontis. There is also an associated cytotoxic edema without significant mass effect or hemorrhage. 3. Zxgsk-fx-wbegqvs kidney injury; however, unfortunately, her creatinine is worsening and has risen from 1.8 to 4.1 and therefore, temporary hemodialysis catheter was ordered in anticipation for need of hemodialysis. 4. The patient is known to have hypertension that is poorly controlled. 5. Type 2 diabetes mellitus. 6. Bronchial asthma. 7. Morbid obesity and questionable obstructive sleep apnea. PLAN: To continue with the Cardene drip with the aim of maintaining systolic pressure around 150. I will increase her Procardia. Her losartan was discontinued given that her kidney function is worsening. Continue to monitor blood sugar and adjust insulin as needed. Continue with DVT prophylaxis. She is now on Lovenox 60 mg subcutaneous once a day. Continue with atorvastatin for hyperlipidemia, her potassium is 4.6. I will discontinue also spironolactone given that her kidney function is steadily worsening. ELIOT/EMILY/EUNICE DR: Jared TID: [id number]
[2021-09-27] MEDS ORDERED: DIALYSIS PATIENT. MC PRN ×2 (08:30)
[2021-09-27] MEDS ORDERED: IV NORMAL SALINE 1000ML BAG 1,000 ML IV PRN ×2 (08:30)
[2021-09-27] MEDS: MONTELUKAST SODIUM 10 MG TABLET. PO SCH ×2 (09:03→15:49)
[2021-09-27] MEDS: SPIRONOLACTONE 25 MG TABLET PO SCH (09:03)
[2021-09-27] MEDS: ASPIRIN ENTERIC COATED 325 MG TABLET.DR. PO SCH (09:05)
[2021-09-27] MEDS: SODIUM CHL/ALOE VERA NASAL GEL 14.1GM TUBE. NS PRN (09:05)
[2021-09-27] MEDS: INSULIN LISPRO 300 UNITS/3 ML VIAL. SQ SCH ×3 (09:07→17:00)
[2021-09-27] MEDS: ACETAMINOPHEN 325 MG TABLET. PO PRN (09:09)
[2021-09-27] MEDS: ONDANSETRON ODT 4 MG TAB.RAPDIS. PO PRN (09:09)
--- NOTE | 2021-09-27 09:44 | PDOC ---
DATE OF SERVICE DATE: 09/27/21 TIME: 09:44 SUBJECTIVE ROS Denies SOB , stable. No acute concrns voiced by nursing Dialysis today - No complaints during treatment OBJECTIVE Vital Signs Vital Signs Date Time Temp Pulse Resp B/P (MAP) Pulse Ox O2 Delivery O2 Flow Rate FiO2 09/27/21 09:04 97 157/72 09/27/21 06:00 95 Room Air 09/27/21 04:00 98.6 98.6 I & 0 Intake and Output 09/27/21 07:00 Intake Total 4226 ml Output Total 1565 ml Balance 2661 ml Intake Oral 1190 ml IV Total 3036 ml Output Urine Total 1565 ml PHYSICAL EXAM Physical Exam GENERAL: Morbidly Obese , Propped up in bed. NAD HEEN Normocephalic, atraumatic.om mildly dry NECK: Supple. HEART: normal first and second heart sounds. No gallop, rub or murmur. LUNGS : Clear to auscultation, decreased at bases, non labored ABDOMEN: Distended, soft, nontender. NEUROLOGIC: Grossly Normal, Moves all 4 extremities . She did complain of numbness in her left side of the face without any obvious motor deficit. PSYCH COOPERATIVE EXT No LE edema No Weiss, No CVA or SP tenderness DERM No Rash JUDITH -atn / Vomiting /Poor po intake/ IV Contrast / Hx of NSAID use . Baseline Cr normal in 2017 per [facility] records. No Interval labs available .UA unremarkable, US Unremarkable,on Oliguric Renal function not improving, Bicarb mildly low- will dialyze today. Seen during treatment, tolerating well. UF 1-2 as tolerated , discussed with DRN Supportive care Aldactone and ARB held CKD - per Primary's note, No interval labs. Suspect CKD 2/2 DM and Uncontrolled HTN HTN Urgency - multiple antihypertensive medications including clonidine, hydralazine metoprolol without improvement. . 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 Type 2 Diabetes mellitus. she stopped Insulin on her own recently Bronchial asthma DIAGNOSIS/ASSESSMENT Assessment & Plan ESRD/ARF: Current fluid and E-lyte status does not necessitate emergent need for dialysis. Will re-evaluate for dialysis in the am and continue on [] schedule. ANEMIA; [] Aranap as ordered, [] Transfuse [] with next HD as needed HTN: Current BP meds as reviewed. See orders for changes. BONE & MINERAL: [] Discussed Plan of Care with family [] at bedside [] over the phone COMMENT/RELEVANT DATA Meds Current Medications Medications (Trade) Dose Ordered Sig/Maya Start Time Stop Time Status Last Admin Dose Admin Acetaminophen (Tylenol) 650 mg PRN Q6HRS PRN 09/24/21 16:45 09/27/21 09:09 650 MG Aspirin (Aspirin Rectal Supp) 300 mg PRN DAILY PRN 09/24/21 16:45 Aspirin (Ecotrin) 325 mg DAILYWBKFT 09/24/21 17:00 09/27/21 09:05 325 MG Atorvastatin Calcium (Lipitor) 80 mg QHS 09/24/21 21:00 09/26/21 20:54 80 MG Enoxaparin Sodium (Lovenox 60mg Syringe) 60 mg Q24H 09/25/21 17:00 09/25/21 17:41 60 MG Enoxaparin Sodium (Lovenox Per Pharmacy Prophylaxis Dosing) 1 each PRN DAILY PRN 09/25/21 16:00 Info (PHARMACY MONITORING -- do not chart) 1 each PRN DAILY PRN 09/27/21 08:30 09/27/21 08:27 DC Insulin Glargine (Lantus Syringe) 40 unit 1X ONCE 09/23/21 23:00 09/23/21 23:01 DC 09/23/21 22:21 40 UNIT Insulin Human Lispro (HumaLOG) 20 units TIDWMEALS 09/25/21 08:45 09/27/21 09:07 20 UNITS Lidocaine HCl (Buffered Lidocaine 1%) 6 ml 1X ONCE 09/26/21 12:15 09/26/21 12:16 DC Losartan Potassium (Cozaar) 100 mg DAILY 09/24/21 09:00 09/25/21 10:31 DC 09/25/21 09:28 100 MG Montelukast Sodium (Singulair) 10 mg DAILY 09/24/21 09:00 09/27/21 09:03 10 MG Nicardipine HCl 50 mg/Sodium Chloride 250 ml @ 25 mls/hr CONT PRN PRN 09/24/21 16:45 09/27/21 05:23 75 MLS/HR Nifedipine (Procardia Xl) 30 mg DAILY 09/24/21 09:00 09/27/21 09:04 30 MG Ondansetron HCl (Zofran Odt) 4 mg PRN Q6HRS PRN 09/25/21 15:00 09/27/21 09:09 4 MG Ondansetron HCl (Zofran) 4 mg PRN Q4HRS PRN 09/26/21 10:15 Sodium Chloride 1,000 ml @ 400 mls/hr Q2H30M PRN 09/27/21 08:30 09/27/21 20:29 Sodium Chloride ([facility] [place] Saline Nasal) 1 jax PRN DAILY PRN 09/26/21 10:15 09/27/21 09:05 1 JAX Spironolactone (Aldactone) 50 mg DAILY 09/24/21 09:00 09/27/21 09:03 50 MG Zolpidem Tartrate (Ambien) 5 mg PRN QHS PRN 09/23/21 21:45 Lab Laboratory Tests Test 09/26/21 12:34 09/26/21 17:49 09/26/21 21:03 09/27/21 05:25 Glucose (Fingerstick) 187 mg/dL (70-99) 201 mg/dL (70-99) 188 mg/dL (70-99) White Blood Count 12.8 x10^3/uL (4.0-11.0) Red Blood Count 3.67 x10^6/uL (3.50-5.40) Hemoglobin 10.2 g/dL (12.0-15.5) Hematocrit 31.6 % (36.0-47.0) Mean Corpuscular Volume 86 fL (79-100) Mean Corpuscular Hemoglobin 28 pg (25-35) Mean Corpuscular Hemoglobin Concent 32 g/dL (31-37) Red Cell Distribution Width 14.0 % (11.5-14.5) Platelet Count 333 x10^3/uL (140-400) Sodium Level 135 mmol/L (136-145) Potassium Level 4.6 mmol/L (3.5-5.1) Chloride Level 105 mmol/L (98-107) Carbon Dioxide Level 19 mmol/L (21-32) Anion Gap 11 (6-14) Blood Urea Nitrogen 36 mg/dL (7-20) Creatinine 4.2 mg/dL (0.6-1.0) Estimated GFR (Cockcroft-Gault) 11.7 BUN/Creatinine Ratio 9 (6-20) Glucose Level 211 mg/dL (70-99) Calcium Level 7.8 mg/dL (8.5-10.1) Total Bilirubin 0.2 mg/dL (0.2-1.0) Aspartate Amino Transf (AST/SGOT) 20 U/L (15-37) Alanine Aminotransferase (ALT/SGPT) 67 U/L (14-59) Alkaline Phosphatase 133 U/L (46-116) Total Protein 6.4 g/dL (6.4-8.2) Albumin 2.1 g/dL (3.4-5.0) Albumin/Globulin Ratio 0.5 (1.0-1.7) Test 09/27/21 08:16 Glucose (Fingerstick) 216 mg/dL (70-99) Results All relevant outside records, renal labs, imaging studies, telemetry/EKG's were reviewed. Justicifation of Admission Dx: Justifications for Admission: Justification of Admission Dx: Yes Stroke - Ischemic: Stroke-Ischemic LISA NORMAN MD Sep 27, 2021 09:44
[2021-09-27] MEDS: IV NORMAL SALINE 1000ML BAG 1,000 ML IV SCH (09:55)
--- NOTE | 2021-09-27 10:53 | PN ---
DATE: 09/27/2021 SUBJECTIVE: The patient is resting, slightly propped up in bed, in no apparent respiratory distress. She had her temporary hemodialysis catheter placed and she is scheduled for hemodialysis today. Her blood pressure has continued to be extremely high and continues to be on a Cardene drip. PHYSICAL EXAMINATION: GENERAL: When I examined her, she looked well and was clearly in no apparent respiratory distress. No pallor, jaundice, cyanosis or thyromegaly. No jugular venous distention. No limb edema. VITAL SIGNS: Her heart rate was 97, blood pressure was 197/72, temperature was 98.6, respiratory rate was 18 and oxygen saturation was 95% on room air. HEAD, EYES, EARS, NOSE, AND THROAT: Normocephalic, atraumatic. NECK: Supple. HEART: Showed normal first and second heart sounds. No gallop or murmur. CHEST: Clear to auscultation, no crepitation or rhonchi. ABDOMEN: Distended, soft, nontender. NEUROLOGIC: She has continued to have numbness in her left side of the face, but otherwise she is grossly intact. Her intake was 2800, output was 1135. LABORATORY DATA: This morning showed a white cell count 12.8, hemoglobin 10, hematocrit 32, MCV 86 and platelet count 333,000. Serum sodium was 135, potassium 4.6, chloride 105, bicarbonate 19, anion gap of 11, BUN 36, creatinine 4.2. Estimated GFR was 11 mL per minute. Her glucose was 211, calcium was 7.8. Total bilirubin, AST were normal, alkaline phosphatase and ALT slightly elevated. Total protein 6.4, albumin was 2.1. ASSESSMENT: 1. Hypertensive urgency for which she was started on a Cardene drip, however, her losartan was discontinued. We will continue with Procardia and adjust the dose as needed. 2. The patient did complain of tingling and numbness in her left side of the face and MRI showed that she has a focal area of acute/subacute ischemia involving the left lateral shannen extending into the left brachium pontis and there is also an associated cytotoxic edema without significant mass effect or hemorrhage. 3. Acute on chronic kidney injury; however, her creatinine continued to rise and today it is 4.2. She had a temporary hemodialysis catheter placed successfully and she is scheduled for first hemodialysis session today. 4. The patient is known to have hypertension that was poorly controlled. 5. Type 2 diabetes mellitus. 6. Bronchial asthma. 7. Morbid obesity, questionable obstructive sleep apnea. PLAN: To discontinue the spironolactone. I will start her on Procardia 30 mg every 6 hours and we will decide on further management on a daily basis. JUAN DR: Jared TID: [id number]
--- NOTE | 2021-09-27 12:27 | PDOC ---
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 Starting dialysis History of diabetes, hypertension, hyperlipidemia, noncompliant, asthma, sleep apnea Plan Aspirin High-dose statin Treatment of hypertension. Tightened parameters back to 150/90 starting 09/26 Rehabilitation modalities Echocardiogram noted, I do not think she needs a transesophageal echocardiogram, the location of the stroke is unlikely cardiac-source Subjective No new complaints Objective Vital Signs Date Time Temp Pulse Resp B/P (MAP) Pulse Ox O2 Delivery O2 Flow Rate FiO2 09/27/21 09:04 97 157/72 09/27/21 08:00 Room Air 09/27/21 06:00 95 09/27/21 04:00 98.6 98.6 Intake and Output 09/27/21 07:00 Intake Total 4226 ml Output Total 1565 ml Balance 2661 ml Intake Oral 1190 ml IV Total 3036 ml Output Urine Total 1565 ml PHYSICAL EXAM Alert. Oriented to time, place and person. PERRL. EOMI. CN: Slight left cheek sensory loss, otherwise no focal findings. Muscle tone: normal. Muscle strength: 5/ DTR: 2+ Plantar reflex: Flexor Gait: not examined in bed. Sensory exam: no abnormal findings. No cerebellar signs elicited. Review of Relevant I have reviewed the following items mauricio (where applicable) has been applied. Labs Laboratory Tests Test 09/25/21 12:43 09/25/21 17:26 09/25/21 20:40 09/26/21 04:00 Glucose (Fingerstick) 161 mg/dL (70-99) 188 mg/dL (70-99) 171 mg/dL (70-99) Sodium Level 135 mmol/L (136-145) Potassium Level 4.6 mmol/L (3.5-5.1) Chloride Level 103 mmol/L (98-107) Carbon Dioxide Level 23 mmol/L (21-32) Anion Gap 9 (6-14) Blood Urea Nitrogen 36 mg/dL (7-20) Creatinine 4.1 mg/dL (0.6-1.0) Estimated GFR (Cockcroft-Gault) 12.0 Glucose Level 204 mg/dL (70-99) Calcium Level 8.1 mg/dL (8.5-10.1) Test 09/26/21 08:31 09/26/21 12:34 09/26/21 17:49 09/26/21 21:03 Glucose (Fingerstick) 189 mg/dL (70-99) 187 mg/dL (70-99) 201 mg/dL (70-99) 188 mg/dL (70-99) Test 09/27/21 05:25 09/27/21 08:16 White Blood Count 12.8 x10^3/uL (4.0-11.0) Red Blood Count 3.67 x10^6/uL (3.50-5.40) Hemoglobin 10.2 g/dL (12.0-15.5) Hematocrit 31.6 % (36.0-47.0) Mean Corpuscular Volume 86 fL (79-100) Mean Corpuscular Hemoglobin 28 pg (25-35) Mean Corpuscular Hemoglobin Concent 32 g/dL (31-37) Red Cell Distribution Width 14.0 % (11.5-14.5) Platelet Count 333 x10^3/uL (140-400) Sodium Level 135 mmol/L (136-145) Potassium Level 4.6 mmol/L (3.5-5.1) Chloride Level 105 mmol/L (98-107) Carbon Dioxide Level 19 mmol/L (21-32) Anion Gap 11 (6-14) Blood Urea Nitrogen 36 mg/dL (7-20) Creatinine 4.2 mg/dL (0.6-1.0) Estimated GFR (Cockcroft-Gault) 11.7 BUN/Creatinine Ratio 9 (6-20) Glucose Level 211 mg/dL (70-99) Calcium Level 7.8 mg/dL (8.5-10.1) Total Bilirubin 0.2 mg/dL (0.2-1.0) Aspartate Amino Transf (AST/SGOT) 20 U/L (15-37) Alanine Aminotransferase (ALT/SGPT) 67 U/L (14-59) Alkaline Phosphatase 133 U/L (46-116) Total Protein 6.4 g/dL (6.4-8.2) Albumin 2.1 g/dL (3.4-5.0) Albumin/Globulin Ratio 0.5 (1.0-1.7) Hepatitis B Surface Antigen Nonreactive (Nonreactive) Hepatitis B Surface Antibody Nonreactive Glucose (Fingerstick) 216 mg/dL (70-99) Laboratory Tests Test 09/26/21 12:34 09/26/21 17:49 09/26/21 21:03 09/27/21 05:25 Glucose (Fingerstick) 187 mg/dL (70-99) 201 mg/dL (70-99) 188 mg/dL (70-99) White Blood Count 12.8 x10^3/uL (4.0-11.0) Red Blood Count 3.67 x10^6/uL (3.50-5.40) Hemoglobin 10.2 g/dL (12.0-15.5) Hematocrit 31.6 % (36.0-47.0) Mean Corpuscular Volume 86 fL (79-100) Mean Corpuscular Hemoglobin 28 pg (25-35) Mean Corpuscular Hemoglobin Concent 32 g/dL (31-37) Red Cell Distribution Width 14.0 % (11.5-14.5) Platelet Count 333 x10^3/uL (140-400) Sodium Level 135 mmol/L (136-145) Potassium Level 4.6 mmol/L (3.5-5.1) Chloride Level 105 mmol/L (98-107) Carbon Dioxide Level 19 mmol/L (21-32) Anion Gap 11 (6-14) Blood Urea Nitrogen 36 mg/dL (7-20) Creatinine 4.2 mg/dL (0.6-1.0) Estimated GFR (Cockcroft-Gault) 11.7 BUN/Creatinine Ratio 9 (6-20) Glucose Level 211 mg/dL (70-99) Calcium Level 7.8 mg/dL (8.5-10.1) Total Bilirubin 0.2 mg/dL (0.2-1.0) Aspartate Amino Transf (AST/SGOT) 20 U/L (15-37) Alanine Aminotransferase (ALT/SGPT) 67 U/L (14-59) Alkaline Phosphatase 133 U/L (46-116) Total Protein 6.4 g/dL (6.4-8.2) Albumin 2.1 g/dL (3.4-5.0) Albumin/Globulin Ratio 0.5 (1.0-1.7) Hepatitis B Surface Antigen Nonreactive (Nonreactive) Hepatitis B Surface Antibody Nonreactive Test 09/27/21 08:16 Glucose (Fingerstick) 216 mg/dL (70-99) Medications Current Medications Nicardipine HCl 50 mg/Sodium Chloride 250 ml @ 25 mls/hr CONT PRN IV PER PROTOCOL Last administered on 09/24/21at 15:53; Start 09/23/21 at 21:45; Stop 09/24/21 at 16:43; Status DC Nifedipine (Procardia Xl) 30 mg DAILY PO Last administered on 09/27/21at 09:04; Start 09/24/21 at 09:00; Stop 09/27/21 at 09:48; Status DC Zolpidem Tartrate (Ambien) 5 mg PRN QHS PRN PO INSOMNIA; Start 09/23/21 at 21:45 Montelukast Sodium (Singulair) 10 mg DAILY PO Last administered on 09/27/21at 09:03; Start 09/24/21 at 09:00 Insulin Human Lispro (HumaLOG) 15 units TIDWMEALS SQ Last administered on 09/24/21at 18:30; Start 09/24/21 at 08:00; Stop 09/25/21 at 08:47; Status DC Insulin Glargine (Lantus Syringe) 40 unit QHS SQ Last administered on 09/26/21at 20:59; Start 09/24/21 at 21:00 Losartan Potassium (Cozaar) 100 mg DAILY PO Last administered on 09/25/21at 09:28; Start 09/24/21 at 09:00; Stop 09/25/21 at 10:31; Status DC Spironolactone (Aldactone) 50 mg DAILY PO Last administered on 09/27/21 09:03; Start 09/24/21 at 09:00; Stop 09/27/21 at 09:48; Status DC Insulin Glargine (Lantus Syringe) 40 unit 1X ONCE SQ Last administered on 09/23/21at 22:21; Start 09/23/21 at 23:00; Stop 09/23/21 at 23:01; Status DC Sodium Chloride 1,000 ml @ 75 mls/hr [id number] IV Last administered on 09/26/21at 22:45; Start 09/24/21 at 15:15 Nicardipine HCl 50 mg/Sodium Chloride 250 ml @ 25 mls/hr CONT PRN PRN IV PER PROTOCOL Last administered on 09/27/21at 05:23; Start 09/24/21 at 16:45 Atorvastatin Calcium (Lipitor) 80 mg QHS PO Last administered on 09/26/21at 20:54; Start 09/24/21 at 21:00 Acetaminophen (Tylenol) 650 mg PRN Q6HRS PRN PO MILD PAIN / TEMP > 100.3'F Last administered on 09/27/21at 09:09; Start 09/24/21 at 16:45 Aspirin (Ecotrin) 325 mg DAILYWBKFT PO Last administered on 09/27/21at 09:05; Start 09/24/21 at 17:00 Aspirin (Aspirin Rectal Supp) 300 mg PRN DAILY PRN KS IF UNABLE TO TAKE PO; Start 09/24/21 at 16:45 Insulin Human Lispro (HumaLOG) 20 units TIDWMEALS SQ Last administered on 09/27/21at 09:07; Start 09/25/21 at 08:45 Ondansetron HCl (Zofran Odt) 4 mg PRN Q6HRS PRN PO NAUSEA/VOMITING Last administered on 09/27/21at 09:09; Start 09/25/21 at 15:00 Enoxaparin Sodium (Lovenox Per Pharmacy Prophylaxis Dosing) 1 each PRN DAILY PRN MC SEE COMMENTS; Start 09/25/21 at 16:00; Stop 09/27/21 at 11:43; Status DC Enoxaparin Sodium (Lovenox 60mg Syringe) 60 mg Q24H SQ Last administered on 09/25/21at 17:41; Start 09/25/21 at 17:00; Stop 09/27/21 at 11:36; Status DC Ondansetron HCl (Zofran) 4 mg PRN Q4HRS PRN IVP NAUSEA/VOMITING; Start 09/26/21 at 10:15 Sodium Chloride (Jackson Saline Nasal) 1 jax PRN DAILY PRN NS NASAL CONGESTION Last administered on 09/27/21at 09:05; Start 09/26/21 at 10:15 Lidocaine HCl (Buffered Lidocaine 1%) 3 ml STK-MED ONCE .ROUTE ; Start 09/26/21 at 11:30; Stop 09/26/21 at 11:30; Status DC Lidocaine HCl (Buffered Lidocaine 1%) 6 ml 1X ONCE INJ ; Start 09/26/21 at 12:15; Stop 09/26/21 at 12:16; Status DC Sodium Chloride 1,000 ml @ 1,000 mls/hr Q1H PRN IV hypotension; Start 09/27/21 at 08:30; Stop 09/27/21 at 14:29 Sodium Chloride 1,000 ml @ 400 mls/hr Q2H30M PRN IV PATENCY; Start 09/27/21 at 08:30; Stop 09/27/21 at 20:29 Info (PHARMACY MONITORING -- do not chart) 1 each PRN DAILY PRN MC SEE COMMENTS; Start 09/27/21 at 08:30 Info (PHARMACY MONITORING -- do not chart) 1 each PRN DAILY PRN MC SEE COMMENTS; Start 09/27/21 at 08:30; Stop 09/27/21 at 08:27; Status DC Nifedipine (Procardia Xl) 60 mg DAILY PO ; Start 09/27/21 at 10:00 Heparin Sodium (Porcine) (Heparin Sodium) 5,000 unit Q8HRS SQ ; Start 09/27/21 at 14:00 Active Scripts Active Levemir Flextouch (Insulin Detemir) 100 Unit/1 Ml Insuln.pen 40 Units SQ QHS 30 Days Novolog Flexpen (Insulin Aspart) 100 Unit/1 Ml Insuln.pen 15 Units SQ TIDAC 30 Days Reported Tri-Sprintec (Norgestimate-Ethinyl Estradiol) 1 Each Tablet 1 Tab PO DAILY Spironolactone 50 Mg Tablet 1 Tab PO DAILY Montelukast Sodium Tablet (Montelukast Sodium) 10 Mg Tablet 10 Mg PO DAILY Losartan Potassium 100 Mg Tablet 100 Mg PO DAILY Vitals/I & O Vital Sign - Last 24 Hours 09/26/21 09/26/21 09/26/21 09/26/21 13:00 14:00 15:00 16:00 Pulse 96 100 98 B/P (MAP) 175/76 157/83 170/56 O2 Delivery Room Air Room Air Room Air Room Air 09/26/21 09/26/21 09/26/21 09/26/21 16:00 17:00 18:00 19:00 Temp 98.0 98.0 Pulse 100 96 98 98 B/P (MAP) 166/85 173/91 204/95 145/84 O2 Delivery Room Air Room Air Room Air Room Air 09/26/21 09/26/21 09/26/21 09/26/21 20:00 20:00 20:00 21:00 Temp 98.4 98.4 Pulse 98 98 B/P (MAP) 170/81 162/83 O2 Delivery Room Air Room Air Room Air 09/26/21 09/26/21 09/26/21 09/26/21 22:00 23:00 23:54 23:57 Pulse 96 100 98 B/P (MAP) 175/75 166/82 178/87 Pulse Ox 97 95 O2 Delivery Room Air Room Air Room Air Room Air 09/27/21 09/27/21 09/27/21 09/27/21 00:24 01:02 01:26 02:00 Pulse 90 96 102 96 B/P (MAP) 170/80 171/81 178/84 157/74 Pulse Ox 93 95 97 95 O2 Delivery Room Air Room Air Room Air Room Air 09/27/21 09/27/21 09/27/21 09/27/21 03:00 04:00 04:00 05:00 Temp 98.6 98.6 Pulse 92 100 95 B/P (MAP) 151/78 165/72 142/73 Pulse Ox 85 96 95 O2 Delivery Room Air Room Air Room Air Room Air 09/27/21 09/27/21 09/27/21 06:00 08:00 09:04 Pulse 100 97 B/P (MAP) 142/73 157/72 Pulse Ox 95 O2 Delivery Room Air Room Air Intake and Output 09/26/21 09/26/21 09/27/21 15:00 23:00 07:00 Intake Total 550 ml 1834 ml 1842 ml Output Total 470 ml 400 ml 695 ml Balance 80 ml 1434 ml 1147 ml Images Echocardiogram: LEFT VENTRICLE The left ventricle is normal size. There is mild to moderate concentric left ventricular hypertrophy. The left ventricular systolic function is normal. The ejection fraction estimated at 55 to 60%. There is normal LV segmental wall mo tion. Transmitral Doppler flow pattern is Grade II-pseudonormal filling dynamics. No left ventricle thrombus noted on this study. There is no ventricular septal defect visualized. There is no left ventricular aneurysm. There is no mass noted in the left ventricle. RIGHT VENTRICLE The right ventricle is normal size. There is normal right ventricular wall thickness. The right ventricular systolic function is normal. ATRIA The left atrium is mildly dilated. The right atrium size is normal. The interatrial septum is intact with no evidence for an atrial septal defect or patent foramen ovale as noted on 2-D or Doppler imaging. Technically difficult study but saline bubble study appreared negative for pfo or asd. AORTIC VALVE The aortic valve is not well seen. Doppler and Color Flow revealed no significant aortic regurgitation. There is no significant aortic valvular stenosis. There is no aortic valvular vegetation. MITRAL VALVE The mitral valve is normal in structure and function. There is no evidence of mitral valve prolapse. There is no mitral valve stenosis. Doppler and Color-flow revealed trace to mild mitral regurgitation. TRICUSPID VALVE The tricuspid valve is normal in structure and function. Doppler and Color Flow revealed trace tricuspid regurgitation. There is no tricuspid valve prolapse or vegetation. There is no tricuspid valve stenosis. PULMONIC VALVE The pulmonary valve is normal in structure and function. Doppler and Color Flow revealed no pulmonic valvular regurgitation. There is no pulmonic valvular stenosis. GREAT VESSELS The aortic root is normal in size. The ascending aorta is normal in size. The pulmonary artery is normal. The IVC is normal in size and collapses >50% with inspiration. PERICARDIAL EFFUSION There is no pleural effusion. There is no evidence of significant pericardial effusion. Critical Notification Critical Value: No <Conclusion> The left ventricular systolic function is normal. The ejection fraction estimated at 55 to 60%. There is normal LV segmental wall motion. Transmitral Doppler flow pattern is Grade II-pseudonormal filling dynamics. Trace to mild mitral regurgitation. Trace tricuspid regurgitation. There is no evidence of significant pericardial effusion. Bubble study technically difficult but appears to be negative for PFO/ASD. Recommend WALTER if clinical suspicion high. Justicifation of Admission Dx: Justifications for Admission: Justification of Admission Dx: Yes Stroke - Ischemic: Stroke-Ischemic DOLORES TRISTAN MD Sep 27, 2021 12:27
[2021-09-27] MEDS: HEPARIN for SUB-Q USE 5,000 UNIT/ML VIAL. SQ SCH ×2 (16:09→21:38)
--- NOTE | 2021-09-27 18:00 | NUR ---
1st 3H dialysis run w 2 liters removed. Tolerated well but Cardene required thru out procedure to maintain goal BP. Late lunch (1530). Super delay as well as evening BG till wanting to eat . Back to chair late afternoon. Heavy period continues. Assist w monserrat care prior to activity. Co morbidities ID w encouragement to cont DM management as well as controlling high BP. Cont POC
[2021-09-27] MEDS: ATORVASTATIN CALCIUM 40 MG TABLET. PO SCH (21:37)
[2021-09-27] MEDS: ZOLPIDEM 5 MG TABLET. PO PRN (21:37)
[2021-09-27] MEDS: INSULIN GLARGINE SYRINGE. SQ SCH (21:39)
[2021-09-27] MEDS: ONDANSETRON PF 4 MG/2 ML VIAL. IVP PRN (23:28)
[2021-09-28] VITALS (14 sets, daily range): BP systolic 134–177; BP diastolic 60–72
[2021-09-28 05:50] LABS: ALBUMIN 2.1 g/dL (3.4-5.0); ALBUMIN/GLOBULIN RATIO 0.5 (1.0-1.7); CALCIUM 7.8 mg/dL (8.5-10.1); CREATININE 3.6 mg/dL (0.6-1.0); GFR 13.9; POTASSIUM 4.5 mmol/L (3.5-5.1); TOTAL BILIRUBIN 0.2 mg/dL (0.2-1.0); TOTAL PROTEIN 6.3 g/dL (6.4-8.2)
[2021-09-28] MEDS: HEPARIN for SUB-Q USE 5,000 UNIT/ML VIAL. SQ SCH (06:27)
[2021-09-28] MEDS: IV NORMAL SALINE 1000ML BAG 1,000 ML IV SCH (07:05)
[2021-09-28] MEDS: INSULIN LISPRO 300 UNITS/3 ML VIAL. SQ SCH ×3 (08:26→17:16)
--- NOTE | 2021-09-28 08:58 | PDOC ---
DATE OF SERVICE DATE: 09/28/21 TIME: 08:53 SUBJECTIVE ROS Denies SOB , States Lt side of face still feels numb. Sitting up in chair, Eating breakfast , denies N/V No acute concerns voiced by nursing OBJECTIVE Vital Signs Vital Signs Date Time Temp Pulse Resp B/P (MAP) Pulse Ox O2 Delivery O2 Flow Rate FiO2 09/28/21 08:26 99 140/66 09/28/21 07:00 16 Room Air 09/28/21 04:00 98.4 98.4 09/27/21 23:45 98 I & 0 Intake and Output 09/28/21 06:59 Intake Total 1500 ml Output Total 640 ml Balance 860 ml Intake Oral 1500 ml Output Urine Total 640 ml # Bowel Movements 2 PHYSICAL EXAM Physical Exam ENERAL: Morbidly Obese , Propped up in bed. NAD HEEN Normocephalic, atraumatic.om mildly dry NECK: Supple. HEART: normal first and second heart sounds. No gallop, rub or murmur. LUNGS : Clear to auscultation, decreased at bases, non labored ABDOMEN: Distended, soft, nontender. NEUROLOGIC: Grossly Normal, Moves all 4 extremities . She did complain of numbness in her left side of the face without any obvious motor deficit. PSYCH COOPERATIVE EXT No LE edema No Weiss, No CVA or SP tenderness DERM No Rash DIAGNOSIS/ASSESSMENT Assessment & Plan JUDITH -atn / Vomiting /Poor po intake/ IV Contrast / Hx of NSAID use . B aseline Cr normal in 2017 per [facility] records. No Interval labs available .UA unremarkable, US Unremarkable,on Oliguric Started on dialysis on 09/27 , No indication today , Bicarb and K normal ; Re- evaluate in am . Supportive care Aldactone and ARB held CKD - per Primary's note, No interval labs. 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 Renal Duplex Normal . 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 Type 2 Diabetes mellitus. she stopped Insulin on her own recently Bronchial asthma COMMENT/RELEVANT DATA Meds Current Medications Medications (Trade) Dose Ordered Sig/Maya Start Time Stop Time Status Last Admin Dose Admin Acetaminophen (Tylenol) 650 mg PRN Q6HRS PRN 09/24/21 16:45 4/28/22 09:09 650 MG Aspirin (Aspirin Rectal Supp) 300 mg PRN DAILY PRN 09/24/21 16:45 Aspirin (Ecotrin) 325 mg DAILYWBKFT 09/24/21 17:00 09/27/21 09:05 325 MG Atorvastatin Calcium (Lipitor) 80 mg QHS 09/24/21 21:00 09/27/21 21:37 80 MG Enoxaparin Sodium (Lovenox 60mg Syringe) 60 mg Q24H 09/25/21 17:00 09/27/21 11:36 DC 09/25/21 17:41 60 MG Enoxaparin Sodium (Lovenox Per Pharmacy Prophylaxis Dosing) 1 each PRN DAILY PRN 09/25/21 16:00 09/27/21 11:43 DC Heparin Sodium (Porcine) (Heparin Sodium) 5,000 unit Q8HRS 09/27/21 14:00 09/28/21 08:49 DC 09/28/21 06:27 5,000 UNIT Info (PHARMACY MONITORING -- do not chart) 1 each PRN DAILY PRN 09/27/21 08:30 09/27/21 08:27 DC Insulin Glargine (Lantus Syringe) 40 unit 1X ONCE 09/23/21 23:00 09/23/21 23:01 DC 09/23/21 22:21 40 UNIT Insulin Human Lispro (HumaLOG) 20 units TIDWMEALS 09/25/21 08:45 09/28/21 08:26 20 UNITS Lidocaine HCl (Buffered Lidocaine 1%) 6 ml 1X ONCE 09/26/21 12:15 09/26/21 12:16 DC Losartan Potassium (Cozaar) 100 mg DAILY 09/24/21 09:00 09/25/21 10:31 DC 09/25/21 09:28 100 MG Montelukast Sodium (Singulair) 10 mg DAILY 09/24/21 09:00 09/27/21 15:49 10 MG Nicardipine HCl 50 mg/Sodium Chloride 250 ml @ 25 mls/hr CONT PRN PRN 09/24/21 16:45 09/28/21 06:28 37.5 MLS/HR Nifedipine (Procardia Xl) 90 mg DAILY 09/28/21 09:00 09/28/21 08:26 90 MG Ondansetron HCl (Zofran Odt) 4 mg PRN Q6HRS PRN 09/25/21 15:00 09/27/21 09:09 4 MG Ondansetron HCl (Zofran) 4 mg PRN Q4HRS PRN 09/26/21 10:15 09/27/21 23:28 4 MG Sodium Chloride 1,000 ml @ 400 mls/hr Q2H30M PRN 09/27/21 08:30 09/27/21 20:29 DC Sodium Chloride (Welcome Saline Nasal) 1 jax PRN DAILY PRN 09/26/21 10:15 09/27/21 09:05 1 JAX Spironolactone (Aldactone) 50 mg DAILY 09/24/21 09:00 09/27/21 09:48 DC 09/27/21 09:03 50 MG Zolpidem Tartrate (Ambien) 5 mg PRN QHS PRN 09/23/21 21:45 09/27/21 21:37 5 MG Lab Laboratory Tests Test 09/27/21 12:43 09/27/21 19:33 09/28/21 05:00 Glucose (Fingerstick) 133 mg/dL (70-99) 143 mg/dL (70-99) Sodium Level 136 mmol/L (136-145) Potassium Level 4.5 mmol/L (3.5-5.1) Chloride Level 102 mmol/L (98-107) Carbon Dioxide Level 27 mmol/L (21-32) Anion Gap 7 (6-14) Blood Urea Nitrogen 27 mg/dL (7-20) Creatinine 3.6 mg/dL (0.6-1.0) Estimated GFR (Cockcroft-Gault) 13.9 BUN/Creatinine Ratio 8 (6-20) Glucose Level 191 mg/dL (70-99) Calcium Level 7.8 mg/dL (8.5-10.1) Total Bilirubin 0.2 mg/dL (0.2-1.0) Aspartate Amino Transf (AST/SGOT) 23 U/L (15-37) Alanine Aminotransferase (ALT/SGPT) 60 U/L (14-59) Alkaline Phosphatase 134 U/L (46-116) Total Protein 6.3 g/dL (6.4-8.2) Albumin 2.1 g/dL (3.4-5.0) Albumin/Globulin Ratio 0.5 (1.0-1.7) Results All relevant outside records, renal labs, imaging studies, telemetry/EKG's were reviewed. Justicifation of Admission Dx: Justifications for Admission: Justification of Admission Dx: Yes Stroke - Ischemic: Stroke-Ischemic LISA NORMAN MD Sep 28, 2021 08:57
[2021-09-28] MEDS: ASPIRIN ENTERIC COATED 325 MG TABLET.DR. PO SCH (09:33)
--- NOTE | 2021-09-28 09:36 | PDOC ---
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 Starting dialysis History of diabetes, hypertension, hyperlipidemia, noncompliant, asthma, sleep apnea Echocardiogram noted, I do not think she needs a transesophageal echocardiogram, the location of the stroke is unlikely cardiac-source Plan Aspirin High-dose statin Treatment of hypertension. Tightened parameters back to 150/90 starting 09/26 Rehabilitation modalities Subjective Worried about permanency of left facial numbness, I reassured patient that it should resolve over several weeks Objective Vital Signs Date Time Temp Pulse Resp B/P (MAP) Pulse Ox O2 Delivery O2 Flow Rate FiO2 09/28/21 09:32 99 155/72 09/28/21 09:00 98.6 16 Room Air 98.6 09/28/21 08:00 96 Intake and Output 09/28/21 07:00 Intake Total 1500 ml Output Total 790 ml Balance 710 ml Intake Oral 1500 ml Output Urine Total 790 ml # Bowel Movements 2 PHYSICAL EXAM Alert. Oriented to time, place and person. PERRL. EOMI. CN: Slight left cheek sensory loss, slight left central facial weakness, otherwise no focal findings. Muscle tone: normal. Muscle strength: 5/5 DTR: 2+ Plantar reflex: Flexor Gait: not examined in bed. Sensory exam: no abnormal findings. No cerebellar signs elicited. Review of Relevant I have reviewed the following items mauricio (where applicable) has been applied. Labs Laboratory Tests Test 09/26/21 12:34 09/26/21 17:49 09/26/21 21:03 09/27/21 05:25 Glucose (Fingerstick) 187 mg/dL (70-99) 201 mg/dL (70-99) 188 mg/dL (70-99) White Blood Count 12.8 x10^3/uL (4.0-11.0) Red Blood Count 3.67 x10^6/uL (3.50-5.40) Hemoglobin 10.2 g/dL (12.0-15.5) Hematocrit 31.6 % (36.0-47.0) Mean Corpuscular Volume 86 fL (79-100) Mean Corpuscular Hemoglobin 28 pg (25-35) Mean Corpuscular Hemoglobin Concent 32 g/dL (31-37) Red Cell Distribution Width 14.0 % (11.5-14.5) Platelet Count 333 x10^3/uL (140-400) Sodium Level 135 mmol/L (136-145) Potassium Level 4.6 mmol/L (3.5-5.1) Chloride Level 105 mmol/L (98-107) Carbon Dioxide Level 19 mmol/L (21-32) Anion Gap 11 (6-14) Blood Urea Nitrogen 36 mg/dL (7-20) Creatinine 4.2 mg/dL (0.6-1.0) Estimated GFR (Cockcroft-Gault) 11.7 BUN/Creatinine Ratio 9 (6-20) Glucose Level 211 mg/dL (70-99) Calcium Level 7.8 mg/dL (8.5-10.1) Total Bilirubin 0.2 mg/dL (0.2-1.0) Aspartate Amino Transf (AST/SGOT) 20 U/L (15-37) Alanine Aminotransferase (ALT/SGPT) 67 U/L (14-59) Alkaline Phosphatase 133 U/L (46-116) Total Protein 6.4 g/dL (6.4-8.2) Albumin 2.1 g/dL (3.4-5.0) Albumin/Globulin Ratio 0.5 (1.0-1.7) Hepatitis B Surface Antigen Nonreactive (Nonreactive) Hepatitis B Surface Antibody Nonreactive Test 09/27/21 08:16 09/27/21 12:43 09/27/21 19:33 09/28/21 05:00 Glucose (Fingerstick) 216 mg/dL (70-99) 133 mg/dL (70-99) 143 mg/dL (70-99) Sodium Level 136 mmol/L (136-145) Potassium Level 4.5 mmol/L (3.5-5.1) Chloride Level 102 mmol/L (98-107) Carbon Dioxide Level 27 mmol/L (21-32) Anion Gap 7 (6-14) Blood Urea Nitrogen 27 mg/dL (7-20) Creatinine 3.6 mg/dL (0.6-1.0) Estimated GFR (Cockcroft-Gault) 13.9 BUN/Creatinine Ratio 8 (6-20) Glucose Level 191 mg/dL (70-99) Calcium Level 7.8 mg/dL (8.5-10.1) Total Bilirubin 0.2 mg/dL (0.2-1.0) Aspartate Amino Transf (AST/SGOT) 23 U/L (15-37) Alanine Aminotransferase (ALT/SGPT) 60 U/L (14-59) Alkaline Phosphatase 134 U/L (46-116) Total Protein 6.3 g/dL (6.4-8.2) Albumin 2.1 g/dL (3.4-5.0) Albumin/Globulin Ratio 0.5 (1.0-1.7) Laboratory Tests Test 09/27/21 12:43 09/27/21 19:33 09/28/21 05:00 Glucose (Fingerstick) 133 mg/dL (70-99) 143 mg/dL (70-99) Sodium Level 136 mmol/L (136-145) Potassium Level 4.5 mmol/L (3.5-5.1) Chloride Level 102 mmol/L (98-107) Carbon Dioxide Level 27 mmol/L (21-32) Anion Gap 7 (6-14) Blood Urea Nitrogen 27 mg/dL (7-20) Creatinine 3.6 mg/dL (0.6-1.0) Estimated GFR (Cockcroft-Gault) 13.9 BUN/Creatinine Ratio 8 (6-20) Glucose Level 191 mg/dL (70-99) Calcium Level 7.8 mg/dL (8.5-10.1) Total Bilirubin 0.2 mg/dL (0.2-1.0) Aspartate Amino Transf (AST/SGOT) 23 U/L (15-37) Alanine Aminotransferase (ALT/SGPT) 60 U/L (14-59) Alkaline Phosphatase 134 U/L (46-116) Total Protein 6.3 g/dL (6.4-8.2) Albumin 2.1 g/dL (3.4-5.0) Albumin/Globulin Ratio 0.5 (1.0-1.7) Medications Current Medications Nicardipine HCl 50 mg/Sodium Chloride 250 ml @ 25 mls/hr CONT PRN IV PER PROTOCOL Last administered on 09/24/21at 15:53; Start 09/23/21 at 21:45; Stop at 16:43; Status DC Nifedipine (Procardia Xl) 30 mg DAILY PO Last administered on 09/27/21 09:04; Start 09/24/21 at 09:00; Stop 09/27/21 at 09:48; Status DC Zolpidem Tartrate (Ambien) 5 mg PRN QHS PRN PO INSOMNIA Last administered on 09/27/21 21:37; Start 09/23/21 at 21:45 Montelukast Sodium (Singulair) 10 mg DAILY PO Last administered on 09/27/21 15:49; Start 09/24/21 at 09:00 Insulin Human Lispro (HumaLOG) 15 units TIDWMEALS SQ Last administered on 09/24/21 18:30; Start 09/24/21 at 08:00; Stop 09/25/21 at 08:47; Status DC Insulin Glargine (Lantus Syringe) 40 unit QHS SQ Last administered on 09/27/21at 21:39; Start 09/24/21 at 21:00 Losartan Potassium (Cozaar) 100 mg DAILY PO Last administered on 09/25/21 09:28; Start 09/24/21 at 09:00; Stop 09/25/21 at 10:31; Status DC Spironolactone (Aldactone) 50 mg DAILY PO Last administered on 09/27/21 09:03; Start 09/24/21 at 09:00; Stop 09/27/21 at 09:48; Status DC Insulin Glargine (Lantus Syringe) 40 unit 1X ONCE SQ Last administered on 09/23/21at 22:21; Start 09/23/21 at 23:00; Stop 09/23/21 at 23:01; Status DC Sodium Chloride 1,000 ml @ 25 mls/hr Q24H IV Last administered on 09/27/21at 09:55; Start 09/24/21 at 15:15 Nicardipine HCl 50 mg/Sodium Chloride 250 ml @ 25 mls/hr CONT PRN PRN IV PER PROTOCOL Last administered on 09/28/21at 06:28; Start 09/24/21 at 16:45 Atorvastatin Calcium (Lipitor) 80 mg QHS PO Last administered on 09/27/21at 21:37; Start 09/24/21 at 21:00 Acetaminophen (Tylenol) 650 mg PRN Q6HRS PRN PO MILD PAIN / TEMP > 100.3'F Last administered on 09/27/21at 09:09; Start 09/24/21 at 16:45 Aspirin (Ecotrin) 325 mg DAILYWBKFT PO Last administered on 09/27/21at 09:05; Start 09/24/21 at 17:00 Aspirin (Aspirin Rectal Supp) 300 mg PRN DAILY PRN [place] IF UNABLE TO TAKE PO; Start 09/24/21 at 16:45 Insulin Human Lispro (HumaLOG) 20 units TIDWMEALS SQ Last administered on 09/28/21at 08:26; Start 09/25/21 at 08:45 Ondansetron HCl (Zofran Odt) 4 mg PRN Q6HRS PRN PO NAUSEA/VOMITING Last administered on 09/27/21at 09:09; Start 09/25/21 at 15:00 Enoxaparin Sodium (Lovenox Per Pharmacy Prophylaxis Dosing) 1 each PRN DAILY PRN MC SEE COMMENTS; Start 09/25/21 at 16:00; Stop 09/27/21 at 11:43; Status DC Enoxaparin Sodium (Lovenox 60mg Syringe) 60 mg Q24H SQ Last administered on 09/25/21at 17:41; Start 09/25/21 at 17:00; Stop 09/27/21 at 11:36; Status DC Ondansetron HCl (Zofran) 4 mg PRN Q4HRS PRN IVP NAUSEA/VOMITING Last administered on 09/27/21at 23:28; Start 09/26/21 at 10:15 Sodium Chloride ([place] Saline Nasal) 1 jax PRN DAILY PRN NS NASAL CONGESTION Last administered on 09/27/21at 09:05; Start 09/26/21 at 10:15 Lidocaine HCl (Buffered Lidocaine 1%) 3 ml STK-MED ONCE .ROUTE ; Start 09/26/21 at 11:30; Stop 09/26/21 at 11:30; Status DC Lidocaine HCl (Buffered Lidocaine 1%) 6 ml 1X ONCE INJ ; Start 09/26/21 at 12:15; Stop 09/26/21 at 12:16; Status DC Sodium Chloride 1,000 ml @ 1,000 mls/hr Q1H PRN IV hypotension; Start 09/27/21 at 08:30; Stop 09/27/21 at 14:29; Status DC Sodium Chloride 1,000 ml @ 400 mls/hr Q2H30M PRN IV PATENCY; Start 09/27/21 at 08:30; Stop 09/27/21 at 20:29; Status DC Info (PHARMACY MONITORING -- do not chart) 1 each PRN DAILY PRN MC SEE COMMENTS; Start 09/27/21 at 08:30 Info (PHARMACY MONITORING -- do not chart) 1 each PRN DAILY PRN MC SEE COMMENTS; Start 09/27/21 at 08:30; Stop 09/27/21 at 08:27; Status DC Nifedipine (Procardia Xl) 60 mg DAILY PO Last administered on 09/27/21at 15:53; Start 09/27/21 at 10:00; Stop 09/28/21 at 07:15; Status DC Heparin Sodium (Porcine) (Heparin Sodium) 5,000 unit Q8HRS SQ Last administered on 09/28/21at 06:27; Start 09/27/21 at 14:00; Stop 09/28/21 at 08:49; Status DC Nifedipine (Procardia Xl) 90 mg DAILY PO Last administered on 09/28/21at 08:26; Start 09/28/21 at 09:00; Stop 09/28/21 at 09:12; Status DC Nifedipine (Procardia Xl) 120 mg DAILY PO Last administered on 09/28/21at 09:32; Start 09/28/21 at 09:15 Active Scripts Active Levemir Flextouch (Insulin Detemir) 100 Unit/1 Ml Insuln.pen 40 Units SQ QHS 30 Days Novolog Flexpen (Insulin Aspart) 100 Unit/1 Ml Insuln.pen 15 Units SQ TIDAC 30 Days Reported Tri-Sprintec (Norgestimate-Ethinyl Estradiol) 1 Each Tablet 1 Tab PO DAILY Spironolactone 50 Mg Tablet 1 Tab PO DAILY Montelukast Sodium Tablet (Montelukast Sodium) 10 Mg Tablet 10 Mg PO DAILY Losartan Potassium 100 Mg Tablet 100 Mg PO DAILY Vitals/I & O Vital Sign - Last 24 Hours 09/27/21 09/27/21 09/27/21 09/27/21 10:00 11:00 12:00 12:00 B/P (MAP) 211/83 179/78 178/76 Pulse Ox 98 98 96 O2 Delivery Room Air Room Air Room Air Room Air 09/27/21 09/27/21 09/27/21 09/27/21 13:00 14:00 14:00 15:00 Pulse 96 B/P (MAP) 164/69 185/70 185/70 196/76 Pulse Ox 96 96 O2 Delivery Room Air Room Air Room Air 09/27/21 09/27/21 09/27/21 09/27/21 15:53 16:00 16:00 17:00 Temp 98.6 98.6 Pulse 97 102 B/P (MAP) 176/71 178/76 191/81 Pulse Ox 96 O2 Delivery Room Air Room Air Room Air 09/27/21 09/27/21 09/27/21 09/27/21 18:10 19:00 20:00 20:50 Temp 98.6 98.9 98.6 98.9 Pulse 103 103 103 Resp 18 B/P (MAP) 202/92 175/66 155/70 Pulse Ox 96 96 O2 Delivery Room Air Room Air Room Air Room Air 09/27/21 09/27/21 09/27/21 09/27/21 21:00 22:00 23:15 23:30 Pulse 120 105 103 100 Resp 18 18 18 18 B/P (MAP) 154/68 147/65 119/64 141/62 Pulse Ox 96 96 98 O2 Delivery Room Air Room Air Room Air Room Air 09/27/21 09/27/21 09/28/21 09/28/21 23:45 23:59 01:00 02:09 Temp 98.7 98.7 Pulse 100 100 101 Resp 19 18 18 B/P (MAP) 124/66 138/64 134/68 Pulse Ox 98 O2 Delivery Room Air Room Air Room Air Room Air 09/28/21 09/28/21 09/28/21 09/28/21 02:30 02:45 04:00 04:00 Temp 98.4 98.4 Pulse 100 97 Resp 18 18 B/P (MAP) 135/69 144/65 136/64 O2 Delivery Room Air Room Air Room Air 09/28/21 09/28/21 09/28/21 09/28/21 05:00 06:00 07:00 08:00 Pulse 96 91 101 99 Resp 18 18 16 16 B/P (MAP) 137/65 141/64 147/66 144/62 Pulse Ox 96 O2 Delivery Room Air Room Air Room Air Room Air 09/28/21 09/28/21 09/28/21 09/28/21 08:00 08:26 09:00 09:32 Temp 98.6 98.6 Pulse 99 101 99 Resp 16 B/P (MAP) 140/66 155/72 155/72 O2 Delivery Room Air Room Air Intake and Output 09/27/21 09/27/21 09/28/21 15:00 23:00 07:00 Intake Total 580 ml 920 ml Output Total 125 ml 215 ml 450 ml Balance 455 ml 705 ml -450 ml Justicifation of Admission Dx: Justifications for Admission: Justification of Admission Dx: Yes Stroke - Ischemic: Stroke-Ischemic DOLORES TRISTAN MD Sep 28, 2021 09:35
[2021-09-28] MEDS: INSULIN GLARGINE SYRINGE. SQ SCH (21:00)
[2021-09-28] MEDS: ATORVASTATIN CALCIUM 40 MG TABLET. PO SCH (21:00)
[2021-09-29 03:00] VITALS: BP 158/72
--- NOTE | 2021-09-29 06:37 | PN ---
DATE: 09/28/2021 SUBJECTIVE: The patient is resting, slightly propped up in her recliner, in no apparent distress. She denied any chest pain or shortness of breath. Did complain of vaginal bleeding. She was on oral contraceptives pill to regulate her periods. We did not continue this medication as she was in bed. She was on Lovenox and now heparin and I will discontinue that and start her on SCDs. She is now on 90 mg Procardia and hopefully will taper and discontinue the nicardipine drip and the patient can be transferred to the floor to start the process of rehabilitation. PHYSICAL EXAMINATION: GENERAL: When I saw her this morning, she looked well and was clearly in no apparent respiratory distress. She is pale, not jaundiced, cyanosed, or thyromegaly. No jugular venous distention. bilateral lower limb edema. VITAL SIGNS: Her heart rate was 101, blood pressure was 147/66, temperature was 98.4, respiratory rate was 16 and oxygen saturation was 98%. HEAD, EYES, EARS, NOSE, AND THROAT: Normocephalic, atraumatic. NECK: Supple. HEART: Showed normal first and second heart sounds. No gallop, rub or murmur. CHEST: Clear to auscultation, no crepitation or rhonchi. ABDOMEN: Distended, soft, tender. NEUROLOGIC: She is grossly intact. Her intake was 4225, output was 1565. LABORATORY DATA: Her lab work as of yesterday showed white cell count 12.8, hemoglobin 10, hematocrit 32, MCV 86 and platelet count 333,000. Serum sodium 136, potassium 4.5, chloride 102, bicarbonate 27, anion gap of 7, BUN 27, creatinine 3.6. Estimated GFR was 14 mL per minute. Her glucose 191, calcium was 7.8. Total bilirubin and AST normal, ALT and alkaline phosphatase were normal. Total protein 6.3, albumin was 2.1. ASSESSMENT: 1. Hypertensive urgency for which she is on Cardene drip; however, she is now on Procardia 90 mg and her blood pressure is about 140/90. We will taper down and hopefully discontinue nicardipine drip. We can increase Procardia up to 120 mg or we can add other medication; however, she was on losartan, spironolactone, hydrochlorothiazide, which were all contraindicated in a patient with acute kidney injury. 2. The patient did complain of tingling and numbness in her left side of the face and an MRI showed that she has a focal area of acute to subacute ischemic involving the left lateral shannen extending to the left brachium pontis. There is also an associated cytotoxic edema without significant mass effect or hemorrhage. 3. Acute on chronic kidney injury. However, her creatinine went up yesterday to 4.2. She was dialyzed and today, her creatinine is down to 3.64. The patient is known to have hypertension that was poorly controlled. 4. Type 2 diabetes mellitus. 5. Bronchial asthma. 6. Morbid obesity and questionable obstructive sleep apnea. 7. Irregular menstrual periods, which she is on oral contraceptive pill; however, that was on hold given her immobility making her high risk for deep venous thrombosis. I discontinued even her heparin as she now has vaginal bleeding and we will continue with SCDs. We will continue to taper and discontinue nicardipine drip and hopefully start the process of physical and occupational therapy. SOUMYA/RADHA DR: Jared TID: [id number]
[2021-09-29 07:00] VITALS: BP 124/62
[2021-09-29] MEDS: INSULIN LISPRO 300 UNITS/3 ML VIAL. SQ SCH ×3 (08:02→17:24)
[2021-09-29 08:43] LABS: ALBUMIN 2.4 g/dL (3.4-5.0); ALBUMIN/GLOBULIN RATIO 0.5 (1.0-1.7); CALCIUM 8.1 mg/dL (8.5-10.1); GFR 12.3; POTASSIUM 4.7 mmol/L (3.5-5.1); TOTAL BILIRUBIN 0.2 mg/dL (0.2-1.0); TOTAL PROTEIN 6.8 g/dL (6.4-8.2)
[2021-09-29 09:19] LABS: HEMATOCRIT 29.6 % (36.0-47.0); HEMOGLOBIN 9.8 g/dL (12.0-15.5); RED BLOOD COUNT 3.43 x10^6/uL (3.50-5.40); RED CELL DISTRIBUTION WIDTH 13.5 % (11.5-14.5); WHITE BLOOD COUNT 11.3 x10^3/uL (4.0-11.0)
[2021-09-29] MEDS ORDERED: IV NORMAL SALINE 1000ML BAG 1,000 ML IV PRN ×2 (10:45)
[2021-09-29] MEDS ORDERED: DIALYSIS PATIENT. MC PRN (10:45)
--- NOTE | 2021-09-29 12:19 | PDOC ---
DATE OF SERVICE DATE: 09/29/21 TIME: 12:17 SUBJECTIVE ROS Denies SOB , No N/V, C/O swelling in her arms OBJECTIVE Vital Signs Vital Signs Date Time Temp Pulse Resp B/P (MAP) Pulse Ox O2 Delivery O2 Flow Rate FiO2 09/29/21 08:00 Room Air 09/29/21 07:00 98.1 106 20 124/62 (82) 90 98.1 I & 0 Intake and Output 09/29/21 07:00 Intake Total 1050 ml Output Total 300 ml Balance 750 ml Intake Oral 300 ml IV Total 750 ml Output Urine Total 300 ml # Bowel Movements 2 PHYSICAL EXAM Physical Exam GENERAL: Morbidly Obese , Propped up in bed. NAD HEEN Normocephalic, atraumatic.om mildly dry NECK: Supple. HEART: normal first and second heart sounds. No gallop, rub or murmur. LUNGS : Clear to auscultation, decreased at bases, non labored ABDOMEN: Distended, soft, nontender. NEUROLOGIC: Grossly Normal, Moves all 4 extremities . She did complain of numbness in her left side of the face without any obvious motor deficit. PSYCH COOPERATIVE EXT No LE edema No Weiss, No CVA or SP tenderness DERM No Rash DIAGNOSIS/ASSESSMENT Assessment & Plan JUDITH -atn / Vomiting /Poor po intake/ IV Contrast / Hx of NSAID use . Baseline Cr normal in 2017 per [facility] records. No Interval labs available .UA unremarkable, US Unremarkable, Started on dialysis on 09/27 ,2 nd treatment 09/29 Supportive care , Monitor for Renal recovery .no indication for dialysis today Re-evaluate in am . Strict I/O CKD - per Primary's note, No interval labs. 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 Renal Duplex Normal . 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 Type 2 Diabetes mellitus. she stopped Insulin on her own recently Bronchial asthma COMMENT/RELEVANT DATA Meds Current Medications Medications (Trade) Dose Ordered Sig/Maya Start Time Stop Time Status Last Admin Dose Admin Acetaminophen (Tylenol) 650 mg PRN Q6HRS PRN 09/24/21 16:45 09/27/21 09:09 650 MG Aspirin (Aspirin Rectal Supp) 300 mg PRN DAILY PRN 09/24/21 16:45 Aspirin (Ecotrin) 325 mg DAILYWBKFT 09/24/21 17:00 09/28/21 09:33 325 MG Atorvastatin Calcium (Lipitor) 80 mg QHS 09/24/21 21:00 09/28/21 21:00 80 MG Enoxaparin Sodium (Lovenox 60mg Syringe) 60 mg Q24H 09/25/21 17:00 09/27/21 11:36 DC 09/25/21 17:41 60 MG Enoxaparin Sodium (Lovenox Per Pharmacy Prophylaxis Dosing) 1 each PRN DAILY PRN 09/25/21 16:00 09/27/21 11:43 DC Heparin Sodium (Porcine) (Heparin Sodium) 5,000 unit Q8HRS 09/27/21 14:00 09/28/21 08:49 DC 09/28/21 06:27 5,000 UNIT Info (PHARMACY MONITORING -- do not chart) 1 each PRN DAILY PRN 09/29/21 10:45 UNV Insulin Glargine (Lantus Syringe) 40 unit 1X ONCE 09/23/21 23:00 09/23/21 23:01 DC 09/23/21 22:21 40 UNIT Insulin Human Lispro (HumaLOG) 20 units TIDWMEALS 09/25/21 08:45 09/29/21 08:02 20 UNITS Lidocaine HCl (Buffered Lidocaine 1%) 6 ml 1X ONCE 09/26/21 12:15 09/26/21 12:16 DC Losartan Potassium (Cozaar) 100 mg DAILY 09/24/21 09:00 09/25/21 10:31 DC 09/25/21 09:28 100 MG Montelukast Sodium (Singulair) 10 mg DAILY 09/24/21 09:00 09/27/21 15:49 10 MG Nicardipine HCl 50 mg/Sodium Chloride 250 ml @ 25 mls/hr CONT PRN PRN 09/24/21 16:45 09/28/21 20:30 37.5 MLS/HR Nifedipine (Procardia Xl) 120 mg DAILY 09/28/21 09:15 09/28/21 09:32 30 MG Ondansetron HCl (Zofran Odt) 4 mg PRN Q6HRS PRN 09/25/21 15:00 09/27/21 09:09 4 MG Ondansetron HCl (Zofran) 4 mg PRN Q4HRS PRN 09/26/21 10:15 09/27/21 23:28 4 MG Sodium Chloride 1,000 ml @ 400 mls/hr Q2H30M PRN 09/29/21 10:45 09/29/21 22:44 Sodium Chloride ([place] Saline Nasal) 1 jax PRN DAILY PRN 09/26/21 10:15 09/27/21 09:05 1 JAX Spironolactone (Aldactone) 50 mg DAILY 09/24/21 09:00 09/27/21 09:48 DC 09/27/21 09:03 50 MG Zolpidem Tartrate (Ambien) 5 mg PRN QHS PRN 09/23/21 21:45 09/27/21 21:37 5 MG Lab Laboratory Tests Test 09/28/21 17:04 09/28/21 21:04 09/29/21 07:35 09/29/21 07:40 Glucose (Fingerstick) 191 mg/dL (70-99) 170 mg/dL (70-99) 204 mg/dL (70-99) White Blood Count 11.3 x10^3/uL (4.0-11.0) Red Blood Count 3.43 x10^6/uL (3.50-5.40) Hemoglobin 9.8 g/dL (12.0-15.5) Hematocrit 29.6 % (36.0-47.0) Mean Corpuscular Volume 86 fL (79-100) Mean Corpuscular Hemoglobin 29 pg (25-35) Mean Corpuscular Hemoglobin Concent 33 g/dL (31-37) Red Cell Distribution Width 13.5 % (11.5-14.5) Platelet Count 317 x10^3/uL (140-400) Sodium Level 135 mmol/L (136-145) Potassium Level 4.7 mmol/L (3.5-5.1) Chloride Level 100 mmol/L (98-107) Carbon Dioxide Level 25 mmol/L (21-32) Anion Gap 10 (6-14) Blood Urea Nitrogen 34 mg/dL (7-20) Creatinine 4.0 mg/dL (0.6-1.0) Estimated GFR (Cockcroft-Gault) 12.3 BUN/Creatinine Ratio 9 (6-20) Glucose Level 207 mg/dL (70-99) Calcium Level 8.1 mg/dL (8.5-10.1) Total Bilirubin 0.2 mg/dL (0.2-1.0) Aspartate Amino Transf (AST/SGOT) 22 U/L (15-37) Alanine Aminotransferase (ALT/SGPT) 57 U/L (14-59) Alkaline Phosphatase 154 U/L (46-116) Total Protein 6.8 g/dL (6.4-8.2) Albumin 2.4 g/dL (3.4-5.0) Albumin/Globulin Ratio 0.5 (1.0-1.7) Results All relevant outside records, renal labs, imaging studies, telemetry/EKG's were reviewed. Justicifation of Admission Dx: Justifications for Admission: Justification of Admission Dx: Yes Stroke - Ischemic: Stroke-Ischemic LISA NORMAN MD Sep 29, 2021 12:19
[2021-09-29 14:06] VITALS: BP 165/87
[2021-09-29] MEDS: MONTELUKAST SODIUM 10 MG TABLET. PO SCH (14:11)
[2021-09-29] MEDS: ASPIRIN ENTERIC COATED 325 MG TABLET.DR. PO SCH (14:11)
[2021-09-29 18:59] VITALS: BP 143/68
[2021-09-29] MEDS: ATORVASTATIN CALCIUM 40 MG TABLET. PO SCH (21:30)
[2021-09-29] MEDS: INSULIN GLARGINE SYRINGE. SQ SCH (21:33)
[2021-09-29 23:01] VITALS: BP 140/78
[2021-09-30 03:05] VITALS: BP 117/68
[2021-09-30 07:00] VITALS: BP 141/83
[2021-09-30] MEDS: ASPIRIN ENTERIC COATED 325 MG TABLET.DR. PO SCH (08:28)
[2021-09-30] MEDS: MONTELUKAST SODIUM 10 MG TABLET. PO SCH (08:28)
[2021-09-30] MEDS: INSULIN LISPRO 300 UNITS/3 ML VIAL. SQ SCH ×3 (08:29→18:06)
--- NOTE | 2021-09-30 08:44 | PN ---
DATE: 09/29/2021 SUBJECTIVE: The patient is resting, slightly propped up in her recliner in no apparent distress. She is sleepy, but arousable. On questioning her, she stated that she feels that her legs are markedly swollen, but denied any other complaint. She continues to be on a Cardene drip and she is scheduled for hemodialysis today. PHYSICAL EXAMINATION: GENERAL: When I examined her, she looked well and was clearly in no apparent respiratory distress. She was pale, not jaundiced, cyanosed, no lymphadenopathy, no thyromegaly, no jugular venous distention, but mild bilateral lower limb edema. VITAL SIGNS: Her heart rate was 106, blood pressure is 124/62, temperature was 98.1, respiratory rate was 20 and oxygen saturation was 92% on room air. HEAD, EYES, EARS, NOSE, AND THROAT: Normocephalic, atraumatic. NECK: Supple. HEART: Normal first and second heart sounds. No gallop, rub or murmur. CHEST: Clear to auscultation. No crepitation or rhonchi. ABDOMEN: Markedly distended, soft, nontender. NEUROLOGIC: She is sleepy, but arousable. All her cranial nerves intact. She moves extremities without difficulty. She has an indwelling Weiss catheter. Her intake 1500, output was 640. LABORATORY DATA: As of this morning, her white cell count was 11.3, hemoglobin 10, hematocrit 30, MCV 86 and platelet count of 317,000. Her serum sodium was 135, potassium 4.7, chloride 100, bicarbonate 25, anion gap of 10, BUN 34, creatinine 4. Estimated GFR was 12 mL per minute. Her glucose was 207, calcium was 8.1. Total bilirubin, AST, ALT, alkaline phosphatase were normal. , total protein 6.8, albumin was 2.4. ASSESSMENT: 1. Hypertensive encephalopathy, for which she continues to be on a Cardene drip. She is also on Procardia 120 mg once a day. Her blood pressure still is much better controlled; however, she has not received any of her oral antihypertensive medication as she is scheduled for hemodialysis this morning. 2. The patient did complain of tingling and numbness in her left side of the face and an MRI showed that she has a focal area of acute to subacute ischemia involving the left lateral shannen extending into the left brachium pontis. There is also an associated cytotoxic edema without significant mass effect or hemorrhage. 3. [id number] kidney injury. Her creatinine has continued to rise. She is scheduled for hemodialysis today. 4. Type 2 diabetes mellitus. 5. Bronchial asthma. 6. Morbid obesity and obstructive sleep apnea. 7. Irregular menstrual periods, which she is on oral contraceptive pill that was put on hold given her immobility, making her high risk for deep vein thrombosis. PLAN: To discontinue her heparin. She should be on SCDs for DVT prophylaxis. Meanwhile, continue with taper down and hopefully discontinue nicardipine. To start hopefully the process of physical and occupational therapy. NANCY/EUNICE DR: Jared TID: [id number]
[2021-09-30 11:00] VITALS: BP 142/83
--- NOTE | 2021-09-30 11:13 | PN ---
DATE: 09/30/2021 SUBJECTIVE: The patient is resting, slightly propped up in a recliner, no apparent respiratory distress. She is concerned that she continued to have her vaginal bleeding as she was on oral contraceptive that we held. She was dialyzed yesterday and 2 liters of fluid were removed and her Cardene drip was discontinued and she is now on nifedipine. PHYSICAL EXAMINATION: GENERAL: When I saw her today, she was pale, not jaundiced, cyanosed. No lymphadenopathy, no thyromegaly, no jugular venous distention. No limb edema. VITAL SIGNS: Her heart rate was 99, blood pressure was 117/68, temperature was 98.2, respiratory rate was 20 and her oxygen saturation was 95% on room air. HEAD, EYES, EARS, NOSE, AND THROAT: Normocephalic, atraumatic. NECK: Supple. HEART: Showed normal first and second heart sounds. No gallop or murmur. CHEST: Clear to auscultation. No crepitation or rhonchi. ABDOMEN: Distended, soft, nontender. The patient has an indwelling Weiss catheter. NEUROLOGIC: She was grossly intact. Her intake was 1050, output was 450. LABORATORY DATA: She has no lab work done today. Her blood sugar seems to be reasonably controlled. ASSESSMENT AND PLAN: 1. Hypertensive encephalopathy, for which she was on Cardene drip that was discontinued. She is now on Procardia 120 mg once a day. Her blood pressure is well controlled and we might have to cut back on Procardia. 2. The patient did complain of tingling and numbness in her left side of the face and an MRI showed that she has a focal area of acute to subacute ischemia involving the left lateral shannen extending into the left brachium pontis. There is also an associated cytotoxic edema without significant mass effect or hemorrhage. 3. Acute on chronic kidney injury. Her creatinine has continued to rise. She was dialyzed yesterday and 2 liters of fluid were ultrafiltrated. 4. Type 2 diabetes mellitus, seems to be reasonably controlled. 5. Bronchial asthma. 6. Morbid obesity and obstructive sleep apnea. 7. Irregular menstrual period, which she was on oral contraceptive pills that we held given her immobility and making her high risk for deep vein thrombosis. The patient is concerned that she is bleeding continuously and therefore, I will restart her contraceptives available. Meanwhile, we will discontinue her Weiss catheter and start the process of physical and occupational therapy. [facility] [place]: Jared TID: [id number]
[2021-09-30 15:00] VITALS: BP 141/90
[2021-09-30] MEDS: ONDANSETRON PF 4 MG/2 ML VIAL. IVP PRN (15:23)
[2021-09-30 18:52] VITALS: BP 168/75
[2021-09-30] MEDS: ATORVASTATIN CALCIUM 40 MG TABLET. PO SCH (20:53)
[2021-09-30] MEDS: ZOLPIDEM 5 MG TABLET. PO PRN (21:00)
[2021-09-30] MEDS: ACETAMINOPHEN 325 MG TABLET. PO PRN (21:01)
[2021-09-30 22:00] VITALS: BP 166/72
[2021-09-30] MEDS: INSULIN GLARGINE SYRINGE. SQ SCH (22:23)
[2021-10-01 02:20] VITALS: BP 166/80
[2021-10-01 07:00] VITALS: BP 177/81
[2021-10-01] MEDS: MONTELUKAST SODIUM 10 MG TABLET. PO SCH (08:43)
[2021-10-01] MEDS: ASPIRIN ENTERIC COATED 325 MG TABLET.DR. PO SCH (08:43)
--- NOTE | 2021-10-01 08:53 | PDOC ---
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 Has left facial numbness still, needs roller walker to ambulate [id number] kidney injury, had CT angiogram of chest at [facility]. Starting dialysis History of diabetes, hypertension, hyperlipidemia, noncompliant, asthma, sleep apnea Echocardiogram noted, I do not think she needs a transesophageal echocardiogram, the location of the stroke is unlikely cardiac-source Plan Aspirin High-dose statin Treatment of hypertension. Tightened parameters back to 150/90 starting 09/26 Rehabilitation modalities Subjective No new complaints, still feels weak and tired Objective Vital Signs Date Time Temp Pulse Resp B/P (MAP) Pulse Ox O2 Delivery O2 Flow Rate FiO2 10/01/21 07:00 98.3 101 18 177/81 (113) 96 Room Air 98.3 Intake and Output 10/01/21 07:00 Intake Total 220 ml Output Total 1300 ml Balance -1080 ml Intake Oral 220 ml Output Urine Total 1300 ml # Voids 3 PHYSICAL EXAM Alert. Oriented to time, place and person. PERRL. EOMI. CN: Slight left cheek sensory loss, slight left central facial weakness, otherwise no focal findings. Muscle tone: normal. Muscle strength: 5/5 DTR: 2+ Plantar reflex: Flexor Gait: not examined in bed. Sensory exam: no abnormal findings. No cerebellar signs elicited. Review of Relevant I have reviewed the following items mauricio (where applicable) has been applied. Labs Laboratory Tests Test 09/29/21 14:02 09/29/21 16:49 09/29/21 21:13 09/30/21 07:22 Glucose (Fingerstick) 120 mg/dL (70-99) 140 mg/dL (70-99) 127 mg/dL (70-99) 144 mg/dL (70-99) Test 09/30/21 10:59 09/30/21 16:58 09/30/21 20:17 10/01/21 07:28 Glucose (Fingerstick) 136 mg/dL (70-99) 121 mg/dL (70-99) 101 mg/dL (70-99) 142 mg/dL (70-99) Laboratory Tests Test 09/30/21 10:59 09/30/21 16:58 09/30/21 20:17 10/01/21 07:28 Glucose (Fingerstick) 136 mg/dL (70-99) 121 mg/dL (70-99) 101 mg/dL (70-99) 142 mg/dL (70-99) Medications Current Medications Nicardipine HCl 50 mg/Sodium Chloride 250 ml @ 25 mls/hr CONT PRN IV PER PROTOCOL Last administered on 09/24/21at 15:53; Start 09/23/21 at 21:45; Stop 09/24/21 at 16:43; Status DC Nifedipine (Procardia Xl) 30 mg DAILY PO Last administered on 09/27/21at 09:04; Start 09/24/21 at 09:00; Stop 09/27/21 at 09:48; Status DC Zolpidem Tartrate (Ambien) 5 mg PRN QHS PRN PO INSOMNIA Last administered on 09/30/21at 21:00; Start 09/23/21 at 21:45 Montelukast Sodium (Singulair) 10 mg DAILY PO Last administered on 09/30/21at 08:28; Start 09/24/21 at 09:00 Insulin Human Lispro (HumaLOG) 15 units TIDWMEALS SQ Last administered on 09/24/21at 18:30; Start 09/24/21 at 08:00; Stop 09/25/21 at 08:47; Status DC Insulin Glargine (Lantus Syringe) 40 unit QHS SQ Last administered on 09/30/21at 22:23; Start 09/24/21 at 21:00 Losartan Potassium (Cozaar) 100 mg DAILY PO Last administered on 09/25/21at 09:28; Start 09/24/21 at 09:00; Stop 09/25/21 at 10:31; Status DC Spironolactone (Aldactone) 50 mg DAILY PO Last administered on 09/27/21at 09:03; Start 09/24/21 at 09:00; Stop 09/27/21 at 09:48; Status DC Insulin Glargine (Lantus Syringe) 40 unit 1X ONCE SQ Last administered on 09/23/21at 22:21; Start 09/23/21 at 23:00; Stop 09/23/21 at 23:01; Status DC Sodium Chloride 1,000 ml @ 25 mls/hr Q24H IV Last administered on 09/27/21at 09:55; Start 09/24/21 at 15:15; Stop 09/29/21 at 14:30; Status DC Nicardipine HCl 50 mg/Sodium Chloride 250 ml @ 25 mls/hr CONT PRN PRN IV PER PROTOCOL Last administered on 09/28/21at 20:30; Start 09/24/21 at 16:45; Stop 09/29/21 at 14:30; Status DC Atorvastatin Calcium (Lipitor) 80 mg QHS PO Last administered on 09/30/21at 20:53; Start 09/24/21 at 21:00 Acetaminophen (Tylenol) 650 mg PRN Q6HRS PRN PO MILD PAIN / TEMP > 100.3'F Last administered on 09/30/21at 21:01; Start 09/24/21 at 16:45 Aspirin (Ecotrin) 325 mg DAILYWBKFT PO Last administered on 09/30/21at 08:28; Start 09/24/21 at 17:00 Aspirin (Aspirin Rectal Supp) 300 mg PRN DAILY PRN LA IF UNABLE TO TAKE PO; Start 09/24/21 at 16:45 Insulin Human Lispro (HumaLOG) 20 units TIDWMEALS SQ Last administered on 09/30/21at 18:06; Start 09/25/21 at 08:45 Ondansetron HCl (Zofran Odt) 4 mg PRN Q6HRS PRN PO NAUSEA/VOMITING Last administered on 09/27/21at 09:09; Start 09/25/21 at 15:00 Enoxaparin Sodium (Lovenox Per Pharmacy Prophylaxis Dosing) 1 each PRN DAILY PRN MC SEE COMMENTS; Start 09/25/21 at 16:00; Stop 09/27/21 at 11:43; Status DC Enoxaparin Sodium (Lovenox 60mg Syringe) 60 mg Q24H SQ Last administered on 09/25/21at 17:41; Start 09/25/21 at 17:00; Stop 09/27/21 at 11:36; Status DC Ondansetron HCl (Zofran) 4 mg PRN Q4HRS PRN IVP NAUSEA/VOMITING Last administered on 09/30/21at 15:23; Start 09/26/21 at 10:15 Sodium Chloride (Alex Saline Nasal) 1 jax PRN DAILY PRN NS NASAL CONGESTION Last administered on 09/27/21at 09:05; Start 09/26/21 at 10:15 Lidocaine HCl (Buffered Lidocaine 1%) 3 ml STK-MED ONCE .ROUTE ; Start 09/26/21 at 11:30; Stop 09/26/21 at 11:30; Status DC Lidocaine HCl (Buffered Lidocaine 1%) 6 ml 1X ONCE INJ ; Start 09/26/21 at 12:15; Stop 09/26/21 at 12:16; Status DC Sodium Chloride 1,000 ml @ 1,000 mls/hr Q1H PRN IV hypotension; Start 09/27/21 at 08:30; Stop 09/27/21 at 14:29; Status DC Sodium Chloride 1,000 ml @ 400 mls/hr Q2H30M PRN IV PATENCY; Start 09/27/21 at 08:30; Stop 09/27/21 at 20:29; Status DC Info (PHARMACY MONITORING -- do not chart) 1 each PRN DAILY PRN MC SEE FRANSISCA TS; Start 09/27/21 at 08:30 Info (PHARMACY MONITORING -- do not chart) 1 each PRN DAILY PRN MC SEE COMMENTS; Start 09/27/21 at 08:30; Stop 09/27/21 at 08:27; Status DC Nifedipine (Procardia Xl) 60 mg DAILY PO Last administered on 09/27/21at 15:53; Start 09/27/21 at 10:00; Stop 09/28/21 at 07:15; Status DC Heparin Sodium (Porcine) (Heparin Sodium) 5,000 unit Q8HRS SQ Last administered on 09/28/21at 06:27; Start 09/27/21 at 14:00; Stop 09/28/21 at 08:49; Status DC Nifedipine (Procardia Xl) 90 mg DAILY PO Last administered on 09/28/21at 08:26; Start 09/28/21 at 09:00; Stop 09/28/21 at 09:12; Status DC Nifedipine (Procardia Xl) 120 mg DAILY PO Last administered on 09/30/21at 08:27; Start 09/28/21 at 09:15 Sodium Chloride 1,000 ml @ 1,000 mls/hr Q1H PRN IV hypotension; Start 09/29/21 at 10:45; Stop 09/29/21 at 16:44; Status DC Sodium Chloride 1,000 ml @ 400 mls/hr Q2H30M PRN IV PATENCY; Start 09/29/21 at 10:45; Stop 09/29/21 at 22:44; Status DC Info (PHARMACY MONITORING -- do not chart) 1 each PRN DAILY PRN MC SEE COMMENTS; Start 09/29/21 at 10:45; Status UNV Active Scripts Active Levemir Flextouch (Insulin Detemir) 100 Unit/1 Ml Insuln.pen 40 Units SQ QHS 30 Days Novolog Flexpen (Insulin Aspart) 100 Unit/1 Ml Insuln.pen 15 Units SQ TIDAC 30 Days Reported Tri-Sprintec (Norgestimate-Ethinyl Estradiol) 1 Each Tablet 1 Tab PO DAILY Spironolactone 50 Mg Tablet 1 Tab PO DAILY Montelukast Sodium Tablet (Montelukast Sodium) 10 Mg Tablet 10 Mg PO DAILY Losartan Potassium 100 Mg Tablet 100 Mg PO DAILY Vitals/I & O Vital Sign - Last 24 Hours 09/30/21 09/30/21 09/30/21 09/30/21 11:00 15:00 18:52 20:15 Temp 98.2 98.3 98.7 98.2 98.3 98.7 Pulse 99 97 103 Resp 20 20 18 B/P (MAP) 142/83 (102) 141/90 (107) 168/75 (106) Pulse Ox 100 94 93 O2 Delivery Room Air Room Air Room Air Room Air 09/30/21 10/01/21 10/01/21 22:00 02:20 07:00 Temp 98.3 98.1 98.3 98.3 98.1 98.3 Pulse 100 102 101 Resp 18 18 18 B/P (MAP) 166/72 (103) 166/80 (108) 177/81 (113) Pulse Ox 93 96 96 O2 Delivery Room Air Room Air Room Air Intake and Output 09/30/21 09/30/21 10/01/21 15:00 23:00 07:00 Intake Total 120 ml 100 ml Output Total 650 ml 650 ml Balance -530 ml -650 ml 100 ml Justicifation of Admission Dx: Justifications for Admission: Justification of Admission Dx: Yes Stroke - Ischemic: Stroke-Ischemic DOLORES TRISTAN MD October 01, 2021 08:53
[2021-10-01] MEDS: INSULIN LISPRO 300 UNITS/3 ML VIAL. SQ SCH ×3 (08:57→17:00)
--- NOTE | 2021-10-01 09:16 | PDOC ---
DATE OF SERVICE DATE: 10/01/21 TIME: 09:15 SUBJECTIVE ROS Denies SOB , No N/V,sleeping in the recliner, easily arousable OBJECTIVE Vital Signs Vital Signs Date Time Temp Pulse Resp B/P (MAP) Pulse Ox O2 Delivery O2 Flow Rate FiO2 10/01/21 08:43 97 177/81 10/01/21 07:00 98.3 18 96 Room Air 98.3 I & 0 Intake and Output 10/01/21 07:00 Intake Total 220 ml Output Total 1300 ml Balance -1080 ml Intake Oral 220 ml Output Urine Total 1300 ml # Voids 3 PHYSICAL EXAM Physical Exam GENERAL: Morbidly Obese , HEEN Normocephalic, atraumatic NECK: Supple. HEART: normal first and second heart sounds. No gallop, rub or murmur. LUNGS : Clear to auscultation, decreased at bases, non labored ABDOMEN: Distended, soft, nontender. NEUROLOGIC: Grossly Normal, Moves all 4 extremities . She did complain of numbness in her left side of the face without any obvious motor deficit. PSYCH COOPERATIVE EXT LE edema + Weiss + , No CVA or SP tenderness DERM No Rash DIAGNOSIS/ASSESSMENT Assessment & Plan JUDITH -atn / Vomiting /Poor po intake/ IV Contrast / Hx of NSAID use . Baseline Cr normal in 2017 per [facility] records. No Interval labs available .UA unremarkable, US Unremarkable, Started on dialysis on 09/27 ,2 nd treatment 09/29 . UOP improved . Supportive care , Monitor for Renal recovery .no indication for dialysis today based on clinical status, labs still pending Re-evaluate Strict I/O CKD - per Primary's note, No interval labs. 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 Renal Duplex Normal . 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 Type 2 Diabetes mellitus. she stopped Insulin on her own recently Bronchial asthma COMMENT/RELEVANT DATA Meds Current Medications Medications (Trade) Dose Ordered Sig/Maya Start Time Stop Time Status Last Admin Dose Admin Acetaminophen (Tylenol) 650 mg PRN Q6HRS PRN 09/24/21 16:45 09/30/21 21:01 650 MG Aspirin (Aspirin Rectal Supp) 300 mg PRN DAILY PRN 09/24/21 16:45 Aspirin (Ecotrin) 325 mg DAILYWBKFT 4/25/22 17:00 10/01/21 08:43 325 MG Atorvastatin Calcium (Lipitor) 80 mg QHS 09/24/21 21:00 09/30/21 20:53 80 MG Enoxaparin Sodium (Lovenox 60mg Syringe) 60 mg Q24H 09/25/21 17:00 09/27/21 11:36 DC 09/25/21 17:41 60 MG Enoxaparin Sodium (Lovenox Per Pharmacy Prophylaxis Dosing) 1 each PRN DAILY PRN 09/25/21 16:00 09/27/21 11:43 DC Heparin Sodium (Porcine) (Heparin Sodium) 5,000 unit Q8HRS 09/27/21 14:00 09/28/21 08:49 DC 09/28/21 06:27 5,000 UNIT Info (PHARMACY MONITORING -- do not chart) 1 each PRN DAILY PRN 09/29/21 10:45 UNV Insulin Glargine (Lantus Syringe) 40 unit 1X ONCE 09/23/21 23:00 09/23/21 23:01 DC 09/23/21 22:21 40 UNIT Insulin Human Lispro (HumaLOG) 20 units TIDWMEALS 09/25/21 08:45 10/01/21 08:57 20 UNITS Lidocaine HCl (Buffered Lidocaine 1%) 6 ml 1X ONCE 09/26/21 12:15 09/26/21 12:16 DC Losartan Potassium (Cozaar) 100 mg DAILY 09/24/21 09:00 09/25/21 10:31 DC 09/25/21 09:28 100 MG Montelukast Sodium (Singulair) 10 mg DAILY 09/24/21 09:00 10/01/21 08:43 10 MG Nicardipine HCl 50 mg/Sodium Chloride 250 ml @ 25 mls/hr CONT PRN PRN 09/24/21 16:45 09/29/21 14:30 DC 09/28/21 20:30 37.5 MLS/HR Nifedipine (Procardia Xl) 120 mg DAILY 09/28/21 09:15 10/01/21 08:43 120 MG Ondansetron HCl (Zofran Odt) 4 mg PRN Q6HRS PRN 09/25/21 15:00 09/27/21 09:09 4 MG Ondansetron HCl (Zofran) 4 mg PRN Q4HRS PRN 09/26/21 10:15 09/30/21 15:23 4 MG Sodium Chloride 1,000 ml @ 400 mls/hr Q2H30M PRN 09/29/21 10:45 09/29/21 22:44 DC Sodium Chloride ([place] Saline Nasal) 1 jax PRN DAILY PRN 09/26/21 10:15 09/27/21 09:05 1 JAX Spironolactone (Aldactone) 50 mg DAILY 09/24/21 09:00 09/27/21 09:48 DC 09/27/21 09:03 50 MG Zolpidem Tartrate (Ambien) 5 mg PRN QHS PRN 09/23/21 21:45 09/30/21 21:00 5 MG Lab Laboratory Tests Test 09/30/21 10:59 09/30/21 16:58 09/30/21 20:17 10/01/21 07:28 Glucose (Fingerstick) 136 mg/dL (70-99) 121 mg/dL (70-99) 101 mg/dL (70-99) 142 mg/dL (70-99) Results All relevant outside records, renal labs, imaging studies, telemetry/EKG's were reviewed. Justicifation of Admission Dx: Justifications for Admission: Justification of Admission Dx: Yes Stroke - Ischemic: Stroke-Ischemic LISA NORMAN MD October 01, 2021 09:16
[2021-10-01 10:03] VITALS: BP 188/89
--- NOTE | 2021-10-01 10:30 | PN ---
DATE: 10/01/2021 SUBJECTIVE: The patient is resting, propped up in her recliner, in no apparent distress. She continued to have vaginal bleeding. Unfortunately, the pharmacy does not carry any oral contraceptives pill and the patient was informed that she can get her medications we can prescribe it for her. PHYSICAL EXAMINATION: GENERAL: When I examined her, she looked pale, not jaundiced or cyanosed. No lymphadenopathy, no thyromegaly. No jugular venous distention. No limb edema. VITAL SIGNS: Her heart rate was 101, blood pressure was 188/89, temperature was 98, respiratory rate was 19, and oxygen saturation was 95%. HEAD, EYES, EARS, NOSE, AND THROAT: Normocephalic, atraumatic. NECK: Supple. HEART: Showed normal first and second heart sounds. No gallop, rub or murmur. CHEST: Clear to auscultation. No crepitation or rhonchi. ABDOMEN: Distended, soft, nontender. NEUROLOGIC: She was grossly intact. Her intake was 760, no output was recorded. LABORATORY DATA: Her lab work this morning is still pending at time of this dictation. ASSESSMENT: 1. Hypertensive encephalopathy, for which she was on Cardene drip that was discontinued. She is now on Procardia 150 mg once a day. Her blood pressure continued to be high. I will add hydralazine. 2. The patient did complain of tingling and numbness in her left side of the face and an MRI showed that she has a focal area of acute to subacute ischemia involving the left lateral shannen extending into the left brachium pontis. There is also an associated cytotoxic edema without significant mass effect or hemorrhage. 3. Acute on chronic kidney injury. Her creatinine has continued to rise. She was dialyzed on Friday and 2 liters of fluid were ultrafiltrated. 4. Type 2 diabetes mellitus, which seems to be reasonably controlled. 5. Bronchial asthma, well compensated. 6. Markedly obesity and obstructive sleep apnea. 7. Irregular menstrual periods, which she was on oral contraceptive pill that we held given her immobility and making her high risk for deep vein thrombosis. 8. The patient is concerned that she is bleeding continuously. I did speak with the Pharmacy and apparently the Pharmacy does not carry any contraceptive pills. The patient was informed that she can bring her own and we will be prescribing for her. PLAN: Obviously to continue with physical therapy and occupational therapy. Continue to monitor blood sugar and adjust insulin as needed. Continue with hemodialysis as per Nephrology team. I will add hydralazine to achieve a better control of her blood pressure. ELIOT/[facility] DR: Jared TID: [id number]
[2021-10-01] MEDS: hydrALAZINE 25 MG TABLET PO SCH ×3 (11:11→20:55)
[2021-10-01 13:04] LABS: CALCIUM 8.8 mg/dL (8.5-10.1); CREATININE 2.5 mg/dL (0.6-1.0); GFR 21.2; POTASSIUM 4.4 mmol/L (3.5-5.1)
[2021-10-01] MEDS: ONDANSETRON ODT 4 MG TAB.RAPDIS. PO PRN (13:37)
[2021-10-01 14:51] VITALS: BP 191/80
--- NOTE | 2021-10-01 16:33 | NUR ---
SS following for discharge planning. SS reviewed pt chart and discussed with pt RN. Pt is from home and is currently on room air. PT/OT recommended acute rehabilitation. Nephrology monitoring for renal recovery. Per RN, labs and UOP showing improvement. SS met with pt in room and discussed discharge planning and acute rehabilitation. Pt undecided at this time and requested SS follow up with her tomorrow. SS will continue to follow for discharge planning.
[2021-10-01 19:55] VITALS: BP 199/89
[2021-10-01] MEDS: ATORVASTATIN CALCIUM 40 MG TABLET. PO SCH (20:55)
[2021-10-01] MEDS: INSULIN GLARGINE SYRINGE. SQ SCH (20:56)
[2021-10-01] MEDS: ZOLPIDEM 5 MG TABLET. PO PRN (21:01)
[2021-10-01 22:55] VITALS: BP 171/83
[2021-10-02 03:55] VITALS: BP 170/80
[2021-10-02 07:00] VITALS: BP 193/84
[2021-10-02 07:08] LABS: CALCIUM 8.9 mg/dL (8.5-10.1); CREATININE 2.3 mg/dL (0.6-1.0); GFR 23.4; POTASSIUM 4.7 mmol/L (3.5-5.1)
[2021-10-02] MEDS: ASPIRIN ENTERIC COATED 325 MG TABLET.DR. PO SCH (07:57)
[2021-10-02] MEDS: MONTELUKAST SODIUM 10 MG TABLET. PO SCH (07:57)
[2021-10-02] MEDS: hydrALAZINE 25 MG TABLET PO SCH (07:57)
[2021-10-02] MEDS: INSULIN LISPRO 300 UNITS/3 ML VIAL. SQ SCH ×4 (08:36→17:20)
--- NOTE | 2021-10-02 10:34 | PDOC ---
DATE OF SERVICE DATE: 10/02/21 TIME: 10:33 SUBJECTIVE ROS Denies SOB , No N/V. States feeling tired OBJECTIVE Vital Signs Vital Signs Date Time Temp Pulse Resp B/P (MAP) Pulse Ox O2 Delivery O2 Flow Rate FiO2 10/02/21 10:16 95 190/82 10/02/21 08:00 Room Air 10/02/21 07:00 98.0 18 96 98.0 I & 0 Intake and Output 10/02/21 06:59 Intake Total 910 ml Output Total 900 ml Balance 10 ml Intake Oral 910 ml Output Urine Total 900 ml # Voids 2 PHYSICAL EXAM Physical Exam GENERAL: Morbidly Obese , HEEN Normocephalic, atraumatic NECK: Supple. HEART: normal first and second heart sounds. No gallop, rub or murmur. LUNGS : Clear to auscultation, decreased at bases, non labored ABDOMEN: Distended, soft, nontender. NEUROLOGIC: Grossly Normal, Moves all 4 extremities . She did complain of numbness in her left side of the face without any obvious motor deficit. PSYCH COOPERATIVE EXT LE edema + Dillard + , No CVA or SP tenderness DERM No Rash DIAGNOSIS/ASSESSMENT Assessment & Plan JUDITH -atn / Vomiting /Poor po intake/ IV Contrast / Hx of NSAID use . Baseline Cr normal in 2017 per [facility] records. No Interval labs available .UA unremarkable, US Unremarkable, Started on dialysis on 09/27 ,2 nd treatment 09/29 . . Supportive care , Monitor for Renal recovery, Strict I/O (Not sure why dillard dced while still monitoring for renl recovery) Cr trending down .no indication for dialysis today CKD - per Primary's note, No interval labs. 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 Renal Duplex Normal . 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 Type 2 Diabetes mellitus. she stopped Insulin on her own recently Bronchial asthma COMMENT/RELEVANT DATA Meds Current Medications Medications (Trade) Dose Ordered Sig/Maya Start Time Stop Time Status Last Admin Dose Admin Acetaminophen (Tylenol) 650 mg PRN Q6HRS PRN 09/24/21 16:45 09/30/21 21:01 650 MG Aspirin (Aspirin Rectal Supp) 300 mg PRN DAILY PRN 09/24/21 16:45 Aspirin (Ecotrin) 325 mg DAILYWBKFT 09/24/21 17:00 10/02/21 07:57 325 MG Atorvastatin Calcium (Lipitor) 80 mg QHS 09/24/21 21:00 10/01/21 20:55 80 MG Enoxaparin Sodium (Lovenox 60mg Syringe) 60 mg Q24H 09/25/21 17:00 09/27/21 11:36 DC 09/25/21 17:41 60 MG Enoxaparin Sodium (Lovenox Per Pharmacy Prophylaxis Dosing) 1 each PRN DAILY PRN 09/25/21 16:00 09/27/21 11:43 DC Heparin Sodium (Porcine) (Heparin Sodium) 5,000 unit Q8HRS 09/27/21 14:00 09/28/21 08:49 DC 09/28/21 06:27 5,000 UNIT Hydralazine HCl (Apresoline) 50 mg TID 10/02/21 09:00 10/02/21 10:16 50 MG Info (PHARMACY MONITORING -- do not chart) 1 each PRN DAILY PRN 09/29/21 10:45 UNV Insulin Glargine (Lantus Syringe) 40 unit 1X ONCE 09/23/21 23:00 09/23/21 23:01 DC 09/23/21 22:21 40 UNIT Insulin Human Lispro (HumaLOG) 20 units TIDWMEALS 09/25/21 08:45 10/02/21 08:36 20 UNITS Lidocaine HCl (Buffered Lidocaine 1%) 6 ml 1X ONCE 09/26/21 12:15 09/26/21 12:16 DC Losartan Potassium (Cozaar) 100 mg DAILY 09/24/21 09:00 09/25/21 10:31 DC 09/25/21 09:28 100 MG Montelukast Sodium (Singulair) 10 mg DAILY 09/24/21 09:00 10/02/21 07:57 10 MG Nicardipine HCl 50 mg/Sodium Chloride 250 ml @ 25 mls/hr CONT PRN PRN 09/24/21 16:45 09/29/21 14:30 DC 09/28/21 20:30 37.5 MLS/HR Nifedipine (Procardia Xl) 120 mg DAILY 09/28/21 09:15 10/02/21 07:57 120 MG Ondansetron HCl (Zofran Odt) 4 mg PRN Q6HRS PRN 09/25/21 15:00 10/01/21 13:37 4 MG Ondansetron HCl (Zofran) 4 mg PRN Q4HRS PRN 09/26/21 10:15 09/30/21 15:23 4 MG Sodium Chloride 1,000 ml @ 400 mls/hr Q2H30M PRN 09/29/21 10:45 09/29/21 22:44 DC Sodium Chloride ([place] Saline Nasal) 1 jax PRN DAILY PRN 09/26/21 10:15 09/27/21 09:05 1 JAX Spironolactone (Aldactone) 50 mg DAILY 09/24/21 09:00 09/27/21 09:48 DC 09/27/21 09:03 50 MG Zolpidem Tartrate (Ambien) 5 mg PRN QHS PRN 09/23/21 21:45 10/01/21 21:01 5 MG Lab Laboratory Tests Test 10/01/21 11:36 10/01/21 12:35 10/01/21 16:40 10/01/21 20:52 Glucose (Fingerstick) 157 mg/dL (70-99) 89 mg/dL (70-99) 119 mg/dL (70-99) Hemoglobin 10.0 g/dL (12.0-15.5) Sodium Level 138 mmol/L (136-145) Potassium Level 4.4 mmol/L (3.5-5.1) Chloride Level 102 mmol/L (98-107) Carbon Dioxide Level 26 mmol/L (21-32) Anion Gap 10 (6-14) Blood Urea Nitrogen 23 mg/dL (7-20) Creatinine 2.5 mg/dL (0.6-1.0) Estimated GFR (Cockcroft-Gault) 21.2 Glucose Level 118 mg/dL (70-99) Calcium Level 8.8 mg/dL (8.5-10.1) Test 10/02/21 06:30 10/02/21 07:16 Sodium Level 137 mmol/L (136-145) Potassium Level 4.7 mmol/L (3.5-5.1) Chloride Level 103 mmol/L (98-107) Carbon Dioxide Level 25 mmol/L (21-32) Anion Gap 9 (6-14) Blood Urea Nitrogen 21 mg/dL (7-20) Creatinine 2.3 mg/dL (0.6-1.0) Estimated GFR (Cockcroft-Gault) 23.4 Glucose Level 85 mg/dL (70-99) Calcium Level 8.9 mg/dL (8.5-10.1) Glucose (Fingerstick) 88 mg/dL (70-99) Results All relevant outside records, renal labs, imaging studies, telemetry/EKG's were reviewed. Justicifation of Admission Dx: Justifications for Admission: Justification of Admission Dx: Yes Stroke - Ischemic: Stroke-Ischemic LISA NORMAN MD October 02, 2021 10:34
[2021-10-02 10:51] VITALS: BP 197/82
[2021-10-02] MEDS ORDERED: FUROSEMIDE 40 MG/4 ML VIAL. IVP ONE (14:45)
[2021-10-02 14:58] VITALS: BP 205/91
--- NOTE | 2021-10-02 15:39 | NUR ---
SS following up with discharge planning. SS reviewed pt chart and discussed with pt RN. Pt is currently on room air. PT/OT recommended acute rehabilitation. Nephrology monitoring for renal recovery. Pt declining acute rehabilitation at this time. SS will continue to follow for discharge planning.
[2021-10-02 19:55] VITALS: BP 193/93
[2021-10-02] MEDS: ONDANSETRON ODT 4 MG TAB.RAPDIS. PO PRN (20:52)
[2021-10-02] MEDS: ATORVASTATIN CALCIUM 40 MG TABLET. PO SCH (21:41)
[2021-10-02] MEDS: ACETAMINOPHEN 325 MG TABLET. PO PRN (21:42)
[2021-10-02] MEDS: INSULIN GLARGINE SYRINGE. SQ SCH (21:48)
[2021-10-02 23:35] VITALS: BP 203/94
[2021-10-03 03:11] VITALS: BP 201/76
--- NOTE | 2021-10-03 04:47 | PN ---
DATE: 10/02/2021 SUBJECTIVE: The patient is sitting comfortably in her recliner, in no apparent respiratory distress. On questioning her, she stated that she continued to feel unsteady and cannot stand for a long time. She continued to need to walk with a walker. She stated that her urine output has increased and has been in and out of the bathroom multiple times. Her creatinine is steadily and she was not dialyzed yesterday and in fact, her creatinine is improving, it is down to 2.3, indicating that her kidney function is improving. PHYSICAL EXAMINATION: GENERAL: When I examined her, she looked well and was clearly in no apparent respiratory distress, pale. No jaundice, cyanosis or thyromegaly. No jugular venous distention. Mild bilateral lower limb edema. VITAL SIGNS: Her heart rate was 104, blood pressure was 170/80, temperature was 98, respiratory rate was 18 and oxygen saturation was 96% on room air. HEAD, EYES, EARS, NOSE, AND THROAT: Showed normocephalic, atraumatic. NECK: Supple. HEART: Normal first and second heart sounds. No gallop or murmur. CHEST: Clear to auscultation. No crepitation or rhonchi. ABDOMEN: Distended, soft, nontender. NEUROLOGIC: She is grossly intact. Her intake was 220, output was 1500. LABORATORY WORK: This morning showed that her serum sodium was 137, potassium 4.7, chloride 103, bicarbonate 25, anion gap of 9, BUN 21, creatinine 2.3. Estimated GFR was 23 mL per minute. Her glucose was 185, calcium was 8.9. Her hemoglobin is 10. ASSESSMENT: 1. Hypertensive encephalopathy, for which she was on a Cardene drip that was discontinued. She is now on Procardia 120 mg once a day. Her blood pressure continued to be high and I have added hydralazine. 2. The patient did complain of tingling and numbness in her left side of the face and an MRI showed that she has focal area of acute to subacute ischemia involving the left lateral shannen extending into the left brachium pontis. There is also an associated cytotoxic edema without significant mass effect or hemorrhage. 3. Ztwns-ej-gxmylhe kidney injury. Her creatinine is steadily improving. In fact, today her creatinine is down to 2.3. Her urine output also is increasing and she most likely would not need dialysis anymore. 4. Type 2 diabetes mellitus, seems to be reasonably controlled. 5. Bronchial asthma, well compensated. 6. Morbid obesity and obstructive sleep apnea. 7. Irregular menstrual period, for which she was on oral contraceptive pill that we held. 8. Unsteadiness and debility, for which she will continue with physical therapy. PLAN: My plan is to continue with PT, OT. Continue to monitor blood sugar and adjust insulin as needed. I will increase her hydralazine to 50 mg 3 times a day to hopefully achieve a better control. The patient will probably need to be in a assisted facility to continue the process of rehabilitation. MATT/EUNICE DR: Jared TID: [id number]
[2021-10-03 06:18] LABS: CALCIUM 8.8 mg/dL (8.5-10.1); CREATININE 2.4 mg/dL (0.6-1.0); GFR 22.2; POTASSIUM 4.7 mmol/L (3.5-5.1)
[2021-10-03 07:00] VITALS: BP 187/87
[2021-10-03] MEDS: MONTELUKAST SODIUM 10 MG TABLET. PO SCH (08:34)
[2021-10-03] MEDS: ASPIRIN ENTERIC COATED 325 MG TABLET.DR. PO SCH (08:34)
[2021-10-03] MEDS: INSULIN LISPRO 300 UNITS/3 ML VIAL. SQ SCH ×5 (08:36→18:47)
--- NOTE | 2021-10-03 08:36 | PDOC ---
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 Has left facial numbness still, needs roller walker to ambulate Hypertensive encephalopathy, blood pressure still running very high, could not participate in physical therapy yesterday [id number]-[id number] kidney injury, had CT angiogram of chest at [facility]. Started dialysis History of diabetes, hypertension, hyperlipidemia, noncompliant, asthma, sleep apnea Echocardiogram noted, I do not think she needs a transesophageal echocardiogram, the location of the stroke is unlikely cardiac-source Plan Aspirin High-dose statin Treatment of hypertension. Tightened parameters back to 150/90 starting 09/26 Rehabilitation modalities Subjective Denies headache Objective Vital Signs Date Time Temp Pulse Resp B/P (MAP) Pulse Ox O2 Delivery O2 Flow Rate FiO2 10/03/21 07:00 97.8 100 16 187/87 (120) 99 Room Air 97.8 Intake and Output 10/03/21 07:00 Intake Total 1470 ml Output Total 1650 ml Balance -180 ml Intake Oral 1470 ml Output Urine Total 1650 ml # Voids 4 PHYSICAL EXAM Alert. Oriented to time, place and person. PERRL. EOMI. CN: Slight left cheek sensory loss, slight left central facial weakness, otherwise no focal findings. Muscle tone: normal. Muscle strength: 4/5 DTR: 2+ Plantar reflex: Flexor Gait: not examined in bed. Sensory exam: no abnormal findings. No cerebellar signs elicited. Review of Relevant I have reviewed the following items mauricio (where applicable) has been applied. Labs Laboratory Tests Test 10/01/21 11:36 10/01/21 12:35 10/01/21 16:40 10/01/21 20:52 Glucose (Fingerstick) 157 mg/dL (70-99) 89 mg/dL (70-99) 119 mg/dL (70-99) Hemoglobin 10.0 g/dL (12.0-15.5) Sodium Level 138 mmol/L (136-145) Potassium Level 4.4 mmol/L (3.5-5.1) Chloride Level 102 mmol/L (98-107) Carbon Dioxide Level 26 mmol/L (21-32) Anion Gap 10 (6-14) Blood Urea Nitrogen 23 mg/dL (7-20) Creatinine 2.5 mg/dL (0.6-1.0) Estimated GFR (Cockcroft-Gault) 21.2 Glucose Level 118 mg/dL (70-99) Calcium Level 8.8 mg/dL (8.5-10.1) Test 10/02/21 06:30 10/02/21 07:16 10/02/21 11:37 10/02/21 16:43 Sodium Level 137 mmol/L (136-145) Potassium Level 4.7 mmol/L (3.5-5.1) Chloride Level 103 mmol/L (98-107) Carbon Dioxide Level 25 mmol/L (21-32) Anion Gap 9 (6-14) Blood Urea Nitrogen 21 mg/dL (7-20) Creatinine 2.3 mg/dL (0.6-1.0) Estimated GFR (Cockcroft-Gault) 23.4 Glucose Level 85 mg/dL (70-99) Calcium Level 8.9 mg/dL (8.5-10.1) Glucose (Fingerstick) 88 mg/dL (70-99) 79 mg/dL (70-99) 81 mg/dL (70-99) Test 10/02/21 20:47 10/03/21 06:00 10/03/21 07:15 Glucose (Fingerstick) 118 mg/dL (70-99) 121 mg/dL (70-99) Sodium Level 136 mmol/L (136-145) Potassium Level 4.7 mmol/L (3.5-5.1) Chloride Level 101 mmol/L (98-107) Carbon Dioxide Level 26 mmol/L (21-32) Anion Gap 9 (6-14) Blood Urea Nitrogen 23 mg/dL (7-20) Creatinine 2.4 mg/dL (0.6-1.0) Estimated GFR (Cockcroft-Gault) 22.2 Glucose Level 124 mg/dL (70-99) Calcium Level 8.8 mg/dL (8.5-10.1) Laboratory Tests Test 10/02/21 11:37 10/02/21 16:43 10/02/21 20:47 10/03/21 06:00 Glucose (Fingerstick) 79 mg/dL (70-99) 81 mg/dL (70-99) 118 mg/dL (70-99) Sodium Level 136 mmol/L (136-145) Potassium Level 4.7 mmol/L (3.5-5.1) Chloride Level 101 mmol/L (98-107) Carbon Dioxide Level 26 mmol/L (21-32) Anion Gap 9 (6-14) Blood Urea Nitrogen 23 mg/dL (7-20) Creatinine 2.4 mg/dL (0.6-1.0) Estimated GFR (Cockcroft-Gault) 22.2 Glucose Level 124 mg/dL (70-99) Calcium Level 8.8 mg/dL (8.5-10.1) Test 10/03/21 07:15 Glucose (Fingerstick) 121 mg/dL (70-99) Medications Current Medications Nicardipine HCl 50 mg/Sodium Chloride 250 ml @ 25 mls/hr CONT PRN IV PER PROTOCOL Last administered on 09/24/21 15:53; Start 09/23/21 at 21:45; Stop 09/24/21 at 16:43; Status DC Nifedipine (Procardia Xl) 30 mg DAILY PO Last administered on 09/27/21at 09:04; Start 09/24/21 at 09:00; Stop 09/27/21 at 09:48; Status DC Zolpidem Tartrate (Ambien) 5 mg PRN QHS PRN PO INSOMNIA Last administered on 10/01/21 21:01; Start 09/23/21 at 21:45 Montelukast Sodium (Singulair) 10 mg DAILY PO Last administered on 10/02/21 07:57; Start 09/24/21 at 09:00 Insulin Human Lispro (HumaLOG) 15 units TIDWMEALS SQ Last administered on 09/24/21at 18:30; Start 09/24/21 at 08:00; Stop 09/25/21 at 08:47; Status DC Insulin Glargine (Lantus Syringe) 40 unit QHS SQ Last administered on 10/02/21 21:48; Start 09/24/21 at 21:00 Losartan Potassium (Cozaar) 100 mg DAILY PO Last administered on 09/25/21at 09:28; Start 09/24/21 at 09:00; Stop 09/25/21 at 10:31; Status DC Spironolactone (Aldactone) 50 mg DAILY PO Last administered on 09/27/21at 09:03; Start 09/24/21 at 09:00; Stop 09/27/21 at 09:48; Status DC Insulin Glargine (Lantus Syringe) 40 unit 1X ONCE SQ Last administered on 09/23/21at 22:21; Start 09/23/21 at 23:00; Stop 09/23/21 at 23:01; Status DC Sodium Chloride 1,000 ml @ 25 mls/hr Q24H IV Last administered on 09/27/21at 09:55; Start 09/24/21 at 15:15; Stop 09/29/21 at 14:30; Status DC Nicardipine HCl 50 mg/Sodium Chloride 250 ml @ 25 mls/hr CONT PRN PRN IV PER PROTOCOL Last administered on 09/28/21at 20:30; Start 09/24/21 at 16:45; Stop 09/29/21 at 14:30; Status DC Atorvastatin Calcium (Lipitor) 80 mg QHS PO Last administered on 10/02/21 21:41; Start 09/24/21 at 21:00 Acetaminophen (Tylenol) 650 mg PRN Q6HRS PRN PO MILD PAIN / TEMP > 100.3'F Last administered on 10/02/21 21:42; Start 09/24/21 at 16:45 Aspirin (Ecotrin) 325 mg DAILYWBKFT PO Last administered on 10/02/21 07:57; Start 09/24/21 at 17:00 Aspirin (Aspirin Rectal Supp) 300 mg PRN DAILY PRN VA IF UNABLE TO TAKE PO; Start 09/24/21 at 16:45 Insulin Human Lispro (HumaLOG) 20 units TIDWMEALS SQ Last administered on 10/02/21at 12:18; Start 09/25/21 at 08:45 Ondansetron HCl (Zofran Odt) 4 mg PRN Q6HRS PRN PO NAUSEA/VOMITING Last administered on 10/02/21 20:52; Start 09/25/21 at 15:00 Enoxaparin Sodium (Lovenox Per Pharmacy Prophylaxis Dosing) 1 each PRN DAILY PRN MC SEE COMMENTS; Start 09/25/21 at 16:00; Stop 09/27/21 at 11:43; Status DC Enoxaparin Sodium (Lovenox 60mg Syringe) 60 mg Q24H SQ Last administered on 09/25/21at 17:41; Start 09/25/21 at 17:00; Stop 09/27/21 at 11:36; Status DC Ondansetron HCl (Zofran) 4 mg PRN Q4HRS PRN IVP NAUSEA/VOMITING Last administered on 09/30/21at 15:23; Start 09/26/21 at 10:15 Sodium Chloride ([place] Saline Nasal) 1 jax PRN DAILY PRN NS NASAL CONGESTION Last administered on 09/27/21at 09:05; Start 09/26/21 at 10:15 Lidocaine HCl (Buffered Lidocaine 1%) 3 ml STK-MED ONCE .ROUTE ; Start 09/26/21 at 11:30; Stop 09/26/21 at 11:30; Status DC Lidocaine HCl (Buffered Lidocaine 1%) 6 ml 1X ONCE INJ ; Start 09/26/21 at 12:15; Stop 09/26/21 at 12:16; Status DC Sodium Chloride 1,000 ml @ 1,000 mls/hr Q1H PRN IV hypotension; Start 09/27/21 at 08:30; Stop 09/27/21 at 14:29; Status DC Sodium Chloride 1,000 ml @ 400 mls/hr Q2H30M PRN IV PATENCY; Start 09/27/21 at 08:30; Stop 09/27/21 at 20:29; Status DC Info (PHARMACY MONITORING -- do not chart) 1 each PRN DAILY PRN MC SEE COMMENTS; Start 09/27/21 at 08:30 Info (PHARMACY MONITORING -- do not chart) 1 each PRN DAILY PRN MC SEE COMMENTS; Start 09/27/21 at 08:30; Stop 09/27/21 at 08:27; Status DC Nifedipine (Procardia Xl) 60 mg DAILY PO Last administered on 09/27/21at 15:53; Start 09/27/21 at 10:00; Stop 09/28/21 at 07:15; Status DC Heparin Sodium (Porcine) (Heparin Sodium) 5,000 unit Q8HRS SQ Last administered on 09/28/21at 06:27; Start 09/27/21 at 14:00; Stop 09/28/21 at 08:49; Status DC Nifedipine (Procardia Xl) 90 mg DAILY PO Last administered on 09/28/21at 08:26; Start 09/28/21 at 09:00; Stop 09/28/21 at 09:12; Status DC Nifedipine (Procardia Xl) 120 mg DAILY PO Last administered on 10/02/21at 07:57; Start 09/28/21 at 09:15 Sodium Chloride 1,000 ml @ 1,000 mls/hr Q1H PRN IV hypotension; Start 09/29/21 at 10:45; Stop 09/29/21 at 16:44; Status DC Sodium Chloride 1,000 ml @ 400 mls/hr Q2H30M PRN IV PATENCY; Start 09/29/21 at 10:45; Stop 09/29/21 at 22:44; Status DC Info (PHARMACY MONITORING -- do not chart) 1 each PRN DAILY PRN MC SEE COMMENTS; Start 09/29/21 at 10:45; Status UNV Hydralazine HCl (Apresoline) 25 mg TID PO Last administered on 10/02/21at 07:57; Start 10/01/21 at 10:30; Stop 10/02/21 at 08:51; Status DC Hydralazine HCl (Apresoline) 50 mg TID PO Last administered on 10/02/21at 21:41; Start 10/02/21 at 09:00 Furosemide (Lasix) 40 mg 1X ONCE IVP Last administered on 10/02/21at 14:42; Start 10/02/21 at 14:45; Stop 10/02/21 at 14:46; Status DC Active Scripts Active Levemir Flextouch (Insulin Detemir) 100 Unit/1 Ml Insuln.pen 40 Units SQ QHS 30 Days Novolog Flexpen (Insulin Aspart) 100 Unit/1 Ml Insuln.pen 15 Units SQ TIDAC 30 Days Reported Tri-Sprintec (Norgestimate-Ethinyl Estradiol) 1 Each Tablet 1 Tab PO DAILY Spironolactone 50 Mg Tablet 1 Tab PO DAILY Montelukast Sodium Tablet (Montelukast Sodium) 10 Mg Tablet 10 Mg PO DAILY Losartan Potassium 100 Mg Tablet 100 Mg PO DAILY Vitals/I & O Vital Sign - Last 24 Hours 10/02/21 10/02/21 10/02/21 10/02/21 10:16 10:51 14:42 14:58 Temp 98.1 98.2 98.1 98.2 Pulse 95 100 100 100 Resp 16 16 B/P (MAP) 190/82 197/82 (120) 188/82 205/91 (129) Pulse Ox 96 95 O2 Delivery Room Air Room Air 10/02/21 10/02/21 10/02/21 10/02/21 19:55 21:40 21:41 23:35 Temp 97.7 97.8 97.7 97.8 Pulse 106 106 103 Resp 20 20 B/P (MAP) 193/93 (126) 193/93 203/94 (130) Pulse Ox 97 97 O2 Delivery Room Air Room Air Room Air 10/03/21 10/03/21 03:11 07:00 Temp 97.9 97.8 97.9 97.8 Pulse 99 100 Resp 20 16 B/P (MAP) 201/76 (117) 187/87 (120) Pulse Ox 96 99 O2 Delivery Room Air Room Air Intake and Output 10/02/21 10/02/21 10/03/21 15:00 23:00 07:00 Intake Total 560 ml 310 ml 600 ml Output Total 600 ml 500 ml 550 ml Balance -40 ml -190 ml 50 ml Justicifation of Admission Dx: Justifications for Admission: Justification of Admission Dx: Yes Stroke - Ischemic: Stroke-Ischemic DOLORES TRISTAN MD October 03, 2021 08:36
--- NOTE | 2021-10-03 09:12 | PDOC ---
DATE OF SERVICE DATE: 10/03/21 TIME: 09:12 SUBJECTIVE ROS Denies SOB , No N/V. States feeling tired OBJECTIVE Vital Signs Vital Signs Date Time Temp Pulse Resp B/P (MAP) Pulse Ox O2 Delivery O2 Flow Rate FiO2 10/03/21 08:35 100 187/87 10/03/21 07:00 97.8 16 99 Room Air 97.8 I & 0 Intake and Output 10/03/21 07:00 Intake Total 1470 ml Output Total 1650 ml Balance -180 ml Intake Oral 1470 ml Output Urine Total 1650 ml # Voids 4 PHYSICAL EXAM Physical Exam GENERAL: Morbidly Obese , HEEN Normocephalic, atraumatic NECK: Supple. HEART: normal first and second heart sounds. No gallop, rub or murmur. LUNGS : Clear to auscultation, decreased at bases, non labored ABDOMEN: Distended, soft, nontender. NEUROLOGIC: Grossly Normal, Moves all 4 extremities . She did complain of numbness in her left side of the face without any obvious motor deficit. PSYCH COOPERATIVE EXT LE edema + Weiss + , No CVA or SP tenderness DERM No Rash DIAGNOSIS/ASSESSMENT Assessment & Plan JUDITH -atn / Vomiting /Poor po intake/ IV Contrast / Hx of NSAID use . Baseline Cr normal in 2017 per [facility] records. No Interval labs available .UA unremarkable, US Unremarkable, Started on dialysis on 09/27 ,2 nd treatment 09/29 . . Supportive care , Monitor for Renal recovery, Reports Increased UOP since I gave her Lasix x 1 on 10/02. Strict I/O , Daily standing weight Cr trended down, stable .no indication for dialysis today CKD - per Primary's note, No interval labs. 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 Renal Duplex Normal . 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 Type 2 Diabetes mellitus. she stopped Insulin on her own recently Bronchial asthma COMMENT/RELEVANT DATA Meds Current Medications Medications (Trade) Dose Ordered Sig/Maya Start Time Stop Time Status Last Admin Dose Admin Acetaminophen (Tylenol) 650 mg PRN Q6HRS PRN 09/24/21 16:45 10/02/21 21:42 650 MG Aspirin (Aspirin Rectal Supp) 300 mg PRN DAILY PRN 09/24/21 16:45 Aspirin (Ecotrin) 325 mg DAILYWBKFT 09/24/21 17:00 10/03/21 08:34 325 MG Atorvastatin Calcium (Lipitor) 80 mg QHS 09/24/21 21:00 10/02/21 21:41 80 MG Enoxaparin Sodium (Lovenox 60mg Syringe) 60 mg Q24H 09/25/21 17:00 09/27/21 11:36 DC 09/25/21 17:41 60 MG Enoxaparin Sodium (Lovenox Per Pharmacy Prophylaxis Dosing) 1 each PRN DAILY PRN 09/25/21 16:00 09/27/21 11:43 DC Furosemide (Lasix) 40 mg 1X ONCE 10/02/21 14:45 10/02/21 14:46 DC 10/02/21 14:42 40 MG Heparin Sodium (Porcine) (Heparin Sodium) 5,000 unit Q8HRS 09/27/21 14:00 09/28/21 08:49 DC 09/28/21 06:27 5,000 UNIT Hydralazine HCl (Apresoline) 50 mg TID 10/02/21 09:00 10/03/21 08:34 50 MG Info (PHARMACY MONITORING -- do not chart) 1 each PRN DAILY PRN 09/29/21 10:45 UNV Insulin Glargine (Lantus Syringe) 40 unit 1X ONCE 09/23/21 23:00 09/23/21 23:01 DC 09/23/21 22:21 40 UNIT Insulin Human Lispro (HumaLOG) 20 units TIDWMEALS 09/25/21 08:45 10/03/21 08:36 20 UNITS Lidocaine HCl (Buffered Lidocaine 1%) 6 ml 1X ONCE 09/26/21 12:15 09/26/21 12:16 DC Losartan Potassium (Cozaar) 100 mg DAILY 09/24/21 09:00 09/25/21 10:31 DC 09/25/21 09:28 100 MG Montelukast Sodium (Singulair) 10 mg DAILY 09/24/21 09:00 10/03/21 08:34 10 MG Nicardipine HCl 50 mg/Sodium Chloride 250 ml @ 25 mls/hr CONT PRN PRN 09/24/21 16:45 09/29/21 14:30 DC 09/28/21 20:30 37.5 MLS/HR Nifedipine (Procardia Xl) 120 mg DAILY 09/28/21 09:15 10/03/21 08:35 120 MG Ondansetron HCl (Zofran Odt) 4 mg PRN Q6HRS PRN 09/25/21 15:00 10/02/21 20:52 4 MG Ondansetron HCl (Zofran) 4 mg PRN Q4HRS PRN 09/26/21 10:15 09/30/21 15:23 4 MG Sodium Chloride 1,000 ml @ 400 mls/hr Q2H30M PRN 09/29/21 10:45 09/29/21 22:44 DC Sodium Chloride ([place] Saline Nasal) 1 jax PRN DAILY PRN 09/26/21 10:15 09/27/21 09:05 1 JAX Spironolactone (Aldactone) 50 mg DAILY 09/24/21 09:00 09/27/21 09:48 DC 09/27/21 09:03 50 MG Zolpidem Tartrate (Ambien) 5 mg PRN QHS PRN 09/23/21 21:45 10/01/21 21:01 5 MG Lab Laboratory Tests Test 10/02/21 11:37 10/02/21 16:43 10/02/21 20:47 10/03/21 06:00 Glucose (Fingerstick) 79 mg/dL (70-99) 81 mg/dL (70-99) 118 mg/dL (70-99) Sodium Level 136 mmol/L (136-145) Potassium Level 4.7 mmol/L (3.5-5.1) Chloride Level 101 mmol/L (98-107) Carbon Dioxide Level 26 mmol/L (21-32) Anion Gap 9 (6-14) Blood Urea Nitrogen 23 mg/dL (7-20) Creatinine 2.4 mg/dL (0.6-1.0) Estimated GFR (Cockcroft-Gault) 22.2 Glucose Level 124 mg/dL (70-99) Calcium Level 8.8 mg/dL (8.5-10.1) Test 10/03/21 07:15 Glucose (Fingerstick) 121 mg/dL (70-99) Results All relevant outside records, renal labs, imaging studies, telemetry/EKG's were reviewed. Justicifation of Admission Dx: Justifications for Admission: Justification of Admission Dx: Yes Stroke - Ischemic: Stroke-Ischemic LISA NORMAN MD October 03, 2021 09:12
[2021-10-03 11:00] VITALS: BP 170/85
[2021-10-03 15:00] VITALS: BP 184/78
[2021-10-03] MEDS: cloNIDine TTS-3 1 PATCH PATCH.TDWK TD SCH (15:47)
--- NOTE | 2021-10-03 15:47 | NUR ---
SS following up with discharge planning. SS reviewed pt chart and discussed with pt RN. Pt is currently on room air. PT/OT recommended acute rehabilitation. Nephrology monitoring for renal recovery. Pt considering acute rehabilitation at this time. Referral was sent to [facility], ; fax [phone], and pt accepted pending insurance approval. SS will continue to follow for discharge planning.
[2021-10-03 19:54] VITALS: BP 186/79
[2021-10-03] MEDS: ACETAMINOPHEN 325 MG TABLET. PO PRN (20:46)
[2021-10-03] MEDS: ATORVASTATIN CALCIUM 40 MG TABLET. PO SCH (20:46)
[2021-10-03] MEDS: ZOLPIDEM 5 MG TABLET. PO PRN (20:47)
[2021-10-03] MEDS: INSULIN GLARGINE SYRINGE. SQ SCH (20:51)
--- NOTE | 2021-10-03 23:15 | PN ---
DATE: 10/03/2021 SUBJECTIVE: The patient is resting, slightly propped up in bed, in no apparent respiratory distress. She is sleepy, but arousable. On questioning her, denied any complaint. Her kidney function remained stable and did not require any hemodialysis; however, her blood pressure continued to be suboptimally controlled. PHYSICAL EXAMINATION: GENERAL: When I examined her, she looked pale, but not jaundiced or cyanosed, no lymphadenopathy, no thyromegaly, no jugular venous distention. No limb edema. VITAL SIGNS: Her heart rate was 100, blood pressure was 187/87, temperature was 97.8, respiratory rate was 18 and oxygen saturation was 99% on room air. HEAD, EYES, EARS, NOSE, AND THROAT: Normocephalic, atraumatic. NECK: Supple. HEART: Normal first and second heart sounds. No gallop or murmur. CHEST: Clear to auscultation, no crepitation or rhonchi. ABDOMEN: Distended, soft, nontender. NEUROLOGIC: She was grossly intact. Her intake was 900, output was 900. LABORATORY DATA: As of this morning showed a serum sodium 136, potassium 4.7, chloride 101, bicarbonate 26, anion gap of 9, BUN 23, creatinine 2.4. Estimated GFR was 23 mL per minute. Her glucose 124 and calcium was 8.8. Her blood sugar is well controlled. ASSESSMENT: 1. Hypertensive encephalopathy, which she was on Cardene drip that was discontinued. She is now on Procardia 120 mg once a day. Her blood pressure continued to be suboptimally controlled and I increased hydralazine to 100 mg 3 times a day. 2. The patient did complain of tingling and numbness of her left side of the face and an MRI showed that she has focal area of acute or subacute ischemia involving the left lateral shannen extending into the left brachium pontis. There is also an associated cytotoxic edema without significant mass effect or hemorrhage. 3. Acute on chronic kidney injury. Her creatinine has plateaued. In fact, today her serum creatinine is 2.4. She does not require dialysis yesterday and she would not to require dialysis today. 4. Type 2 diabetes mellitus, seems to be reasonably controlled. 5. Bronchial asthma, clinically quiescent. 6. Morbid obesity and obstructive sleep apnea. 7. Her regular menstrual periods, which she was on oral contraceptive pill that was held. 8. Unsteadiness and debility, for which she will continue with physical and occupational therapy. PLAN: To continue with PT, OT. Continue to monitor blood sugar and adjust insulin as needed. I did increase hydralazine to 100 mg 3 times a day. We will continue to monitor her kidney function and urine output, although she seemed to have kidney function seems has plateaued at her baseline. DARIO DR: Jared TID: [id number]
[2021-10-03 23:21] VITALS: BP 146/75
[2021-10-04 03:36] VITALS: BP 128/58
[2021-10-04] MEDS: ONDANSETRON ODT 4 MG TAB.RAPDIS. PO PRN ×3 (03:41→19:22)
[2021-10-04 06:46] LABS: HEMATOCRIT 31.3 % (36.0-47.0); HEMOGLOBIN 10.3 g/dL (12.0-15.5); RED BLOOD COUNT 3.61 x10^6/uL (3.50-5.40); RED CELL DISTRIBUTION WIDTH 13.5 % (11.5-14.5); WHITE BLOOD COUNT 10.8 x10^3/uL (4.0-11.0)
[2021-10-04 07:00] VITALS: BP 139/66
[2021-10-04 07:04] LABS: ALBUMIN 2.5 g/dL (3.4-5.0); ALBUMIN/GLOBULIN RATIO 0.6 (1.0-1.7); CALCIUM 8.7 mg/dL (8.5-10.1); GFR 27.5; POTASSIUM 4.9 mmol/L (3.5-5.1); TOTAL BILIRUBIN 0.2 mg/dL (0.2-1.0)
[2021-10-04] MEDS: ASPIRIN ENTERIC COATED 325 MG TABLET.DR. PO SCH (09:05)
[2021-10-04] MEDS: MONTELUKAST SODIUM 10 MG TABLET. PO SCH (09:05)
[2021-10-04] MEDS: INSULIN LISPRO 300 UNITS/3 ML VIAL. SQ SCH ×3 (09:11→17:00)
--- NOTE | 2021-10-04 09:34 | PDOC ---
DATE OF SERVICE DATE: 10/04/21 TIME: 09:32 SUBJECTIVE ROS Denies SOB , No N/V. States feeling tired OBJECTIVE Vital Signs Vital Signs Date Time Temp Pulse Resp B/P (MAP) Pulse Ox O2 Delivery O2 Flow Rate FiO2 10/04/21 09:05 99 139/66 10/04/21 07:00 98.6 16 96 Room Air 98.6 I & 0 Intake and Output 10/04/21 07:00 Intake Total 860 ml Output Total 1100 ml Balance -240 ml Intake Oral 860 ml Output Urine Total 1100 ml # Voids 1 PHYSICAL EXAM Physical Exam GENERAL: Morbidly Obese , HEEN Normocephalic, atraumatic NECK: Supple. HEART: normal first and second heart sounds. No gallop, rub or murmur. LUNGS : Clear to auscultation, decreased at bases, non labored ABDOMEN: Distended, soft, nontender. NEUROLOGIC: Grossly Normal, Moves all 4 extremities . She did complain of numbness in her left side of the face without any obvious motor deficit. PSYCH COOPERATIVE EXT LE edema + Weiss + , No CVA or SP tenderness DERM No Rash DIAGNOSIS/ASSESSMENT Assessment & Plan JUDITH -atn / Vomiting /Poor po intake/ IV Contrast / Hx of NSAID use . Baseline Cr normal in 2017 per [facility] records. No Interval labs available .UA unremarkable, US Unremarkable, Started on dialysis on 09/27 ,2 nd treatment 09/29 . . Supportive care Reports Increased UOP since I gave her Lasix x 1 on 10/02. Will give another dose today. Creatinine trending down Strict I/O , Daily standing weight .no indication for dialysis today CKD - per Primary's note, No interval labs. 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 Renal Duplex Normal . Can add Labetalol . Dw Dr Camejo . 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 Type 2 Diabetes mellitus. she stopped Insulin on her own recently Bronchial asthma COMMENT/RELEVANT DATA Meds Current Medications Medications (Trade) Dose Ordered Sig/Maya Start Time Stop Time Status Last Admin Dose Admin Acetaminophen (Tylenol) 650 mg PRN Q6HRS PRN 09/24/21 16:45 10/03/21 20:46 650 MG Aspirin (Aspirin Rectal Supp) 300 mg PRN DAILY PRN 09/24/21 16:45 Aspirin (Ecotrin) 325 mg DAILYWBKFT 09/24/21 17:00 10/04/21 09:05 325 MG Atorvastatin Calcium (Lipitor) 80 mg QHS 09/24/21 21:00 10/03/21 20:46 80 MG Clonidine HCl (Catapres Tts-3) 1 patch WEEKLY 10/03/21 15:30 10/03/21 15:47 1 PATCH Enoxaparin Sodium (Lovenox 60mg Syringe) 60 mg Q24H 09/25/21 17:00 09/27/21 11:36 DC 09/25/21 17:41 60 MG Enoxaparin Sodium (Lovenox Per Pharmacy Prophylaxis Dosing) 1 each PRN DAILY PRN 09/25/21 16:00 09/27/21 11:43 DC Furosemide (Lasix) 40 mg 1X ONCE 10/04/21 09:45 10/04/21 09:46 Heparin Sodium (Porcine) (Heparin Sodium) 5,000 unit Q8HRS 09/27/21 14:00 09/28/21 08:49 DC 09/28/21 06:27 5,000 UNIT Hydralazine HCl (Apresoline) 100 mg TID 10/03/21 10:30 10/04/21 09:05 100 MG Info (PHARMACY MONITORING -- do not chart) 1 each PRN DAILY PRN 09/29/21 10:45 UNV Insulin Glargine (Lantus Syringe) 40 unit 1X ONCE 09/23/21 23:00 09/23/21 23:01 DC 09/23/21 22:21 40 UNIT Insulin Human Lispro (HumaLOG) 20 units TIDWMEALS 09/25/21 08:45 10/04/21 09:11 20 UNITS Lidocaine HCl (Buffered Lidocaine 1%) 6 ml 1X ONCE 09/26/21 12:15 09/26/21 12:16 DC Losartan Potassium (Cozaar) 100 mg DAILY 09/24/21 09:00 09/25/21 10:31 DC 09/25/21 09:28 100 MG Montelukast Sodium (Singulair) 10 mg DAILY 09/24/21 09:00 10/04/21 09:05 10 MG Nicardipine HCl 50 mg/Sodium Chloride 250 ml @ 25 mls/hr CONT PRN PRN 09/24/21 16:45 09/29/21 14:30 DC 09/28/21 20:30 37.5 MLS/HR Nifedipine (Procardia Xl) 120 mg DAILY 09/28/21 09:15 10/04/21 09:04 120 MG Ondansetron HCl (Zofran Odt) 4 mg PRN Q6HRS PRN 09/25/21 15:00 10/04/21 03:41 4 MG Ondansetron HCl (Zofran) 4 mg PRN Q4HRS PRN 09/26/21 10:15 09/30/21 15:23 4 MG Sodium Chloride 1,000 ml @ 400 mls/hr Q2H30M PRN 09/29/21 10:45 09/29/21 22:44 DC Sodium Chloride ([place] Saline Nasal) 1 jax PRN DAILY PRN 09/26/21 10:15 09/27/21 09:05 1 JAX Spironolactone (Aldactone) 50 mg DAILY 09/24/21 09:00 09/27/21 09:48 DC 09/27/21 09:03 50 MG Zolpidem Tartrate (Ambien) 5 mg PRN QHS PRN 09/23/21 21:45 10/03/21 20:47 5 MG Lab Laboratory Tests Test 10/03/21 11:15 10/03/21 16:30 10/03/21 20:04 10/04/21 06:30 Glucose (Fingerstick) 119 mg/dL (70-99) 150 mg/dL (70-99) 125 mg/dL (70-99) White Blood Count 10.8 x10^3/uL (4.0-11.0) Red Blood Count 3.61 x10^6/uL (3.50-5.40) Hemoglobin 10.3 g/dL (12.0-15.5) Hematocrit 31.3 % (36.0-47.0) Mean Corpuscular Volume 87 fL (79-100) Mean Corpuscular Hemoglobin 29 pg (25-35) Mean Corpuscular Hemoglobin Concent 33 g/dL (31-37) Red Cell Distribution Width 13.5 % (11.5-14.5) Platelet Count 366 x10^3/uL (140-400) Sodium Level 134 mmol/L (136-145) Potassium Level 4.9 mmol/L (3.5-5.1) Chloride Level 102 mmol/L (98-107) Carbon Dioxide Level 25 mmol/L (21-32) Anion Gap 7 (6-14) Blood Urea Nitrogen 19 mg/dL (7-20) Creatinine 2.0 mg/dL (0.6-1.0) Estimated GFR (Cockcroft-Gault) 27.5 BUN/Creatinine Ratio 10 (6-20) Glucose Level 170 mg/dL (70-99) Calcium Level 8.7 mg/dL (8.5-10.1) Total Bilirubin 0.2 mg/dL (0.2-1.0) Aspartate Amino Transf (AST/SGOT) 18 U/L (15-37) Alanine Aminotransferase (ALT/SGPT) 33 U/L (14-59) Alkaline Phosphatase 141 U/L (46-116) Total Protein 7.0 g/dL (6.4-8.2) Albumin 2.5 g/dL (3.4-5.0) Albumin/Globulin Ratio 0.6 (1.0-1.7) Test 10/04/21 07:09 Glucose (Fingerstick) 162 mg/dL (70-99) Results All relevant outside records, renal labs, imaging studies, telemetry/EKG's were reviewed. Justicifation of Admission Dx: Justifications for Admission: Justification of Admission Dx: Yes Stroke - Ischemic: Stroke-Ischemic LISA NORMAN MD October 04, 2021 09:34
[2021-10-04] MEDS ORDERED: FUROSEMIDE 40 MG/4 ML VIAL. IVP ONE (09:45)
[2021-10-04 11:00] VITALS: BP 162/73
--- NOTE | 2021-10-04 12:00 | PN ---
DATE: 10/04/2021 SUBJECTIVE: The patient is resting, slightly propped up in bed, in her recliner in no apparent distress. On questioning her, denied any complaint. Nursing staff did not voice any concern. Her blood pressure is much better controlled now and her creatinine is actually trending down. Her serum creatinine this morning was down to 2 mg/dL. PHYSICAL EXAMINATION: GENERAL: When I examined her this morning, she looked well and was clearly in no apparent respiratory distress. She is pale, but not jaundiced or cyanosed. No thyromegaly. No jugular venous distention. Mild bilateral lower limb edema. VITAL SIGNS: Her heart rate was 99, blood pressure was 139/66, temperature was 98.6, respiratory rate was 16 and oxygen saturation was 96% on room air. HEAD, EYES, EARS, NOSE AND THROAT: Normocephalic, atraumatic. NECK: Supple. HEART: Normal first and second heart sounds. No gallop or murmur. CHEST: Clear to auscultation, no crepitation or rhonchi. ABDOMEN: Distended, soft, nontender. NEUROLOGIC: She is grossly intact. Her intake was 1470, output was 1650. LABORATORY DATA: As of this morning, her white cell count was 10.8, hemoglobin 10, hematocrit 31, MCV 87 and platelet count 366,000. Her chemistry showed a serum sodium 134, potassium 4.9, chloride 102, bicarbonate 25, anion gap of 7, BUN 19, creatinine 2, estimated GFR was 27 mL per minute. Her glucose 170, calcium was 8.7. Total bilirubin, AST, ALT were normal. Alkaline phosphatase slightly elevated. Total protein 7, albumin 2.5. ASSESSMENT: 1. Hypertensive encephalopathy, for which she was started on Cardene drip that was discontinued. She is now on Procardia 120 mg once a day, hydralazine 100 mg 3 times a day and clonidine patch TTS 0.3 mg topically once a week. Her blood pressure is much better controlled. 2. The patient did complain of tingling and numbness of her left side of the face and an MRI showed that she has a focal area of acute to subacute ischemia involving the left lateral shannen extending into the left brachium pontis. There is also an associated cytotoxic edema without significant mass effect or hemorrhage. 3. Acute on chronic kidney injury, improving. Her creatinine is down from 4.2, down to 2 today. 4. Type 2 diabetes mellitus, seems to be reasonably controlled. 5. Bronchial asthma, clinically quiescent. 6. Morbid obesity and possible obstructive sleep apnea. 7. She has irregular menstrual periods, for which she was on contraceptive pills that was held. 8. Unsteadiness and debility, for which she will continue with physical and occupational therapy now that her blood pressure is much better controlled. 9. Once her transfer authorized to [facility], she probably can be discharged to continue the process of rehabilitation there. CLEM DR: Jared TID: [id number]
--- NOTE | 2021-10-04 13:04 | NUR ---
Patient vomited large amount shortly after eating lunch. Patient cleaned up & Zofran administered.
[2021-10-04 15:00] VITALS: BP 170/74
--- NOTE | 2021-10-04 16:07 | NUR ---
SS following up with discharge planning. SS reviewed pt chart and discussed with pt RN. Pt is currently on room air. PT/OT recommended acute rehabilitation. Pt accepted at [facility], ; fax [phone], pending insurance approval. Insurance still pending at this time. SS will continue to follow for discharge planning.
--- NOTE | 2021-10-04 18:27 | NUR ---
Patient had a friend come in and she is doing a bath and full cleanup with patient.
[2021-10-04 19:37] VITALS: BP 143/67
[2021-10-04] MEDS: ATORVASTATIN CALCIUM 40 MG TABLET. PO SCH (20:32)
[2021-10-04] MEDS: INSULIN GLARGINE SYRINGE. SQ SCH (20:38)
[2021-10-04 23:07] VITALS: BP 133/59
[2021-10-05 03:50] VITALS: BP 119/47
[2021-10-05 07:00] VITALS: BP 142/67
[2021-10-05] MEDS: INSULIN LISPRO 300 UNITS/3 ML VIAL. SQ SCH ×3 (07:32→17:00)
[2021-10-05] MEDS: ASPIRIN ENTERIC COATED 325 MG TABLET.DR. PO SCH (08:41)
[2021-10-05] MEDS: MONTELUKAST SODIUM 10 MG TABLET. PO SCH (08:42)
--- NOTE | 2021-10-05 09:12 | PDOC ---
DATE OF SERVICE DATE: 10/05/21 TIME: 09:11 SUBJECTIVE ROS Denies SOB , No N/V. States feeling tired OBJECTIVE Vital Signs Vital Signs Date Time Temp Pulse Resp B/P (MAP) Pulse Ox O2 Delivery O2 Flow Rate FiO2 10/05/21 08:42 99 142/67 10/05/21 07:00 98.1 18 91 Room Air 98.1 I & 0 Intake and Output 10/05/21 07:00 Intake Total 200 ml Output Total 2100 ml Balance -1900 ml Intake Oral 200 ml Output Urine Total 2100 ml # Voids 1 PHYSICAL EXAM Physical Exam GENERAL: Morbidly Obese , HEEN Normocephalic, atraumatic NECK: Supple. HEART: normal first and second heart sounds. No gallop, rub or murmur. LUNGS : Clear to auscultation, decreased at bases, non labored ABDOMEN: Distended, soft, nontender. NEUROLOGIC: Grossly Normal, Moves all 4 extremities . She did complain of numbness in her left side of the face without any obvious motor deficit. PSYCH COOPERATIVE EXT LE edema + Weiss + , No CVA or SP tenderness DERM No Rash DIAGNOSIS/ASSESSMENT Assessment & Plan JUDITH -atn / Vomiting /Poor po intake/ IV Contrast / Hx of NSAID use . Baseline Cr normal in 2017 per [facility] records. No Interval labs available .UA unremarkable, US Unremarkable, Started on dialysis on 09/27 ,2 nd treatment 09/29 . . Supportive care Creatinine stable Strict I/O , Daily standing weight .no indication for dialysis today . DC Temp HDc prior to dc if stable renal function CKD - per Primary's note, No interval labs, dont know her baseline . 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 Renal Duplex Normal . Can add Labetalol . Dw Dr Camejo . 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 Type 2 Diabetes mellitus. she stopped Insulin on her own recently Bronchial asthma COMMENT/RELEVANT DATA Meds Current Medications Medications (Trade) Dose Ordered Sig/Maya Start Time Stop Time Status Last Admin Dose Admin Acetaminophen (Tylenol) 650 mg PRN Q6HRS PRN 09/24/21 16:45 10/03/21 20:46 650 MG Aspirin (Aspirin Rectal Supp) 300 mg PRN DAILY PRN 09/24/21 16:45 Aspirin (Ecotrin) 325 mg DAILYWBKFT 09/24/21 17:00 10/05/21 08:41 325 MG Atorvastatin Calcium (Lipitor) 80 mg QHS 09/24/21 21:00 10/04/21 20:32 80 MG Clonidine HCl (Catapres Tts-3) 1 patch WEEKLY 10/03/21 15:30 10/03/21 15:47 1 PATCH Enoxaparin Sodium (Lovenox 60mg Syringe) 60 mg Q24H 09/25/21 17:00 09/27/21 11:36 DC 09/25/21 17:41 60 MG Enoxaparin Sodium (Lovenox Per Pharmacy Prophylaxis Dosing) 1 each PRN DAILY PRN 09/25/21 16:00 09/27/21 11:43 DC Furosemide (Lasix) 40 mg 1X ONCE 10/04/21 09:45 10/04/21 09:46 DC 10/04/21 11:04 40 MG Heparin Sodium (Porcine) (Heparin Sodium) 5,000 unit Q8HRS 09/27/21 14:00 09/28/21 08:49 DC 09/28/21 06:27 5,000 UNIT Hydralazine HCl (Apresoline) 100 mg TID 10/03/21 10:30 10/05/21 08:42 100 MG Info (PHARMACY MONITORING -- do not chart) 1 each PRN DAILY PRN 09/29/21 10:45 UNV Insulin Glargine (Lantus Syringe) 40 unit 1X ONCE 09/23/21 23:00 09/23/21 23:01 DC 09/23/21 22:21 40 UNIT Insulin Human Lispro (HumaLOG) 20 units TIDWMEALS 09/25/21 08:45 10/04/21 12:09 20 UNITS Lidocaine HCl (Buffered Lidocaine 1%) 6 ml 1X ONCE 09/26/21 12:15 09/26/21 12:16 DC Losartan Potassium (Cozaar) 100 mg DAILY 09/24/21 09:00 09/25/21 10:31 DC 09/25/21 09:28 100 MG Montelukast Sodium (Singulair) 10 mg DAILY 09/24/21 09:00 10/05/21 08:42 10 MG Nicardipine HCl 50 mg/Sodium Chloride 250 ml @ 25 mls/hr CONT PRN PRN 09/24/21 16:45 09/29/21 14:30 DC 09/28/21 20:30 37.5 MLS/HR Nifedipine (Procardia Xl) 120 mg DAILY 09/28/21 09:15 10/05/21 08:41 120 MG Ondansetron HCl (Zofran Odt) 4 mg PRN Q6HRS PRN 09/25/21 15:00 10/04/21 19:22 4 MG Ondansetron HCl (Zofran) 4 mg PRN Q4HRS PRN 09/26/21 10:15 09/30/21 15:23 4 MG Sodium Chloride 1,000 ml @ 400 mls/hr Q2H30M PRN 09/29/21 10:45 09/29/21 22:44 DC Sodium Chloride ([place] Saline Nasal) 1 jax PRN DAILY PRN 09/26/21 10:15 09/27/21 09:05 1 JAX Spironolactone (Aldactone) 50 mg DAILY 09/24/21 09:00 09/27/21 09:48 DC 09/27/21 09:03 50 MG Zolpidem Tartrate (Ambien) 5 mg PRN QHS PRN 09/23/21 21:45 10/03/21 20:47 5 MG Lab Laboratory Tests Test 10/04/21 11:23 10/04/21 16:50 10/04/21 20:40 10/05/21 07:12 Glucose (Fingerstick) 147 mg/dL (70-99) 106 mg/dL (70-99) 134 mg/dL (70-99) 91 mg/dL (70-99) Results All relevant outside records, renal labs, imaging studies, telemetry/EKG's were reviewed. Justicifation of Admission Dx: Justifications for Admission: Justification of Admission Dx: Yes Stroke - Ischemic: Stroke-Ischemic LISA NORMAN MD October 05, 2021 09:12
--- NOTE | 2021-10-05 09:47 | PDOC ---
PROGRESS NOTES Date of Service DATE: 10/05/21 TIME: 09:45 Assessment Small left lateral shannen infarct extending to the left brachium pontis. Has left facial numbness still, needs roller walker to ambulate Hypertensive encephalopathy, blood pressure still running very high, could not participate in physical therapy yesterday [id number] kidney injury, had CT angiogram of chest at [facility]. Started dialysis, she has not needed it in the last 2 days History of diabetes, hypertension, hyperlipidemia, noncompliant, asthma, sleep apnea Echocardiogram noted, I do not think she needs a transesophageal echocardiogram, the location of the stroke is unlikely cardiac-source Plan Aspirin High-dose statin Treatment of hypertension. Tightened parameters back to 150/90 starting 09/26 Rehabilitation modalities Agree with transfer to [facility] rehab Subjective No new complaints Objective Vital Signs Date Time Temp Pulse Resp B/P (MAP) Pulse Ox O2 Delivery O2 Flow Rate FiO2 10/05/21 08:42 99 142/67 10/05/21 07:00 98.1 18 91 Room Air 98.1 Intake and Output 10/05/21 07:00 Intake Total 200 ml Output Total 2100 ml Balance -1900 ml Intake Oral 200 ml Output Urine Total 2100 ml # Voids 1 PHYSICAL EXAM Alert. Oriented to time, place and person. PERRL. EOMI. CN: Slight left cheek sensory loss, slight left central facial weakness, otherwise no focal findings. Muscle tone: normal. Muscle strength: 4/5 DTR: 2+ Plantar reflex: Flexor Gait: not examined in bed. Sensory exam: no abnormal findings. No cerebellar signs elicited. Review of Relevant I have reviewed the following items mauricio (where applicable) has been applied. Labs Laboratory Tests Test 10/03/21 11:15 10/03/21 16:30 10/03/21 20:04 10/04/21 06:30 Glucose (Fingerstick) 119 mg/dL (70-99) 150 mg/dL (70-99) 125 mg/dL (70-99) White Blood Count 10.8 x10^3/uL (4.0-11.0) Red Blood Count 3.61 x10^6/uL (3.50-5.40) Hemoglobin 10.3 g/dL (12.0-15.5) Hematocrit 31.3 % (36.0-47.0) Mean Corpuscular Volume 87 fL (79-100) Mean Corpuscular Hemoglobin 29 pg (25-35) Mean Corpuscular Hemoglobin Concent 33 g/dL (31-37) Red Cell Distribution Width 13.5 % (11.5-14.5) Platelet Count 366 x10^3/uL (140-400) Sodium Level 134 mmol/L (136-145) Potassium Level 4.9 mmol/L (3.5-5.1) Chloride Level 102 mmol/L (98-107) Carbon Dioxide Level 25 mmol/L (21-32) Anion Gap 7 (6-14) Blood Urea Nitrogen 19 mg/dL (7-20) Creatinine 2.0 mg/dL (0.6-1.0) Estimated GFR (Cockcroft-Gault) 27.5 BUN/Creatinine Ratio 10 (6-20) Glucose Level 170 mg/dL (70-99) Calcium Level 8.7 mg/dL (8.5-10.1) Total Bilirubin 0.2 mg/dL (0.2-1.0) Aspartate Amino Transf (AST/SGOT) 18 U/L (15-37) Alanine Aminotransferase (ALT/SGPT) 33 U/L (14-59) Alkaline Phosphatase 141 U/L (46-116) Total Protein 7.0 g/dL (6.4-8.2) Albumin 2.5 g/dL (3.4-5.0) Albumin/Globulin Ratio 0.6 (1.0-1.7) Test 10/04/21 07:09 10/04/21 11:23 10/04/21 16:50 10/04/21 20:40 Glucose (Fingerstick) 162 mg/dL (70-99) 147 mg/dL (70-99) 106 mg/dL (70-99) 134 mg/dL (70-99) Test 10/05/21 07:12 Glucose (Fingerstick) 91 mg/dL (70-99) Laboratory Tests Test 10/04/21 11:23 10/04/21 16:50 10/04/21 20:40 10/05/21 07:12 Glucose (Fingerstick) 147 mg/dL (70-99) 106 mg/dL (70-99) 134 mg/dL (70-99) 91 mg/dL (70-99) Medications Current Medications Nicardipine HCl 50 mg/Sodium Chloride 250 ml @ 25 mls/hr CONT PRN IV PER PROTOCOL Last administered on 09/24/21 15:53; Start 09/23/21 at 21:45; Stop 09/24/21 at 16:43; Status DC Nifedipine (Procardia Xl) 30 mg DAILY PO Last administered on 09/27/21at 09:04; Start 09/24/21 at 09:00; Stop 09/27/21 at 09:48; Status DC Zolpidem Tartrate (Ambien) 5 mg PRN QHS PRN PO INSOMNIA Last administered on 10/03/21 20:47; Start 09/23/21 at 21:45 Montelukast Sodium (Singulair) 10 mg DAILY PO Last administered on 10/05/21 08:42; Start 09/24/21 at 09:00 Insulin Human Lispro (HumaLOG) 15 units TIDWMEALS SQ Last administered on 09/24/21 18:30; Start 09/24/21 at 08:00; Stop 09/25/21 at 08:47; Status DC Insulin Glargine (Lantus Syringe) 40 unit QHS SQ Last administered on 10/04/21at 20:38; Start 09/24/21 at 21:00 Losartan Potassium (Cozaar) 100 mg DAILY PO Last administered on 09/25/21at 09:28; Start 09/24/21 at 09:00; Stop 09/25/21 at 10:31; Status DC Spironolactone (Aldactone) 50 mg DAILY PO Last administered on 09/27/21at 09:03; Start 09/24/21 at 09:00; Stop 09/27/21 at 09:48; Status DC Insulin Glargine (Lantus Syringe) 40 unit 1X ONCE SQ Last administered on 09/23/21at 22:21; Start 09/23/21 at 23:00; Stop 09/23/21 at 23:01; Status DC Sodium Chloride 1,000 ml @ 25 mls/hr Q24H IV Last administered on 09/27/21at 09:55; Start 09/24/21 at 15:15; Stop 09/29/21 at 14:30; Status DC Nicardipine HCl 50 mg/Sodium Chloride 250 ml @ 25 mls/hr CONT PRN PRN IV PER PROTOCOL Last administered on 09/28/21 20:30; Start 09/24/21 at 16:45; Stop 09/29/21 at 14:30; Status DC Atorvastatin Calcium (Lipitor) 80 mg QHS PO Last administered on 10/04/21 20:32; Start 09/24/21 at 21:00 Acetaminophen (Tylenol) 650 mg PRN Q6HRS PRN PO MILD PAIN / TEMP > 100.3'F Last administered on 10/03/21 20:46; Start 09/24/21 at 16:45 Aspirin (Ecotrin) 325 mg DAILYWBKFT PO Last administered on 10/05/21 08:41; Start 09/24/21 at 17:00 Aspirin (Aspirin Rectal Supp) 300 mg PRN DAILY PRN W[place] IF UNABLE TO TAKE PO; Start 09/24/21 at 16:45 Insulin Human Lispro (HumaLOG) 20 units TIDWMEALS SQ Last administered on 12:09; Start 09/25/21 at 08:45 Ondansetron HCl (Zofran Odt) 4 mg PRN Q6HRS PRN PO NAUSEA/VOMITING Last administered on 10/04/21 19:22; Start 09/25/21 at 15:00 Enoxaparin Sodium (Lovenox Per Pharmacy Prophylaxis Dosing) 1 each PRN DAILY PRN MC SEE COMMENTS; Start 09/25/21 at 16:00; Stop 09/27/21 at 11:43; Status DC Enoxaparin Sodium (Lovenox 60mg Syringe) 60 mg Q24H SQ Last administered on 09/25/21at 17:41; Start 09/25/21 at 17:00; Stop 09/27/21 at 11:36; Status DC Ondansetron HCl (Zofran) 4 mg PRN Q4HRS PRN IVP NAUSEA/VOMITING Last administered on 09/30/21at 15:23; Start 09/26/21 at 10:15 Sodium Chloride ([place] Saline Nasal) 1 jax PRN DAILY PRN NS NASAL CONGESTION Last administered on 09/27/21at 09:05; Start 09/26/21 at 10:15 Lidocaine HCl (Buffered Lidocaine 1%) 3 ml STK-MED ONCE .ROUTE ; Start 09/26/21 at 11:30; Stop 09/26/21 at 11:30; Status DC Lidocaine HCl (Buffered Lidocaine 1%) 6 ml 1X ONCE INJ ; Start 09/26/21 at 12:15; Stop 09/26/21 at 12:16; Status DC Sodium Chloride 1,000 ml @ 1,000 mls/hr Q1H PRN IV hypotension; Start 09/27/21 at 08:30; Stop 09/27/21 at 14:29; Status DC Sodium Chloride 1,000 ml @ 400 mls/hr Q2H30M PRN IV PATENCY; Start 09/27/21 at 08:30; Stop 09/27/21 at 20:29; Status DC Info (PHARMACY MONITORING -- do not chart) 1 each PRN DAILY PRN MC SEE COMMENTS; Start 09/27/21 at 08:30 Info (PHARMACY MONITORING -- do not chart) 1 each PRN DAILY PRN MC SEE COMMENTS; Start 09/27/21 at 08:30; Stop 09/27/21 at 08:27; Status DC Nifedipine (Procardia Xl) 60 mg DAILY PO Last administered on 09/27/21at 15:53; Start 09/27/21 at 10:00; Stop 09/28/21 at 07:15; Status DC Heparin Sodium (Porcine) (Heparin Sodium) 5,000 unit Q8HRS SQ Last administered on 09/28/21at 06:27; Start 09/27/21 at 14:00; Stop 09/28/21 at 08:49; Status DC Nifedipine (Procardia Xl) 90 mg DAILY PO Last administered on 09/28/21at 08:26; Start 09/28/21 at 09:00; Stop 09/28/21 at 09:12; Status DC Nifedipine (Procardia Xl) 120 mg DAILY PO Last administered on 10/05/21at 08:41; Start 09/28/21 at 09:15 Sodium Chloride 1,000 ml @ 1,000 mls/hr Q1H PRN IV hypotension; Start 09/29/21 at 10:45; Stop 09/29/21 at 16:44; Status DC Sodium Chloride 1,000 ml @ 400 mls/hr Q2H30M PRN IV PATENCY; Start 09/29/21 at 10:45; Stop 09/29/21 at 22:44; Status DC Info (PHARMACY MONITORING -- do not chart) 1 each PRN DAILY PRN MC SEE COMMENTS; Start 09/29/21 at 10:45; Status UNV Hydralazine HCl (Apresoline) 25 mg TID PO Last administered on 10/02/21at 07:57; Start 10/01/21 at 10:30; Stop 10/02/21 at 08:51; Status DC Hydralazine HCl (Apresoline) 50 mg TID PO Last administered on 10/03/21at 08:34; Start 10/02/21 at 09:00; Stop 10/03/21 at 10:20; Status DC Furosemide (Lasix) 40 mg 1X ONCE IVP Last administered on 10/02/21at 14:42; Start 10/02/21 at 14:45; Stop 10/02/21 at 14:46; Status DC Hydralazine HCl (Apresoline) 100 mg TID PO Last administered on 10/05/21at 08:42; Start 10/03/21 at 10:30 Clonidine HCl (Catapres Tts-3) 1 patch WEEKLY TD Last administered on 10/03/21at 15:47; Start 10/03/21 at 15:30 Furosemide (Lasix) 40 mg 1X ONCE IVP Last administered on 10/04/21at 11:04; Start 10/04/21 at 09:45; Stop 10/04/21 at 09:46; Status DC Active Scripts Active Levemir Flextouch (Insulin Detemir) 100 Unit/1 Ml Insuln.pen 40 Units SQ QHS 30 Days Novolog Flexpen (Insulin Aspart) 100 Unit/1 Ml Insuln.pen 15 Units SQ TIDAC 30 Days Reported Tri-Sprintec (Norgestimate-Ethinyl Estradiol) 1 Each Tablet 1 Tab PO DAILY Spironolactone 50 Mg Tablet 1 Tab PO DAILY Montelukast Sodium Tablet (Montelukast Sodium) 10 Mg Tablet 10 Mg PO DAILY Losartan Potassium 100 Mg Tablet 100 Mg PO DAILY Vitals/I & O Vital Sign - Last 24 Hours 10/04/21 10/04/21 10/04/21 10/04/21 11:00 14:18 15:00 19:37 Temp 98.6 97.2 97.9 98.6 97.2 97.9 Pulse 103 105 97 111 Resp 20 18 18 B/P (MAP) 162/73 (102) 170/74 170/74 (106) 143/67 (92) Pulse Ox 98 99 97 O2 Delivery Room Air Room Air Room Air 10/04/21 10/04/21 10/04/21 10/05/21 20:00 20:33 23:07 03:50 Temp 98.1 98.7 98.1 98.7 Pulse 111 109 103 Resp 16 16 B/P (MAP) 143/67 133/59 (83) 119/47 (71) Pulse Ox 94 94 O2 Delivery Room Air Room Air Room Air 10/05/21 10/05/21 10/05/21 07:00 08:41 08:42 Temp 98.1 98.1 Pulse 102 99 99 Resp 18 B/P (MAP) 142/67 (92) 142/67 142/67 Pulse Ox 91 O2 Delivery Room Air Intake and Output 10/04/21 10/04/21 10/05/21 15:00 23:00 07:00 Intake Total 100 ml 100 ml Output Total 1100 ml 1000 ml Balance -1100 ml 100 ml -900 ml Justicifation of Admission Dx: Justifications for Admission: Justification of Admission Dx: Yes Stroke - Ischemic: Stroke-Ischemic DOLORES TRISTAN MD October 05, 2021 09:47
[2021-10-05 10:47] LABS: CREATININE 2.2 mg/dL (0.6-1.0); GFR 24.6
[2021-10-05 11:00] VITALS: BP_SYST 132; BP_SYST 175; BP_DIAS 70; BP_DIAS 96
--- NOTE | 2021-10-05 11:56 | NUR ---
SS following up with discharge planning. SS reviewed pt chart and discussed with pt RN. Pt is currently on room air. PT/OT recommended acute rehabilitation on 10/01/2021 but were unable to follow up due to increased blood pressure issues. Pt accepted at [facility], ; fax [phone]. Insurance requesting peer to peer at phone number [phone]. Dr. Camejo notified. Dr. Camejo discussed case with PT and requested pt be treated today. PT assessed pt today. Dr. Camejo completing peer to peer today. Pt requesting referrals to either [facility], ; fax [phone], or [facility], ; fax [phone], if insurance will not approve [facility]. Referrals sent as requested. COVID19 PCR test requested. SS will continue to follow for discharge planning.
[2021-10-05] MEDS: LABETALOL HCL 100 MG TABLET. PO SCH ×2 (13:59→21:02)
[2021-10-05 15:00] VITALS: BP 151/74
[2021-10-05 19:20] VITALS: BP 184/83
[2021-10-05] MEDS: ATORVASTATIN CALCIUM 40 MG TABLET. PO SCH (21:00)
[2021-10-05] MEDS: INSULIN GLARGINE SYRINGE. SQ SCH (21:07)
[2021-10-05 22:38] VITALS: BP 136/67
[2021-10-05] MEDS: ONDANSETRON ODT 4 MG TAB.RAPDIS. PO PRN (23:00)
[2021-10-06 02:40] VITALS: BP 131/68
--- NOTE | 2021-10-06 05:56 | PN ---
DATE: 10/05/2021 SUBJECTIVE: The patient is resting, slightly propped up in bed, in no apparent respiratory distress. On questioning her, she denied any complaint. PHYSICAL EXAMINATION: GENERAL: When I examined her, she looked pale, but not jaundiced, cyanosed. No thyromegaly. No jugular venous distention. No limb edema. VITAL SIGNS: Her heart rate was 99, blood pressure is 142/67, temperature was 98.1, respiratory rate was 18 and oxygen saturation was 91% on room air. HEAD, EYES, EARS, NOSE, AND THROAT: Normocephalic, atraumatic. NECK: Supple. HEART: Showed normal first and second heart sounds. No gallop or murmur. CHEST: Clear to auscultation, no crepitation or rhonchi. ABDOMEN: Distended, soft, nontender. NEUROLOGIC: She was awake, alert, responding appropriately. She moves extremities without difficulty, although she is mostly wheelchair bound. She is able to ambulate with a walker with standby assist. Her intake was 860, output was 1100. Her chemistry is still pending at the time of this dictation. LABORATORY DATA: As of yesterday, her white cell count was 10.8, hemoglobin 10, hematocrit 31, MCV 87 and platelet count 366,000. Her chemistry as of yesterday showed that her BUN was 19, creatinine 2. ASSESSMENT AND PLAN: 1. Hypertensive encephalopathy, for which she was started on Cardene drip that was discontinued. She is now on Procardia 120 mg once a day, hydralazine 100 mg 3 times a day and clonidine TTS 0.3 patch topically once a week. Her blood pressure is much better controlled with an average blood pressure 140/90. 2. The patient did complain of tingling and numbness in her left side of the face and an MRI showed that she has a focal area of acute to subacute ischemia involving the left lateral shannen and extending into the left brachium pontis. There is also an associated cytotoxic edema without significant mass effect or hemorrhage. 3. Acute on chronic kidney injury, improving. Her most recent creatinine was from 4.2 down to 2 mg. Today's labs still pending at time of this dictation. 4. Type 2 diabetes mellitus, seems to be reasonably controlled. 5. Bronchial asthma, clinically quiescent. 6. Morbid obesity and possible obstructive sleep apnea. 7. She has regular menstrual period for which she was on contraceptive pill that was held. 8. Unsteadiness and debility for which continue with physical and occupational therapy now that her blood pressure was much better controlled. ELIOT/MEGAN/ROE DR: Jared TID: [id number]
[2021-10-06 06:07] LABS: CALCIUM 8.6 mg/dL (8.5-10.1); CREATININE 2.3 mg/dL (0.6-1.0); GFR 23.4
[2021-10-06 07:00] VITALS: BP 118/60
[2021-10-06] MEDS: MONTELUKAST SODIUM 10 MG TABLET. PO SCH (07:55)
[2021-10-06] MEDS: LABETALOL HCL 100 MG TABLET. PO SCH ×2 (07:56→20:42)
[2021-10-06] MEDS: ASPIRIN ENTERIC COATED 325 MG TABLET.DR. PO SCH (07:58)
[2021-10-06] MEDS: INSULIN LISPRO 300 UNITS/3 ML VIAL. SQ SCH ×3 (08:10→17:08)
[2021-10-06 10:30] VITALS: BP 153/79
--- NOTE | 2021-10-06 12:44 | PDOC ---
DATE OF SERVICE: DOS: DATE: 10/06/21 TIME: 12:41 SUBJECTIVE ROS Follow-up for JUDITH +/- ? CKD Damari denies any new complaints today. She does not appear to have eaten much of her lunch tray other than her sandwich. CVS: no Orthopnea, no CP RESP: no SOB, no PRESCOTT GI: no Nausea, no Vomiting : no Dysuria, no Urgency OBJECTIVE Vital Signs Vital Signs Date Time Temp Pulse Resp B/P (MAP) Pulse Ox O2 Delivery O2 Flow Rate FiO2 10/06/21 10:30 99.0 99 18 153/79 (103) 94 Room Air 99.0 I & 0 Intake and Output 10/06/21 07:00 Intake Total 820 ml Output Total 2000 ml Balance -1180 ml Intake Oral 820 ml Output Urine Total 2000 ml PHYSICAL EXAM Physical Exam GEN: Awake, Oriented x 2-3, In no distress morbidly obese EYES: Vision Unchanged, Conjunctiva Normal EN: No EN Drainage, Mucous Membranes moist NECK: No visible JVD, or JVP, Supple, no Thyromegaly CVS: S1S2, no audible murmur, No Gallop, No Rub,? Edema versus fatty lower extremities RESP: No audible Rales, or rhonchi given obesity, no Acc. Muscle Use GI: BS + ve, NO Bruit, Non Tender, Non Distended, morbidly obese abdomen : No CVA tenderness, no suprapubic Tenderness DIAGNOSIS/ASSESSMENT Assessment & Plan ARF: Possible ATN. Differentials as previously discussed. Current fluid and E- lyte status does not necessitate emergent need for dialysis. Will re-evaluate for dialysis in the am. Adequate urine output at this time. UA and sed rate will be ordered. ATN due to correction of persistent malignant hypertension and resultant alteration of intrarenal hemodynamics cannot be ruled out CKD - per Primary's note, No interval labs, dont know her baseline . Suspect CKD 2/2 DM and Uncontrolled HTN and obesity cannot be ruled out HTN Urgency - multiple antihypertensive medications at home . Blood pressures adequately controlled currently on present regimen. 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 Type 2 Diabetes mellitus. Defer to primary team. Underlying diabetic nephropathy cannot be ruled out Bronchial asthma COMMENT/RELEVANT DATA Meds Current Medications Medications (Trade) Dose Ordered Sig/Maya Start Time Stop Time Status Last Admin Dose Admin Acetaminophen (Tylenol) 650 mg PRN Q6HRS PRN 09/24/21 16:45 10/03/21 20:46 650 MG Aspirin (Aspirin Rectal Supp) 300 mg PRN DAILY PRN 09/24/21 16:45 Aspirin (Ecotrin) 325 mg DAILYWBKFT 09/24/21 17:00 10/06/21 07:58 325 MG Atorvastatin Calcium (Lipitor) 80 mg QHS 09/24/21 21:00 10/05/21 21:00 80 MG Clonidine HCl (Catapres Tts-3) 1 patch WEEKLY 10/03/21 15:30 10/03/21 15:47 1 PATCH Enoxaparin Sodium (Lovenox 60mg Syringe) 60 mg Q24H 09/25/21 17:00 09/27/21 11:36 DC 09/25/21 17:41 60 MG Enoxaparin Sodium (Lovenox Per Pharmacy Prophylaxis Dosing) 1 each PRN DAILY PRN 09/25/21 16:00 09/27/21 11:43 DC Furosemide (Lasix) 40 mg 1X ONCE 10/04/21 09:45 10/04/21 09:46 DC 10/04/21 11:04 40 MG Heparin Sodium (Porcine) (Heparin Sodium) 5,000 unit Q8HRS 09/27/21 14:00 09/28/21 08:49 DC 09/28/21 06:27 5,000 UNIT Hydralazine HCl (Apresoline) 100 mg TID 10/03/21 10:30 10/06/21 07:58 100 MG Info (PHARMACY MONITORING -- do not chart) 1 each PRN DAILY PRN 09/29/21 10:45 UNV Insulin Glargine (Lantus Syringe) 40 unit 1X ONCE 09/23/21 23:00 09/23/21 23:01 DC 09/23/21 22:21 40 UNIT Insulin Human Lispro (HumaLOG) 20 units TIDWMEALS 09/25/21 08:45 10/06/21 11:45 20 UNITS Labetalol HCl (Trandate) 100 mg BID 10/05/21 13:00 10/06/21 07:56 100 MG Lidocaine HCl (Buffered Lidocaine 1%) 6 ml 1X ONCE 09/26/21 12:15 09/26/21 12:16 DC Losartan Potassium (Cozaar) 100 mg DAILY 09/24/21 09:00 09/25/21 10:31 DC 09/25/21 09:28 100 MG Montelukast Sodium (Singulair) 10 mg DAILY 09/24/21 09:00 10/06/21 07:55 10 MG Nicardipine HCl 50 mg/Sodium Chloride 250 ml @ 25 mls/hr CONT PRN PRN 09/24/21 16:45 09/29/21 14:30 DC 09/28/21 20:30 37.5 MLS/HR Nifedipine (Procardia Xl) 120 mg DAILY 09/28/21 09:15 10/06/21 07:57 120 MG Ondansetron HCl (Zofran Odt) 4 mg PRN Q6HRS PRN 09/25/21 15:00 10/05/21 23:00 4 MG Ondansetron HCl (Zofran) 4 mg PRN Q4HRS PRN 09/26/21 10:15 09/30/21 15:23 4 MG Sodium Chloride 1,000 ml @ 400 mls/hr Q2H30M PRN 09/29/21 10:45 09/29/21 22:44 DC Sodium Chloride ([place] Saline Nasal) 1 jax PRN DAILY PRN 09/26/21 10:15 09/27/21 09:05 1 JAX Spironolactone (Aldactone) 50 mg DAILY 09/24/21 09:00 09/27/21 09:48 DC 09/27/21 09:03 50 MG Zolpidem Tartrate (Ambien) 5 mg PRN QHS PRN 09/23/21 21:45 10/03/21 20:47 5 MG Lab Laboratory Tests Test 10/05/21 16:33 10/05/21 20:36 10/06/21 05:45 10/06/21 07:06 Glucose (Fingerstick) 225 mg/dL (70-99) 228 mg/dL (70-99) 222 mg/dL (70-99) Sodium Level 139 mmol/L (136-145) Potassium Level 5.0 mmol/L (3.5-5.1) Chloride Level 104 mmol/L (98-107) Carbon Dioxide Level 28 mmol/L (21-32) Anion Gap 7 (6-14) Blood Urea Nitrogen 23 mg/dL (7-20) Creatinine 2.3 mg/dL (0.6-1.0) Estimated GFR (Cockcroft-Gault) 23.4 Glucose Level 253 mg/dL (70-99) Calcium Level 8.6 mg/dL (8.5-10.1) Test 10/06/21 11:08 Glucose (Fingerstick) 180 mg/dL (70-99) Results All relevant outside records, renal labs, imaging studies, telemetry/EKG's were reviewed. Justicifation of Admission Dx: Justifications for Admission: Justification of Admission Dx: Yes Stroke - Ischemic: Stroke-Ischemic MICHELLE JEWELL MD October 06, 2021 12:44
[2021-10-06 14:09] VITALS: BP 118/66
[2021-10-06] MEDS: ONDANSETRON ODT 4 MG TAB.RAPDIS. PO PRN ×2 (15:17→23:05)
[2021-10-06 19:00] VITALS: BP 138/64
[2021-10-06] MEDS: ACETAMINOPHEN 325 MG TABLET. PO PRN (19:20)
[2021-10-06] MEDS: ATORVASTATIN CALCIUM 40 MG TABLET. PO SCH (20:42)
[2021-10-06] MEDS: INSULIN GLARGINE SYRINGE. SQ SCH (20:47)
[2021-10-06 23:09] VITALS: BP 113/62
[2021-10-06 23:11] LABS: CREATININE,RANDOM URINE 163.8 mg/dL (Not Establ.)
[2021-10-06 23:18] LABS: BACTERIA,URINE FEW /HPF (0-FEW)
--- NOTE | 2021-10-07 02:16 | PN ---
DATE: 10/06/2021 SUBJECTIVE: The patient is sitting in her recliner in no apparent respiratory distress. On questioning her, she denied any complaint. Nursing staff stated that she is mostly bedbound and chair bound. She does use a walker to the bathroom and her friend actually cleans her and assisted her in having a bath. She has not really been evaluated thoroughly by the physical therapist yet to see what she can and she cannot do for me to be able to talk to the insurance company. PHYSICAL EXAMINATION: GENERAL: When I examined her this morning, she looked well and was clearly in no apparent respiratory distress, pale, but not jaundiced, cyanosed, no lymphadenopathy, no thyromegaly, no jugular venous distention. No lower limb edema. VITAL SIGNS: Her heart rate was 99, blood pressure was 118/60, temperature 98, respiratory rate was 17 and oxygen saturation was 97%. HEAD, EYES, EARS, NOSE, AND THROAT: Normocephalic, atraumatic. NECK: Supple. HEART: Normal first and second heart sounds. No gallop, rub or murmur. CHEST: Clear to auscultation, no crepitation or rhonchi. ABDOMEN: Distended, soft, nontender. NEUROLOGIC: She has slight left cheek sensory loss and slight left central facial weakness, otherwise no focal findings. Her muscle strength and deep tendon reflexes are normal and plantar reflexes are flexors. Her intake was 200, output was 2100. LABORATORY DATA: Her lab work this morning showed a serum sodium 139, potassium 5, chloride 104, bicarbonate 28, anion gap of 7, BUN 23, creatinine 2.3. Estimated GFR was 23 mL per minute. Her glucose was 153 and calcium was 8.6. ASSESSMENT AND PLAN: 1. Hypertensive encephalopathy, for which she was started on Cardene drip that was discontinued. She is now on Procardia 120 mg once a day, hydralazine 100 mg 3 times a day, clonidine TTS patch topically once a week as well as labetalol 100 mg twice a day and her blood pressure this morning was 118/70. 2. The patient did complain of tingling and numbness of her left side of the face and an MRI showed that she has a focal area of acute to subacute ischemia involving the left lateral shannen and extending into the left brachium pontis. She has also an associated cytotoxic edema without significant mass effect or hemorrhage. The patient has mild facial weakness and sensory deficit, but no other focal deficits. 3. Acute on chronic kidney injury, improving. In fact, her serum creatinine has plateaued around 2. 4. Type 2 diabetes mellitus that seems to be reasonably controlled. 5. Bronchial asthma, clinically quiescent. 6. Morbid obesity and possible obstructive sleep apnea. 7. The patient has irregular menstrual cycles for which she was on oral contraceptive pills that was held. 8. Debility and weakness for which she continued to require physical and occupational therapy and hopefully now that her blood pressure is much better controlled that she can be evaluated thoroughly to see whether she needs a rehab hospital and/or a half-way facility. LINDSEY/HERB DR: Jared TID: [id number]
[2021-10-07 03:39] VITALS: BP 113/67
[2021-10-07 06:09] LABS: CALCIUM 8.4 mg/dL (8.5-10.1); CREATININE 2.3 mg/dL (0.6-1.0); GFR 23.4
[2021-10-07 07:00] VITALS: BP 131/72
[2021-10-07] MEDS: MONTELUKAST SODIUM 10 MG TABLET. PO SCH (08:24)
[2021-10-07] MEDS: LABETALOL HCL 100 MG TABLET. PO SCH ×2 (08:24→21:28)
[2021-10-07] MEDS: ASPIRIN ENTERIC COATED 325 MG TABLET.DR. PO SCH (08:25)
[2021-10-07] MEDS: INSULIN LISPRO 300 UNITS/3 ML VIAL. SQ SCH ×3 (08:26→17:03)
--- NOTE | 2021-10-07 09:59 | PN ---
DATE: 10/07/2021 SUBJECTIVE: The patient is sitting comfortably in her chair, eating her breakfast, in no apparent distress. On questioning her, she stated that she does not feel well, but did actually work with physical therapy yesterday. Her blood pressure is now well controlled. Her serum creatinine apparently has plateaued around 2.3 without any further improvement. Her blood sugar seems to be reasonably controlled. She apparently has worked with physical therapy yesterday and physical therapist recommended acute rehab facility. She continued to require a rolling walker for ambulation and safety to complete her ADLs. PHYSICAL EXAMINATION: GENERAL: When I saw her this morning, she looked well, pale, but not jaundiced, cyanosed or thyromegaly. No jugular venous distention. No lower limb edema. VITAL SIGNS: Her heart rate was 93, blood pressure was 113/67, temperature was 98, respiratory rate was 20 and oxygen saturation was 95% on room air. HEAD, EYES, EARS, NOSE, AND THROAT: Normocephalic, atraumatic. NECK: Supple. HEART: Showed normal first and second heart sounds. No gallop, rub or murmur. CHEST: Clear to auscultation, no crepitation or rhonchi. ABDOMEN: Distended, soft, nontender. NEUROLOGIC: She is awake, alert, oriented to time, place and person. She has mild left-sided weakness, but otherwise all her cranial nerves are intact. She moves extremities without difficulty. Her intake was 820, output was 2000. LABORATORY DATA: As of this morning, her serum sodium was 136, potassium 5, chloride 103, bicarbonate 27, anion gap of 6, BUN 23, creatinine 2.3. Estimated GFR was 23 mL per minute. Her glucose was 96, calcium was 8.4. Her most recent white cell count was 11,000, hemoglobin 10, hematocrit 30, MCV 87 and platelet count 366,000. ASSESSMENT: 1. Hypertensive encephalopathy, for which she was started on Cardene drip that was discontinued. She is now on Procardia 120 mg once a day, hydralazine 100 mg 3 times a day, clonidine TTS patch topically once a week as well as labetalol 100 mg twice a day and her blood pressure this morning was 131/70. 2. The patient did complain of tingling and numbness of her left side of the face and an MRI showed that she has a focal area of acute to subacute ischemia involving the left lateral shannen and extending to the left brachium pontis. She also has an associated cytotoxic edema without significant mass effect or hemorrhage. She does have mild weakness of her and sensory deficit, but no other focal deficit. 3. Acute on chronic kidney injury, that did not require dialysis for the last 5-6 days. Her serum creatinine has plateaued around 2.3. 4. Type 2 diabetes mellitus, seems to be reasonably controlled. 5. Bronchial asthma, clinically quiescent. 6. Morbid obesity and possible obstructive sleep apnea. 7. The patient has irregular menstrual cycles for which she was on oral contraceptives that was put on hold. 8. Debility and weakness for which she continued to require physical and occupational therapy. PLAN: 1. To continue to monitor her kidney function. She is unlikely to require any hemodialysis. 2. Continue with antihypertensive medication. 3. Continue to monitor her blood sugar and adjust insulin as needed. 4. Continue with physical and occupational therapy and hopefully discharge her to [facility]. SOUMYA DR: Jared TID: [id number]
[2021-10-07 10:47] VITALS: BP 129/68
--- NOTE | 2021-10-07 12:10 | PDOC ---
DATE OF SERVICE: DOS: DATE: 10/07/21 TIME: 12:08 SUBJECTIVE ROS Follow-up for JUDITH +/- CKD Patient denies any new complaints, has been feeling well overall CVS: no Orthopnea, no CP RESP: no SOB, no PRESCOTT GI: no Nausea, no Vomiting : no Dysuria, no Urgency OBJECTIVE Vital Signs Vital Signs Date Time Temp Pulse Resp B/P (MAP) Pulse Ox O2 Delivery O2 Flow Rate FiO2 10/07/21 10:47 98.1 90 18 129/68 (88) 95 Room Air 98.1 I & 0 Intake and Output 10/07/21 07:00 Intake Total 1150 ml Output Total 800 ml Balance 350 ml Intake Oral 1150 ml Output Urine Total 800 ml PHYSICAL EXAM Physical Exam GEN: Awake, Oriented x 2-3, In no distress morbidly obese EYES: Vision Unchanged, Conjunctiva Normal EN: No EN Drainage, Mucous Membranes moist NECK: No visible JVD, or JVP, Supple, no Thyromegaly CVS: S1S2, no audible murmur, No Gallop, No Rub,? Edema versus fatty lower extremities RESP: No audible Rales, or rhonchi given obesity, no Acc. Muscle Use GI: BS + ve, NO Bruit, Non Tender, Non Distended, morbidly obese abdomen : No CVA tenderness, no suprapubic Tenderness DIAGNOSIS/ASSESSMENT Assessment & Plan ARF: Possible ATN. Differentials as previously discussed. Current fluid and E- lyte status does not necessitate emergent need for dialysis. Will re-evaluate for dialysis in the am. Adequate urine output at this time. UA and sed rate will be ordered. ATN due to correction of persistent malignant hypertension and resultant alteration of intrarenal hemodynamics cannot be ruled out 1 g proteinuria: Anticipate she will need an ARB as an outpatient to minimize this if noted to be persistent. Etiologies of the same remain as per CKD diagnosis CKD - per Primary's note, No interval labs, dont know her baseline . Suspect CKD 2/2 DM and Uncontrolled HTN and obesity cannot be ruled out HTN Urgency - multiple antihypertensive medications at home . Blood pressures adequately controlled currently on present regimen. Hypertensive encephalopathy: Appears to have resolved to the greater extent. 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 Type 2 Diabetes mellitus. Defer to primary team. Underlying diabetic nephropathy cannot be ruled out Bronchial asthma COMMENT/RELEVANT DATA Meds Current Medications Medications (Trade) Dose Ordered Sig/Maya Start Time Stop Time Status Last Admin Dose Admin Acetaminophen (Tylenol) 650 mg PRN Q6HRS PRN 09/24/21 16:45 10/06/21 19:20 650 MG Aspirin (Aspirin Rectal Supp) 300 mg PRN DAILY PRN 09/24/21 16:45 Aspirin (Ecotrin) 325 mg DAILYWBKFT 09/24/21 17:00 10/07/21 08:25 325 MG Atorvastatin Calcium (Lipitor) 80 mg QHS 09/24/21 21:00 10/06/21 20:42 80 MG Clonidine HCl (Catapres Tts-3) 1 patch WEEKLY 10/03/21 15:30 10/03/21 15:47 1 PATCH Enoxaparin Sodium (Lovenox 60mg Syringe) 60 mg Q24H 09/25/21 17:00 09/27/21 11:36 DC 09/25/21 17:41 60 MG Enoxaparin Sodium (Lovenox Per Pharmacy Prophylaxis Dosing) 1 each PRN DAILY PRN 09/25/21 16:00 09/27/21 11:43 DC Furosemide (Lasix) 40 mg 1X ONCE 10/04/21 09:45 10/04/21 09:46 DC 10/04/21 11:04 40 MG Heparin Sodium (Porcine) (Heparin Sodium) 5,000 unit Q8HRS 09/27/21 14:00 09/28/21 08:49 DC 09/28/21 06:27 5,000 UNIT Hydralazine HCl (Apresoline) 100 mg TID 10/03/21 10:30 10/07/21 09:03 100 MG Info (PHARMACY MONITORING -- do not chart) 1 each PRN DAILY PRN 09/29/21 10:45 UNV Insulin Glargine (Lantus Syringe) 40 unit 1X ONCE 09/23/21 23:00 09/23/21 23:01 DC 09/23/21 22:21 40 UNIT Insulin Human Lispro (HumaLOG) 20 units TIDWMEALS 09/25/21 08:45 10/07/21 12:01 20 UNITS Labetalol HCl (Trandate) 100 mg BID 10/05/21 13:00 10/07/21 08:24 100 MG Lidocaine HCl (Buffered Lidocaine 1%) 6 ml 1X ONCE 09/26/21 12:15 09/26/21 12:16 DC Losartan Potassium (Cozaar) 100 mg DAILY 09/24/21 09:00 09/25/21 10:31 DC 09/25/21 09:28 100 MG Montelukast Sodium (Singulair) 10 mg DAILY 09/24/21 09:00 10/07/21 08:24 10 MG Nicardipine HCl 50 mg/Sodium Chloride 250 ml @ 25 mls/hr CONT PRN PRN 09/24/21 16:45 09/29/21 14:30 DC 09/28/21 20:30 37.5 MLS/HR Nifedipine (Procardia Xl) 120 mg DAILY 09/28/21 09:15 10/07/21 08:25 120 MG Ondansetron HCl (Zofran Odt) 4 mg PRN Q6HRS PRN 09/25/21 15:00 10/06/21 23:05 4 MG Ondansetron HCl (Zofran) 4 mg PRN Q4HRS PRN 09/26/21 10:15 09/30/21 15:23 4 MG Sodium Chloride 1,000 ml @ 400 mls/hr Q2H30M PRN 09/29/21 10:45 09/29/21 22:44 DC Sodium Chloride ([place] Saline Nasal) 1 jax PRN DAILY PRN 09/26/21 10:15 09/27/21 09:05 1 JAX Spironolactone (Aldactone) 50 mg DAILY 09/24/21 09:00 09/27/21 09:48 DC 09/27/21 09:03 50 MG Zolpidem Tartrate (Ambien) 5 mg PRN QHS PRN 09/23/21 21:45 10/03/21 20:47 5 MG Lab Laboratory Tests Test 10/06/21 14:10 10/06/21 16:12 10/06/21 20:29 10/06/21 22:45 Erythrocyte Sedimentation Rate 57 (0-25) Glucose (Fingerstick) 152 mg/dL (70-99) 168 mg/dL (70-99) Urine Collection Type Unknown Urine Color (Auto) Light yellow Urine Turbidity Clear Urine pH (Auto) 6.0 (<5.0-8.0) Urine Specific [place] 1.014 (1.000-1.030) Urine Protein (Auto) 200 mg/dL (Negative) Urine Glucose (Auto)(UA) Negative mg/dL (Negative) Urine Ketones (Auto) Negative mg/dL (Negative) Urine Blood (Auto) Negative (Negative) Urine Nitrite (Auto) Negative (Negative) Urine Bilirubin (Auto) Negative (Negative) Urine Urobilinogen (Auto) Normal mg/dL (Normal) Urine Leukocyte Esterase (Auto) Negative (Negative) Urine RBC 1-2 /HPF (0-2) Urine WBC 1-4 /HPF (0-4) Urine Squamous Epithelial Cells Mod /LPF Urine Bacteria Few /HPF (0-FEW) Urine Random Creatinine 163.8 mg/dL (Not Establ.) Urine Random Total Protein 190.7 mg/dL (Not Establ.) Urine Protein/Creatinine Ratio 1164 mg/g (0-200) Test 10/07/21 05:30 10/07/21 07:41 10/07/21 11:21 Sodium Level 136 mmol/L (136-145) Potassium Level 5.0 mmol/L (3.5-5.1) Chloride Level 103 mmol/L (98-107) Carbon Dioxide Level 27 mmol/L (21-32) Anion Gap 6 (6-14) Blood Urea Nitrogen 23 mg/dL (7-20) Creatinine 2.3 mg/dL (0.6-1.0) Estimated GFR (Cockcroft-Gault) 23.4 Glucose Level 196 mg/dL (70-99) Calcium Level 8.4 mg/dL (8.5-10.1) Glucose (Fingerstick) 200 mg/dL (70-99) 204 mg/dL (70-99) Results All relevant outside records, renal labs, imaging studies, telemetry/EKG's were reviewed. Justicifation of Admission Dx: Justifications for Admission: Justification of Admission Dx: Yes Stroke - Ischemic: Stroke-Ischemic MICHELLE JEWELL MD October 07, 2021 12:10
[2021-10-07] MEDS: ONDANSETRON ODT 4 MG TAB.RAPDIS. PO PRN (14:32)
[2021-10-07 14:54] VITALS: BP 143/76
[2021-10-07 19:16] VITALS: BP 146/70
[2021-10-07] MEDS: ATORVASTATIN CALCIUM 40 MG TABLET. PO SCH (21:28)
[2021-10-07] MEDS: INSULIN GLARGINE SYRINGE. SQ SCH (21:33)
[2021-10-07 22:41] VITALS: BP 168/78
[2021-10-08 02:19] VITALS: BP 159/66
[2021-10-08 05:20] LABS: CALCIUM 8.7 mg/dL (8.5-10.1); CREATININE 2.6 mg/dL (0.6-1.0); GFR 20.3
[2021-10-08 07:00] VITALS: BP 151/76
--- NOTE | 2021-10-08 08:44 | PDOC ---
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 Has left facial numbness still, needs roller walker to ambulate Hypertensive encephalopathy, blood pressure still running very high, could not participate in physical therapy yesterday [id number] kidney injury, had CT angiogram of chest at [facility]. Started dialysis, now stopped History of diabetes, hypertension, hyperlipidemia, noncompliant, asthma, sleep apnea Echocardiogram noted, I do not think she needs a transesophageal echocardiogram, the location of the stroke is unlikely cardiac-source Plan Aspirin High-dose statin Treatment of hypertension. Tightened parameters back to 150/90 starting 09/26 Rehabilitation modalities Agree with transfer to [facility] rehab Subjective No complaints Objective Vital Signs Date Time Temp Pulse Resp B/P (MAP) Pulse Ox O2 Delivery O2 Flow Rate FiO2 10/08/21 07:00 98.4 91 19 151/76 (101) 93 Room Air 98.4 Intake and Output 10/08/21 06:59 Intake Total 960 ml Output Total 1250 ml Balance -290 ml Intake Oral 960 ml Output Urine Total 1250 ml PHYSICAL EXAM Alert. Oriented to time, place and person. PERRL. EOMI. CN: Slight left cheek sensory loss, slight left central facial weakness, otherwise no focal findings. Muscle tone: normal. Muscle strength: 4/5 DTR: 2+ Plantar reflex: Flexor Gait: not examined in bed. Sensory exam: no abnormal findings. No cerebellar signs elicited. Review of Relevant I have reviewed the following items mauricio (where applicable) has been applied. Labs Laboratory Tests Test 10/06/21 11:08 10/06/21 14:10 10/06/21 16:12 10/06/21 20:29 Glucose (Fingerstick) 180 mg/dL (70-99) 152 mg/dL (70-99) 168 mg/dL (70-99) Erythrocyte Sedimentation Rate 57 (0-25) Test 10/06/21 22:45 10/07/21 05:30 10/07/21 07:41 10/07/21 11:21 Urine Collection Type Unknown Urine Color (Auto) Light yellow Urine Turbidity Clear Urine pH (Auto) 6.0 (<5.0-8.0) Urine Specific [place] 1.014 (1.000-1.030) Urine Protein (Auto) 200 mg/dL (Negative) Urine Glucose (Auto)(UA) Negative mg/dL (Negative) Urine Ketones (Auto) Negative mg/dL (Negative) Urine Blood (Auto) Negative (Negative) Urine Nitrite (Auto) Negative (Negative) Urine Bilirubin (Auto) Negative (Negative) Urine Urobilinogen (Auto) Normal mg/dL (Normal) Urine Leukocyte Esterase (Auto) Negative (Negative) Urine RBC 1-2 /HPF (0-2) Urine WBC 1-4 /HPF (0-4) Urine Squamous Epithelial Cells Mod /LPF Urine Bacteria Few /HPF (0-FEW) Urine Random Creatinine 163.8 mg/dL (Not Establ.) Urine Random Total Protein 190.7 mg/dL (Not Establ.) Urine Protein/Creatinine Ratio 1164 mg/g (0-200) Sodium Level 136 mmol/L (136-145) Potassium Level 5.0 mmol/L (3.5-5.1) Chloride Level 103 mmol/L (98-107) Carbon Dioxide Level 27 mmol/L (21-32) Anion Gap 6 (6-14) Blood Urea Nitrogen 23 mg/dL (7-20) Creatinine 2.3 mg/dL (0.6-1.0) Estimated GFR (Cockcroft-Gault) 23.4 Glucose Level 196 mg/dL (70-99) Calcium Level 8.4 mg/dL (8.5-10.1) Glucose (Fingerstick) 200 mg/dL (70-99) 204 mg/dL (70-99) Test 10/07/21 16:37 10/07/21 20:42 10/08/21 04:55 10/08/21 07:09 Glucose (Fingerstick) 162 mg/dL (70-99) 155 mg/dL (70-99) 167 mg/dL (70-99) Sodium Level 138 mmol/L (136-145) Potassium Level 5.0 mmol/L (3.5-5.1) Chloride Level 104 mmol/L (98-107) Carbon Dioxide Level 25 mmol/L (21-32) Anion Gap 9 (6-14) Blood Urea Nitrogen 28 mg/dL (7-20) Creatinine 2.6 mg/dL (0.6-1.0) Estimated GFR (Cockcroft-Gault) 20.3 Glucose Level 154 mg/dL (70-99) Calcium Level 8.7 mg/dL (8.5-10.1) Laboratory Tests Test 10/07/21 11:21 10/07/21 16:37 10/07/21 20:42 10/08/21 04:55 Glucose (Fingerstick) 204 mg/dL (70-99) 162 mg/dL (70-99) 155 mg/dL (70-99) Sodium Level 138 mmol/L (136-145) Potassium Level 5.0 mmol/L (3.5-5.1) Chloride Level 104 mmol/L (98-107) Carbon Dioxide Level 25 mmol/L (21-32) Anion Gap 9 (6-14) Blood Urea Nitrogen 28 mg/dL (7-20) Creatinine 2.6 mg/dL (0.6-1.0) Estimated GFR (Cockcroft-Gault) 20.3 Glucose Level 154 mg/dL (70-99) Calcium Level 8.7 mg/dL (8.5-10.1) Test 10/08/21 07:09 Glucose (Fingerstick) 167 mg/dL (70-99) Medications Current Medications Nicardipine HCl 50 mg/Sodium Chloride 250 ml @ 25 mls/hr CONT PRN IV PER PROTOCOL Last administered on 09/24/21at 15:53; Start 09/23/21 at 21:45; Stop 09/24/21 at 16:43; Status DC Nifedipine (Procardia Xl) 30 mg DAILY PO Last administered on 09/27/21at 09:04; Start 09/24/21 at 09:00; Stop 09/27/21 at 09:48; Status DC Zolpidem Tartrate (Ambien) 5 mg PRN QHS PRN PO INSOMNIA Last administered on 10/03/21at 20:47; Start 09/23/21 at 21:45 Montelukast Sodium (Singulair) 10 mg DAILY PO Last administered on 10/07/21at 0 8:24; Start 09/24/21 at 09:00 Insulin Human Lispro (HumaLOG) 15 units TIDWMEALS SQ Last administered on 09/24/21at 18:30; Start 09/24/21 at 08:00; Stop 09/25/21 at 08:47; Status DC Insulin Glargine (Lantus Syringe) 40 unit QHS SQ Last administered on 10/07/21 21:33; Start 09/24/21 at 21:00 Losartan Potassium (Cozaar) 100 mg DAILY PO Last administered on 09/25/21 09:28; Start 09/24/21 at 09:00; Stop 09/25/21 at 10:31; Status DC Spironolactone (Aldactone) 50 mg DAILY PO Last administered on 09/27/21 09:03; Start 09/24/21 at 09:00; Stop 09/27/21 at 09:48; Status DC Insulin Glargine (Lantus Syringe) 40 unit 1X ONCE SQ Last administered on 09/23/21 22:21; Start 09/23/21 at 23:00; Stop 09/23/21 at 23:01; Status DC Sodium Chloride 1,000 ml @ 25 mls/hr Q24H IV Last administered on 09/27/21at 09:55; Start 09/24/21 at 15:15; Stop 09/29/21 at 14:30; Status DC Nicardipine HCl 50 mg/Sodium Chloride 250 ml @ 25 mls/hr CONT PRN PRN IV PER PROTOCOL Last administered on 09/28/21 20:30; Start 09/24/21 at 16:45; Stop 09/29/21 at 14:30; Status DC Atorvastatin Calcium (Lipitor) 80 mg QHS PO Last administered on 10/07/21 21:28; Start 09/24/21 at 21:00 Acetaminophen (Tylenol) 650 mg PRN Q6HRS PRN PO MILD PAIN / TEMP > 100.3'F Last administered on 10/06/21 19:20; Start 09/24/21 at 16:45 Aspirin (Ecotrin) 325 mg DAILYWBKFT PO Last administered on 10/07/21 08:25; Start 09/24/21 at 17:00 Aspirin (Aspirin Rectal Supp) 300 mg PRN DAILY PRN OK IF UNABLE TO TAKE PO; Start 09/24/21 at 16:45 Insulin Human Lispro (HumaLOG) 20 units TIDWMEALS SQ Last administered on 10/07/21 17:03; Start 09/25/21 at 08:45 Ondansetron HCl (Zofran Odt) 4 mg PRN Q6HRS PRN PO NAUSEA/VOMITING Last administered on 10/07/21at 14:32; Start 09/25/21 at 15:00 Enoxaparin Sodium (Lovenox Per Pharmacy Prophylaxis Dosing) 1 each PRN DAILY PRN MC SEE COMMENTS; Start 09/25/21 at 16:00; Stop 09/27/21 at 11:43; Status DC Enoxaparin Sodium (Lovenox 60mg Syringe) 60 mg Q24H SQ Last administered on 09/25/21at 17:41; Start 09/25/21 at 17:00; Stop 09/27/21 at 11:36; Status DC Ondansetron HCl (Zofran) 4 mg PRN Q4HRS PRN IVP NAUSEA/VOMITING Last administered on 09/30/21at 15:23; Start 09/26/21 at 10:15 Sodium Chloride ([place] Saline Nasal) 1 jax PRN DAILY PRN NS NASAL CONGESTION Last administered on 09/27/21at 09:05; Start 09/26/21 at 10:15 Lidocaine HCl (Buffered Lidocaine 1%) 3 ml STK-MED ONCE .ROUTE ; Start 09/26/21 at 11:30; Stop 09/26/21 at 11:30; Status DC Lidocaine HCl (Buffered Lidocaine 1%) 6 ml 1X ONCE INJ ; Start 09/26/21 at 12:15; Stop 09/26/21 at 12:16; Status DC Sodium Chloride 1,000 ml @ 1,000 mls/hr Q1H PRN IV hypotension; Start 09/27/21 at 08:30; Stop 09/27/21 at 14:29; Status DC Sodium Chloride 1,000 ml @ 400 mls/hr Q2H30M PRN IV PATENCY; Start 09/27/21 at 08:30; Stop 09/27/21 at 20:29; Status DC Info (PHARMACY MONITORING -- do not chart) 1 each PRN DAILY PRN MC SEE COMMENTS; Start 09/27/21 at 08:30 Info (PHARMACY MONITORING -- do not chart) 1 each PRN DAILY PRN MC SEE COMMENTS; Start 09/27/21 at 08:30; Stop 09/27/21 at 08:27; Status DC Nifedipine (Procardia Xl) 60 mg DAILY PO Last administered on 09/27/21at 15:53; Start 09/27/21 at 10:00; Stop 09/28/21 at 07:15; Status DC Heparin Sodium (Porcine) (Heparin Sodium) 5,000 unit Q8HRS SQ Last administered on 09/28/21at 06:27; Start 09/27/21 at 14:00; Stop 09/28/21 at 08:49; Status DC Nifedipine (Procardia Xl) 90 mg DAILY PO Last administered on 09/28/21at 08:26; Start 09/28/21 at 09:00; Stop 09/28/21 at 09:12; Status DC Nifedipine (Procardia Xl) 120 mg DAILY PO Last administered on 10/07/21at 08:25; Start 09/28/21 at 09:15 Sodium Chloride 1,000 ml @ 1,000 mls/hr Q1H PRN IV hypotension; Start 09/29/21 at 10:45; Stop 09/29/21 at 16:44; Status DC Sodium Chloride 1,000 ml @ 400 mls/hr Q2H30M PRN IV PATENCY; Start 09/29/21 at 10:45; Stop 09/29/21 at 22:44; Status DC Info (PHARMACY MONITORING -- do not chart) 1 each PRN DAILY PRN MC SEE COMMENTS; Start 09/29/21 at 10:45; Status UNV Hydralazine HCl (Apresoline) 25 mg TID PO Last administered on 10/02/21at 07:57; Start 10/01/21 at 10:30; Stop 10/02/21 at 08:51; Status DC Hydralazine HCl (Apresoline) 50 mg TID PO Last administered on 10/03/21at 08:34; Start 10/02/21 at 09:00; Stop 10/03/21 at 10:20; Status DC Furosemide (Lasix) 40 mg 1X ONCE IVP Last administered on 10/02/21 14:42; Start 10/02/21 at 14:45; Stop 10/02/21 at 14:46; Status DC Hydralazine HCl (Apresoline) 100 mg TID PO Last administered on 10/07/21 21:28; Start 10/03/21 at 10:30 Clonidine HCl (Catapres Tts-3) 1 patch WEEKLY TD Last administered on 10/03/21at 15:47; Start 10/03/21 at 15:30 Furosemide (Lasix) 40 mg 1X ONCE IVP Last administered on 10/04/21at 11:04; Start 10/04/21 at 09:45; Stop 10/04/21 at 09:46; Status DC Labetalol HCl (Trandate) 100 mg BID PO Last administered on 10/07/21at 21:28; Start 10/05/21 at 13:00 Active Scripts Active Levemir Flextouch (Insulin Detemir) 100 Unit/1 Ml Insuln.pen 40 Units SQ QHS 30 Days Novolog Flexpen (Insulin Aspart) 100 Unit/1 Ml Insuln.pen 15 Units SQ TIDAC 30 Days Reported Tri-Sprintec (Norgestimate-Ethinyl Estradiol) 1 Each Tablet 1 Tab PO DAILY Spironolactone 50 Mg Tablet 1 Tab PO DAILY Montelukast Sodium Tablet (Montelukast Sodium) 10 Mg Tablet 10 Mg PO DAILY Losartan Potassium 100 Mg Tablet 100 Mg PO DAILY Vitals/I & O Vital Sign - Last 24 Hours 10/07/21 10/07/21 10/07/21 10/07/21 09:03 10:47 14:22 14:54 Temp 98.1 97.4 98.1 97.4 Pulse 94 90 88 94 Resp 18 17 B/P (MAP) 131/72 129/68 (88) 143/76 143/76 (98) Pulse Ox 95 95 O2 Delivery Room Air Room Air 10/07/21 10/07/21 10/07/21 10/07/21 19:16 19:30 21:28 21:28 Temp 98.2 98.2 Pulse 94 94 94 Resp 16 B/P (MAP) 146/70 (95) 146/70 146/70 Pulse Ox 96 O2 Delivery Room Air Room Air 10/07/21 10/08/21 10/08/21 22:41 02:19 07:00 Temp 99.1 99.6 98.4 99.1 99.6 98.4 Pulse 91 91 91 Resp 16 16 19 B/P (MAP) 168/78 (108) 159/66 (97) 151/76 (101) Pulse Ox 98 99 93 O2 Delivery Room Air Room Air Room Air Intake and Output 10/07/21 10/07/21 10/08/21 14:59 22:59 06:59 Intake Total 600 ml 240 ml 120 ml Output Total 500 ml 750 ml Balance 600 ml -260 ml -630 ml Justicifation of Admission Dx: Justifications for Admission: Justification of Admission Dx: Yes Stroke - Ischemic: Stroke-Ischemic DOLORES TRISTAN MD October 08, 2021 08:44
--- NOTE | 2021-10-08 09:19 | PDOC ---
DATE OF SERVICE DATE: 10/08/21 TIME: 09:19 SUBJECTIVE ROS Denies SOB , No N/V. States feeling tired and weak "Im not ready to be dced , I cant even stand up" OBJECTIVE Vital Signs Vital Signs Date Time Temp Pulse Resp B/P (MAP) Pulse Ox O2 Delivery O2 Flow Rate FiO2 10/08/21 07:00 98.4 91 19 151/76 (101) 93 Room Air 98.4 I & 0 Intake and Output 10/08/21 07:00 Intake Total 960 ml Output Total 1250 ml Balance -290 ml Intake Oral 960 ml Output Urine Total 1250 ml PHYSICAL EXAM Physical Exam GENERAL: Morbidly Obese , HEEN Normocephalic, atraumatic NECK: Supple. HEART: normal first and second heart sounds. No gallop, rub or murmur. LUNGS : Clear to auscultation, decreased at bases, non labored ABDOMEN: Distended, soft, nontender. NEUROLOGIC: Grossly Normal, Moves all 4 extremities . She did complain of numbness in her left side of the face without any obvious motor deficit. PSYCH COOPERATIVE EXT LE edema + Weiss + , No CVA or SP tenderness DERM No Rash DIAGNOSIS/ASSESSMENT Assessment & Plan JUDITH -atn / Vomiting /Poor po intake/ IV Contrast / Hx of NSAID use . Baseline Cr normal in 2017 per [facility] records. No Interval labs available .UA unremarkable, US Unremarkable, Dialysis on 09/27 ,2 nd treatment 09/29 . Creatinine trended up, asymptomatic at rest , No emergent indication for dialysis . Supportive care Strict I/O , Daily standing weight . DC Temp HDc prior to dc and follow up with PCP closely and with Nephrology as OP If not dced today, Re-evaluate Renal function tomorrow CKD - per Primary's note, No interval labs, dont know her baseline . 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 Renal Duplex Normal . Can add Labetalol . Dw Dr Camejo . 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 Type 2 Diabetes mellitus. she stopped Insulin on her own recently Bronchial asthma COMMENT/RELEVANT DATA Meds Current Medications Medications (Trade) Dose Ordered Sig/Maya Start Time Stop Time Status Last Admin Dose Admin Acetaminophen (Tylenol) 650 mg PRN Q6HRS PRN 09/24/21 16:45 10/06/21 19:20 650 MG Aspirin (Aspirin Rectal Supp) 300 mg PRN DAILY PRN 09/24/21 16:45 Aspirin (Ecotrin) 325 mg DAILYWBKFT 09/24/21 17:00 10/07/21 08:25 325 MG Atorvastatin Calcium (Lipitor) 80 mg QHS 09/24/21 21:00 10/07/21 21:28 80 MG Clonidine HCl (Catapres Tts-3) 1 patch WEEKLY 10/03/21 15:30 10/03/21 15:47 1 PATCH Enoxaparin Sodium (Lovenox 60mg Syringe) 60 mg Q24H 09/25/21 17:00 09/27/21 11:36 DC 09/25/21 17:41 60 MG Enoxaparin Sodium (Lovenox Per Pharmacy Prophylaxis Dosing) 1 each PRN DAILY PRN 09/25/21 16:00 09/27/21 11:43 DC Furosemide (Lasix) 40 mg 1X ONCE 10/04/21 09:45 10/04/21 09:46 DC 10/04/21 11:04 40 MG Heparin Sodium (Porcine) (Heparin Sodium) 5,000 unit Q8HRS 09/27/21 14:00 09/28/21 08:49 DC 09/28/21 06:27 5,000 UNIT Hydralazine HCl (Apresoline) 100 mg TID 10/03/21 10:30 10/07/21 21:28 100 MG Info (PHARMACY MONITORING -- do not chart) 1 each PRN DAILY PRN 09/29/21 10:45 UNV Insulin Glargine (Lantus Syringe) 40 unit 1X ONCE 09/23/21 23:00 09/23/21 23:01 DC 09/23/21 22:21 40 UNIT Insulin Human Lispro (HumaLOG) 20 units TIDWMEALS 09/25/21 08:45 10/07/21 17:03 20 UNITS Labetalol HCl (Trandate) 100 mg BID 10/05/21 13:00 10/07/21 21:28 100 MG Lidocaine HCl (Buffered Lidocaine 1%) 6 ml 1X ONCE 09/26/21 12:15 09/26/21 12:16 DC Losartan Potassium (Cozaar) 100 mg DAILY 09/24/21 09:00 09/25/21 10:31 DC 09/25/21 09:28 100 MG Montelukast Sodium (Singulair) 10 mg DAILY 09/24/21 09:00 10/07/21 08:24 10 MG Nicardipine HCl 50 mg/Sodium Chloride 250 ml @ 25 mls/hr CONT PRN PRN 09/24/21 16:45 09/29/21 14:30 DC 09/28/21 20:30 37.5 MLS/HR Nifedipine (Procardia Xl) 120 mg DAILY 09/28/21 09:15 10/07/21 08:25 120 MG Ondansetron HCl (Zofran Odt) 4 mg PRN Q6HRS PRN 09/25/21 15:00 10/07/21 14:32 4 MG Ondansetron HCl (Zofran) 4 mg PRN Q4HRS PRN 09/26/21 10:15 09/30/21 15:23 4 MG Sodium Chloride 1,000 ml @ 400 mls/hr Q2H30M PRN 09/29/21 10:45 09/29/21 22:44 DC Sodium Chloride ([place] Saline Nasal) 1 jax PRN DAILY PRN 09/26/21 10:15 09/27/21 09:05 1 JAX Spironolactone (Aldactone) 50 mg DAILY 09/24/21 09:00 09/27/21 09:48 DC 09/27/21 09:03 50 MG Zolpidem Tartrate (Ambien) 5 mg PRN QHS PRN 09/23/21 21:45 10/03/21 20:47 5 MG Lab Laboratory Tests Test 10/07/21 11:21 10/07/21 16:37 10/07/21 20:42 10/08/21 04:55 Glucose (Fingerstick) 204 mg/dL (70-99) 162 mg/dL (70-99) 155 mg/dL (70-99) Sodium Level 138 mmol/L (136-145) Potassium Level 5.0 mmol/L (3.5-5.1) Chloride Level 104 mmol/L (98-107) Carbon Dioxide Level 25 mmol/L (21-32) Anion Gap 9 (6-14) Blood Urea Nitrogen 28 mg/dL (7-20) Creatinine 2.6 mg/dL (0.6-1.0) Estimated GFR (Cockcroft-Gault) 20.3 Glucose Level 154 mg/dL (70-99) Calcium Level 8.7 mg/dL (8.5-10.1) Test 10/08/21 07:09 Glucose (Fingerstick) 167 mg/dL (70-99) Results All relevant outside records, renal labs, imaging studies, telemetry/EKG's were reviewed. Justicifation of Admission Dx: Justifications for Admission: Justification of Admission Dx: Yes Stroke - Ischemic: Stroke-Ischemic LISA NORMAN MD October 08, 2021 09:19
[2021-10-08] MEDS: MONTELUKAST SODIUM 10 MG TABLET. PO SCH (09:21)
[2021-10-08] MEDS: ASPIRIN ENTERIC COATED 325 MG TABLET.DR. PO SCH (09:21)
[2021-10-08] MEDS: LABETALOL HCL 100 MG TABLET. PO SCH ×2 (09:21→20:36)
[2021-10-08] MEDS: INSULIN LISPRO 300 UNITS/3 ML VIAL. SQ SCH ×3 (10:05→17:46)
[2021-10-08 10:51] VITALS: BP 163/77
--- NOTE | 2021-10-08 11:55 | PN ---
DATE: 10/08/2021 SUBJECTIVE: The patient is resting, sitting comfortably in her recliner in no apparent respiratory distress. She continued to complain of being weak; however, she denied any nausea or vomiting. Her blood pressure seems to be reasonably controlled. However, her creatinine has risen to 2.6 this morning. Her blood sugar continued to be reasonably controlled. PHYSICAL EXAMINATION: GENERAL: When I examined her, she was pale, not jaundiced or cyanosed, no lymphadenopathy, no thyromegaly, no jugular venous distention. No lower limb edema. VITAL SIGNS: Her heart rate was 91, blood pressure was 151/76, temperature was 98.4, respiratory rate was 19, and oxygen saturation was 93% on room air. HEAD, EYES, EARS, NOSE AND THROAT: Normocephalic, atraumatic. NECK: Supple. HEART: Showed normal first and second heart sounds. No gallop, rub or murmur. CHEST: Clear to auscultation, no crepitation or rhonchi. ABDOMEN: Distended, soft, nontender. NEUROLOGIC: She was awake, alert, responding appropriately. Cranial nerves are intact except mild left-sided facial weakness. She is able to move her extremities without difficulty. She can ambulate with a walker with standby assist. Her intake was 1150, output was 800. LABORATORY DATA: As of this morning, her serum sodium was 138, potassium 5, chloride 104, bicarbonate 25, anion gap of 9, BUN 28, creatinine 2.6, estimated GFR was 20 mL per minute. Her glucose 154, calcium was 8.7. Her most recent white cell count was 10.8, hemoglobin 10, hematocrit 31, MCV 87 and platelet count 366,000. ASSESSMENT: 1. Hypertensive encephalopathy, for which she was started on Cardene drip that was discontinued. She is now on Procardia 120 mg once a day, hydralazine 100 mg 3 times a day, clonidine TTS patch topically once a week as well as labetalol 100 mg twice a day. Her blood pressure has been reasonably controlled. 2. The patient did complain of tingling and numbness of her left side of the face and an MRI showed that she has a focal area of acute to subacute ischemia involving the left lateral shannen and extending into the left brachium pontis. She also has an associated cytotoxic edema without significant mass effect or hemorrhage. She does have mild weakness of her face and mild sensory deficit, but no other focal deficits. 3. Acute on chronic kidney injury. Unfortunately, her creatinine is climbing up today is 2.6, although there is no indication for hemodialysis. 4. Type 2 diabetes mellitus, seems to be reasonably controlled. 5. Bronchial asthma, clinically quiescent. 6. Morbid obesity and possible obstructive sleep apnea. 7. The patient has irregular menstrual cycle, for which she was on oral contraceptives. It was put on hold. 8. Debility and weakness, for which she continued to require physical and occupational therapy. PLAN: 1. Continue to monitor her kidney function and urine output. 2. Continue with antihypertensive medication. 3. Continue to monitor blood sugar and adjust insulin as needed. 4. Continue with physical and occupational therapy. 5. The patient will be discharged to [facility] if accepted. Otherwise, she can go to a fpc facility. CLEM DR: Jared TID: [id number]
--- NOTE | 2021-10-08 12:08 | NUR ---
SS following up with discharge planning. SS reviewed pt chart and discussed with pt RN. Pt is currently on room air. PT/OT recommended inpatient rehabilitation. Pt was accepted at [facility], ; fax [phone]. Insurance requesting peer to peer at phone number [phone]. Dr. Camejo notified was notified on 10/05/2021 and called insurance and left a voicemail. Dr. Camejo awaiting return call from insurance at this time. [facility] reported that Dr. Camejo will get a return call today for peer to peer. Pt also accepted at [facility], ; fax [phone], pending insurance. Clinical updates sent to [facility] and [facility]. SS will continue to follow for discharge planning.
[2021-10-08] MEDS: ACETAMINOPHEN 325 MG TABLET. PO PRN (13:48)
[2021-10-08 15:00] VITALS: BP 133/64
[2021-10-08 19:22] VITALS: BP 158/79
[2021-10-08] MEDS: ONDANSETRON ODT 4 MG TAB.RAPDIS. PO PRN (20:36)
[2021-10-08] MEDS: ATORVASTATIN CALCIUM 40 MG TABLET. PO SCH (20:36)
[2021-10-08] MEDS: INSULIN GLARGINE SYRINGE. SQ SCH (20:40)
[2021-10-08 22:42] VITALS: BP 196/77
[2021-10-09 02:32] VITALS: BP 123/60
[2021-10-09 04:29] LABS: CALCIUM 8.7 mg/dL (8.5-10.1); CREATININE 2.3 mg/dL (0.6-1.0); GFR 23.4; POTASSIUM 4.6 mmol/L (3.5-5.1)
[2021-10-09 07:00] VITALS: BP 152/72
[2021-10-09] MEDS: MONTELUKAST SODIUM 10 MG TABLET. PO SCH (08:11)
[2021-10-09] MEDS: ASPIRIN ENTERIC COATED 325 MG TABLET.DR. PO SCH (08:11)
[2021-10-09] MEDS: LABETALOL HCL 100 MG TABLET. PO SCH ×2 (08:12→20:50)
[2021-10-09] MEDS: INSULIN LISPRO 300 UNITS/3 ML VIAL. SQ SCH ×3 (08:13→17:12)
--- NOTE | 2021-10-09 09:37 | PDOC ---
DATE OF SERVICE DATE: 10/09/21 TIME: 09:36 SUBJECTIVE ROS Denies SOB , No N/V. C/O feeling tired and weak OBJECTIVE Vital Signs Vital Signs Date Time Temp Pulse Resp B/P (MAP) Pulse Ox O2 Delivery O2 Flow Rate FiO2 10/09/21 08:12 85 152/72 10/09/21 07:00 98.0 17 96 Room Air 98.0 I & 0 Intake and Output 10/09/21 07:00 Intake Total 540 ml Output Total 700 ml Balance -160 ml Intake Oral 540 ml Output Urine Total 700 ml PHYSICAL EXAM Physical Exam GENERAL: Morbidly Obese , HEEN Normocephalic, atraumatic NECK: Supple. HEART: normal first and second heart sounds. No gallop, rub or murmur. LUNGS : Clear to auscultation, decreased at bases, non labored ABDOMEN: Distended, soft, nontender. NEUROLOGIC: Grossly Normal, Moves all 4 extremities . She did complain of n umbness in her left side of the face without any obvious motor deficit. PSYCH COOPERATIVE EXT LE edema + Weiss + , No CVA or SP tenderness DERM No Rash DIAGNOSIS/ASSESSMENT Assessment & Plan JUDITH -atn / Vomiting /Poor po intake/ IV Contrast / Hx of NSAID use . Baseline Cr normal in 2017 per [facility] records. No Interval labs available .UA unremarkable, US Unremarkable, Dialysis on 09/27 ,2 nd treatment 09/29 . Creatinine stable, asymptomatic at rest , No emergent indication for dialysis . Supportive care Strict I/O , Daily standing weight , If Poor PO intake consider IVF . DC Temp HDc prior to dc (Currently used by nursing as central line) follow up with PCP closely and with Nephrology as OP CKD - per Primary's note, No interval labs, dont know her baseline . 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 Renal Duplex Normal . Can add Labetalol . Dw Dr Camejo . 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 Type 2 Diabetes mellitus. she stopped Insulin on her own recently Bronchial asthma COMMENT/RELEVANT DATA Meds Current Medications Medications (Trade) Dose Ordered Sig/Maya Start Time Stop Time Status Last Admin Dose Admin Acetaminophen (Tylenol) 650 mg PRN Q6HRS PRN 09/24/21 16:45 10/08/21 13:48 650 MG Aspirin (Aspirin Rectal Supp) 300 mg PRN DAILY PRN 09/24/21 16:45 Aspirin (Ecotrin) 325 mg DAILYWBKFT 09/24/21 17:00 10/09/21 08:11 325 MG Atorvastatin Calcium (Lipitor) 80 mg QHS 09/24/21 21:00 10/08/21 20:36 80 MG Clonidine HCl (Catapres Tts-3) 1 patch WEEKLY 10/03/21 15:30 10/03/21 15:47 1 PATCH Enoxaparin Sodium (Lovenox 60mg Syringe) 60 mg Q24H 09/25/21 17:00 09/27/21 11:36 DC 09/25/21 17:41 60 MG Enoxaparin Sodium (Lovenox Per Pharmacy Prophylaxis Dosing) 1 each PRN DAILY PRN 09/25/21 16:00 09/27/21 11:43 DC Furosemide (Lasix) 40 mg 1X ONCE 10/04/21 09:45 10/04/21 09:46 DC 10/04/21 11:04 40 MG Heparin Sodium (Porcine) (Heparin Sodium) 5,000 unit Q8HRS 09/27/21 14:00 09/28/21 08:49 DC 09/28/21 06:27 5,000 UNIT Hydralazine HCl (Apresoline) 100 mg TID 10/03/21 10:30 10/09/21 08:11 100 MG Info (PHARMACY MONITORING -- do not chart) 1 each PRN DAILY PRN 09/29/21 10:45 UNV Insulin Glargine (Lantus Syringe) 40 unit 1X ONCE 09/23/21 23:00 09/23/21 23:01 DC 09/23/21 22:21 40 UNIT Insulin Human Lispro (HumaLOG) 20 units TIDWMEALS 09/25/21 08:45 10/09/21 08:13 20 UNITS Labetalol HCl (Trandate) 100 mg BID 10/05/21 13:00 10/09/21 08:12 100 MG Lidocaine HCl (Buffered Lidocaine 1%) 6 ml 1X ONCE 09/26/21 12:15 09/26/21 12:16 DC Losartan Potassium (Cozaar) 100 mg DAILY 09/24/21 09:00 09/25/21 10:31 DC 09/25/21 09:28 100 MG Montelukast Sodium (Singulair) 10 mg DAILY 09/24/21 09:00 10/09/21 08:11 10 MG Nicardipine HCl 50 mg/Sodium Chloride 250 ml @ 25 mls/hr CONT PRN PRN 09/24/21 16:45 09/29/21 14:30 DC 09/28/21 20:30 37.5 MLS/HR Nifedipine (Procardia Xl) 120 mg DAILY 09/28/21 09:15 10/09/21 08:10 120 MG Ondansetron HCl (Zofran Odt) 4 mg PRN Q6HRS PRN 09/25/21 15:00 10/08/21 20:36 4 MG Ondansetron HCl (Zofran) 4 mg PRN Q4HRS PRN 09/26/21 10:15 09/30/21 15:23 4 MG Sodium Chloride 1,000 ml @ 400 mls/hr Q2H30M PRN 09/29/21 10:45 09/29/21 22:44 DC Sodium Chloride ([place] Saline Nasal) 1 jax PRN DAILY PRN 09/26/21 10:15 09/27/21 09:05 1 JAX Spironolactone (Aldactone) 50 mg DAILY 09/24/21 09:00 09/27/21 09:48 DC 09/27/21 09:03 50 MG Zolpidem Tartrate (Ambien) 5 mg PRN QHS PRN 09/23/21 21:45 10/03/21 20:47 5 MG Lab Laboratory Tests Test 10/08/21 11:26 10/08/21 16:47 10/08/21 20:31 10/09/21 04:00 Glucose (Fingerstick) 173 mg/dL (70-99) 168 mg/dL (70-99) 143 mg/dL (70-99) Sodium Level 139 mmol/L (136-145) Potassium Level 4.6 mmol/L (3.5-5.1) Chloride Level 104 mmol/L (98-107) Carbon Dioxide Level 25 mmol/L (21-32) Anion Gap 10 (6-14) Blood Urea Nitrogen 29 mg/dL (7-20) Creatinine 2.3 mg/dL (0.6-1.0) Estimated GFR (Cockcroft-Gault) 23.4 Glucose Level 177 mg/dL (70-99) Calcium Level 8.7 mg/dL (8.5-10.1) Test 10/09/21 07:13 Glucose (Fingerstick) 166 mg/dL (70-99) Results All relevant outside records, renal labs, imaging studies, telemetry/EKG's were reviewed. Justicifation of Admission Dx: Justifications for Admission: Justification of Admission Dx: Yes Stroke - Ischemic: Stroke-Ischemic LISA NORMAN MD October 09, 2021 09:37
--- NOTE | 2021-10-09 10:27 | NUR ---
SS following up with discharge planning. SS reviewed pt chart and discussed with pt RN. Pt is currently on room air. PT/OT recommended inpatient rehabilitation. [employer] denied [facility] in peer to peer with Dr. Camejo. Pt accepted at [facility], ; fax [phone], pending insurance approval. COVID19 PCR pending for placement. SS will continue to follow for discharge planning.
[2021-10-09 11:00] VITALS: BP 136/68
--- NOTE | 2021-10-09 12:22 | PN ---
DATE: 10/09/2021 SUBJECTIVE: The patient is resting, slightly propped up in bed, in no apparent respiratory distress. She is awake, alert. On questioning her, denied any complaint. Nursing staff stated that she continued to show poor motivation. She is not willing even to brush her teeth or get out of the bed to chair. I did speak with the [facility] doctor who was concerned that she may not be able to tolerate aggressive treatment at the rehab center; however, she was evaluated only twice by the physical therapist here and she will make a decision today afternoon after she received the physical therapist evaluation. PHYSICAL EXAMINATION: GENERAL: When I examined her this morning, she looked well and was clearly in no apparent respiratory distress, somewhat pale, not jaundiced, cyanosed, no lymphadenopathy, no thyromegaly, no jugular venous distention. No lower limb edema. VITAL SIGNS: Her heart rate was 85, blood pressure was 152/72, temperature was 98, respiratory rate was 17 and oxygen saturation was 96% on room air. HEAD, EYES, EARS, NOSE, AND THROAT: Normocephalic, atraumatic. NECK: Supple. HEART: Showed normal first and second heart sounds. No gallop or murmur. CHEST: Clear to auscultation, no crepitation or rhonchi. ABDOMEN: Distended, soft, nontender. NEUROLOGIC: She is grossly intact. She does have mild left-sided facial weakness. Her intake was 960, output was 1250. LABORATORY DATA: As of this morning, her serum sodium was 139, potassium 4.6, chloride 104, bicarbonate 25, anion gap of 10, BUN 29, creatinine 2.3. Estimated GFR was 23 mL per minute. Her glucose 177 and calcium was 8.7. ASSESSMENT: 1. Hypertensive encephalopathy, for which she was started on Cardene drip that finally was discontinued. She is now on Procardia 120 mg once a day, hydralazine 100 mg 3 times a day, clonidine TTS 0.3 patch topically once a week as well as labetalol 100 mg twice a day. Her blood pressure has been well controlled. 2. The patient did complain of tingling and numbness in her left side of the face and an MRI showed that she has a focal area of acute to subacute ischemia involving the left lateral shannen and extending into the left brachium pontis. There is an associated cytotoxic edema without significant mass effect or hemorrhage. She continued to have mild weakness in the left side of her face. 3. Acute on chronic kidney injury. Her serum creatinine has plateaued around 2.3 mg/dL. 4. The patient has type 2 diabetes mellitus, seems to be reasonably controlled. 5. Bronchial asthma, clinically quiescent. 6. Morbid obesity and obstructive sleep apnea. 7. The patient has regular menstrual periods, which she was on oral contraceptive pills that was held. 8. Debility and weakness for which she continues to require physical and occupational therapy. PLAN: 1. Continue monitoring kidney function and urine output. 2. Continue with antihypertensive medication. 3. Continue to monitor blood sugar and adjust insulin as needed. 4. Continue with physical and occupational therapy. The patient will be discharged either to [facility] facility if she continued to do poorly on her physical therapy or [facility] if she is doing much better. ADITHYA DR: Jared TID: [id number]
[2021-10-09 15:00] VITALS: BP 141/75
[2021-10-09 19:28] VITALS: BP 147/73
[2021-10-09] MEDS: INSULIN GLARGINE SYRINGE. SQ SCH (20:51)
[2021-10-09] MEDS: ATORVASTATIN CALCIUM 40 MG TABLET. PO SCH (20:51)
[2021-10-09] MEDS: ZOLPIDEM 5 MG TABLET. PO PRN (20:58)
[2021-10-09 22:24] VITALS: BP 159/87
[2021-10-10] VITALS (7 sets, daily range): BP systolic 116–155; BP diastolic 52–80
[2021-10-10] MEDS: ACETAMINOPHEN 325 MG TABLET. PO PRN (00:08)
[2021-10-10] MEDS: ONDANSETRON ODT 4 MG TAB.RAPDIS. PO PRN ×3 (00:23→21:32)
[2021-10-10 05:38] LABS: HEMOGLOBIN 8.7 g/dL (12.0-15.5); RED BLOOD COUNT 3.1 x10^6/uL (3.50-5.40); WHITE BLOOD COUNT 8.3 x10^3/uL (4.0-11.0)
[2021-10-10 05:51] LABS: CALCIUM 8.8 mg/dL (8.5-10.1); CREATININE 2.2 mg/dL (0.6-1.0); GFR 24.6; POTASSIUM 4.7 mmol/L (3.5-5.1)
[2021-10-10] MEDS ORDERED: ZOLP5TAB PO (07:44)
[2021-10-10] MEDS: ASPIRIN ENTERIC COATED 325 MG TABLET.DR. PO SCH (07:46)
[2021-10-10] MEDS: MONTELUKAST SODIUM 10 MG TABLET. PO SCH (07:46)
[2021-10-10] MEDS: cloNIDine TTS-3 1 PATCH PATCH.TDWK TD SCH (07:46)
[2021-10-10] MEDS: LABETALOL HCL 100 MG TABLET. PO SCH ×2 (07:47→21:26)
--- NOTE | 2021-10-10 07:47 | SNU/HH DC ---
DISCHARGE ORDERS DISCHARGE INFORMATION: DISCHARGE DATE: October 10, 2021 FINAL DIAGNOSIS hypertensive encephalopathy acute on chronic kidney injury CONDITION ON DISCHARGE: Stable CODE STATUS: Code Status: Full FCI: SNF STAY <30 DAYS: Yes POST DISCHARGE ORDERS: ACTIVITY ORDERS: Activity as tolerated WEIGHT BEARING STATUS: As tolerated DIET AFTER DISCHARGE: ADA TREATMENT/EQUIPMENT ORDERS: Physical Therapy For: Evalulation/Treatment Occupational Therapy For: Evaluation/Treatment DISCHARGE MEDICATIONS: Home Meds Active Scripts Zolpidem Tartrate (AMBIEN) 5 Mg Tablet, 5 MG PO PRN QHS PRN for INSOMNIA for 30 Days, #30 TAB 0 Refills Prov:SOFI TUTTLE MD 10/10/21 Insulin Detemir (Levemir Flextouch) 100 Unit/1 Ml Insuln.pen, 40 UNITS SQ QHS for 30 Days, EACH Prov:NASRIN HONEYCUTT MD 01/02/17 Insulin Aspart (NOVOLOG FLEXPEN) 100 Unit/1 Ml Insuln.pen, 15 UNITS SQ TIDAC for 30 Days, EACH Prov:NASRIN HONEYCUTT MD 01/02/17 Reported Medications Norgestimate-Ethinyl Estradiol (TRI-SPRINTEC) 1 Each Tablet, 1 TAB PO DAILY for menstrual cycle, #28 TAB 11 Refills 09/23/21 Spironolactone (SPIRONOLACTONE) 50 Mg Tablet, 1 TAB PO DAILY for HTN, #30 TAB 5 Refills 09/23/21 Montelukast Sodium (MONTELUKAST SODIUM TABLET ) 10 Mg Tablet, 10 MG PO DAILY for FOR ASTHMA, TAB 0 Refills 09/23/21 Losartan Potassium (LOSARTAN POTASSIUM) 100 Mg Tablet, 100 MG PO DAILY for HYPERTENSION, TAB 09/23/21 SOFI TUTTLE MD October 10, 2021 07:47
[2021-10-10] MEDS: INSULIN LISPRO 300 UNITS/3 ML VIAL. SQ SCH ×3 (07:48→19:02)
--- NOTE | 2021-10-10 10:12 | PDOC ---
DATE OF SERVICE DATE: 10/10/21 TIME: 10:10 SUBJECTIVE ROS Denies SOB , No N/V. same complaint of feeling tired OBJECTIVE Vital Signs Vital Signs Date Time Temp Pulse Resp B/P (MAP) Pulse Ox O2 Delivery O2 Flow Rate FiO2 10/10/21 08:00 Room Air 10/10/21 07:47 85 136/72 10/10/21 07:00 98.2 17 94 98.2 I & 0 Intake and Output 10/10/21 07:00 Intake Total 940 ml Output Total 2100 ml Balance -1160 ml Intake Oral 940 ml Output Urine Total 2100 ml PHYSICAL EXAM Physical Exam GENERAL: Morbidly Obese , HEEN Normocephalic, atraumatic NECK: Supple. HEART: normal first and second heart sounds. No gallop, rub or murmur. LUNGS : Clear to auscultation, decreased at bases, non labored ABDOMEN: Distended, soft, nontender. NEUROLOGIC: Grossly Normal, Moves all 4 extremities . She did complain of numbness in her left side of the face without any obvious motor deficit. PSYCH COOPERATIVE EXT LE edema + Weiss + , No CVA or SP tenderness DERM No Rash DIAGNOSIS/ASSESSMENT Assessment & Plan JUDITH -atn / Vomiting /Poor po intake/ IV Contrast / Hx of NSAID use . Baseline Cr normal in 2017 per [facility] records. No Interval labs available .UA unremarkable, US Unremarkable, Dialysis on 09/27 ,2 nd treatment 09/29 , no HD since. . Creatinine stable, . Supportive care Strict I/O , Daily standing weight , If Poor PO intake consider IVF . DC Temp HDc prior to dc (Currently used by nursing as central line) follow up with PCP closely and with Nephrology as OP CKD - per Primary's note, No interval labs, dont know her baseline . 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 Renal Duplex Normal . Can add Labetalol . Dw Dr Camejo . 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 Type 2 Diabetes mellitus. she stopped Insulin on her own recently Bronchial asthma COMMENT/RELEVANT DATA Meds Current Medications Medications (Trade) Dose Ordered Sig/Maya Start Time Stop Time Status Last Admin Dose Admin Acetaminophen (Tylenol) 650 mg PRN Q6HRS PRN 09/24/21 16:45 10/10/21 00:08 650 MG Aspirin (Aspirin Rectal Supp) 300 mg PRN DAILY PRN 09/24/21 16:45 Aspirin (Ecotrin) 325 mg DAILYWBKFT 09/24/21 17:00 10/10/21 07:46 325 MG Atorvastatin Calcium (Lipitor) 80 mg QHS 09/24/21 21:00 10/09/21 20:51 80 MG Clonidine HCl (Catapres Tts-3) 1 patch WEEKLY 10/03/21 15:30 10/10/21 07:46 1 PATCH Enoxaparin Sodium (Lovenox 60mg Syringe) 60 mg Q24H 09/25/21 17:00 09/27/21 11:36 DC 09/25/21 17:41 60 MG Enoxaparin Sodium (Lovenox Per Pharmacy Prophylaxis Dosing) 1 each PRN DAILY PRN 09/25/21 16:00 09/27/21 11:43 DC Furosemide (Lasix) 40 mg 1X ONCE 10/04/21 09:45 10/04/21 09:46 DC 10/04/21 11:04 40 MG Heparin Sodium (Porcine) (Heparin Sodium) 5,000 unit Q8HRS 09/27/21 14:00 09/28/21 08:49 DC 09/28/21 06:27 5,000 UNIT Hydralazine HCl (Apresoline) 100 mg TID 10/03/21 10:30 10/10/21 07:45 100 MG Info (PHARMACY MONITORING -- do not chart) 1 each PRN DAILY PRN 09/29/21 10:45 UNV Insulin Glargine (Lantus Syringe) 40 unit 1X ONCE 09/23/21 23:00 09/23/21 23:01 DC 09/23/21 22:21 40 UNIT Insulin Human Lispro (HumaLOG) 20 units TIDWMEALS 09/25/21 08:45 10/10/21 07:48 20 UNITS Labetalol HCl (Trandate) 100 mg BID 10/05/21 13:00 10/10/21 07:47 100 MG Lidocaine HCl (Buffered Lidocaine 1%) 6 ml 1X ONCE 09/26/21 12:15 09/26/21 12:16 DC Losartan Potassium (Cozaar) 100 mg DAILY 09/24/21 09:00 09/25/21 10:31 DC 09/25/21 09:28 100 MG Montelukast Sodium (Singulair) 10 mg DAILY 09/24/21 09:00 10/10/21 07:46 10 MG Nicardipine HCl 50 mg/Sodium Chloride 250 ml @ 25 mls/hr CONT PRN PRN 09/24/21 16:45 09/29/21 14:30 DC 09/28/21 20:30 37.5 MLS/HR Nifedipine (Procardia Xl) 120 mg DAILY 09/28/21 09:15 10/10/21 07:46 120 MG Ondansetron HCl (Zofran Odt) 4 mg PRN Q6HRS PRN 09/25/21 15:00 10/10/21 00:23 4 MG Ondansetron HCl (Zofran) 4 mg PRN Q4HRS PRN 09/26/21 10:15 09/30/21 15:23 4 MG Sodium Chloride 1,000 ml @ 400 mls/hr Q2H30M PRN 09/29/21 10:45 09/29/21 22:44 DC Sodium Chloride ([place] Saline Nasal) 1 jax PRN DAILY PRN 09/26/21 10:15 09/27/21 09:05 1 JAX Spironolactone (Aldactone) 50 mg DAILY 09/24/21 09:00 09/27/21 09:48 DC 09/27/21 09:03 50 MG Zolpidem Tartrate (Ambien) 5 mg PRN QHS PRN 09/23/21 21:45 10/09/21 20:58 5 MG Lab Laboratory Tests Test 10/09/21 11:47 10/09/21 17:02 10/09/21 19:29 10/10/21 05:15 Glucose (Fingerstick) 133 mg/dL (70-99) 148 mg/dL (70-99) 119 mg/dL (70-99) White Blood Count 8.3 x10^3/uL (4.0-11.0) Red Blood Count 3.10 x10^6/uL (3.50-5.40) Hemoglobin 8.7 g/dL (12.0-15.5) Hematocrit 27.0 % (36.0-47.0) Mean Corpuscular Volume 87 fL (79-100) Mean Corpuscular Hemoglobin 28 pg (25-35) Mean Corpuscular Hemoglobin Concent 32 g/dL (31-37) Red Cell Distribution Width 14.0 % (11.5-14.5) Platelet Count 310 x10^3/uL (140-400) Sodium Level 137 mmol/L (136-145) Potassium Level 4.7 mmol/L (3.5-5.1) Chloride Level 104 mmol/L (98-107) Carbon Dioxide Level 26 mmol/L (21-32) Anion Gap 7 (6-14) Blood Urea Nitrogen 33 mg/dL (7-20) Creatinine 2.2 mg/dL (0.6-1.0) Estimated GFR (Cockcroft-Gault) 24.6 Glucose Level 183 mg/dL (70-99) Calcium Level 8.8 mg/dL (8.5-10.1) Test 10/10/21 07:27 Glucose (Fingerstick) 155 mg/dL (70-99) Results All relevant outside records, renal labs, imaging studies, telemetry/EKG's were reviewed. Justicifation of Admission Dx: Justifications for Admission: Justification of Admission Dx: Yes Stroke - Ischemic: Stroke-Ischemic LISA NORMAN MD October 10, 2021 10:12
--- NOTE | 2021-10-10 11:52 | PDOC ---
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 Has left facial numbness still, needs roller walker to ambulate Hypertensive encephalopathy, blood pressure still running very high, could not participate in physical therapy yesterday [id number] kidney injury, had CT angiogram of chest at [facility]. Started dialysis, now stopped History of diabetes, hypertension, hyperlipidemia, noncompliant, asthma, sleep apnea Echocardiogram noted, I do not think she needs a transesophageal echocardiogram, the location of the stroke is unlikely cardiac-source Plan Aspirin High-dose statin Treatment of hypertension. Tightened parameters back to 150/90 starting 09/26 Rehabilitation modalities I see that insurance company denied transfer to [facility] rehab, that would cut into their profits, so we are trying to place her in snf. Subjective Worried about her kidneys Objective Vital Signs Date Time Temp Pulse Resp B/P (MAP) Pulse Ox O2 Delivery O2 Flow Rate FiO2 10/10/21 11:00 98.0 60 17 142/78 (99) 93 Room Air 98.0 Intake and Output 10/10/21 07:00 Intake Total 940 ml Output Total 2100 ml Balance -1160 ml Intake Oral 940 ml Output Urine Total 2100 ml PHYSICAL EXAM Alert. Oriented to time, place and person. PERRL. EOMI. CN: Slight left cheek sensory loss, slight left central facial weakness, otherwise no focal findings. Muscle tone: normal. Muscle strength: 4/5 DTR: 2+ Plantar reflex: Flexor Gait: not examined in bed. Sensory exam: no abnormal findings. No cerebellar signs elicited. Review of Relevant I have reviewed the following items mauricio (where applicable) has been applied. Labs Laboratory Tests Test 10/08/21 16:47 10/08/21 20:31 10/09/21 04:00 10/09/21 07:13 Glucose (Fingerstick) 168 mg/dL (70-99) 143 mg/dL (70-99) 166 mg/dL (70-99) Sodium Level 139 mmol/L (136-145) Potassium Level 4.6 mmol/L (3.5-5.1) Chloride Level 104 mmol/L (98-107) Carbon Dioxide Level 25 mmol/L (21-32) Anion Gap 10 (6-14) Blood Urea Nitrogen 29 mg/dL (7-20) Creatinine 2.3 mg/dL (0.6-1.0) Estimated GFR (Cockcroft-Gault) 23.4 Glucose Level 177 mg/dL (70-99) Calcium Level 8.7 mg/dL (8.5-10.1) Test 10/09/21 09:02 10/09/21 11:47 10/09/21 17:02 10/09/21 19:29 Coronavirus (COVID-19)(PCR) Not detected (NOT DETECTD) Glucose (Fingerstick) 133 mg/dL (70-99) 148 mg/dL (70-99) 119 mg/dL (70-99) Test 10/10/21 05:15 10/10/21 07:27 10/10/21 10:43 White Blood Count 8.3 x10^3/uL (4.0-11.0) Red Blood Count 3.10 x10^6/uL (3.50-5.40) Hemoglobin 8.7 g/dL (12.0-15.5) Hematocrit 27.0 % (36.0-47.0) Mean Corpuscular Volume 87 fL (79-100) Mean Corpuscular Hemoglobin 28 pg (25-35) Mean Corpuscular Hemoglobin Concent 32 g/dL (31-37) Red Cell Distribution Width 14.0 % (11.5-14.5) Platelet Count 310 x10^3/uL (140-400) Sodium Level 137 mmol/L (136-145) Potassium Level 4.7 mmol/L (3.5-5.1) Chloride Level 104 mmol/L (98-107) Carbon Dioxide Level 26 mmol/L (21-32) Anion Gap 7 (6-14) Blood Urea Nitrogen 33 mg/dL (7-20) Creatinine 2.2 mg/dL (0.6-1.0) Estimated GFR (Cockcroft-Gault) 24.6 Glucose Level 183 mg/dL (70-99) Calcium Level 8.8 mg/dL (8.5-10.1) Glucose (Fingerstick) 155 mg/dL (70-99) 147 mg/dL (70-99) Laboratory Tests Test 10/09/21 17:02 10/09/21 19:29 10/10/21 05:15 10/10/21 07:27 Glucose (Fingerstick) 148 mg/dL (70-99) 119 mg/dL (70-99) 155 mg/dL (70-99) White Blood Count 8.3 x10^3/uL (4.0-11.0) Red Blood Count 3.10 x10^6/uL (3.50-5.40) Hemoglobin 8.7 g/dL (12.0-15.5) Hematocrit 27.0 % (36.0-47.0) Mean Corpuscular Volume 87 fL (79-100) Mean Corpuscular Hemoglobin 28 pg (25-35) Mean Corpuscular Hemoglobin Concent 32 g/dL (31-37) Red Cell Distribution Width 14.0 % (11.5-14.5) Platelet Count 310 x10^3/uL (140-400) Sodium Level 137 mmol/L (136-145) Potassium Level 4.7 mmol/L (3.5-5.1) Chloride Level 104 mmol/L (98-107) Carbon Dioxide Level 26 mmol/L (21-32) Anion Gap 7 (6-14) Blood Urea Nitrogen 33 mg/dL (7-20) Creatinine 2.2 mg/dL (0.6-1.0) Estimated GFR (Cockcroft-Gault) 24.6 Glucose Level 183 mg/dL (70-99) Calcium Level 8.8 mg/dL (8.5-10.1) Test 10/10/21 10:43 Glucose (Fingerstick) 147 mg/dL (70-99) Medications Current Medications Nicardipine HCl 50 mg/Sodium Chloride 250 ml @ 25 mls/hr CONT PRN IV PER PROTOCOL Last administered on 09/24/21at 15:53; Start 09/23/21 at 21:45; Stop 09/24/21 at 16:43; Status DC Nifedipine (Procardia Xl) 30 mg DAILY PO Last administered on 09/27/21at 09:04; Start 09/24/21 at 09:00; Stop 09/27/21 at 09:48; Status DC Zolpidem Tartrate (Ambien) 5 mg PRN QHS PRN PO INSOMNIA Last administered on 10/09/21at 20:58; Start 09/23/21 at 21:45 Montelukast Sodium (Singulair) 10 mg DAILY PO Last administered on 10/10/21 07:46; Start 09/24/21 at 09:00 Insulin Human Lispro (HumaLOG) 15 units TIDWMEALS SQ Last administered on 09/24/21 18:30; Start 09/24/21 at 08:00; Stop 09/25/21 at 08:47; Status DC Insulin Glargine (Lantus Syringe) 40 unit QHS SQ Last administered on 10/08/21at 20:40; Start 09/24/21 at 21:00 Losartan Potassium (Cozaar) 100 mg DAILY PO Last administered on 09/25/21 09:28; Start 09/24/21 at 09:00; Stop 09/25/21 at 10:31; Status DC Spironolactone (Aldactone) 50 mg DAILY PO Last administered on 09/27/21 09:03; Start 09/24/21 at 09:00; Stop 09/27/21 at 09:48; Status DC Insulin Glargine (Lantus Syringe) 40 unit 1X ONCE SQ Last administered on 09/23/21at 22:21; Start 09/23/21 at 23:00; Stop 09/23/21 at 23:01; Status DC Sodium Chloride 1,000 ml @ 25 mls/hr Q24H IV Last administered on 09/27/21at 09:55; Start 09/24/21 at 15:15; Stop 09/29/21 at 14:30; Status DC Nicardipine HCl 50 mg/Sodium Chloride 250 ml @ 25 mls/hr CONT PRN PRN IV PER PROTOCOL Last administered on 09/28/21 20:30; Start 09/24/21 at 16:45; Stop 09/29/21 at 14:30; Status DC Atorvastatin Calcium (Lipitor) 80 mg QHS PO Last administered on 10/09/21 20:51; Start 09/24/21 at 21:00 Acetaminophen (Tylenol) 650 mg PRN Q6HRS PRN PO MILD PAIN / TEMP > 100.3'F Last administered on 10/10/21at 00:08; Start 09/24/21 at 16:45 Aspirin (Ecotrin) 325 mg DAILYWBKFT PO Last administered on 10/10/21 07:46; Start 09/24/21 at 17:00 Aspirin (Aspirin Rectal Supp) 300 mg PRN DAILY PRN RI IF UNABLE TO TAKE PO; Start 09/24/21 at 16:45 Insulin Human Lispro (HumaLOG) 20 units TIDWMEALS SQ Last administered on 10/10/21at 07:48; Start 09/25/21 at 08:45 Ondansetron HCl (Zofran Odt) 4 mg PRN Q6HRS PRN PO NAUSEA/VOMITING Last administered on 10/10/21at 00:23; Start 09/25/21 at 15:00 Enoxaparin Sodium (Lovenox Per Pharmacy Prophylaxis Dosing) 1 each PRN DAILY PRN MC SEE COMMENTS; Start 09/25/21 at 16:00; Stop 09/27/21 at 11:43; Status DC Enoxaparin Sodium (Lovenox 60mg Syringe) 60 mg Q24H SQ Last administered on 09/25/21at 17:41; Start 09/25/21 at 17:00; Stop 09/27/21 at 11:36; Status DC Ondansetron HCl (Zofran) 4 mg PRN Q4HRS PRN IVP NAUSEA/VOMITING Last administered on 09/30/21at 15:23; Start 09/26/21 at 10:15 Sodium Chloride ([place] Saline Nasal) 1 jax PRN DAILY PRN NS NASAL CONGESTION Last administered on 09/27/21at 09:05; Start 09/26/21 at 10:15 Lidocaine HCl (Buffered Lidocaine 1%) 3 ml STK-MED ONCE .ROUTE ; Start 09/26/21 at 11:30; Stop 09/26/21 at 11:30; Status DC Lidocaine HCl (Buffered Lidocaine 1%) 6 ml 1X ONCE INJ ; Start 09/26/21 at 12:15; Stop 09/26/21 at 12:16; Status DC Sodium Chloride 1,000 ml @ 1,000 mls/hr Q1H PRN IV hypotension; Start 09/27/21 at 08:30; Stop 09/27/21 at 14:29; Status DC Sodium Chloride 1,000 ml @ 400 mls/hr Q2H30M PRN IV PATENCY; Start 09/27/21 at 08:30; Stop 09/27/21 at 20:29; Status DC Info (PHARMACY MONITORING -- do not chart) 1 each PRN DAILY PRN MC SEE COMMENTS; Start 09/27/21 at 08:30 Info (PHARMACY MONITORING -- do not chart) 1 each PRN DAILY PRN MC SEE COMME NTS; Start 09/27/21 at 08:30; Stop 09/27/21 at 08:27; Status DC Nifedipine (Procardia Xl) 60 mg DAILY PO Last administered on 09/27/21at 15:53; Start 09/27/21 at 10:00; Stop 09/28/21 at 07:15; Status DC Heparin Sodium (Porcine) (Heparin Sodium) 5,000 unit Q8HRS SQ Last administered on 09/28/21at 06:27; Start 09/27/21 at 14:00; Stop 09/28/21 at 08:49; Status DC Nifedipine (Procardia Xl) 90 mg DAILY PO Last administered on 09/28/21at 08:26; Start 09/28/21 at 09:00; Stop 09/28/21 at 09:12; Status DC Nifedipine (Procardia Xl) 120 mg DAILY PO Last administered on 10/10/21at 07:46; Start 09/28/21 at 09:15 Sodium Chloride 1,000 ml @ 1,000 mls/hr Q1H PRN IV hypotension; Start 09/29/21 at 10:45; Stop 09/29/21 at 16:44; Status DC Sodium Chloride 1,000 ml @ 400 mls/hr Q2H30M PRN IV PATENCY; Start 09/29/21 at 10:45; Stop 09/29/21 at 22:44; Status DC Info (PHARMACY MONITORING -- do not chart) 1 each PRN DAILY PRN MC SEE COMMENTS; Start 09/29/21 at 10:45; Status UNV Hydralazine HCl (Apresoline) 25 mg TID PO Last administered on 10/02/21at 07:57; Start 10/01/21 at 10:30; Stop 10/02/21 at 08:51; Status DC Hydralazine HCl (Apresoline) 50 mg TID PO Last administered on 10/03/21at 08:34; Start 10/02/21 at 09:00; Stop 10/03/21 at 10:20; Status DC Furosemide (Lasix) 40 mg 1X ONCE IVP Last administered on 10/02/21at 14:42; Start 10/02/21 at 14:45; Stop 10/02/21 at 14:46; Status DC Hydralazine HCl (Apresoline) 100 mg TID PO Last administered on 10/10/21at 07:45; Start 10/03/21 at 10:30 Clonidine HCl (Catapres Tts-3) 1 patch WEEKLY TD Last administered on 10/10/21at 07:46; Start 10/03/21 at 15:30 Furosemide (Lasix) 40 mg 1X ONCE IVP Last administered on 10/04/21at 11:04; Start 10/04/21 at 09:45; Stop 10/04/21 at 09:46; Status DC Labetalol HCl (Trandate) 100 mg BID PO Last administered on 10/10/21at 07:47; Start 10/05/21 at 13:00 Active Scripts Active Ambien (Zolpidem Tartrate) 5 Mg Tablet 5 Mg PO PRN QHS PRN 30 Days Levemir Flextouch (Insulin Detemir) 100 Unit/1 Ml Insuln.pen 40 Units SQ QHS 30 Days Novolog Flexpen (Insulin Aspart) 100 Unit/1 Ml Insuln.pen 15 Units SQ TIDAC 30 Days Reported Tri-Sprintec (Norgestimate-Ethinyl Estradiol) 1 Each Tablet 1 Tab PO DAILY Spironolactone 50 Mg Tablet 1 Tab PO DAILY Montelukast Sodium Tablet (Montelukast Sodium) 10 Mg Tablet 10 Mg PO DAILY Losartan Potassium 100 Mg Tablet 100 Mg PO DAILY Vitals/I & O Vital Sign - Last 24 Hours 10/09/21 10/09/21 10/09/21 10/09/21 13:29 15:00 19:28 20:00 Temp 98.0 98.0 98.0 98.0 Pulse 84 87 89 Resp 17 17 B/P (MAP) 136/68 141/75 (97) 147/73 (97) Pulse Ox 92 92 O2 Delivery Room Air Room Air Room Air 10/09/21 10/09/21 10/09/21 10/10/21 20:50 20:51 22:24 02:29 Temp 98.2 98.1 98.2 98.1 Pulse 89 89 90 85 Resp 17 17 B/P (MAP) 159/85 159/85 159/87 (111) 155/80 (105) Pulse Ox 93 93 O2 Delivery Room Air Room Air 10/10/21 10/10/21 10/10/21 10/10/21 07:00 07:45 07:46 07:47 Temp 98.2 98.2 Pulse 88 85 85 85 Resp 17 B/P (MAP) 136/66 (89) 136/76 136/72 136/72 Pulse Ox 94 O2 Delivery Room Air 10/10/21 10/10/21 08:00 11:00 Temp 98.0 98.0 Pulse 60 Resp 17 B/P (MAP) 142/78 (99) Pulse Ox 93 O2 Delivery Room Air Room Air Intake and Output 10/09/21 10/09/21 10/10/21 15:00 23:00 07:00 Intake Total 600 ml 120 ml 220 ml Output Total 500 ml 700 ml 900 ml Balance 100 ml -580 ml -680 ml Justicifation of Admission Dx: Justifications for Admission: Justification of Admission Dx: Yes Stroke - Ischemic: Stroke-Ischemic DOLORES TRISTAN MD October 10, 2021 11:52
--- NOTE | 2021-10-10 14:09 | NUR ---
SS following up with discharge planning. SS reviewed pt chart and discussed with pt RN. Pt is currently on room air. PT/OT recommended inpatient rehabilitation. Pt accepted at [facility], ; fax [phone], pending insurance approval. COVID19 negative. Currently awaiting insurance approval. SS will continue to follow for discharge planning. Addendum: 10/10/21 at 1458 by JESSICA MCDANIEL SS Insurance authorization received for [facility]. [facility] reported that they can admit in the morning. Physician and RN notified.
[2021-10-10] MEDS: ATORVASTATIN CALCIUM 40 MG TABLET. PO SCH (21:26)
[2021-10-10] MEDS: INSULIN GLARGINE SYRINGE. SQ SCH (21:31)
[2021-10-11 02:38] VITALS: BP 134/62
[2021-10-11 05:49] LABS: CALCIUM 8.8 mg/dL (8.5-10.1); CREATININE 2.2 mg/dL (0.6-1.0); GFR 24.6; POTASSIUM 4.6 mmol/L (3.5-5.1)
[2021-10-11 07:00] VITALS: BP 131/78
[2021-10-11] MEDS: ASPIRIN ENTERIC COATED 325 MG TABLET.DR. PO SCH (07:43)
[2021-10-11 07:44] VITALS: BP 134/62
[2021-10-11] MEDS: MONTELUKAST SODIUM 10 MG TABLET. PO SCH (07:44)
[2021-10-11] MEDS: LABETALOL HCL 100 MG TABLET. PO SCH (07:44)
[2021-10-11] MEDS: INSULIN LISPRO 300 UNITS/3 ML VIAL. SQ SCH (07:47)
--- NOTE | 2021-10-11 09:55 | PDOC ---
DATE OF SERVICE DATE: 10/11/21 TIME: 09:54 SUBJECTIVE ROS Denies SOB , No N/V. OBJECTIVE Vital Signs Vital Signs Date Time Temp Pulse Resp B/P (MAP) Pulse Ox O2 Delivery O2 Flow Rate FiO2 10/11/21 08:00 Room Air 10/11/21 07:44 87 134/62 10/11/21 07:00 99.5 17 97 99.5 I & 0 Intake and Output 10/11/21 07:00 Intake Total 1200 ml Output Total 1200 ml Balance 0 ml Intake Oral 1200 ml Output Urine Total 1200 ml PHYSICAL EXAM Physical Exam GENERAL: Morbidly Obese , HEEN Normocephalic, atraumatic NECK: Supple. HEART: normal first and second heart sounds. No gallop, rub or murmur. LUNGS : Clear to auscultation, decreased at bases, non labored ABDOMEN: Distended, soft, nontender. NEUROLOGIC: Grossly Normal, Moves all 4 extremities . She did complain of num bness in her left side of the face without any obvious motor deficit. PSYCH COOPERATIVE EXT LE edema + Weiss + , No CVA or SP tenderness DERM No Rash DIAGNOSIS/ASSESSMENT Assessment & Plan JUDITH -atn / Vomiting /Poor po intake/ IV Contrast / Hx of NSAID use . Baseline Cr normal in 2017 per [facility] records. No Interval labs available .UA unremarkable, US Unremarkable, Dialysis on 09/27 ,2 nd treatment 09/29 , no HD since. . Creatinine stable, . Supportive care Strict I/O , Daily standing weight . DC Temp HDc prior to dc (Currently used by nursing as central line) follow up with PCP closely and with Nephrology as OP CKD - per Primary's note, No interval labs, dont know her baseline . 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 Renal Duplex Normal . Can add Labetalol . Dw Dr Camejo . 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 Type 2 Diabetes mellitus. she stopped Insulin on her own recently Bronchial asthma COMMENT/RELEVANT DATA Meds Current Medications Medications (Trade) Dose Ordered Sig/Maya Start Time Stop Time Status Last Admin Dose Admin Acetaminophen (Tylenol) 650 mg PRN Q6HRS PRN 09/24/21 16:45 10/10/21 00:08 650 MG Aspirin (Aspirin Rectal Supp) 300 mg PRN DAILY PRN 09/24/21 16:45 Aspirin (Ecotrin) 325 mg DAILYWBKFT 09/24/21 17:00 10/11/21 07:43 325 MG Atorvastatin Calcium (Lipitor) 80 mg QHS 09/24/21 21:00 10/10/21 21:26 80 MG Clonidine HCl (Catapres Tts-3) 1 patch WEEKLY 10/03/21 15:30 10/10/21 07:46 1 PATCH Enoxaparin Sodium (Lovenox 60mg Syringe) 60 mg Q24H 09/25/21 17:00 09/27/21 11:36 DC 09/25/21 17:41 60 MG Enoxaparin Sodium (Lovenox Per Pharmacy Prophylaxis Dosing) 1 each PRN DAILY PRN 09/25/21 16:00 09/27/21 11:43 DC Furosemide (Lasix) 40 mg 1X ONCE 10/04/21 09:45 10/04/21 09:46 DC 10/04/21 11:04 40 MG Heparin Sodium (Porcine) (Heparin Sodium) 5,000 unit Q8HRS 09/27/21 14:00 09/28/21 08:49 DC 09/28/21 06:27 5,000 UNIT Hydralazine HCl (Apresoline) 100 mg TID 10/03/21 10:30 10/11/21 07:44 100 MG Info (PHARMACY MONITORING -- do not chart) 1 each PRN DAILY PRN 09/29/21 10:45 UNV Insulin Glargine (Lantus Syringe) 40 unit 1X ONCE 09/23/21 23:00 09/23/21 23:01 DC 09/23/21 22:21 40 UNIT Insulin Human Lispro (HumaLOG) 20 units TIDWMEALS 09/25/21 08:45 10/11/21 07:47 20 UNITS Labetalol HCl (Trandate) 100 mg BID 10/05/21 13:00 10/11/21 07:44 100 MG Lidocaine HCl (Buffered Lidocaine 1%) 6 ml 1X ONCE 09/26/21 12:15 09/26/21 12:16 DC Losartan Potassium (Cozaar) 100 mg DAILY 09/24/21 09:00 09/25/21 10:31 DC 09/25/21 09:28 100 MG Montelukast Sodium (Singulair) 10 mg DAILY 09/24/21 09:00 10/11/21 07:44 10 MG Nicardipine HCl 50 mg/Sodium Chloride 250 ml @ 25 mls/hr CONT PRN PRN 09/24/21 16:45 09/29/21 14:30 DC 09/28/21 20:30 37.5 MLS/HR Nifedipine (Procardia Xl) 120 mg DAILY 09/28/21 09:15 10/11/21 07:43 120 MG Ondansetron HCl (Zofran Odt) 4 mg PRN Q6HRS PRN 09/25/21 15:00 10/10/21 21:32 4 MG Ondansetron HCl (Zofran) 4 mg PRN Q4HRS PRN 09/26/21 10:15 09/30/21 15:23 4 MG Sodium Chloride 1,000 ml @ 400 mls/hr Q2H30M PRN 09/29/21 10:45 09/29/21 22:44 DC Sodium Chloride ([place] Saline Nasal) 1 jax PRN DAILY PRN 09/26/21 10:15 09/27/21 09:05 1 JAX Spironolactone (Aldactone) 50 mg DAILY 09/24/21 09:00 09/27/21 09:48 DC 09/27/21 09:03 50 MG Zolpidem Tartrate (Ambien) 5 mg PRN QHS PRN 09/23/21 21:45 10/09/21 20:58 5 MG Lab Laboratory Tests Test 10/10/21 10:43 10/10/21 16:48 10/10/21 20:27 10/11/21 05:15 Glucose (Fingerstick) 147 mg/dL (70-99) 142 mg/dL (70-99) 175 mg/dL (70-99) Sodium Level 140 mmol/L (136-145) Potassium Level 4.6 mmol/L (3.5-5.1) Chloride Level 106 mmol/L (98-107) Carbon Dioxide Level 26 mmol/L (21-32) Anion Gap 8 (6-14) Blood Urea Nitrogen 34 mg/dL (7-20) Creatinine 2.2 mg/dL (0.6-1.0) Estimated GFR (Cockcroft-Gault) 24.6 Glucose Level 167 mg/dL (70-99) Calcium Level 8.8 mg/dL (8.5-10.1) Test 10/11/21 07:08 Glucose (Fingerstick) 146 mg/dL (70-99) Results All relevant outside records, renal labs, imaging studies, telemetry/EKG's were reviewed. Justicifation of Admission Dx: Justifications for Admission: Justification of Admission Dx: Yes Stroke - Ischemic: Stroke-Ischemic LISA NORMAN MD October 11, 2021 09:55
--- NOTE | 2021-10-11 11:20 | NUR ---
Discharge Note: ROSALINDA HURT [address] Discharge instructions and discharge home medications reviewed with Other facility and a copy given. All questions have been answered and understanding verbalized. The following instructions and handouts were given: Packet and report Discontinued lines and drains: Trialysis cath and heart monitor removed Patient discharged to [facility]
== END 2021-10-11 10:30 | DRG 64 ==
LOC: 1 WEST ICU 20:58 → 6 SOUTH 09-28 11:27
PROVIDERS: ADMIT Internal Medicine; ATTEND Internal Medicine
PROC: 02HV33Z Insertion of Infusion Device into Superior Vena Cava, Percutaneous Approach (ICD-10-PCS; principal; 2021-09-26)
PROC: B548ZZA Ultrasonography of Superior Vena Cava, Guidance (ICD-10-PCS; 2021-09-26)
PROC: 5A1D70Z Performance of Urinary Filtration, Intermittent, Less than 6 Hours Per Day (ICD-10-PCS; 2021-09-27)
PROC: 5A1D70Z Performance of Urinary Filtration, Intermittent, Less than 6 Hours Per Day (ICD-10-PCS; 2021-09-29)
DX: I63.29 Cerebral infarction due to unspecified occlusion or stenosis of other precerebral arteries (principal); G93.6 Cerebral edema; N17.0 Acute kidney failure with tubular necrosis; I67.4 Hypertensive encephalopathy; Z68.44 Body mass index [BMI] 60.0-69.9, adult; E11.22 Type 2 diabetes mellitus with diabetic chronic kidney disease; E66.01 Morbid (severe) obesity due to excess calories; E78.5 Hyperlipidemia, unspecified; G47.33 Obstructive sleep apnea (adult) (pediatric); I12.9 Hypertensive chronic kidney disease with stage 1 through stage 4 chronic kidney disease, or unspecified chronic kidney disease; J45.909 Unspecified asthma, uncomplicated; N14.1 Nephropathy induced by other drugs, medicaments and biological substances; N18.9 Chronic kidney disease, unspecified; N92.6 Irregular menstruation, unspecified; T50.8X5A Adverse effect of diagnostic agents, initial encounter; Z63.4 Disappearance and death of family member; Z79.4 Long term (current) use of insulin; Z79.899 Other long term (current) drug therapy; Z82.49 Family history of ischemic heart disease and other diseases of the circulatory system; Z83.3 Family history of diabetes mellitus; Z91.14 Patient's other noncompliance with medication regimen; Z91.19 Patient's noncompliance with other medical treatment and regimen; Z98.41 Cataract extraction status, right eye; Z98.42 Cataract extraction status, left eye; M19.90 Unspecified osteoarthritis, unspecified site; Z74.01 Bed confinement status
CPT/HCPCS: 36415; 36556; 70450; 70551; 71045; 76770; 76937; 80048; 80053; 80061; 81001; 82550; 82570; 82962; 84156; 85018; 85025; 85027; 85651; 86317; 86706; 87340; 93306; 93880; 93970; C1892; J1644; J1650; J1815; J1940; J2405; J3490; J7030; J7050; U0003; 92526-GN; 92610-GN; 97110-GP; 97116-GP; 97530-GO; 97530-GP; 97535-GO; C8929; G0378